=== PATIENT | female | born 1935 | race Caucasian/White ===

== ENCOUNTER 2017-11-24 19:50 | Inpatient (IN) | payer MEDICARE ==
--- NOTE | 2017-11-24 20:06 | ED ---
General Adult HPI - General Chief complaint: Shortness of Breath Stated complaint: SOB Time Seen by Provider: 11/24/17 20:06 Source: patient, family, RN notes reviewed, old records reviewed Mode of arrival: wheelchair Limitations: no limitations - History of Present Illness Initial comments: This is an 82-year-old female to the ER for evaluation shortness of breath. Patient has significant shortness of breath and mild anxiety regarding shortness of breath. Patient states is very positional she cannot laid out flat. Patient states she does have history of heart failure. Denies recent chest pain. No significant recent weight gain. No recent travel history no significant contacts. Patient states she is currently on antibiotics and steroids is not getting any better. Patient was seen in ER in [place] was given CAT scan chest x-ray labwork, told that she has CHF with bronchitis. Patient denies any change in fever. Patient again cannot lay flat, patient's main shortness of breath comes with exertion - Related Data Home Medications Medication Instructions Recorded Confirmed ALPRAZolam [Xanax] 0.25 mg PO DAILY PRN 11/24/17 11/24/17 Albuterol Sulfate [Proair Hfa] 2 puff INHALATION RT-Q4H PRN 11/24/17 11/24/17 Aspirin 81 mg PO HS 11/24/17 11/24/17 Atorvastatin [Lipitor] 10 mg PO HS 11/24/17 11/24/17 Azithromycin [Zithromax Z-pack] See Taper PO DAILY 11/24/17 11/24/17 Furosemide [Lasix] 10 mg PO DAILY 11/24/17 11/24/17 Lansoprazole [Prevacid] 30 mg PO DAILY PRN 11/24/17 11/24/17 methylPREDNISolone Dose Pack See Taper PO DAILY 11/24/17 11/24/17 [Medrol Dose Pack] Allergies Allergy/AdvReac Type Severity Reaction Status Date / Time No Known Allergies Allergy Verified 11/24/17 20:30 Review of Systems ROS Statement: Those systems with pertinent positive or pertinent negative responses have been documented in the HPI. ROS Other: All systems not noted in ROS Statement are negative. Past Medical History Past Medical History: Heart Failure, Hyperlipidemia History of Any Multi-Drug Resistant Organisms: None Reported Past Surgical History: Tonsillectomy Past Psychological History: Anxiety Smoking Status: Former smoker Past Alcohol Use History: Occasional Past Drug Use History: None Reported General Exam Limitations: no limitations General appearance: alert, in no apparent distress, anxious Head exam: Present: atraumatic, normocephalic, normal inspection Eye exam: Present: normal appearance, PERRL, EOMI. Absent: scleral icterus, conjunctival injection, periorbital swelling ENT exam: Present: normal exam, mucous membranes moist Neck exam: Present: normal inspection. Absent: tenderness, meningismus, lymphadenopathy Respiratory exam: Present: normal lung sounds bilaterally. Absent: respiratory distress, wheezes, rales, rhonchi, stridor Cardiovascular Exam: Present: regular rate, normal rhythm, normal heart sounds. Absent: systolic murmur, diastolic murmur, rubs, gallop, clicks GI/Abdominal exam: Present: soft, normal bowel sounds. Absent: distended, tenderness, guarding, rebound, rigid Extremities exam: Present: normal inspection, full ROM, normal capillary refill. Absent: tenderness, pedal edema, joint swelling, calf tenderness Back exam: Present: normal inspection Neurological exam: Present: alert, oriented X3, CN II-XII intact Psychiatric exam: Present: normal affect, normal mood Skin exam: Present: warm, dry, intact, normal color. Absent: rash Course Vital Signs 11/24/17 19:53 Temperature 96.9 F L Pulse Rate 107 H Respiratory 18 Rate Blood Pressure 115/62 O2 Sat by Pulse 97 Oximetry - Reevaluation(s) Reevaluation #1: 11/24/17 22:06 Patient has significant exertional shortness of breath. Reevaluation #2: 11/24/17 22:07 Papers reviewed from prior inpatient her ER observation, patient had troponin negative 3, CT chest negative for PE EKG Findings - EKG Comments: EKG Findings:: EKG shows sinus tachycardia rate 102, ID 140, QRS 06, QTc 450 Medical Decision Making - Medical Decision Making 82 female the ER for evaluation of CHF exertional dyspnea and elevated troponin. Patient be admitted for non-STEMI with CHF. Cardiology observation, treatment - Lab Data Result diagrams: 11/24/17 20:23 11/24/17 20:23 Lab Results 11/24/17 11/24/17 11/24/17 Range/Units 20:23 20:23 20:23 WBC 10.9 H (3.8-10.6) k/uL RBC 4.92 (3.80-5.40) m/uL Hgb 13.9 (11.4-16.0) gm/dL Hct 42.7 (34.0-46.0) % MCV 86.8 (80.0-100.0) fL MCH 28.3 (25.0-35.0) pg MCHC 32.6 (31.0-37.0) g/dL RDW 13.8 (11.5-15.5) % Plt Count 314 (150-450) k/uL Neutrophils % 80 % Lymphocytes % 12 % Monocytes % 6 % Eosinophils % 1 % Basophils % 0 % Neutrophils # 8.7 H (1.3-7.7) k/uL Lymphocytes # 1.4 (1.0-4.8) k/uL Monocytes # 0.6 (0-1.0) k/uL Eosinophils # 0.1 (0-0.7) k/uL Basophils # 0.0 (0-0.2) k/uL PT (9.0-12.0) sec INR (<1.2) APTT (22.0-30.0) sec D-Dimer (<0.60) mg/L FEU Sodium 139 (137-145) mmol/L Potassium 4.3 (3.5-5.1) mmol/L Chloride 103 (98-107) mmol/L Carbon Dioxide 25 (22-30) mmol/L Anion Gap 11 mmol/L BUN 29 H (7-17) mg/dL Creatinine 1.12 H (0.52-1.04) mg/dL Est GFR (MDRD) Af Amer 56 (>60 ml/min/1.73 sqM) Est GFR (MDRD) Non-Af 46 (>60 ml/min/1.73 sqM) Glucose 122 H (74-99) mg/dL Calcium 9.4 (8.4-10.2) mg/dL Magnesium 1.9 (1.6-2.3) mg/dL Total Bilirubin 0.7 (0.2-1.3) mg/dL AST 43 H (14-36) U/L ALT 49 (9-52) U/L Alkaline Phosphatase 87 (38-126) U/L Total Creatine Kinase 119 (30-135) U/L CK-MB (CK-2) 2.7 H* (0.0-2.4) ng/mL CK-MB (CK-2) Rel Index 2.3 Troponin I 0.185 H* (0.000-0.034) ng/mL NT-Pro-B Natriuret Pep pg/mL Total Protein 6.4 (6.3-8.2) g/dL Albumin 3.9 (3.5-5.0) g/dL 11/24/17 11/24/17 Range/Units 20:23 20:23 WBC (3.8-10.6) k/uL RBC (3.80-5.40) m/uL Hgb (11.4-16.0) gm/dL Hct (34.0-46.0) % MCV (80.0-100.0) fL MCH (25.0-35.0) pg MCHC (31.0-37.0) g/dL RDW (11.5-15.5) % Plt Count (150-450) k/uL Neutrophils % % Lymphocytes % % Monocytes % % Eosinophils % % Basophils % % Neutrophils # (1.3-7.7) k/uL Lymphocytes # (1.0-4.8) k/uL Monocytes # (0-1.0) k/uL Eosinophils # (0-0.7) k/uL Basophils # (0-0.2) k/uL PT 11.2 (9.0-12.0) sec INR 1.2 H (<1.2) APTT 23.5 (22.0-30.0) sec D-Dimer 0.69 H (<0.60) mg/L FEU Sodium (137-145) mmol/L Potassium (3.5-5.1) mmol/L Chloride (98-107) mmol/L Carbon Dioxide (22-30) mmol/L Anion Gap mmol/L BUN (7-17) mg/dL Creatinine (0.52-1.04) mg/dL Est GFR (MDRD) Af Amer (>60 ml/min/1.73 sqM) Est GFR (MDRD) Non-Af (>60 ml/min/1.73 sqM) Glucose (74-99) mg/dL Calcium (8.4-10.2) mg/dL Magnesium (1.6-2.3) mg/dL Total Bilirubin (0.2-1.3) mg/dL AST (14-36) U/L ALT (9-52) U/L Alkaline Phosphatase (38-126) U/L Total Creatine Kinase (30-135) U/L CK-MB (CK-2) (0.0-2.4) ng/mL CK-MB (CK-2) Rel Index Troponin I (0.000-0.034) ng/mL NT-Pro-B Natriuret Pep 80497 pg/mL Total Protein (6.3-8.2) g/dL Albumin (3.5-5.0) g/dL - Radiology Data Radiology results: report reviewed (Chest x-rays positive for CHF), image reviewed Critical Care Time Critical Care Time: Yes Total Critical Care Time: 31 Disposition Clinical Impression: NSTEMI (non-ST elevated myocardial infarction), Congestive heart failure, Acute pulmonary edema Disposition: ADMITTED IP TO THIS [facility] Condition: Serious Referrals: Lawrence Landeros DO [Primary Care Provider] - 1-2 days
[2017-11-24 20:49] LABS: Albumin 3.9 g/dL (3.5-5.0); Calcium 9.4 mg/dL (8.4-10.2); Magnesium 1.9 mg/dL (1.6-2.3); Potassium 4.3 mmol/L (3.5-5.1); Total Bilirubin 0.7 mg/dL (0.2-1.3); Total Protein 6.4 g/dL (6.3-8.2)
[2017-11-24 20:56] LABS: D-Dimer 0.69 mg/L FEU (<0.60)
[2017-11-24 21:01] LABS: INR 1.2 (<1.2); Partial Thromboplastin Time 23.5 sec (22.0-30.0); Prothrombin Time 11.2 sec (9.0-12.0)
--- NOTE | 2017-11-24 21:09 | XR ---
EXAMINATION TYPE: XR chest 2V DATE OF EXAM: 11/24/2017 COMPARISON: 09/27/2014 HISTORY: Shortness of breath FINDINGS: Noted is pulmonary venous congestion with scattered infiltrates. There is also cardiomegaly and small effusions. IMPRESSION: Findings compatible with congestive failure. Infiltrates of other etiology are not excluded. Clinical correlation and progress studies are recommended.
[2017-11-24 21:21] LABS: Creatine Kinase MB 2.7 ng/mL (0.0-2.4); Troponin I 0.185 ng/mL (0.000-0.034)
[2017-11-24 21:23] LABS: Basophils % (A) 0 %; Eosinophils # (A) 0.1 k/uL (0-0.7); Eosinophils % (A) 1 %; HCT 42.7 % (34.0-46.0); HGB 13.9 gm/dL (11.4-16.0); Lymphocytes # (A) 1.4 k/uL (1.0-4.8); Lymphocytes % (A) 12 %; MCH 28.3 pg (25.0-35.0); MCHC 32.6 g/dL (31.0-37.0); MCV 86.8 fL (80.0-100.0); Mean Platelet Volume 8.1; Monocytes # (A) 0.6 k/uL (0-1.0); Monocytes % (A) 6 %; Neutrophils # (A) 8.7 k/uL (1.3-7.7); Neutrophils % (A) 80 %; Platelet Count 314 k/uL (150-450); RBC 4.92 m/uL (3.80-5.40); RDW 13.8 % (11.5-15.5); WBC 10.9 k/uL (3.8-10.6)
[2017-11-24] MEDS ORDERED: ASPIRIN 81 MG PO STA (22:03)
[2017-11-24] MEDS ORDERED: MORPHINE SULFATE 4 MG/ML SYRINGE IV PRN (22:03)
[2017-11-24] MEDS ORDERED: HEPARIN SODIUM,PORCINE 5,000 UNIT/ML 1 ML VIAL IV PRN (22:03)
[2017-11-24] MEDS ORDERED: NITROGLYCERIN SL TABS 0.4 MG TAB SUBLINGUAL PRN (22:03)
[2017-11-24] MEDS ORDERED: HEPARIN SODIUM,PORCINE 5,000 UNIT/ML 1 ML VIAL IV ONE (22:03)
[2017-11-24] MEDS: HEPARIN SOD,PORK IN 0.45% NACL 25,000 UNIT in 0.45% NACL 1 500ML.BAG IV SCH (22:40)
[2017-11-25] MEDS: FUROSEMIDE 10 MG/ML 4 ML VIAL IV SCH ×3 (00:02→23:20)
[2017-11-25 03:23] LABS: Creatine Kinase MB 2.4 ng/mL (0.0-2.4)
[2017-11-25 03:29] LABS: Troponin I 0.157 ng/mL (0.000-0.034)
[2017-11-25 05:59] LABS: Mean Platelet Volume 7.7; Platelet Count 305 k/uL (150-450)
[2017-11-25 06:14] LABS: Cholesterol 145 mg/dL (<200); HDL Cholesterol 69 mg/dL (40-60); LDL Cholesterol,Calculated 61 mg/dL (0-99); Triglycerides 76 mg/dL (<150)
[2017-11-25 09:08] LABS: Creatine Kinase MB 1.8 ng/mL (0.0-2.4)
[2017-11-25 09:20] LABS: Troponin I 0.152 ng/mL (0.000-0.034)
--- NOTE | 2017-11-25 10:19 | P.CRDCN ---
History of Present Illness Consult date: 11/25/17 Requesting physician: Lawrence Landeros Consult reason: congestive heart failure Chief complaint: Shortness of breath and bilateral leg swelling History of present illness: Is a pleasant 82-year-old female who follows with Dr. VC Jin in the office. She has a known history of hyperlipidemia, patient also used to be a smoker, September 18 she quit smoking. According to the patient, on September 18 she had an episode where she woke up at night very short of breath and unable to breathe, she sat up straight, relax, and in the morning she felt better. Patient then went on a trip to [place], and on 2 separate episodes she became quite short of breath. She did make a visit to the doctor's office there, was treated with steroids and antibiotics. She also noted herself to be exertionally short of breath. She ultimately went to a hospital in [place], CAT scan apparently was performed there, as well as chest x-ray, and patient was told to have mild congestive heart failure. She was discharged from the hospital, flew home to [place] with any overt problems. According to the patient, she normally has no difficulty in breathing prior to these episodes, she denies any prior myocardial infarction, she also states that she has never had swelling in her legs until now. EKG performed on admission here showed a sinus tachycardia with ST-T wave changes noted in the lateral leads. Chest x- ray on admission revealed findings compatible with congestive heart failure. Infiltrates of other etiology not excluded. Blood pressure 106/60, heart rate in the 80s, 97 temperature, 98% on room air. White blood cell count on arrival here 10.9, hemoglobin 13.9, platelet count 314. D-dimer 0.69. Sodium 139, potassium 4.3, BUN 29, creatinine 1.1. Troponins 0.18, 0.15, 0.15. BNP 11, 700. Patient was initiated on 40 mg of Lasix IV twice a day, states that she diuresed well through the night last night. The patient was also started on an aspirin on admission because of the abnormal troponins as well as metoprolol. At the time of my examination this morning, she states that her breathing is significantly improved. Edema is much improved. Past Medical History Past Medical History: Heart Failure, Hyperlipidemia History of Any Multi-Drug Resistant Organisms: None Reported Past Surgical History: Tonsillectomy Past Psychological History: Anxiety Smoking Status: Former smoker Past Alcohol Use History: Occasional Past Drug Use History: None Reported Medications and Allergies Home Medications Medication Instructions Recorded Confirmed Type ALPRAZolam [Xanax] 0.25 mg PO DAILY PRN 11/24/17 11/24/17 History Albuterol Sulfate [Proair Hfa] 2 puff INHALATION RT-Q4H PRN 11/24/17 11/24/17 History Aspirin 81 mg PO HS 11/24/17 11/24/17 History Atorvastatin [Lipitor] 10 mg PO HS 11/24/17 11/24/17 History Azithromycin [Zithromax Z-pack] See Taper PO DAILY 11/24/17 11/24/17 History Furosemide [Lasix] 10 mg PO DAILY 11/24/17 11/24/17 History Lansoprazole [Prevacid] 30 mg PO DAILY PRN 11/24/17 11/24/17 History methylPREDNISolone Dose Pack See Taper PO DAILY 11/24/17 11/24/17 History [Medrol Dose Pack] Allergies Allergy/AdvReac Type Severity Reaction Status Date / Time No Known Allergies Allergy Verified 11/24/17 20:30 Physical Exam Vitals: Vital Signs Temp Pulse Pulse Resp BP BP Pulse Ox 11/25/17 08:42 97.7 F 69 16 92/55 95 11/25/17 04:00 97.0 F L 87 18 106/63 98 11/25/17 00:00 103 H 18 11/24/17 23:05 96.8 F L 103 H 18 131/79 11/24/17 22:15 96.8 F L 90 18 107/65 97 11/24/17 19:53 96.9 F L 107 H 18 115/62 97 Intake and Output 11/24/17 11/25/17 11/25/17 22:59 06:59 14:59 Intake Total 265.172 0 Output Total 1200 Balance -934.828 0 Intake: IV 160 0.9 160 Intake, IV Titration 105.172 Amount Heparin Sod,Pork in 0.45% 105.172 NaCl 25,000 unit In 0.45 % NaCl 1 500ml.bag @ 12 UNITS/KG/HR 13.93 mls/hr IV .Q24H [facility] Rx#: [id number] Oral 0 Output: Urine 1200 Other: Voiding Method Toilet Toilet Weight 58.06 kg 58.6 kg PHYSICAL EXAMINATION: HEENT: Head is atraumatic, normocephalic. Pupils equal, round. Neck is supple. There is no elevated jugular venous pressure. HEART EXAMINATION: Heart S1, S2 normal. No murmur or gallop heard. CHEST EXAMINATION:'s reveal fine rales to bilateral bases ABDOMEN: Soft, nontender. Bowel sounds are heard. No organomegaly noted. EXTREMITIES: 2+ peripheral pulses with trace evidence of peripheral edema and no calf tenderness noted. NEUROLOGIC patient is awake, alert and oriented -3. . Results 11/25/17 05:21 11/24/17 20:23 Cardiac Enzymes 11/24/17 11/24/17 11/25/17 Range/Units 20:23 20:23 02:13 AST 43 H (14-36) U/L CK-MB (CK-2) 2.7 H* 2.4 (0.0-2.4) ng/mL Troponin I 0.185 H* 0.157 H* (0.000-0.034) ng/mL 11/25/17 Range/Units 08:12 AST (14-36) U/L CK-MB (CK-2) 1.8 (0.0-2.4) ng/mL Troponin I 0.152 H* (0.000-0.034) ng/mL Coagulation 11/24/17 11/25/17 Range/Units 20:23 05:21 PT 11.2 (9.0-12.0) sec APTT 23.5 38.2 H (22.0-30.0) sec Lipids 11/25/17 Range/Units 05:21 Triglycerides 76 (<150) mg/dL Cholesterol 145 (<200) mg/dL HDL Cholesterol 69 H (40-60) mg/dL CBC 11/24/17 11/25/17 Range/Units 20:23 05:21 WBC 10.9 H (3.8-10.6) k/uL RBC 4.92 (3.80-5.40) m/uL Hgb 13.9 (11.4-16.0) gm/dL Hct 42.7 (34.0-46.0) % Plt Count 314 305 (150-450) k/uL Comprehensive Metabolic Panel 11/24/17 Range/Units 20:23 Sodium 139 (137-145) mmol/L Potassium 4.3 (3.5-5.1) mmol/L Chloride 103 (98-107) mmol/L Carbon Dioxide 25 (22-30) mmol/L BUN 29 H (7-17) mg/dL Creatinine 1.12 H (0.52-1.04) mg/dL Glucose 122 H (74-99) mg/dL Calcium 9.4 (8.4-10.2) mg/dL AST 43 H (14-36) U/L ALT 49 (9-52) U/L Alkaline Phosphatase 87 (38-126) U/L Total Protein 6.4 (6.3-8.2) g/dL Albumin 3.9 (3.5-5.0) g/dL Current Medications Generic Name Dose Route Start Last Admin Trade Name Freq PRN Reason Stop Dose Admin Aspirin 325 mg 11/25/17 09:00 Aspirin PO DAILY [facility] Atorvastatin Calcium 40 mg 11/25/17 21:00 Lipitor PO HS [facility] Furosemide 40 mg 11/24/17 23:00 11/25/17 00:02 Lasix IV 40 mg Q12H [facility] Administration Heparin Sodium (Porcine) 0 unit 11/24/17 22:03 Heparin IV Q6HR PRN Low PTT Protocol Heparin Sodium/Sodium Chloride 500 mls @ 13.93 mls/hr 11/24/17 22:15 06:13 25,000 unit/ Sodium Chloride IV 15 units/kg/hr .Q24H [facility] 17.41 mls/hr Protocol Titration 12 UNITS/KG/HR Metoprolol Tartrate 25 mg 11/25/17 09:00 Lopressor PO BID [facility] Morphine Sulfate 4 mg 11/24/17 22:03 Morphine Sulfate (Inj) IV Q5M PRN Chest Pain Nitroglycerin 0.4 mg 11/24/17 22:03 Nitrostat SUBLINGUAL Q5M PRN Chest Pain Intake and Output 11/24/17 11/25/17 11/25/17 22:59 06:59 14:59 Intake Total 265.172 0 Output Total 1200 Balance -934.828 0 Intake: IV 160 0.9 160 Intake, IV Titration 105.172 Amount Heparin Sod,Pork in 0.45% 105.172 NaCl 25,000 unit In 0.45 % NaCl 1 500ml.bag @ 12 UNITS/KG/HR 13.93 mls/hr IV .Q24H [facility] Rx#: [id number] Oral 0 Output: Urine 1200 Other: Voiding Method Toilet Toilet Weight 58.06 kg 58.6 kg 11/25/17 05:21 11/24/17 20:23 EKG Interpretations (text) EKG shows a sinus tachycardia with lateral T-wave inversion Assessment and Plan Plan: Assessment and plan #1 congestive heart failure, LV function unknown #2 hyperlipidemia #3 nicotine dependence, patient quit smoking in September 2017 #4 anxiety # 5 abnormal troponins, troponin 0.18, 0.15, 0.15. Troponin abnormality could be secondary to oxygen supply and demand mismatch. Cannot rule out underlying coronary artery disease. EKG shows a sinus tachycardia with lateral T-wave inversion, subsequent EKG performed this morning shows a normal sinus rhythm with ST-T wave changes in lateral leads. Plan We will recommend to continue the patient on IV Lasix. Continue to monitor intake and output along with daily weights. Daily lytes BUN and creatinine. Obtain echocardiogram with Doppler study. Continue aspirin, Lipitor, metoprolol , CAT scan of the chest was performed in [place] on November 22 which revealed no evidence for pulmonary embolism. Small pericardial effusion noted, small to moderate bilateral pleural effusions. Once the patient's heart failure symptoms have resolved, she may need to undergo cardiac catheterization to rule out underlying coronary artery disease. The risks and benefits were explained to the patient and her granddaughter in detail. Her granddaughter is a cardiac nurse at [employer] [facility] [employer]. Further recommendations will be based on these findings and patient's clinical course. DNP note has been reviewed, I agree with a documented findings and plan of care. Patient was seen and examined.
[2017-11-25] MEDS: ASPIRIN 325 MG TAB PO SCH (11:24)
[2017-11-25] MEDS: METOPROLOL TARTRATE 25 MG TAB PO SCH ×2 (11:24→20:19)
[2017-11-25] MEDS ORDERED: ALPRAZolam 0.25 MG TAB PO PRN (14:20)
[2017-11-25] MEDS ORDERED: ALBUTEROL NEBULIZED 2.5 MG/3 ML INHALATION PRN (14:20)
--- NOTE | 2017-11-25 14:24 | P.HPIM ---
History of Present Illness H&P Date: 11/25/17 Chief Complaint: Shortness of breath 82-year-old female who presented to the emergency room with a chief complaint of shortness of breath. Patient states she has no prior respiratory issues or symptoms until September of 2017. Patient states she awoken from a sleep and was very short of breath. She states she was able to relax and slept in an upright position for the rest of the night. She states in the morning her symptoms resolved. She was just recently in [place] for a month at a rental house and had another episode where she was awoken from a sleep with difficulty breathing. The patient states she went to an urgent care in [place] and was given antibiotics, steroids, and an inhaler. She states her symptoms did not improve and noticed she was continually short of breath. She states she was not able to walk through the grocery store without becoming very short of breath and stopping a few times during shopping to catch her breath. She ended up going to a hospital in [place] for evaluation where she had a CT and chest xray done and was told she had congestive heart failure. Patient states she flew home and presented to the emergency room for further evaluation. She denies chest pain or pressure. Denies dizziness or lightheadness. Denies nausea or vomiting. Denies pain or discomfort. The patient has a history of congestive heart failure recently diagnosed in [place], hyperlipidemia, and anxiety. She is a former cigarette smoker and quit in September 2017. Chest x-ray: Findings compatible with congestive heart failure. Infiltrates or other etiologies not excluded EKG: Sinus tachycardia with ST-T wave changes in the lateral leads Laboratory data: WBC 10.9. Hemoglobin 13.9. Platelet count 314. Sodium 139. Potassium 4.3. BUN 29. Creatinine 1.12. GFR 46. Glucose 122. Magnesium 1.9. Troponins: 0.25, 0.157, 0.152 BNP: 11,700 D-Dimer: 0.69 Lipid panel: Triglycerides 76, cholesterol 145, LDL 61, HDL 69 Testing for influenza A and B was negative The patient was admitted to the hospital under the care of Dr. Landeros. Consultations were placed to Cardiology. Review of Systems GENERAL: Patient denies fever. Denies chills. EYES: Denies blurred vision. Denies vision changes. Denies eye pain. EARS, NOSE, MOUTH, & THROAT: Denies headache. Denies sore throat. Denies ear pain. RESPIRATORY: Positive for shortness of breath. Denies cough. Denies sputum production. Denies hemoptysis. CARDIOVASCULAR: Denies chest pain or pressure. Denies palpitations. Denies arrhythmias. GASTROINTESTINAL: Denies abdominal pain. Denies diarrhea. Denies constipation. Denies nausea. Denies vomiting. Denies heartburn. Denies blood in the stool. GENITOURINARY: Denies urinary frequency. Denies burning. Denies dysuria. Denies cloudy urine. Denies blood in the urine. MUSCULOSKELETAL: Denies myalgias. Denies joint swelling. Denies decreased range of motion beyond patients baseline. INTEGUMENTARY: Denies pruitis. Denies rash. PSYCHIATRIC: Denies suicidal or homicial ideations. ENDOCRINE: Denies weight change. Denies polydipsia. Denies polyuria. HEMATOLOGIC: Denies bleeding disorders. Past Medical History Past Medical History: Heart Failure, Hyperlipidemia History of Any Multi-Drug Resistant Organisms: None Reported Past Surgical History: Tonsillectomy Past Psychological History: Anxiety Smoking Status: Former smoker Past Alcohol Use History: Occasional Past Drug Use History: None Reported Medications and Allergies Home Medications Medication Instructions Recorded Confirmed Type ALPRAZolam [Xanax] 0.25 mg PO DAILY PRN 11/24/17 11/24/17 History Albuterol Sulfate [Proair Hfa] 2 puff INHALATION RT-Q4H PRN 11/24/17 11/24/17 History Aspirin 81 mg PO HS 11/24/17 11/24/17 History Atorvastatin [Lipitor] 10 mg PO HS 11/24/17 11/24/17 History Azithromycin [Zithromax Z-pack] See Taper PO DAILY 11/24/17 11/24/17 History Furosemide [Lasix] 10 mg PO DAILY 11/24/17 11/24/17 History Lansoprazole [Prevacid] 30 mg PO DAILY PRN 11/24/17 11/24/17 History methylPREDNISolone Dose Pack See Taper PO DAILY 11/24/17 11/24/17 History [Medrol Dose Pack] Allergies Allergy/AdvReac Type Severity Reaction Status Date / Time No Known Allergies Allergy Verified 11/24/17 20:30 Physical Exam Vitals: Vital Signs Temp Pulse Pulse Resp BP BP Pulse Ox 11/25/17 11:52 97.8 F 90 16 112/57 98 11/25/17 08:42 97.7 F 69 16 92/55 95 11/25/17 04:00 97.0 F L 87 18 106/63 98 11/25/17 00:00 103 H 18 11/24/17 23:05 96.8 F L 103 H 18 131/79 11/24/17 22:15 96.8 F L 90 18 107/65 97 11/24/17 19:53 96.9 F L 107 H 18 115/62 97 Intake and Output 11/24/17 11/25/17 11/25/17 22:59 06:59 14:59 Intake Total 265.172 127.093 Output Total 1200 Balance -934.828 127.093 Intake: IV 160 0.9 160 Intake, IV Titration 105.172 127.093 Amount Heparin Sod,Pork in 0.45% 105.172 127.093 NaCl 25,000 unit In 0.45 % NaCl 1 500ml.bag @ 12 UNITS/KG/HR 13.93 mls/hr IV .Q24H [facility] Rx#: [id number] Oral 0 Output: Urine 1200 Other: Voiding Method Toilet Toilet Weight 58.06 kg 58.6 kg GENERAL: This is a 82-year-old female in no apparent distress at the time of examination. Pleasant and cooperative. HEENT: Head is atraumatic, normocephalic. Pupils are equal, round, and reactive to light. Sclerae anicteric. Conjunctivae are clear. Mucus membranes of the mouth are moist. Neck is supple. RESPIRATORY: Respirations equal bilaterally. Fine rales to bilateral bases. No use of accessory muscles. Patient maintaining oxygen saturation greater than 92% on 2 L nasal cannula. No chest wall tenderness is noted on palpation or with deep breathing. CARDIOVASCULAR: Regular rate and rhythm. S1 and S2 noted. No systolic or diastolic murmur auscultated. No JVD noted. No S3 or S4 noted. GASTROINTESTINAL: No distention noted. Abdomen soft and round. Normal active bowel sounds auscultated x 4 quadrants. No pain or tenderness noted upon palpation. INTEGUMENTARY: No cyanosis. No jaundice. No rashes noted. No cellulitis noted. EXTREMITIES: 2+ peripheral pulses. Trace bilateral lower extremity edema. No calf tenderness noted. NEUROLOGIC: Cranial nerves II-XII intact. PSYCHIATRIC: Awake, alert, and oriented X 3. Appropriate affect. Intact judgement and insight. Results CBC & Chem 7: 11/25/17 05:21 11/24/17 20:23 Labs: Abnormal Lab Results - Last 24 Hours (Table) 11/24/17 11/24/17 11/24/17 Range/Units 20:23 20:23 20:23 WBC 10.9 H (3.8-10.6) k/uL Neutrophils # 8.7 H (1.3-7.7) k/uL INR (<1.2) APTT (22.0-30.0) sec D-Dimer (<0.60) mg/L FEU BUN 29 H (7-17) mg/dL Creatinine 1.12 H (0.52-1.04) mg/dL Glucose 122 H (74-99) mg/dL AST 43 H (14-36) U/L CK-MB (CK-2) 2.7 H* (0.0-2.4) ng/mL Troponin I 0.185 H* (0.000-0.034) ng/mL HDL Cholesterol (40-60) mg/dL 11/24/17 11/25/17 11/25/17 Range/Units 20:23 02:13 05:21 WBC (3.8-10.6) k/uL Neutrophils # (1.3-7.7) k/uL INR 1.2 H (<1.2) APTT (22.0-30.0) sec D-Dimer 0.69 H (<0.60) mg/L FEU BUN (7-17) mg/dL Creatinine (0.52-1.04) mg/dL Glucose (74-99) mg/dL AST (14-36) U/L CK-MB (CK-2) (0.0-2.4) ng/mL Troponin I 0.157 H* (0.000-0.034) ng/mL HDL Cholesterol 69 H (40-60) mg/dL 11/25/17 11/25/17 11/25/17 Range/Units 05:21 08:12 11:42 WBC (3.8-10.6) k/uL Neutrophils # (1.3-7.7) k/uL INR (<1.2) APTT 38.2 H 46.2 H (22.0-30.0) sec D-Dimer (<0.60) mg/L FEU BUN (7-17) mg/dL Creatinine (0.52-1.04) mg/dL Glucose (74-99) mg/dL AST (14-36) U/L CK-MB (CK-2) (0.0-2.4) ng/mL Troponin I 0.152 H* (0.000-0.034) ng/mL HDL Cholesterol (40-60) mg/dL Thrombosis Risk Factor Assmnt - Choose All That Apply Any of the Below Risk Factors Present?: No Other Risk Factors: No Other congenital or acquired thrombophilia - If yes, enter type in comment: No Thrombosis Risk Factor Assessment Level: Very Low Risk Assessment and Plan Plan: ASSESSMENT: Acute exacerbation of congestive heart failure, BNP 11,700, type unknown, echo pending Elevated troponins, 0.25, 0.157, 0.152, rule out coronary artery disease, cardiology following Hyperlipidemia Anxiety, unspecified Nicotine dependence, in remission, patient quit smoking in September 2017 PLAN: Cardiology on consult. Appreciate recommendations and input Continue Lasix 40 mg IV every 12 hours Await results of echocardiogram Accurate I's and O's Daily weights Home meds as appropriate Monitor labs. Recheck in a.m. GI prophylaxis: Protonix 40 mg PO Daily DVT prophylaxis: Patient currently on IV heparin Monitor vital signs and address as appropriate Discharge planning: Patient to return home when stable Further recommendations pending patient's course Nurse practitioner note has been reviewed by physician. Signing provider agrees with the documented findings, assessment, and plan of care.
--- NOTE | 2017-11-25 16:32 | ECHOF ---
Referral Reason:chf MEASUREMENTS -------- HEIGHT: 162.6 cm WEIGHT: 58.1 kg BP: 106/63 RVIDd: 1.7 cm (< 3.3) IVSd: 1.0 cm (0.6 - 1.1) LVIDd: 4.9 cm (3.9 - 5.3) LVPWd: 1.1 cm (0.6 - 1.1) IVSs: 1.2 cm LVIDs: 4.3 cm LVPWs: 1.3 cm LAESV Index (A-L): 34.04 ml/m Ao Diam: 2.7 cm (2.0 - 3.7) AV Cusp: 1.5 cm (1.5 - 2.6) LA Diam: 2.7 cm (2.7 - 3.8) EPSS: 1.6 cm MV E Maximino: 0.91 m/s MV DecT: 250 ms MV A Maximino: 0.56 m/s MV E/A Ratio: 1.62 RAP: 5.00 mmHg RVSP: 54.42 mmHg MV EF SLOPE: 51.37 mm/s (70 - 150) MV EXCURSION: 1.34 cm (> 18.000) FINDINGS -------- Sinus rhythm. This was a technically good study. The left ventricular size is normal. Left ventricular wall thickness is normal. There is severe g lobal hypokinesis of LV . Overall left ventricular systolic function is severely impaired with, an EF between 20 - 25 %. The right ventricle is normal in size and function. LA is moderately dilated 34-39 ml/m2 RA appears enlarged. Aortic valve is trileaflet and is mildly thickened. There is mild aortic regurgitation. There is no evidence of aortic stenosis. The mitral valve leaflets are mildly thickened. Moderate mitral regurgitation is present. Moderate to severe tricuspid regurgitation present. There is moderate pulmonary hypertension. The right ventricular systolic pressure, as measured by Doppler, is 54.42mmHg. Trace/mild (physiologic) pulmonic regurgitation. The aortic root size is normal. Normal inferior vena cava with normal inspiratory collapse consistent with estimated right atrial pre ssure of 5 mmHg. There is a small pericardial effusion is located near the right ventricle. Large Pleural Effusion. CONCLUSIONS -------- 1. Sinus rhythm. 2. This was a technically good study. 3. The left ventricular size is normal. 4. Left ventricular wall thickness is normal. 5. There is severe global hypokinesis of LV . 6. Overall left ventricular systolic function is severely impaired with, an EF between 20 - 25 %. 7. LA is moderately dilated 34-39 ml/m2 8. RA appears enlarged. 9. Aortic valve is trileaflet and is mildly thickened. 10. There is mild aortic regurgitation. 11. The mitral valve leaflets are mildly thickened. 12. Moderate mitral regurgitation is present. 13. Moderate to severe tricuspid regurgitation present. 14. There is moderate pulmonary hypertension. 15. The right ventricular systolic pressure, as measured by Doppler, is 54.42mmHg. 16. Trace/mild (physiologic) pulmonic regurgitation. 17. The aortic root size is normal. 18. There is a small pericardial effusion is located near the right ventricle. 19. Large Pleural Effusion. IRS AGENT: Obey Cam RDCS
[2017-11-25] MEDS: ATORVASTATIN 40 MG TAB PO SCH (20:20)
[2017-11-25] MEDS: HEPARIN SOD,PORK IN 0.45% NACL 25,000 UNIT in 0.45% NACL 1 500ML.BAG IV SCH (21:37)
[2017-11-26 06:37] LABS: Basophils # (A) 0.1 k/uL (0-0.2); Basophils % (A) 1 %; Eosinophils # (A) 0.4 k/uL (0-0.7); Eosinophils % (A) 4 %; HCT 43.6 % (34.0-46.0); HGB 13.4 gm/dL (11.4-16.0); Hypochromasia Slight; Lymphocytes # (A) 3.1 k/uL (1.0-4.8); Lymphocytes % (A) 29 %; MCH 28.1 pg (25.0-35.0); MCHC 30.7 g/dL (31.0-37.0); MCV 91.6 fL (80.0-100.0); Mean Platelet Volume 7.7; Monocytes # (A) 0.6 k/uL (0-1.0); Monocytes % (A) 6 %; Neutrophils # (A) 6.2 k/uL (1.3-7.7); Neutrophils % (A) 59 %; Platelet Count 316 k/uL (150-450); RBC 4.76 m/uL (3.80-5.40); RDW 13.8 % (11.5-15.5); WBC 10.5 k/uL (3.8-10.6)
[2017-11-26] MEDS: PANTOPRAZOLE 40 MG TABLET PO SCH (06:51)
[2017-11-26 07:05] LABS: Calcium 9.3 mg/dL (8.4-10.2); Magnesium 1.8 mg/dL (1.6-2.3); Potassium 3.4 mmol/L (3.5-5.1)
[2017-11-26] MEDS: METOPROLOL TARTRATE 25 MG TAB PO SCH (09:13)
[2017-11-26] MEDS: ASPIRIN 325 MG TAB PO SCH (09:13)
[2017-11-26] MEDS: DIGOXIN 125 MCG TAB PO SCH (09:13)
--- NOTE | 2017-11-26 09:48 | P.PN ---
Subjective Progress Note Date: 11/26/17 82-year-old female who presented to the emergency room with a chief complaint of shortness of breath. Patient states she has no prior respiratory issues or symptoms until September of 2017. Patient states she awoken from a sleep and was very short of breath. She states she was able to relax and slept in an upright position for the rest of the night. She states in the morning her symptoms resolved. She was just recently in [place] for a month at a rental house and had another episode where she was awoken from a sleep with difficulty breathing. The patient states she went to an urgent care in [place] and was given antibiotics, steroids, and an inhaler. She states her symptoms did not improve and noticed she was continually short of breath. She states she was not able to walk through the grocery store without becoming very short of breath and stopping a few times during shopping to catch her breath. She ended up going to a hospital in [place] for evaluation where she had a CT and chest xray done and was told she had congestive heart failure. Patient states she flew home and presented to the emergency room for further evaluation. She denies chest pain or pressure. Denies dizziness or lightheadness. Denies nausea or vomiting. Denies pain or discomfort. The patient has a history of congestive heart failure recently diagnosed in [place], hyperlipidemia, and anxiety. She is a former cigarette smoker and quit in September 2017. Chest x-ray: Findings compatible with congestive heart failure. Infiltrates or other etiologies not excluded EKG: Sinus tachycardia with ST-T wave changes in the lateral leads Laboratory data: WBC 10.9. Hemoglobin 13.9. Platelet count 314. Sodium 139. Potassium 4.3. BUN 29. Creatinine 1.12. GFR 46. Glucose 122. Magnesium 1.9. Troponins: 0.25, 0.157, 0.152 BNP: 11,700 D-Dimer: 0.69 Lipid panel: Triglycerides 76, cholesterol 145, LDL 61, HDL 69 Testing for influenza A and B was negative The patient was admitted to the hospital under the care of Dr. Landeros. Consultations were placed to Cardiology. 11/26/2017 Patient seen and examined at the bedside. Patient is awake and alert. Patient denies chest pain or pressure. Her shortness of breath has improved. She is on room air with oxygen saturations greater than 92%. She is tolerating PO intake without nausea or vomiting. Vital signs have been stable. Denies pain or discomfort. Echocardiogram was completed revealing severe global hypokinesis of LV, ejection fraction of 20-25%, mild aortic regurgitation, moderate mitral regurgitation, severe tricuspid regurgitation, moderate pulmonary hypertension, RVSP 54.42, small pericardial effusion, and large pleural effusion. Objective - Vital Signs Vital signs: Vital Signs Temp 97.6 F 11/26/17 04:00 Pulse 76 11/26/17 04:00 Resp 18 11/26/17 04:00 BP 100/59 11/26/17 04:00 Pulse Ox 92 L 11/26/17 08:27 Intake & Output 11/25/17 11/26/17 11/26/17 18:59 06:59 18:59 Intake Total 723.093 479.894 358 Balance 723.093 479.894 358 Weight 58.6 kg Intake: IV 320 0.9 320 Intake, IV Titration 127.093 159.894 Amount Heparin Sod,Pork in 0.45% 127.093 159.894 NaCl 25,000 unit In 0.45 % NaCl 1 500ml.bag @ 12 UNITS/KG/HR 13.93 mls/hr IV [facility] Rx#: [id number] Oral 596 358 Other: Voiding Method Toilet Toilet # Voids 1 - Exam GENERAL: This is a 82-year-old female in no apparent distress at the time of examination. Pleasant and cooperative. HEENT: Head is atraumatic, normocephalic. Pupils are equal, round, and reactive to light. Sclerae anicteric. Conjunctivae are clear. Mucus membranes of the mouth are moist. Neck is supple. RESPIRATORY: Respirations equal bilaterally. Lungs essentially clear throughout. Rales in bilateral bases have improved. No use of accessory muscles. Patient maintaining oxygen saturation greater than 92%. No chest wall tenderness is noted on palpation or with deep breathing. CARDIOVASCULAR: Regular rate and rhythm. S1 and S2 noted. No systolic or diastolic murmur auscultated. No JVD noted. No S3 or S4 noted. GASTROINTESTINAL: No distention noted. Abdomen soft and round. Normal active bowel sounds auscultated x 4 quadrants. No pain or tenderness noted upon palpation. INTEGUMENTARY: No cyanosis. No jaundice. No rashes noted. No cellulitis noted. EXTREMITIES: 2+ peripheral pulses. No lower extremity edema. No calf tenderness noted. NEUROLOGIC: Cranial nerves II-XII intact. PSYCHIATRIC: Awake, alert, and oriented X 3. Appropriate affect. Intact judgement and insight. - Labs CBC & Chem 7: 11/26/17 06:02 11/26/17 06:02 Labs: Abnormal Lab Results - Last 24 Hours (Table) 11/25/17 11/25/17 11/26/17 Range/Units 11:42 20:43 06:02 MCHC 30.7 L (31.0-37.0) g/dL APTT 46.2 H 63.4 H (22.0-30.0) sec Potassium (3.5-5.1) mmol/L Carbon Dioxide (22-30) mmol/L BUN (7-17) mg/dL Creatinine (0.52-1.04) mg/dL Glucose (74-99) mg/dL 11/26/17 11/26/17 Range/Units 06:02 06:02 MCHC (31.0-37.0) g/dL APTT 70.7 H (22.0-30.0) sec Potassium 3.4 L (3.5-5.1) mmol/L Carbon Dioxide 31 H (22-30) mmol/L BUN 28 H (7-17) mg/dL Creatinine 1.07 H (0.52-1.04) mg/dL Glucose 101 H (74-99) mg/dL Assessment and Plan Plan: ASSESSMENT: Acute exacerbation of systolic congestive heart failure, BNP 11,700, EF 20-25% Elevated troponins, 0.25, 0.157, 0.152, rule out coronary artery disease, cardiology following Moderate pulmonary hypertension Small pericardial effusion Large pleural effusion Hyperlipidemia Anxiety, unspecified Nicotine dependence, in remission, patient quit smoking in September 2017 PLAN: Cardiology on consult. Appreciate recommendations and input Continue Lasix 40 mg IV every 12 hours. Wean per cardiology. Obtain chest xray. If large pleural effusion persists, may consider pulmonary consult. Accurate I's and O's Daily weights Home meds as appropriate Monitor labs. Recheck in a.m. GI prophylaxis: Protonix 40 mg PO Daily DVT prophylaxis: Patient currently on IV heparin Monitor vital signs and address as appropriate Discharge planning: Patient to return home when stable Further recommendations pending patient's course Nurse practitioner note has been reviewed by physician. Signing provider agrees with the documented findings, assessment, and plan of care.
--- NOTE | 2017-11-26 10:06 | XR ---
EXAMINATION TYPE: XR chest 1V DATE OF EXAM: 11/26/2017 COMPARISON: 11/24/2017 INDICATION: Congestive heart failure TECHNIQUE: Single frontal view of the chest is obtained. FINDINGS: The heart size is mildly prominent. The pulmonary vasculature is prominent. Mild bibasilar infiltrates are present. Small bilateral pleural effusions are present. IMPRESSION: 1. Findings compatible congestive heart failure in the proper clinical setting. There may be slight i mprovement from prior study.
[2017-11-26] MEDS: FUROSEMIDE 10 MG/ML 4 ML VIAL IV SCH (14:55)
--- NOTE | 2017-11-26 15:50 | P.PN ---
Subjective Progress Note Date: 11/26/17 This is a pleasant 82-year-old female who follows with Dr. VC Jin in the office. She has a known history of hyperlipidemia, patient also used to be a smoker, September 18 she quit smoking. According to the patient, on September 18 she had an episode where she woke up at night very short of breath and unable to breathe, she sat up straight, relax, and in the morning she felt better. Patient then went on a trip to [place], and on 2 separate episodes she became quite short of breath. She did make a visit to the doctor's office there , was treated with steroids and antibiotics. She also noted herself to be exertionally short of breath. She ultimately went to a hospital in [place], CAT scan apparently was performed there, as well as chest x-ray, and patient was told to have mild congestive heart failure. She was discharged from the hospital, flew home to [place] without any overt problems. According to the patient, she normally has no difficulty in breathing prior to these episodes, she denies any prior myocardial infarction, she also states that she has never had swelling in her legs until now. EKG performed on admission here showed a sinus tachycardia with ST-T wave changes noted in the lateral leads. Chest x- ray on admission revealed findings compatible with congestive heart failure. Infiltrates of other etiology not excluded. Blood pressure 106/60, heart rate in the 80s, 97 temperature, 98% on room air. White blood cell count on arrival here 10.9, hemoglobin 13.9, platelet count 314. D-dimer 0.69. Sodium 139, potassium 4.3, BUN 29, creatinine 1.1. Troponins 0.18, 0.15, 0.15. BNP 11, 700. Patient was initiated on 40 mg of Lasix IV twice a day and has diuresed well. The patient was also started on an aspirin on admission because of the abnormal troponins as well as metoprolol. 2-D echo with Doppler shows severe global hypokinesis with a severely impaired LV systolic function, ejection fraction between 20-25%, moderate MR and moderate to severe TR with moderate pulmonary hypertension. Upon examination today, patient is sitting up in the bed visiting with family. She is feeling quite a bit better. Her edema has improved. She did have an episode of dizziness and her blood pressure has been low. Objective - Vital Signs Vital signs: Vital Signs Temp 96.8 F L 11/26/17 08:00 Pulse 65 11/26/17 12:00 Resp 18 11/26/17 04:00 BP 87/52 11/26/17 12:00 Pulse Ox 94 L 11/26/17 12:00 Intake & Output 11/25/17 11/26/17 11/26/17 18:59 06:59 18:59 Intake Total 723.093 479.894 598 Balance 723.093 479.894 598 Weight 58.6 kg Intake: IV 320 0.9 320 Intake, IV Titration 127.093 159.894 Amount Heparin Sod,Pork in 0.45% 127.093 159.894 NaCl 25,000 unit In 0.45 % NaCl 1 500ml.bag @ 12 UNITS/KG/HR 13.93 mls/hr IV .Q24H [facility] Rx#: [id number] Oral [id number] Other: Voiding Method Toilet Toilet # Voids 1 1 - Exam PHYSICAL EXAMINATION: HEENT: Head is atraumatic, normocephalic. Pupils equal, round. Neck is supple. There is no elevated jugular venous pressure. HEART EXAMINATION: Heart sounds regular, S1 and S2 normal. No murmur or gallop heard. CHEST EXAMINATION: Lungs reveal improved air entry. No chest wall tenderness is noted on palpation or with deep breathing. ABDOMEN: Soft, nontender. Bowel sounds are heard. No organomegaly noted. EXTREMITIES: 2+ peripheral pulses with no evidence of peripheral edema and no calf tenderness noted. NEUROLOGIC patient is awake, alert and oriented x3. . - Labs CBC & Chem 7: 11/26/17 06:02 11/26/17 06:02 Labs: Abnormal Lab Results - Last 24 Hours (Table) 11/25/17 11/26/17 11/26/17 Range/Units 20:43 06:02 06:02 MCHC 30.7 L (31.0-37.0) g/dL APTT 63.4 H (22.0-30.0) sec Potassium 3.4 L (3.5-5.1) mmol/L Carbon Dioxide 31 H (22-30) mmol/L BUN 28 H (7-17) mg/dL Creatinine 1.07 H (0.52-1.04) mg/dL Glucose 101 H (74-99) mg/dL 11/26/17 Range/Units 06:02 MCHC (31.0-37.0) g/dL APTT 70.7 H (22.0-30.0) sec Potassium (3.5-5.1) mmol/L Carbon Dioxide (22-30) mmol/L BUN (7-17) mg/dL Creatinine (0.52-1.04) mg/dL Glucose (74-99) mg/dL Assessment and Plan Assessment: #1 systolic congestive heart failure, acute on chronic #2 hyperlipidemia #3 nicotine dependence, patient quit smoking in September 2017 #4 anxiety #5 abnormal troponins, could be secondary to oxygen supply and demand mismatch however we cannot rule out underlying coronary artery disease Plan: From cardiology perspective, we will switch the patient to by mouth Lasix and decrease the metoprolol. Based on elevated troponins and echocardiogram findings patient will require further evaluation for CAD. Patient will possibly be scheduled to undergo cardiac catheterization on Wednesday. We will continue to follow the patient and provide further recommendations accordingly. DIRECTOR OF RETAIL OPERATIONS note has been reviewed, I agree with a documented findings and plan of care. Patient was seen and examined.
[2017-11-26] MEDS: FUROSEMIDE 40 MG TAB PO SCH (16:14)
[2017-11-26] MEDS: METOPROLOL TARTRATE 12.5 MG TAB PO SCH (20:07)
[2017-11-26] MEDS: ATORVASTATIN 40 MG TAB PO SCH (20:08)
[2017-11-26] MEDS ORDERED: MORPHINE ORAL SOLN 10 MG/5 ML CUP PO PRN (20:23)
[2017-11-26] MEDS: HEPARIN SOD,PORK IN 0.45% NACL 25,000 UNIT in 0.45% NACL 1 500ML.BAG IV SCH (22:47)
[2017-11-27] MEDS: PANTOPRAZOLE 40 MG TABLET PO SCH (06:35)
[2017-11-27 06:55] LABS: Mean Platelet Volume 8.7; Platelet Count 262 k/uL (150-450)
[2017-11-27 07:32] LABS: Anion Gap 8 mmol/L; Blood Urea Nitrogen 25 mg/dL (7-17); Calcium 8.9 mg/dL (8.4-10.2); Carbon Dioxide 30 mmol/L (22-30); Chloride 102 mmol/L (98-107); Glucose 91 mg/dL (74-99); Potassium 3.2 mmol/L (3.5-5.1); Sodium 140 mmol/L (137-145)
[2017-11-27] MEDS: ASPIRIN 325 MG TAB PO SCH (07:55)
[2017-11-27] MEDS: DIGOXIN 125 MCG TAB PO SCH (07:55)
[2017-11-27] MEDS ORDERED: Potassium Replacement Protocol 1 EACH MISC MISCELLANE PRN (12:21)
[2017-11-27] MEDS: FUROSEMIDE 40 MG TAB PO SCH (12:22)
[2017-11-27] MEDS: METOPROLOL TARTRATE 12.5 MG TAB PO SCH ×2 (12:23→19:57)
[2017-11-27] MEDS: POTASSIUM CHLORIDE ER 20 MEQ TAB.ER PO SCH ×2 (12:51→12:52)
--- NOTE | 2017-11-27 14:29 | P.PN ---
Subjective Progress Note Date: 11/27/17 This is a pleasant 82-year-old female who follows with Dr. VC Jin in the office. She has a known history of hyperlipidemia, patient also used to be a smoker, September 18 she quit smoking. According to the patient, on September 18 she had an episode where she woke up at night very short of breath and unable to breathe, she sat up straight, relax, and in the morning she felt better. Patient then went on a trip to [place], and on 2 separate episodes she became quite short of breath. She did make a visit to the doctor's office there , was treated with steroids and antibiotics. She also noted herself to be exertionally short of breath. She ultimately went to a hospital in [place], CAT scan apparently was performed there, as well as chest x-ray, and patient was told to have mild congestive heart failure. She was discharged from the hospital, flew home to [place] without any overt problems. According to the patient, she normally has no difficulty in breathing prior to these episodes, she denies any prior myocardial infarction, she also states that she has never had swelling in her legs until now. EKG performed on admission here showed a sinus tachycardia with ST-T wave changes noted in the lateral leads. Chest x- ray on admission revealed findings compatible with congestive heart failure. Infiltrates of other etiology not excluded. Blood pressure 106/60, heart rate in the 80s, 97 temperature, 98% on room air. White blood cell count on arrival here 10.9, hemoglobin 13.9, platelet count 314. D-dimer 0.69. Sodium 139, potassium 4.3, BUN 29, creatinine 1.1. Troponins 0.18, 0.15, 0.15. BNP 11, 700. Patient was initiated on 40 mg of Lasix IV twice a day and has diuresed well. The patient was also started on an aspirin on admission because of the abnormal troponins as well as metoprolol. 2-D echo with Doppler shows severe global hypokinesis with a severely impaired LV systolic function, ejection fraction between 20-25%, moderate MR and moderate to severe TR with moderate pulmonary hypertension. Upon examination today, patient is sitting up in the bed visiting with family. She is feeling quite a bit better. Her edema has resolved. Her blood pressure has been low and her potassium is 3.4 today. Objective - Vital Signs Vital signs: Vital Signs Temp 96.5 F L 11/27/17 07:55 Pulse 68 11/27/17 07:55 Resp 16 11/27/17 11:22 BP 86/49 11/27/17 07:55 Pulse Ox 93 L 11/27/17 07:55 Intake & Output 11/26/17 11/27/17 11/27/17 18:59 06:59 18:59 Intake Total 838 496.79 Balance 838 496.79 Weight 55.2 kg Intake: Intake, IV Titration 496.79 Amount Heparin Sod,Pork in 0.45% 496.79 NaCl 25,000 unit In 0.45 % NaCl 1 500ml.bag @ 12 UNITS/KG/HR 13.93 mls/hr IV .Q24H [facility] Rx#: [id number] Oral 838 Other: Voiding Method Toilet Toilet # Voids 1 2 - Exam PHYSICAL EXAMINATION: HEENT: Head is atraumatic, normocephalic. Pupils equal, round. Neck is supple. There is no elevated jugular venous pressure. HEART EXAMINATION: Heart sounds regular, S1 and S2 normal. No murmur or gallop heard. CHEST EXAMINATION: Lungs reveal improved air entry. No chest wall tenderness is noted on palpation or with deep breathing. ABDOMEN: Soft, nontender. Bowel sounds are heard. No organomegaly noted. EXTREMITIES: 2+ peripheral pulses with no evidence of peripheral edema and no calf tenderness noted. NEUROLOGIC patient is awake, alert and oriented x3. . - Labs CBC & Chem 7: 11/27/17 05:32 11/27/17 05:32 Labs: Abnormal Lab Results - Last 24 Hours (Table) 11/27/17 11/27/17 Range/Units 05:32 05:32 APTT 84.7 H (22.0-30.0) sec Potassium 3.2 L (3.5-5.1) mmol/L BUN 25 H (7-17) mg/dL Assessment and Plan Assessment: #1 systolic congestive heart failure, acute on chronic #2 hyperlipidemia #3 nicotine dependence, patient quit smoking in September 2017 #4 anxiety #5 abnormal troponins, could be secondary to oxygen supply and demand mismatch however we cannot rule out underlying coronary artery disease Plan: From cardiology perspective, we will decrease Lasix dose. We'll replace potassium. We will add Aldactone 12.5 mg daily. Based on elevated troponins and echocardiogram findings patient will require further evaluation for CAD. Patient will be scheduled to undergo cardiac catheterization on Wednesday. We will continue to follow the patient and provide further recommendations accordingly. WHEEL PRESSER note has been reviewed, I agree with a documented findings and plan of care. Patient was seen and examined.
[2017-11-27] MEDS ORDERED: ALPRAZolam 0.25 MG TAB PO PRN (14:30)
[2017-11-27] MEDS: FUROSEMIDE 20 MG TAB PO SCH (16:13)
[2017-11-27] MEDS: ATORVASTATIN 40 MG TAB PO SCH (19:57)
[2017-11-27] MEDS: HEPARIN SOD,PORK IN 0.45% NACL 25,000 UNIT in 0.45% NACL 1 500ML.BAG IV SCH (23:23)
[2017-11-28] MEDS: PANTOPRAZOLE 40 MG TABLET PO SCH (06:17)
[2017-11-28] MEDS: ASPIRIN 325 MG TAB PO SCH (07:59)
[2017-11-28] MEDS: SPIRONOLACTONE 25 MG TAB PO SCH (08:00)
[2017-11-28] MEDS: DIGOXIN 125 MCG TAB PO SCH (08:00)
[2017-11-28] MEDS: FUROSEMIDE 20 MG TAB PO SCH ×2 (08:00→16:56)
[2017-11-28] MEDS: METOPROLOL TARTRATE 12.5 MG TAB PO SCH ×2 (08:00→19:46)
[2017-11-28 09:02] LABS: Anion Gap 11 mmol/L; Blood Urea Nitrogen 18 mg/dL (7-17); Calcium 9.2 mg/dL (8.4-10.2); Carbon Dioxide 26 mmol/L (22-30); Chloride 105 mmol/L (98-107); Glucose 126 mg/dL (74-99); Potassium 3.7 mmol/L (3.5-5.1); Sodium 142 mmol/L (137-145)
--- NOTE | 2017-11-28 13:48 | P.PN ---
Subjective Progress Note Date: 11/28/17 Mrs. Sifuentes is seen sitting up in bed in no acute distress. She denies any chest pain, dizziness, palpitations, syncope, nausea or vomiting. She has had 2-3 episodes of diarrhea after eating. When she gets up to the bathroom she feels she is rushing to make it in there and has shortness of breath associated with it. Telemetry tracings have been unremarkable. Plan is for her to undergo cardiac catherization tomorrow. Cr. 1.01, potassium 3.7. Aldactone was added yesterday and she is maintained on oral lasix currently. Swelling in legs is completely resolved. Objective - Vital Signs Vital signs: Vital Signs Temp 96.7 F L 11/28/17 08:00 Pulse 59 L 11/28/17 12:00 Resp 16 11/28/17 12:00 BP 110/58 11/28/17 12:00 Pulse Ox 98 11/28/17 12:00 Intake & Output 11/27/17 11/28/17 11/28/17 18:59 06:59 18:59 Intake Total 540 517.517 235.104 Output Total 800 Balance -260 517.517 235.104 Weight 56.1 kg Intake: Intake, IV Titration 517.517 115.104 Amount Heparin Sod,Pork in 0.45% 517.517 115.104 NaCl 25,000 unit In 0.45 % NaCl 1 500ml.bag @ 12 UNITS/KG/HR 13.93 mls/hr IV .Q24H [facility] Rx#: [id number] Oral 540 120 Output: Urine 800 Other: Voiding Method Toilet Toilet Toilet # Voids 4 - Exam Blood pressure 110/58 heart rate 59 afebrile. GENERAL: Well-appearing, well-nourished and in no acute distress. NECK: Supple without JVD or thyromegaly. LUNGS: Breath sounds clear to auscultation bilaterally. Respiration equal and unlabored. No wheezes, rales or rhonchi.diminished. HEART: Regular rate and rhythm without murmurs, rubs or gallops. S1 and S2 heard. EXTREMITIES: Normal range of motion, no edema. No clubbing or cyanosis. Peripheral pulses intact and strong. - Labs CBC & Chem 7: 11/27/17 05:32 02/11/18 07:45 Labs: Abnormal Lab Results - Last 24 Hours (Table) 11/27/17 11/28/17 11/28/17 Range/Units 23:42 07:45 07:45 APTT 171.4 H* 99.1 H* (22.0-30.0) sec BUN 18 H (7-17) mg/dL Glucose 126 H (74-99) mg/dL Assessment and Plan Assessment: ASSESSMENT 1. Systolic heart failure, acute on chronic 2. Dyslipidemia 3. Chronic tobacco abuse 4. Abnormal troponins, could be secondary to oxygen supply and demand mismatch however cannot rule out underlying CAD 5. Hypokalemia, resolved. PLAN Continue with current medical treatment. Plan for catheterization tomorrow. Further recommendations to follow. Nurse Practitioner note has been reviewed, I agree with a documented findings and plan of care. Patient was seen and examined.
--- NOTE | 2017-11-28 17:15 | P.PN ---
Subjective Progress Note Date: 11/27/17 Principal diagnosis: Acute on chronic CHF exacerbation 82-year-old female who presented to the emergency room with a chief complaint of shortness of breath. Patient states she has no prior respiratory issues or symptoms until September of 2017. Patient states she awoken from a sleep and was very short of breath. She states she was able to relax and slept in an upright position for the rest of the night. She states in the morning her symptoms resolved. She was just recently in [place] for a month at a rental house and had another episode where she was awoken from a sleep with difficulty breathing. The patient states she went to an urgent care in [place] and was given antibiotics, steroids, and an inhaler. She states her symptoms did not improve and noticed she was continually short of breath. She states she was not able to walk through the grocery store without becoming very short of breath and stopping a few times during shopping to catch her breath. She ended up going to a hospital in [place] for evaluation where she had a CT and chest xray done and was told she had congestive heart failure. Patient states she flew home and presented to the emergency room for further evaluation. She denies chest pain or pressure. Denies dizziness or lightheadness. Denies nausea or vomiting. Denies pain or discomfort. The patient has a history of congestive heart failure recently diagnosed in [place], hyperlipidemia, and anxiety. She is a former cigarette smoker and quit in September 2017. Chest x-ray: Findings compatible with congestive heart failure. Infiltrates or other etiologies not excluded EKG: Sinus tachycardia with ST-T wave changes in the lateral leads. 11/27/2017 Patient denied any shortness of breath today. Lasix has been changed to by mouth. No complaints of chest pain. No nausea vomiting or abdominal pain. Patient is scheduled for cardiac consultation due to elevated troponin and echo findings. Possible cath in Wednesday. Otherwise no acute overnight issues. All other review of systems negative except the above Current medications reviewed. Objective - Vital Signs Vital signs: Vital Signs Temp 96.5 F L 11/27/17 07:55 Pulse 68 11/27/17 07:55 Resp 16 11/27/17 11:22 BP 86/49 11/27/17 07:55 Pulse Ox 93 L 11/27/17 07:55 Intake & Output 11/26/17 11/27/17 11/27/17 18:59 06:59 18:59 Intake Total 838 496.79 Balance 838 496.79 Weight 55.2 kg Intake: Intake, IV Titration 496.79 Amount Heparin Sod,Pork in 0.45% 496.79 NaCl 25,000 unit In 0.45 % NaCl 1 500ml.bag @ 12 UNITS/KG/HR 13.93 mls/hr IV .Q24H [facility] Rx#: [id number] Oral 838 Other: Voiding Method Toilet Toilet # Voids 1 2 - Exam PHYSICAL EXAMINATION: Patient is lying in the bed comfortably, no acute distress, awake alert and oriented.. HEENT: Normocephalic. Neck is supple. Pupils reactive. Nostrils clear. Oral cavity is moist. Ears reveal no drainage. Neck reveals no JVD, carotid bruits, or thyromegaly. CHEST EXAMINATION: Trachea is central. Symmetrical expansion. Lung pierre clear to auscultation and percussion. CARDIAC: Normal S1, S2 with no gallops. No murmurs ABDOMEN: Soft. Bowel sounds normal. No organomegaly. No abdominal bruits. Extremities: reveal no edema. No clubbing or cyanosis Neurologically awake, alert, oriented x3 with well-coordinated movements. No focal deficits noted Skin: No rash or skin lesions. Psychiatric: Cooperative. Nonsuicidal Musculoskeletal: No joint swelling or deformity. Normal range of motion. - Labs CBC & Chem 7: 11/27/17 05:32 11/28/17 07:45 Labs: Abnormal Lab Results - Last 24 Hours (Table) 11/27/17 11/27/17 Range/Units 05:32 05:32 APTT 84.7 H (22.0-30.0) sec Potassium 3.2 L (3.5-5.1) mmol/L BUN 25 H (7-17) mg/dL Assessment and Plan Assessment: Acute exacerbation of systolic congestive heart failure, BNP 11,700, EF 20-25% Elevated troponins, 0.25, 0.157, 0.152, cannot rule out non-ST elevated [place] Moderate pulmonary hypertension Small pericardial effusion Large pleural effusion. Improving. Hyperlipidemia Hypokalemia Anxiety, unspecified Nicotine dependence, in remission, patient quit smoking in September 2017 PLAN: Patient will be continued on heparin drip. Patient was on Lasix 40 mg every 12. Changed to oral. Repeat chest x-ray showed small bilateral pleural effusions. Improved from previous study. Accurate I's and O's Daily weights Cardiology is planning for cardiac catheterization on Wednesday. GI prophylaxis: Protonix 40 mg PO Daily DVT prophylaxis: Patient currently on IV heparin Monitor vital signs and address as appropriate Discharge planning: Patient to return home when stable Further recommendations pending patient's course Time with Patient: Greater than 30
--- NOTE | 2017-11-28 17:16 | P.PN ---
Subjective Progress Note Date: 11/28/17 Principal diagnosis: Acute on chronic CHF exacerbation 82-year-old female who presented to the emergency room with a chief complaint of shortness of breath. Patient states she has no prior respiratory issues or symptoms until September of 2017. Patient states she awoken from a sleep and was very short of breath. She states she was able to relax and slept in an upright position for the rest of the night. She states in the morning her symptoms resolved. She was just recently in [place] for a month at a rental house and had another episode where she was awoken from a sleep with difficulty breathing. The patient states she went to an urgent care in [place] and was given antibiotics, steroids, and an inhaler. She states her symptoms did not improve and noticed she was continually short of breath. She states she was not able to walk through the grocery store without becoming very short of breath and stopping a few times during shopping to catch her breath. She ended up going to a hospital in [place] for evaluation where she had a CT and chest xray done and was told she had congestive heart failure. Patient states she flew home and presented to the emergency room for further evaluation. She denies chest pain or pressure. Denies dizziness or lightheadness. Denies nausea or vomiting. Denies pain or discomfort. The patient has a history of congestive heart failure recently diagnosed in [place], hyperlipidemia, and anxiety. She is a former cigarette smoker and quit in September 2017. Chest x-ray: Findings compatible with congestive heart failure. Infiltrates or other etiologies not excluded EKG: Sinus tachycardia with ST-T wave changes in the lateral leads. 11/27/2017 Patient denied any shortness of breath today. Lasix has been changed to by mouth. No complaints of chest pain. No nausea vomiting or abdominal pain. Patient is scheduled for cardiac consultation due to elevated troponin and echo findings. Possible cath in Wednesday. Otherwise no acute overnight issues. 11/28/2017 Patient denied any complaints of chest pain or shortness of breath today. Hypokalemia improved. Continued on heparin drip. Possible cath tomorrow. All other review of systems negative except the above Current medications reviewed. Objective - Vital Signs Vital signs: Vital Signs Temp 96.7 F L 11/28/17 08:00 Pulse 70 11/28/17 16:00 Resp 16 11/28/17 16:00 BP 106/57 11/28/17 16:00 Pulse Ox 96 11/28/17 16:00 Intake & Output 11/27/17 11/28/17 11/28/17 18:59 06:59 18:59 Intake Total 540 517.517 355.104 Output Total 800 Balance -260 517.517 355.104 Weight 56.1 kg Intake: Intake, IV Titration 517.517 115.104 Amount Heparin Sod,Pork in 0.45% 517.517 115.104 NaCl 25,000 unit In 0.45 % NaCl 1 500ml.bag @ 12 UNITS/KG/HR 13.93 mls/hr IV .Q24H [facility] Rx#: [id number] Oral 540 240 Output: Urine 800 Other: Voiding Method Toilet Toilet Toilet # Voids 4 1 - Exam PHYSICAL EXAMINATION: Patient is lying in the bed comfortably, no acute distress, awake alert and oriented.. HEENT: Normocephalic. Neck is supple. Pupils reactive. Nostrils clear. Oral cavity is moist. Ears reveal no drainage. Neck reveals no JVD, carotid bruits, or thyromegaly. CHEST EXAMINATION: Trachea is central. Symmetrical expansion. Lung pierre clear to auscultation and percussion. CARDIAC: Normal S1, S2 with no gallops. No murmurs ABDOMEN: Soft. Bowel sounds normal. No organomegaly. No abdominal bruits. Extremities: reveal no edema. No clubbing or cyanosis Neurologically awake, alert, oriented x3 with well-coordinated movements. No focal deficits noted Skin: No rash or skin lesions. Psychiatric: Cooperative. Nonsuicidal Musculoskeletal: No joint swelling or deformity. Normal range of motion. - Labs CBC & Chem 7: 11/27/17 05:32 11/28/17 07:45 Labs: Abnormal Lab Results - Last 24 Hours (Table) 11/27/17 11/28/17 11/28/17 Range/Units 23:42 07:45 07:45 APTT 171.4 H* 99.1 H* (22.0-30.0) sec BUN 18 H (7-17) mg/dL Glucose 126 H (74-99) mg/dL 11/28/17 Range/Units 16:45 APTT 60.5 H (22.0-30.0) sec BUN (7-17) mg/dL Glucose (74-99) mg/dL Assessment and Plan Assessment: Acute exacerbation of systolic congestive heart failure, BNP 11,700, EF 20-25% Elevated troponins, 0.25, 0.157, 0.152, cannot rule out non-ST elevated [place] Moderate pulmonary hypertension Small pericardial effusion Large pleural effusion. Improving. Hyperlipidemia Hypokalemia Anxiety, unspecified Nicotine dependence, in remission, patient quit smoking in September 2017 PLAN: Patient will be continued on heparin drip. Patient was on Lasix 40 mg every 12. Changed to oral. Repeat chest x-ray showed small bilateral pleural effusions. Improved from previous study. Accurate I's and O's Daily weights Cardiology is planning for cardiac catheterization on Wednesday. GI prophylaxis: Protonix 40 mg PO Daily DVT prophylaxis: Patient currently on IV heparin Monitor vital signs and address as appropriate Discharge planning: Patient to return home when stable Further recommendations pending patient's course Time with Patient: Greater than 30
[2017-11-28] MEDS: ATORVASTATIN 40 MG TAB PO SCH (19:47)
[2017-11-28] MEDS: HEPARIN SOD,PORK IN 0.45% NACL 25,000 UNIT in 0.45% NACL 1 500ML.BAG IV SCH (22:15)
[2017-11-29] MEDS ORDERED: ATORVASTATIN 80 MG TAB PO ONE (06:00)
[2017-11-29] MEDS: ASPIRIN 325 MG TAB PO SCH (06:23)
[2017-11-29] MEDS: ALPRAZolam 0.5 MG TAB PO PRN (06:23)
[2017-11-29] MEDS: DIGOXIN 125 MCG TAB PO SCH (06:24)
[2017-11-29] MEDS: PANTOPRAZOLE 40 MG TABLET PO SCH (06:24)
[2017-11-29] MEDS: METOPROLOL TARTRATE 12.5 MG TAB PO SCH (06:24)
[2017-11-29 06:36] LABS: Basophils # (A) 0.1 k/uL (0-0.2); Basophils % (A) 1 %; Eosinophils # (A) 0.6 k/uL (0-0.7); Eosinophils % (A) 7 %; HCT 46.7 % (34.0-46.0); Hypochromasia Slight; Lymphocytes # (A) 2.7 k/uL (1.0-4.8); Lymphocytes % (A) 27 %; MCH 27.4 pg (25.0-35.0); MCHC 29.9 g/dL (31.0-37.0); MCV 91.7 fL (80.0-100.0); Mean Platelet Volume 8.5; Monocytes # (A) 0.6 k/uL (0-1.0); Monocytes % (A) 6 %; Neutrophils # (A) 5.7 k/uL (1.3-7.7); Neutrophils % (A) 58 %; Platelet Count 326 k/uL (150-450); RBC 5.09 m/uL (3.80-5.40); RDW 13.8 % (11.5-15.5); WBC 9.8 k/uL (3.8-10.6)
[2017-11-29 08:02] LABS: Calcium 9.8 mg/dL (8.4-10.2); Potassium 3.9 mmol/L (3.5-5.1)
[2017-11-29] MEDS: SPIRONOLACTONE 25 MG TAB PO SCH (08:29)
[2017-11-29] MEDS: FUROSEMIDE 20 MG TAB PO SCH (08:29)
--- NOTE | 2017-11-29 11:14 | P.PN ---
Subjective Progress Note Date: 11/29/17 82-year-old female who presented to the emergency room with a chief complaint of shortness of breath. Patient states she has no prior respiratory issues or symptoms until September of 2017. Patient states she awoken from a sleep and was very short of breath. She states she was able to relax and slept in an upright position for the rest of the night. She states in the morning her symptoms resolved. She was just recently in [place] for a month at a rental house and had another episode where she was awoken from a sleep with difficulty breathing. The patient states she went to an urgent care in [place] and was given antibiotics, steroids, and an inhaler. She states her symptoms did not improve and noticed she was continually short of breath. She states she was not able to walk through the grocery store without becoming very short of breath and stopping a few times during shopping to catch her breath. She ended up going to a hospital in [place] for evaluation where she had a CT and chest xray done and was told she had congestive heart failure. Patient states she flew home and presented to the emergency room for further evaluation. She denies chest pain or pressure. Denies dizziness or lightheadness. Denies nausea or vomiting. Denies pain or discomfort. The patient has a history of congestive heart failure recently diagnosed in [place], hyperlipidemia, and anxiety. She is a former cigarette smoker and quit in September 2017. Chest x-ray: Findings compatible with congestive heart failure. Infiltrates or other etiologies not excluded EKG: Sinus tachycardia with ST-T wave changes in the lateral leads Laboratory data: WBC 10.9. Hemoglobin 13.9. Platelet count 314. Sodium 139. Potassium 4.3. BUN 29. Creatinine 1.12. GFR 46. Glucose 122. Magnesium 1.9. Troponins: 0.25, 0.157, 0.152 BNP: 11,700 D-Dimer: 0.69 Lipid panel: Triglycerides 76, cholesterol 145, LDL 61, HDL 69 Testing for influenza A and B was negative The patient was admitted to the hospital under the care of Dr. Landeros. Consultations were placed to Cardiology. 11/26/2017 Patient seen and examined at the bedside. Patient is awake and alert. Patient denies chest pain or pressure. Her shortness of breath has improved. She is on room air with oxygen saturations greater than 92%. She is tolerating PO intake without nausea or vomiting. Vital signs have been stable. Denies pain or discomfort. Echocardiogram was completed revealing severe global hypokinesis of LV, ejection fraction of 20-25%, mild aortic regurgitation, moderate mitral regurgitation, severe tricuspid regurgitation, moderate pulmonary hypertension, RVSP 54.42, small pericardial effusion, and large pleural effusion. 11/27/2017-Note per covering provider 11/28/2017-Note per covering provider 11/29/2017 Patient seen and examined at the bedside. Patient awake and alert. Patient states she is very tired and did not sleep much last night because of her roommate being very loud. Denies chest pain or pressure. Denies shortness of breath. Remains on 20mg lasix PO BID. She was also started on Aldactone 12.5mg PO daily per cardiology. Patient is scheduled for cardiac cath today. Objective - Vital Signs Vital signs: Vital Signs Temp 97.1 F L 11/29/17 08:00 Pulse 63 11/29/17 08:00 Resp 18 11/29/17 08:00 BP 100/55 11/29/17 08:00 Pulse Ox 98 11/29/17 08:00 Intake & Output 11/28/17 11/29/17 11/29/17 18:59 06:59 18:59 Intake Total 595.104 140 Balance 595.104 140 Weight 56.3 kg Intake: Intake, IV Titration 115.104 Amount Heparin Sod,Pork in 0.45% 115.104 NaCl 25,000 unit In 0.45 % NaCl 1 500ml.bag @ 12 UNITS/KG/HR 13.93 mls/hr IV .Q24H [facility] Rx#: [id number] Oral 480 140 Other: Voiding Method Toilet Toilet # Voids 1 2 - Exam GENERAL: This is a 82-year-old female in no apparent distress at the time of examination. Pleasant and cooperative. HEENT: Head is atraumatic, normocephalic. Pupils are equal, round, and reactive to light. Sclerae anicteric. Conjunctivae are clear. Mucus membranes of the mouth are moist. Neck is supple. RESPIRATORY: Respirations equal bilaterally. Lungs clear throughout. No use of accessory muscles. Patient maintaining oxygen saturation greater than 92%. No chest wall tenderness is noted on palpation or with deep breathing. CARDIOVASCULAR: Regular rate and rhythm. S1 and S2 noted. No systolic or diastolic murmur auscultated. No JVD noted. No S3 or S4 noted. GASTROINTESTINAL: No distention noted. Abdomen soft and round. Normal active bowel sounds auscultated x 4 quadrants. No pain or tenderness noted upon palpation. INTEGUMENTARY: No cyanosis. No jaundice. No rashes noted. No cellulitis noted. EXTREMITIES: 2+ peripheral pulses. No lower extremity edema. No calf tenderness noted. NEUROLOGIC: Cranial nerves II-XII intact. PSYCHIATRIC: Awake, alert, and oriented X 3. Appropriate affect. Intact judgement and insight. - Labs CBC & Chem 7: 12/01/17 04:08 12/01/17 04:08 Labs: Abnormal Lab Results - Last 24 Hours (Table) 11/28/17 11/29/17 11/29/17 Range/Units 16:45 06:08 06:08 Hct 46.7 H (34.0-46.0) % MCHC 29.9 L (31.0-37.0) g/dL APTT 60.5 H (22.0-30.0) sec Creatinine 1.12 H (0.52-1.04) mg/dL Glucose 114 H (74-99) mg/dL Assessment and Plan Plan: ASSESSMENT: Acute exacerbation of systolic congestive heart failure, BNP 11,700, EF 20-25% Elevated troponins, 0.25, 0.157, 0.152, may be secondary to oxygen supply and demand mismatch however cannot rule out underlying coronary artery disease Moderate pulmonary hypertension Small pericardial effusion visualized on echocardiogram Small bilateral pleural effusions visualized on CXR 11/26/2017 Hyperlipidemia Anxiety, unspecified Nicotine dependence, in remission, patient quit smoking in September 2017 PLAN: Cardiology on consult. Appreciate recommendations and input Continue lasix 20mg BID PO and aldactone 12.5mg PO daily per cardiology Patient scheduled for cardiac cath today Daily weights Home meds as appropriate Monitor labs. Recheck in a.m. GI prophylaxis: Protonix 40 mg PO Daily DVT prophylaxis: Patient currently on IV heparin Monitor vital signs and address as appropriate Discharge planning: Patient to return home when stable Further recommendations pending patient's course Nurse practitioner note has been reviewed by physician. Signing provider agrees with the documented findings, assessment, and plan of care.
[2017-11-29] MEDS ORDERED: IV FLUID CONTINUATION 600 ML IV ONE (12:21)
[2017-11-29] MEDS ORDERED: fentaNYL (PF) 50 MCG/ML 2 ML AMP IV ONE ×2 (12:21→19:12)
[2017-11-29] MEDS ORDERED: MIDAZOLAM 2 MG/2 ML VIAL IV ONE ×2 (12:21→19:14)
[2017-11-29] MEDS ORDERED: LIDOCAINE 2% INJ 20 MG/ML SQ ONE ×2 (12:23→19:14)
[2017-11-29] MEDS ORDERED: IODIXANOL 320 MG/ML 100 ML INTRAARTER ONE ×3 (12:48→19:35)
[2017-11-29] MEDS ORDERED: RX INFO: IV CONTRAST WAS GIVEN 1 EACH MISC MISCELLANE PRN (12:53)
--- NOTE | 2017-11-29 13:22 | CC ---
CARDIAC CATHETERIZATION REPORT Mrs. Sifuentes is an 82-year-old female who was admitted to the hospital with congestive cardiac failure. Patient has severe global hypokinesia with ejection fraction of 20% to 25%. Mildly elevated troponin was noted. In view of that, the patient was recommended to have a cardiac catheterization for definitive diagnosis. PROCEDURE: The right groin was prepped and draped in the usual manner and the skin was infiltrated with 2% Xylocaine. The right femoral artery was entered using Seldinger technique and a #6 Indonesian sheath was placed in. Selective coronary angiography was then performed in multiple projections. The left ventricular pressures were obtained. Total sedation time was 21 minutes. HEMODYNAMICS: Left ventricular end-diastolic pressure is 20-24 mmHg prior to angiography. No gradient is noted across the aortic valve. SELECTIVE CORONARY ANGIOGRAPHY: Left main distal left main or proximal circumflex coronary artery has about 80% to 85% stenosis. LAD: There is 100% occlusion of the ostial LAD. The proximal circumflex coronary artery has approximately 90% stenosis and after the origin of the obtuse marginal branch, the distal circumflex has another area of 80% stenosis. Right coronary artery has mild irregularity and fills the LAD by collaterals. FINAL IMPRESSION: There is a 80% stenosis of the distal left main or proximal circumflex coronary artery. LAD is 100% occluded at its ostial portion. The LAD fills via collaterals from the right coronary artery. The circumflex coronary artery has a 90% stenosis and the distal circumflex as another area of 80% stenosis. Right coronary artery has mild irregularity. Left ventricular end-diastolic pressure is elevated. RECOMMENDATIONS: At present, we will obtain surgical consult. Patient is considered for high risk for any kind of intervention. MMODL / IJN: [id number] /
[2017-11-29] MEDS ORDERED: MD COMMUNICATION TO PHARMACY 1 EACH MISC PO ONE ×3 (14:44→15:58)
--- NOTE | 2017-11-29 15:47 | P.GSCN ---
History of Present Illness Consult date: 11/29/17 Reason for Consult: Severe coronary artery disease with left main disease, surgical recommendations. Requesting physician: Jose Jin History of present illness: This 82-year-old lady follows on an outpatient basis with Dr. Lawrence Landeros. She presented to the emergency room on November 24 with complaints of shortness of breath so extensive that she cannot lay flat. Apparently she has had episodes like this a few times over the last couple of months starting in September. She gets anxious at the time but is able to calm herself. She just returned from [place] where she had been to an urgent care and an emergency room with similar complaints. Per the patient the emergency room did a chest x-ray, demonstrating COPD and congestive heart failure. She had a CAT scan which demonstrated no pulmonary embolus some. She was discharged on azithromycin and a Medrol dosepak as well as Lasix and inhaler. She returned to [place], had similar symptoms of severe shortness of breath as well as anxiety and bilateral lower extremity edema. She denied any chest pain, dizziness, sick contacts. She reported to the emergency room here at [facility]. An EKG was performed demonstrating sinus rhythm with lateral T-wave inversion. She also had a slight bump in her troponins and was ruled in for a non-STEMI. On November she had a transthoracic echocardiogram demonstrating severe global hypokinesis of the left ventricle, an ejection fraction of 20-25%, mild AI, moderate MR, moderate to severe TR, moderate pulmonary hypertension, small pericardial effusion, and large pleural effusion. She was recommended to undergo heart catheterization which was completed this morning and demonstrated no gradient across the aortic valve, distal left main/proximal circumflex with 80-85% stenosis, ostial LAD with 100% stenosis, proximal circumflex after the origin of the OM branch with 90% stenosis, distal circumflex with 80% stenosis, and the LAD filling via collaterals from the RCA. Dr. Kovacs from cardiothoracic surgery was consulted regarding surgical revascularization recommendations. Review of Systems 14 point review systems was completed and was negative except as noted. - Cardiovascular Reports as per HPI, Reports dyspnea on exertion, Reports leg edema, Reports shortness of breath - Respiratory Reports as per HPI, Reports dyspnea Past Medical History Past Medical History: Coronary Artery Disease (CAD), Heart Failure, Hyperlipidemia, Myocardial Infarction (DC), Pneumonia History of Any Multi-Drug Resistant Organisms: None Reported Past Surgical History: Tonsillectomy Past Anesthesia/Blood Transfusion Reactions: No Reported Reaction Past Psychological History: Anxiety Smoking Status: Former smoker Past Alcohol Use History: Occasional Past Drug Use History: None Reported Additional Drug Use History / Comment(s): quit smoking 09/2017, prior to that smoked since she was 16 Additional History: significant family history in multiple members of her family with heart disease Medications and Allergies Home Medications Medication Instructions Recorded Confirmed Type ALPRAZolam [Xanax] 0.25 mg PO DAILY PRN 11/24/17 11/24/17 History Albuterol Sulfate [Proair Hfa] 2 puff INHALATION RT-Q4H PRN 11/24/17 11/24/17 History Aspirin 81 mg PO HS 11/24/17 11/24/17 History Atorvastatin [Lipitor] 10 mg PO HS 11/24/17 11/24/17 History Azithromycin [Zithromax Z-pack] See Taper PO DAILY 11/24/17 11/24/17 History Furosemide [Lasix] 10 mg PO DAILY 11/24/17 11/24/17 History Lansoprazole [Prevacid] 30 mg PO DAILY PRN 11/24/17 11/24/17 History methylPREDNISolone Dose Pack See Taper PO DAILY 11/24/17 11/24/17 History [Medrol Dose Pack] Allergies Allergy/AdvReac Type Severity Reaction Status Date / Time No Known Allergies Allergy Verified 11/24/17 20:30 Surgical - Exam Vital Signs Temp Pulse Resp BP Pulse Ox 96.9 F L 107 H 18 115/62 97 11/24/17 19:53 11/24/17 19:53 11/24/17 19:53 11/24/17 19:53 11/24/17 19:53 - General well developed, well nourished, no distress, no pain - Eyes PERRL, normal ocular movement - ENT no hearing loss - Neck no masses, no bruits, trachea midline - Respiratory Lungs sounds clear to auscultation. Respirations even, nonlabored. Currently on room air oxygen saturation 97%. - Cardiovascular S1, S2 present. Regular rate and rhythm, sinus rhythm on telemetry. Palpable peripheral pulses bilaterally. No edema present. No calf pain or tenderness noted. Patient does have varicosities noted to both lower extremities. - Abdomen Abdomen: soft, non tender, bowel sounds - Genitourinary Deferred - Rectum Deferred - Integumentary no rash, no growths - Neurologic normal coordination, normal sensation - Psychiatric oriented to time, oriented to person, oriented to place, speech is normal, memory intact Results - Labs 11/29/17 06:08 11/29/17 06:08 Abnormal Lab Results - Last 24 Hours (Table) 11/28/17 11/29/17 11/29/17 Range/Units 16:45 06:08 06:08 Hct 46.7 H (34.0-46.0) % MCHC 29.9 L (31.0-37.0) g/dL APTT 60.5 H (22.0-30.0) sec Creatinine 1.12 H (0.52-1.04) mg/dL Glucose 114 H (74-99) mg/dL Diabetes panel 11/29/17 Range/Units 06:08 Sodium 141 (137-145) mmol/L Potassium 3.9 (3.5-5.1) mmol/L Chloride 100 (98-107) mmol/L Carbon Dioxide 29 (22-30) mmol/L BUN 16 (7-17) mg/dL Creatinine 1.12 H (0.52-1.04) mg/dL Glucose 114 H (74-99) mg/dL Calcium 9.8 (8.4-10.2) mg/dL Calcium panel 11/29/17 Range/Units 06:08 Calcium 9.8 (8.4-10.2) mg/dL Pituitary panel 11/29/17 Range/Units 06:08 Sodium 141 (137-145) mmol/L Potassium 3.9 (3.5-5.1) mmol/L Chloride 100 (98-107) mmol/L Carbon Dioxide 29 (22-30) mmol/L BUN 16 (7-17) mg/dL Creatinine 1.12 H (0.52-1.04) mg/dL Glucose 114 H (74-99) mg/dL Calcium 9.8 (8.4-10.2) mg/dL Adrenal panel 11/29/17 Range/Units 06:08 Sodium 141 (137-145) mmol/L Potassium 3.9 (3.5-5.1) mmol/L Chloride 100 (98-107) mmol/L Carbon Dioxide 29 (22-30) mmol/L BUN 16 (7-17) mg/dL Creatinine 1.12 H (0.52-1.04) mg/dL Glucose 114 H (74-99) mg/dL Calcium 9.8 (8.4-10.2) mg/dL - Imaging Chest x-ray: report reviewed, image reviewed EKG: image reviewed Additional studies: Cardiac catheterization films reviewed. Assessment and Plan (1) Systolic heart failure Current Visit: Yes Status: Acute Code(s): I50.20 - UNSPECIFIED SYSTOLIC ( CONGESTIVE) HEART FAILURE SNOMED Code(s): 134572417 (2) 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 Current Visit: Yes Status: Chronic Code(s): I25.10 - ATHSCL HEART DISEASE OF [place] CORONARY ARTERY W/O ANG PCTRS SNOMED Code(s): 220303983 (3) History of hyperlipidemia Current Visit: Yes Status: Chronic Code(s): Z86.39 - PERSONAL HISTORY OF ENDO, NUTRITIONAL AND METABOLIC DISEASE SNOMED Code(s): 082803680 (4) History of anxiety Current Visit: Yes Status: Chronic Code(s): Z86.59 - PERSONAL HISTORY OF OTHER MENTAL AND BEHAVIORAL DISORDERS SNOMED Code(s): 204372199 (5) Tobacco dependence in remission Current Visit: No Status: Resolved Code(s): F17.201 - NICOTINE DEPENDENCE, UNSPECIFIED, IN REMISSION SNOMED Code(s): 179290066 (6) History of pneumonia Current Visit: No Status: Resolved Code(s): Z87.01 - PERSONAL HISTORY OF PNEUMONIA (RECURRENT) SNOMED Code(s): 837056694 (7) History of skin cancer Current Visit: No Status: Resolved Code(s): Z85.828 - PERSONAL HISTORY OF OTHER MALIGNANT NEOPLASM OF SKIN SNOMED Code(s): 419217853 (8) Family history of heart disease Current Visit: Yes Status: Chronic Code(s): Z82.49 - FAMILY HX OF ISCHEM HEART DIS AND OTH DIS OF THE CIRC SYS SNOMED Code(s): 654978074 (9) NSTEMI (non-ST elevated myocardial infarction) Current Visit: Yes Status: Acute Code(s): I21.4 - NON-ST ELEVATION (NSTEMI) MYOCARDIAL INFARCTION SNOMED Code(s): 966974338 Plan: The patient was seen and examined at the bedside with Dr. Kovacs. Cardiac catheterization films were reviewed with the patient. We recommend urgent coronary artery bypass surgery. Continue aspirin, beta omayra, statin, heparin drip. Will obtain preoperative testing urgently. This was discussed in detail with the patient and her family. Initially her granddaughter wanted to have the patient transferred to [facility] for a second opinion as she works there, however after discussion with Dr. Kovacs the patient is deemed too critical for transportation and she is agreeable to have her surgery here. Dr. Kovacs will discuss the case with Dr. Monsalve and Dr. Jin. Preoperative teaching initiated. More recommendations to follow. Thank you Dr. Jin for this consult. We look for to working with you in the care of your patient. Time with Patient: Greater than 30
[2017-11-29] MEDS ORDERED: ACETAMINOPHEN TAB 500 MG TAB PO PRN (17:04)
--- NOTE | 2017-11-29 17:12 | US ---
EXAMINATION TYPE: US carotid duplex BILAT DATE OF EXAM: 11/29/2017 COMPARISON: NONE CLINICAL HISTORY: Ankle Brachial Index (BRUCE) . EXAM MEASUREMENTS: RIGHT: Peak Systolic Velocity (PSV) cm/sec ----- Right CCA: 71.2 ----- Right ICA: 182.0 ----- Right ECA: 152.0 ICA/CCA ratio: 2.6 RIGHT: End Diastole cm/sec ----- Right CCA: 23.2 ----- Right ICA: 31.6 ----- Right ECA: 13.7 LEFT: Peak Systolic Velocity (PSV) cm/sec ----- Left CCA: 75.0 ----- Left ICA: 109. ----- Left ECA: 41.5 ICA/CCA ratio: 1.5 LEFT: End Diastole cm/sec ----- Left CCA: 20.1 ----- Left ICA: 19.6 ----- Left ECA: 6.6 VERTEBRALS (direction of flow): Right Vertebral: Antegrade Left Vertebral: Antegrade Severe atherosclerotic changes with moderate velocity increase in right ICA, no significant velocity elevations seen on left. IMPRESSION: There is elevated velocity in the right internal carotid artery that is suggestive of mo re than 70% stenosis. This is probably closer to 90%. There is antegrade flow in the vertebral arteri es. The images and measurements suggest close to 50% stenosis in the left common carotid artery and p roximal left internal carotid artery. Criteria for Assigning % of Stenosis / Diameter reduction (Estimation based on the indirect measurements of the internal carotid artery velocities (ICA PSV). 1. Normal (no stenosis)=ICA PSV < 125 cm/s: ratio < 2.0: ICA EDV<40 cm/s. 2. Less than 50% stenosis=ICA PSV < 125 cm/s: ratio < 2.0: ICA EDV<40 cm/s. 3. 50 to 69% stenosis=ICA PSV of 125 to 230 cm/s: ration 2.0 ? 4.0: ICA EDV 40-100 cm/s. 4. Greater than 70% stenosis to near occlusion= ICA PSV > 230 cm/s: ratio > 4.0: ICA EDV > 100 cm/s. 5. Near occlusion= ICA PSV velocities may be low or undetectable: variable ratio and ICA EDV. 6. Total occlusion=unable to detect flow.
[2017-11-29 17:58] LABS: INR 1.2 (<1.2); Partial Thromboplastin Time 41.5 sec (22.0-30.0); Prothrombin Time 11.2 sec (9.0-12.0)
[2017-11-29 18:05] LABS: Total Protein 6.5 g/dL (6.3-8.2)
[2017-11-29 18:06] LABS: Albumin 4.1 g/dL (3.5-5.0); Magnesium 1.8 mg/dL (1.6-2.3); Potassium 3.8 mmol/L (3.5-5.1); Total Bilirubin 1.4 mg/dL (0.2-1.3)
[2017-11-29] MEDS ORDERED: HEPARIN SODIUM 1,000 UN/ML (10ML VL) ONE (18:45)
[2017-11-29] MEDS ORDERED: IV FLUID CONTINUATION 1,000 ML IV ONE (19:00)
[2017-11-29] MEDS ORDERED: MIDAZOLAM 2 MG/2 ML VIAL ONE (19:06)
[2017-11-29] MEDS ORDERED: LIDOCAINE 2% INJ 20 MG/ML (20 ML MDV) ONE (19:06)
[2017-11-29] MEDS ORDERED: fentaNYL (PF) 50 MCG/ML 2 ML AMP ONE (19:08)
[2017-11-29] MEDS ORDERED: LACTATED RINGERS 1,000 ML IV SCH (20:00)
[2017-11-29] MEDS ORDERED: MIDAZOLAM 2 MG/2 ML VIAL IV PRN (20:00)
[2017-11-29] MEDS ORDERED: HEPARIN SODIUM,PORCINE 5,000 UNIT/ML 1 ML VIAL IV ONE (20:03)
[2017-11-29] MEDS ORDERED: HEPARIN SODIUM,PORCINE 5,000 UNIT/ML 1 ML VIAL IV PRN (20:03)
[2017-11-29] MEDS ORDERED: HYDROmorphone 2 MG/ML 1 ML SYRINGE IV ONE (20:10)
[2017-11-29] MEDS ORDERED: SODIUM CHLORIDE 0.9% 1,000 ML IV SCH (20:15)
[2017-11-29] MEDS ORDERED: ASPIRIN 81 MG PO SCH (21:00)
[2017-11-29] MEDS ORDERED: ATORVASTATIN 10 MG TAB PO SCH (21:00)
[2017-11-29] MEDS ORDERED: HEPARIN SOD,PORK IN 0.45% NACL 25,000 UNIT in 0.45% NACL 1 500ML.BAG IV SCH (21:00)
[2017-11-30] MEDS: MUPIROCIN 2% OINT 22 GM TUBE NASAL SCH ×2 (00:08→08:47)
[2017-11-30] MEDS: METOPROLOL TARTRATE 25 MG TAB PO SCH ×2 (00:08→08:47)
[2017-11-30 00:35] LABS: HCT 42.1 % (34.0-46.0); MCH 27.9 pg (25.0-35.0); MCV 90.2 fL (80.0-100.0); Mean Platelet Volume 8.2; Platelet Count 244 k/uL (150-450); RBC 4.67 m/uL (3.80-5.40); RDW 13.7 % (11.5-15.5); WBC 12.6 k/uL (3.8-10.6)
[2017-11-30 02:03] LABS: Hepatitis A Antibody IgM Non-Reactive (Non-Reactive); Hepatitis B Core IgM Non-Reactive (Non-Reactive)
[2017-11-30] MEDS: SODIUM CHLORIDE 0.9% 1,000 ML IV SCH ×2 (02:04→08:11)
[2017-11-30] MEDS: ALPRAZolam 0.5 MG TAB PO PRN (02:22)
[2017-11-30 02:37] LABS: Hemoglobin A1C 5.8 % (4.0-6.0)
[2017-11-30] MEDS ORDERED: HYDROmorphone 0.5 MG/0.5 ML SYRINGE IVP STA (03:38)
[2017-11-30] MEDS ORDERED: ASPIRIN 325 MG TAB PO ONE (05:00)
[2017-11-30] MEDS ORDERED: SODIUM BICARB 8.4% 50 ML SYR (1 MEQ/ML) IV ONE (05:00)
[2017-11-30] MEDS ORDERED: DEXTROSE 5% IN WATER 1,000 ML with POTASSIUM CHLORIDE 25 MEQ, SODIUM CHLORIDE 4MEQ/ML V... IV SCH ×6 (05:00)
[2017-11-30] MEDS ORDERED: CHLORHEXIDINE GLUCONATE 15 ML CUP MUCOUS MEM ONE (05:00)
[2017-11-30] MEDS ORDERED: ceFAZolin 2,000 MG in SODIUM CHLORIDE 0.9% 30 ML IVPB ONE (05:00)
[2017-11-30] MEDS ORDERED: NITROGLYCERIN-D5W PMX 25 MG/250 ML BTL IV ONE (05:00)
[2017-11-30] MEDS ORDERED: LACTATED RINGERS 1,000 ML IV SCH (05:00)
[2017-11-30] MEDS ORDERED: HEPARIN SODIUM,PORCINE 5,000 UNIT in SODIUM CHLORIDE 0.9% 500 ML IV ONE (05:00)
[2017-11-30] MEDS ORDERED: CLEVIDIPINE BUTYRATE 25 MG in EMPTY BAG 1 BAG IV ONE (05:00)
[2017-11-30] MEDS ORDERED: AMINOCAPROIC ACID 5,000 MG in DEXTROSE 5% IN WATER 50 ML IV ONE ×4 (05:00)
[2017-11-30] MEDS ORDERED: INSULIN REGULAR 100 UNIT in SODIUM CHLORIDE 0.9% 100 ML IV ONE (05:00)
[2017-11-30] MEDS ORDERED: PHENYLEPHRINE-0.9% NACL SYG 1 MG/10 ML SYRINGE IV ONE ×4 (05:00)
[2017-11-30] MEDS ORDERED: ALBUMIN HUMAN 25% 50 ML in EMPTY BAG 1 BAG IVPB ONE (05:00)
[2017-11-30] MEDS ORDERED: ALBUMIN HUMAN 5% 500 ML in EMPTY BAG 1 BAG IVPB ONE ×6 (05:00)
[2017-11-30] MEDS ORDERED: PROTAMINE SULFATE 10 MG/ML 25 ML VIAL IV ONE (05:00)
[2017-11-30] MEDS ORDERED: PAPAVERINE 360 MG in SODIUM CHLORIDE 0.9% 90 ML IV ONE (05:00)
[2017-11-30] MEDS ORDERED: ceFAZolin 2 GM in SODIUM CHLORIDE 0.9% 30 ML IVPB ONE (05:00)
[2017-11-30] MEDS ORDERED: DEXTROSE 5% IN WATER 1,000 ML with POTASSIUM CHLORIDE 110 MEQ, MAGNESIUM SULFATE 16 MEQ... IV SCH ×5 (05:00)
[2017-11-30] MEDS ORDERED: AMINOCAPROIC ACID 250 MG/ML 20 ML VIAL IV ONE (05:00)
[2017-11-30] MEDS ORDERED: HEPARIN SODIUM 1,000 UN/ML (10ML VL) IV ONE (05:00)
[2017-11-30] MEDS ORDERED: ceFAZolin 1,000 MG in SODIUM CHLORIDE 0.9% IRRIGATIO 1,000 ML IRRIGATION ONE (05:00)
[2017-11-30] MEDS ORDERED: MANNITOL 25% 12.5 GM/50 ML VIAL IV ONE ×2 (05:00)
[2017-11-30] MEDS ORDERED: CALCIUM CHLORIDE 100 MG/ML 10 ML SYRINGE IVP ONE (05:00)
[2017-11-30] MEDS ORDERED: TRANEXAMIC ACID 2,000 MG in SODIUM CHLORIDE 0.9% 180 ML IV ONE (05:00)
[2017-11-30] MEDS ORDERED: METOPROLOL TARTRATE 12.5 MG TAB PO ONE (05:00)
[2017-11-30] MEDS ORDERED: PHENYLEPHRINE 40 MG in SODIUM CHLORIDE 0.9% 250 ML IV ONE (05:00)
[2017-11-30] MEDS ORDERED: PROTAMINE SULFATE 250 MG in EMPTY BAG 1 BAG IV ONE (05:00)
[2017-11-30] MEDS ORDERED: NOREPINEPHRIN 4 MG-0.9% NS PMX 4 MG/250 ML ML IV SCH (05:00)
[2017-11-30] MEDS ORDERED: MAGNESIUM SULFATE SYG 4.06 MEQ/ML SYRINGE IV ONE (05:00)
[2017-11-30] MEDS ORDERED: ATORVASTATIN 10 MG TAB PO ONE (05:00)
[2017-11-30] MEDS ORDERED: PROPOFOL 1,000 MG in EMPTY BAG 1 BAG IV ONE (05:00)
[2017-11-30 06:28] LABS: INR 1.3 (<1.2)
[2017-11-30 06:29] LABS: ALT 40 U/L (9-52); AST 30 U/L (14-36); Albumin 3.9 g/dL (3.5-5.0); Alkaline Phosphatase 85 U/L (38-126); Anion Gap 12 mmol/L; Blood Urea Nitrogen 19 mg/dL (7-17); Calcium 9.4 mg/dL (8.4-10.2); Carbon Dioxide 27 mmol/L (22-30); Chloride 101 mmol/L (98-107); Glucose 124 mg/dL (74-99); Potassium 3.6 mmol/L (3.5-5.1); Sodium 140 mmol/L (137-145); Total Bilirubin 1.3 mg/dL (0.2-1.3); Total Protein 6.4 g/dL (6.3-8.2)
--- NOTE | 2017-11-30 07:22 | PCN ---
PROCEDURE NOTE DATE OF SERVICE: 11/29/17. PROCEDURE: Intra-aortic balloon pump placement under fluoroscopy. PERFORMED BY: Dr. Marielle Fragoso. SEDATION: Moderate conscious sedation time 39 minutes. CLINICAL INFORMATION: Mrs. Melina Sifuentes is a 82-year-old lady with a non-ST elevation AR, significant LV dysfunction and severe triple-vessel disease. She also has a left main stenosis, known LAD occlusion and significant circumflex lesion as well. She was advised intra-aortic balloon pump after due discussion between Dr. Jordana Jin and Dr. Monsalve. Dr. Jordana Jin requested me to place the intra-aortic balloon pump. I saw the patient, evaluated her angiograms, and also talked to the family. I explained the rationale, risks, benefits, options and then proceeded to perform the procedure. PROCEDURE NOTE: Under local anesthesia and strict aseptic precautions, a 6-Guatemalan introducer was placed in the right femoral artery using a micropuncture technique. Under fluoroscopic guidance, a 7-1/2-Guatemalan sheath was placed. Intra-aortic balloon pump was then advanced over the wire and positioned at the proximal portion of the descending aorta at the aortic knuckle. Good waveforms were obtained. The augmented pressure was about 128 and and systolic pressure was 110. Prior to the procedure, I checked the pulse, which was a 1+ to palpable as well as audible in the right lower extremity. The patient had a cardiac cath performed from this site earlier today. After the procedure, the right lower extremity distal dorsalis pedis pulse was palpable and easily audible. The patient tolerated the procedure well without complications. The intra-aortic balloon pump was sutured and good position was secured. Good augmentation was noted. I discussed with the family and I will also speak to Dr. Monsalve. Patient is going for aortocoronary bypass surgery tomorrow. She tolerated procedure well without complication. She was sedated using a combination of fentanyl and Versed. MMODL / IJN: [id number] /
[2017-11-30 07:30] LABS: Basophils % (A) 0 %; Eosinophils # (A) 0.1 k/uL (0-0.7); Eosinophils % (A) 1 %; HCT 42.4 % (34.0-46.0); HGB 13.3 gm/dL (11.4-16.0); Lymphocytes # (A) 1.2 k/uL (1.0-4.8); Lymphocytes % (A) 10 %; MCHC 31.4 g/dL (31.0-37.0); MCV 89.1 fL (80.0-100.0); Mean Platelet Volume 9.1; Monocytes # (A) 0.7 k/uL (0-1.0); Monocytes % (A) 6 %; Neutrophils # (A) 9.8 k/uL (1.3-7.7); Neutrophils % (A) 82 %; Platelet Count 260 k/uL (150-450); RBC 4.76 m/uL (3.80-5.40); RDW 13.6 % (11.5-15.5); WBC 11.9 k/uL (3.8-10.6)
[2017-11-30 07:31] LABS: Partial Thromboplastin Time 142.5 sec (22.0-30.0)
--- NOTE | 2017-11-30 07:47 | P.CNPUL ---
History of Present Illness Consult date: 11/30/17 Reason for consult: dyspnea Chief complaint: Shortness of breath History of present illness: Consult dated 11/30/2017 This is an 82-year-old female who was admitted to the hospital back on September 23. She presented to the emergency department for complaints of shortness of breath. She also had significant anxiety. She could not lay flat and chest x- ray revealed evidence of congestive heart failure. She apparently denied any chest pain no cervical weight gain. Patient was seen in the emergency room down in [place] had CAT scans x-rays and lab work. She was told that she had heart failure with bronchitis. For the bronchitis she was given antibiotics and steroids. Subsequent to all of this, she was evaluated by cardiology. She had a catheterization yesterday on November 29. She was found have significant coronary artery disease. She was also found to have significant mitral valve and tricuspid valve disease and a balloon pump was placed. The patient went to the OR this morning for bypass grafting and possible valve repair. The patient was on room air. She was also receiving a saline IV at 50 mL an hour heparin via weightbase protocol. The heparin was turned off at 06 100 in anticipation of the operating room. The surgery is being done by Dr. Monsalve. She apparently has a history of congestive heart failure and hyperlipidemia. She is a former smoker but pulmonary function test/spirometry were not done. She has no ALLERGIES. Admission home medications including Xanax Pro Air HFA aspirin and Lipitor Z-Alberto Lasix Prevacid and a Medrol Dosepak. Review of Systems Review of systems constitutional negative neurologic negative HEENT negative cardiovascular negative pulmonary shortness of breath GI/ negative rheumatologic immunologic negative endocrinologic dermatologic all negative Past Medical History Past Medical History: Coronary Artery Disease (CAD), Heart Failure, Hyperlipidemia, Myocardial Infarction (MA), Pneumonia History of Any Multi-Drug Resistant Organisms: None Reported Past Surgical History: Tonsillectomy Past Anesthesia/Blood Transfusion Reactions: No Reported Reaction Past Psychological History: Anxiety Smoking Status: Former smoker Past Alcohol Use History: Occasional Past Drug Use History: None Reported Additional Drug Use History / Comment(s): quit smoking 09/2017, prior to that smoked since she was 16 Medications and Allergies Home Medications Medication Instructions Recorded Confirmed Type ALPRAZolam [Xanax] 0.25 mg PO DAILY PRN 11/24/17 11/24/17 History Albuterol Sulfate [Proair Hfa] 2 puff INHALATION RT-Q4H PRN 11/24/17 11/24/17 History Aspirin 81 mg PO HS 11/24/17 11/24/17 History Atorvastatin [Lipitor] 10 mg PO HS 11/24/17 11/24/17 History Azithromycin [Zithromax Z-pack] See Taper PO DAILY 11/24/17 11/24/17 History Furosemide [Lasix] 10 mg PO DAILY 11/24/17 11/24/17 History Lansoprazole [Prevacid] 30 mg PO DAILY PRN 11/24/17 11/24/17 History methylPREDNISolone Dose Pack See Taper PO DAILY 11/24/17 11/24/17 History [Medrol Dose Pack] Allergies Allergy/AdvReac Type Severity Reaction Status Date / Time No Known Allergies Allergy Verified 11/24/17 20:30 Physical Exam Osteopathic Statement: *. No significant issues noted on an osteopathic structural exam other than those noted in the History and Physical/Consult. Vitals: Vital Signs Temp Pulse Resp BP Pulse Ox 11/30/17 00:00 18 11/29/17 21:00 18 11/29/17 16:38 18 120/58 96 11/29/17 16:00 97.3 F L 18 119/59 96 11/29/17 15:38 18 119/57 97 11/29/17 14:38 18 117/55 97 11/29/17 14:08 18 114/59 97 11/29/17 13:38 18 115/56 96 11/29/17 11:18 18 11/29/17 11:17 97.2 F L 61 18 100/50 97 11/29/17 08:00 97.1 F L 63 18 100/55 98 Intake and Output 11/29/17 11/30/17 11/30/17 22:59 06:59 14:59 Intake Total 760 408.318 Balance 760 408.318 Intake: IV 400 350 Sodium Chloride 0.9% 1, 150 350 000 ml @ 50 mls/hr IV . Q20H [facility] Rx#:[id number] Intake, IV Titration 58.318 Amount Heparin Sod,Pork in 0.45% 58.318 NaCl 25,000 unit In 0.45 % NaCl 1 500ml.bag @ 12 UNITS/KG/HR 13.51 mls/hr IV .Q24H [facility] Rx#: [id number] Oral 360 Other: Voiding Method Bedpan Bedpan # Voids 1 No acute distress, oriented 3. Not on any supplemental oxygen. HEENT examination is grossly unremarkable. Mucous membranes are moist. No oral lesions. Neck supple. Full range of motion. No adenopathy thyromegaly or neck vein distention. Cardiovascular examination reveals regular rhythm rate. S1-S2 normal. No S3 or S4. No clearcut murmur heard. Lungs reveal bibasilar crackles. No wheezes or rhonchi. Her sounds are equal.. Abdomen soft bowel sounds are heard. No masses or tenderness. Extremities are intact. No cyanosis clubbing or edema. Skin is without rash or lesion. Neurologic examination is brief but nonfocal. Results - Laboratory Findings CBC and BMP: 11/30/17 00:04 11/30/17 05:28 PT/INR, D-dimer PT 12.0 sec (9.0-12.0) 11/30/17 05:28 INR 1.3 (<1.2) H 11/30/17 05:28 D-Dimer 0.69 mg/L FEU (<0.60) H 11/24/17 20:23 Abnormal lab findings: Abnormal Labs 11/24/17 11/24/17 11/24/17 20:23 20:23 20:23 WBC 10.9 H Hct MCHC Neutrophils # 8.7 H INR APTT D-Dimer Potassium Carbon Dioxide BUN 29 H Creatinine 1.12 H Glucose 122 H Total Bilirubin AST 43 H CK-MB (CK-2) 2.7 H* Troponin I 0.185 H* HDL Cholesterol Crossmatch 11/24/17 11/25/17 11/25/17 20:23 02:13 05:21 WBC Hct MCHC Neutrophils # INR 1.2 H APTT D-Dimer 0.69 H Potassium Carbon Dioxide BUN Creatinine Glucose Total Bilirubin AST CK-MB (CK-2) Troponin I 0.157 H* HDL Cholesterol 69 H Crossmatch 11/25/17 11/25/17 11/25/17 05:21 08:12 11:42 WBC Hct MCHC Neutrophils # INR APTT 38.2 H 46.2 H D-Dimer Potassium Carbon Dioxide BUN Creatinine Glucose Total Bilirubin AST CK-MB (CK-2) Troponin I 0.152 H* HDL Cholesterol Crossmatch 11/25/17 11/26/17 11/26/17 20:43 06:02 06:02 WBC Hct MCHC 30.7 L Neutrophils # INR APTT 63.4 H D-Dimer Potassium 3.4 L Carbon Dioxide 31 H BUN 28 H Creatinine 1.07 H Glucose 101 H Total Bilirubin AST CK-MB (CK-2) Troponin I HDL Cholesterol Crossmatch 11/26/17 11/27/17 11/27/17 06:02 05:32 05:32 WBC Hct MCHC Neutrophils # INR APTT 70.7 H 84.7 H D-Dimer Potassium 3.2 L Carbon Dioxide BUN 25 H Creatinine Glucose Total Bilirubin AST CK-MB (CK-2) Troponin I HDL Cholesterol Crossmatch 11/27/17 11/28/17 11/28/17 23:42 07:45 07:45 WBC Hct MCHC Neutrophils # INR APTT 171.4 H* 99.1 H* D-Dimer Potassium Carbon Dioxide BUN 18 H Creatinine Glucose 126 H Total Bilirubin AST CK-MB (CK-2) Troponin I HDL Cholesterol Crossmatch 11/28/17 11/29/17 11/29/17 16:45 06:08 06:08 WBC Hct 46.7 H MCHC 29.9 L Neutrophils # INR APTT 60.5 H D-Dimer Potassium Carbon Dioxide BUN Creatinine 1.12 H Glucose 114 H Total Bilirubin AST CK-MB (CK-2) Troponin I HDL Cholesterol Crossmatch 11/29/17 11/29/17 11/29/17 17:20 17:20 17:20 WBC Hct MCHC Neutrophils # INR 1.2 H APTT 41.5 H D-Dimer Potassium Carbon Dioxide 31 H BUN Creatinine 1.07 H Glucose Total Bilirubin 1.4 H AST CK-MB (CK-2) Troponin I HDL Cholesterol Crossmatch See Detail 11/30/17 11/30/17 11/30/17 00:04 00:08 05:28 WBC 12.6 H Hct MCHC Neutrophils # INR 1.3 H APTT 38.2 H 142.5 H* D-Dimer Potassium Carbon Dioxide BUN Creatinine Glucose Total Bilirubin AST CK-MB (CK-2) Troponin I HDL Cholesterol Crossmatch 11/30/17 05:28 WBC Hct MCHC Neutrophils # INR APTT D-Dimer Potassium Carbon Dioxide BUN 19 H Creatinine Glucose 124 H Total Bilirubin AST CK-MB (CK-2) Troponin I HDL Cholesterol Crossmatch - Diagnostic Findings Chest x-ray: image reviewed (Chest x-ray labs and medications are all reviewed.) Assessment and Plan Assessment: Assessment Non-ST segment elevation myocardial infarction Congestive heart failure Valvular heart disease Status post catheterization and intra-aortic balloon pump on November 29 Hyperlipidemia Acute bronchitis Suspected COPD History of anxiety Gastroesophageal reflux disease Plan: Plan dated 11/30/2017 The plan for this patient at that she is going for surgery today. She needs at least a 2 vessel bypass grafting and possible valve replacement/repair. The patient said doing well otherwise. Not receiving any supplemental oxygen. Heparin was turned off at 06 100 this morning. The patient's IV was saline at 50 mL an hour. The balloon pump and catheterization were done on November 29, yesterday. Otherwise, everything else seems reasonable. Labs x-rays a medications are all reviewed. Time with Patient: Greater than 30
[2017-11-30 08:01] LABS: Appearance,Urine Clear (Clear); Bilirubin,Urine Negative (Negative); Blood,Urine Negative (Negative); Color,Urine Yellow; Glucose,Urine (UA) Negative (Negative); Ketones,Urine 1+ (Negative); Leukocyte Esterase,Urine Negative (Negative); Nitrite,Urine Negative (Negative); PH, Urine 6.5 (5.0-8.0); Protein,Urine Trace (Negative); Specific Gravity,Urine 1.028 (1.001-1.035); Urobilinogen,Urine <2.0 mg/dL (<2.0)
[2017-11-30] MEDS ORDERED: ELECTROLYTE-R (PH 7.4) 1,000 ML IV.SOLN IV ONE (08:21)
[2017-11-30] MEDS ORDERED: VECURONIUM 10 MG VIAL IV ONE ×2 (08:21)
[2017-11-30] MEDS ORDERED: fentaNYL (PF) 50 MCG/ML 50 ML VIAL ONE (08:21)
[2017-11-30] MEDS ORDERED: SUCCINYLCHOLINE CHLORIDE 100 MG/5 ML SYR IV ONE (08:21)
[2017-11-30] MEDS ORDERED: SODIUM CHLORIDE 0.9% IRRIG 1,000 ML BTL IRRIGATION ONE (08:21)
[2017-11-30] MEDS ORDERED: fentaNYL (PF) 50 MCG/ML 2 ML AMP ONE (08:21)
[2017-11-30] MEDS ORDERED: MIDAZOLAM 2 MG/2 ML VIAL ONE ×2 (08:21)
[2017-11-30] MEDS ORDERED: PROPOFOL 10 MG/ML 20 ML VIAL IV ONE (08:21)
[2017-11-30] MEDS ORDERED: TRANEXAMIC ACID 1,000 MG/10 ML VIAL ONE (08:21)
[2017-11-30] MEDS ORDERED: SODIUM CHLORIDE 0.9% 250 ML BAG ONE (08:21)
[2017-11-30] MEDS ORDERED: ALBUMIN HUMAN 5% 250 ML BOTTLE IVPB ONE (08:21)
[2017-11-30] MEDS: NITROGLYCERIN-D5W PMX 50 MG in DEXTROSE/WATER 1 250ML.BAG IV ONE ×2 (08:44→14:31)
[2017-11-30] MEDS: SPIRONOLACTONE 25 MG TAB PO SCH (08:47)
[2017-11-30] MEDS: DIGOXIN 125 MCG TAB PO SCH (08:47)
[2017-11-30] MEDS: PANTOPRAZOLE 40 MG TABLET PO SCH (08:47)
[2017-11-30] MEDS ORDERED: FUROSEMIDE 20 MG TAB PO SCH (09:00)
[2017-11-30] MEDS ORDERED: SODIUM CHLORIDE 0.9% 50 ML with ceFAZolin 2,000 MG IV ONE ×2 (10:04)
[2017-11-30] MEDS ORDERED: ceFAZolin 1,000 MG in SODIUM CHLORIDE 0.9% 1,000 ML IRRIGATION ONE (10:04)
[2017-11-30] MEDS ORDERED: PROPOFOL 1,000 MG in EMPTY BAG 1 BAG IV SCH (13:18)
[2017-11-30] MEDS ORDERED: CALCIUM GLUCONATE 2,000 MG in SODIUM CHLORIDE 0.9% 100 ML IVPB PRN (13:18)
[2017-11-30] MEDS ORDERED: METOCLOPRAMIDE 5 MG/ML 2 ML VIAL IVP PRN (13:18)
[2017-11-30] MEDS ORDERED: ONDANSETRON 4 MG/2 ML VIAL IVP PRN (13:18)
[2017-11-30] MEDS ORDERED: Phosphorus Replacement Protoco 1 EACH MISC MISCELLANE PRN (13:18)
[2017-11-30] MEDS ORDERED: BENZOCAINE/MENTHOL LOZENG 1 EACH LOZENGE MUCOUS MEM PRN (13:18)
[2017-11-30] MEDS ORDERED: NITROGLYCERIN-D5W PMX 50 MG in DEXTROSE/WATER 1 250ML.BAG IV SCH (13:18)
[2017-11-30] MEDS ORDERED: Magnesium Replacement Protocol 1 EACH MISC MISCELLANE PRN (13:18)
[2017-11-30] MEDS ORDERED: Potassium Replacement Protocol 1 EACH MISC MISCELLANE PRN (13:18)
[2017-11-30] MEDS ORDERED: INSULIN REGULAR 100 UNIT in SODIUM CHLORIDE 0.9% 100 ML IV SCH (13:18)
[2017-11-30 14:03] LABS: ABG Base Excess -2.8 mmol/L; ABG HCO3 23 mmol/L (21-25); ABG PCO2 46 mmHg (35-45); ABG PH 7.32 (7.35-7.45); ABG PO2 320 mmHg (83-108); ABG TCO2 25 mmol/L (19-24)
[2017-11-30 14:05] LABS: INR 1.6 (<1.2); Prothrombin Time 14.4 sec (9.0-12.0)
[2017-11-30 14:07] LABS: Glucose,Whole Blood 115 mg/dL (75-99)
[2017-11-30 14:07] LABS: Basophils % (A) 0 %; Eosinophils # (A) 0.1 k/uL (0-0.7); Eosinophils % (A) 1 %; HCT 26.3 % (34.0-46.0); Ionized Calcium 4.7 mg/dL (4.5-5.3); Lymphocytes % (A) 10 %; MCH 28.1 pg (25.0-35.0); MCHC 31.6 g/dL (31.0-37.0); MCV 88.8 fL (80.0-100.0); Mean Platelet Volume 7.6; Monocytes # (A) 0.5 k/uL (0-1.0); Monocytes % (A) 5 %; Neutrophils # (A) 7.7 k/uL (1.3-7.7); Neutrophils % (A) 82 %; Platelet Count 141 k/uL (150-450); RBC 2.95 m/uL (3.80-5.40); RDW 13.6 % (11.5-15.5); WBC 9.4 k/uL (3.8-10.6)
[2017-11-30 14:16] LABS: HGB 8.3 gm/dL (11.4-16.0)
[2017-11-30 14:20] LABS: Partial Thromboplastin Time 124.8 sec (22.0-30.0)
--- NOTE | 2017-11-30 14:27 | XR ---
EXAMINATION TYPE: XR chest 1V portable DATE OF EXAM: 11/30/2017 COMPARISON: Prior chest x-ray 11/26/2017 HISTORY: Postoperative cardiac surgery TECHNIQUE: Single frontal view of the chest is obtained. FINDINGS: Patient is post median sternotomy. Endotracheal tube is overlying the tracheal air column. It lies in appropriate position. NG tube is in place. Left and right chest tube, median sternal drai n are in place. Right jugular central venous sheath with coaxial Ponce-Diann catheter is present with t he distal tip in the pulmonary artery. Aortic balloon pump marker is at the level of the T5 vertebral body. There is no sizable pneumothorax or pleural effusion. The heart remains enlarged. Pleural effu sions have improved. There are overlying cardiac leads. Atrial appendage clipping is present on the l eft. IMPRESSION: Satisfactory postoperative chest x-ray.
[2017-11-30] MEDS: ALBUMIN HUMAN 5% 250 ML in EMPTY BAG 1 BAG IVPB PRN ×4 (14:28→22:25)
[2017-11-30 14:30] LABS: ALT 30 U/L (9-52); AST 18 U/L (14-36); Albumin 2.8 g/dL (3.5-5.0); Alkaline Phosphatase 31 U/L (38-126); Anion Gap 10 mmol/L; Blood Urea Nitrogen 14 mg/dL (7-17); Calcium 7.7 mg/dL (8.4-10.2); Carbon Dioxide 23 mmol/L (22-30); Chloride 108 mmol/L (98-107); Glucose 109 mg/dL (74-99); Magnesium 1.3 mg/dL (1.6-2.3); Potassium 3.5 mmol/L (3.5-5.1); Sodium 141 mmol/L (137-145); Total Bilirubin 0.5 mg/dL (0.2-1.3); Total Protein 4.3 g/dL (6.3-8.2)
[2017-11-30] MEDS: LACTATED RINGERS 1,000 ML IV SCH (14:32)
--- NOTE | 2017-11-30 14:37 | OP ---
OPERATIVE REPORT DATE OF THE SURGERY: 11/30/2017 SURGEON: Dr. Aleshia Monsalve. PUBLIC SAFETY OFFICER: Steven Barry and Sarai Hodgson. PREOPERATIVE DIAGNOSES: 1. Non ST elevation myocardial infarction. 2. Congestive heart failure. 3. 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 4. Severe left ventricular dysfunction. Pre-op IABP 5. Mild to moderate mitral valve regurgitation. 6. Hyperlipidemia. 7. Smoking. POSTOPERATIVE DIAGNOSIS: 1. Non ST elevation myocardial infarction. Evidence of an nevaeh-apical myocardial infarction. 2. Congestive heart failure. 3. 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 4. Severe left ventricular dysfunction.Pre-op IABP 5. Mild to moderate mitral valve regurgitation. 6. Hyperlipidemia. 7. Smoking. PROCEDURE: 1. Nonaortic clamp double off pump coronary artery bypass grafting using the left internal mammary artery to the left anterior descending artery, reverse saphenous vein graft connected to the aorta using the Passport device connected distally to the long obtuse marginal artery. 2. Exclusion Left Atrial Appendage 45mm ATRICLIP 3. Harvesting of the right greater saphenous vein. 4. Intraoperative transesophageal echocardiogram and epiaortic scanning. 5. Intraoperative graft flow measurements using the Medi-Stim system. INDICATION FOR SURGERY: Patient is an 82-year-old lady who was admitted with episode of worsening dyspnea and found to have signs and symptoms of congestive heart failure with some troponin elevation. Cardiac catheterization showed totally occluded collateralized left anterior descending artery as well as severe focal stenosis of the large obtuse marginal artery and a non flow-limiting lesion in the right coronary artery system. Her ejection fraction was estimated at 20%. On 2D echo she had mild-to- moderate mitral valve regurgitation and moderate to severe tricuspid valve regurgitation. Patient is known to have some carotid disease and carotid duplex has what seems to be severe stenosis of the right internal carotid artery. Patient had an IABP inserted the night before surgery. Plan today is to check the mitral with RAVI and if no need for valve surgery, we will be proceeding with a beating heart strategy in view of her comorbidities. Increased risks calculated by STS were discussed with her and her family. They understood them and agreed to proceed. DESCRIPTION OF THE PROCEDURE: Patient had an intra-aortic balloon pump placed the night before by Cardiology. She was brought to the preoperative holding area where a right internal jugular Cleveland -Diann catheter and a right brachial arterial line were placed. The pressure was 44/ 12 and CI 4.1 Subsequently, she was brought to the operating room where general endotracheal anesthesia was induced uneventfully. Patient received 1 g of cefazolin intravenously preoperatively. A Portillo catheter was inserted. The chest, abdomen and both lower extremities were prepped and draped using ChloraPrep. Ioban was used to cover the skin. RAVI showed mild to moderate central mitral valve regurgitation with mild TR. EF estimated at 25%. RV function preserved. Left atrium not dilated. Decision was made to proceed with coronary revascularization only. Midline sternotomy was performed and the bone was osteopenic and no bone wax was used. The left yvan-sternum was elevated and the left internal mammary artery was harvested in a semi-skeletonized fashion. The left pleura was intentionally opened in this process and was drained with a 28-Serbian chest tube. There was a large breach in the right pleura, which was also drained with another 28-Serbian chest tube. In the same setting, the right greater saphenous vein was harvested endoscopically after administration of 1000 units of heparin at the patient's baseline ACT was 161. The branches were tied. The leg incisions were closed over a drain. The vein was prepared and we identified a usable segment that was around 4 mm in diameter in its mid section, which was of good quality. Patient had evidence of varicose veins in her left lower extremity clinically and by ultrasound. After administration of heparin to achieve an ACT above 250 seconds, the mammary artery was double clipped distally and transected, had an excellent pulsatile flow in it. It was around 1.5 mm in diameter. Mediastinal fat was transected with the Bovie and the veins clipped. Epiaortic scanning revealed no protruding atheroma in the ascending aorta, but evidence of wall disease. The pericardium was opened in an inverted T-fashion and a pericardial cradle was created. Findings included an elongated soft aorta, a leftward rotated heart with evidence of an old anteroapical myocardial infarction. The Acrobat system along with the exposed device and the mistewr-blower were used to perform the surgery on a beating heart. The distance between the obtuse marginal artery and the aorta was measured and the vein was cut to length, loaded on the Passport device and deployed on the left lateral aspect of the distal ascending aorta after pausing the balloon pump during deployment. The proximal anastomosis was hemostatic. There was excellent flow into the other end of the vein. Subsequently, we proceeded at performing the first distal anastomosis between the left internal mammary artery and the mid to distal aspect of the left anterior descending artery as it emerged from an intramyocardial course. There was evidence of diffuse disease of the left anterior descending artery. It was opened, had reasonable flow in it, which was a collateral flow and accepted a 1.25 mm shunt. The anastomosis was completed using Prolene 7.0 in continuous fashion. The clamp was released and the flow measurements of the mammary artery revealed excellent flow with a flow of 24 mL/minute and a pulsatility index of 4. The mammary pedicle was affixed to the epicardium with x3 Prolene 6.0 sutures. The exposed device was used to expose the lateral wall. The second distal anastomosis was between the vein graft that was already connected to the aorta and the long obtuse marginal artery that had evidence of diffuse disease in it. It was opened, had profuse flow in it, accepted 1.5 mm shunt and the anastomosis was completed using Prolene 7.0 in continuous fashion. The vein was de-aired and the shunt was removed before completing the anastomosis, which was well tolerated. Graft flow measurements revealed a flow of 60 mL/ minute and pulsatility index of 3.8, showing an excellent functioning graft. Subsequently, I proceeded at this point, at excluding the left atrial appendage using a 45 mm AtriClip. Half reversal with protamine was performed. A 32 Serbian substernal chest tube was placed. Pericardial fat was approximated over the heart and grafts. No pacing wires were placed. After ensuring adequate hemostasis and hemodynamic and after correct sponge, instrument, and needle count, the sternum was approximated using 5 figure-of- eight stainless steel wires after interposing fibrillar between the sternal edges. Thorough irrigation of cefazolin followed. The rest of the closure proceeded in layers.Skin glue was applied. Patient did not receive any blood bank product but received 150 mL of Cell Saver blood. RAVI at the end of the procedure showed evidence of mild mitral valve regurgitation and mild tricuspid valve regurgitation and slightly improved lateral function of the heart. MMODL / IJN: [id number] / [facility]
[2017-11-30 14:56] LABS: Glucose,Whole Blood 113 mg/dL (75-99)
[2017-11-30] MEDS: MAGNESIUM SULFATE-D5W PMX 1 GM in DEXTROSE/WATER 1 100ML.BAG IVPB SCH ×3 (15:15→17:30)
[2017-11-30] MEDS ORDERED: POTASSIUM CHLORIDE 20 MEQ in WATER FOR INJECTION 1 100ML.BAG IVPB ONE (16:00)
[2017-11-30 16:12] LABS: Glucose,Whole Blood 136 mg/dL (75-99)
[2017-11-30] MEDS: IPRATROPIUM-ALBUTEROL 3 ML NEB INHALATION SCH ×2 (16:30→19:31)
[2017-11-30 16:33] LABS: Basophils % (A) 0 %; Eosinophils # (A) 0.1 k/uL (0-0.7); Eosinophils % (A) 1 %; HGB 7.9 gm/dL (11.4-16.0); Hypochromasia Slight; Lymphocytes # (A) 1.4 k/uL (1.0-4.8); Lymphocytes % (A) 15 %; MCH 27.5 pg (25.0-35.0); MCHC 30.4 g/dL (31.0-37.0); MCV 90.6 fL (80.0-100.0); Mean Platelet Volume 8.2; Monocytes # (A) 0.4 k/uL (0-1.0); Monocytes % (A) 4 %; Neutrophils # (A) 7.1 k/uL (1.3-7.7); Neutrophils % (A) 79 %; Platelet Count 133 k/uL (150-450); RBC 2.87 m/uL (3.80-5.40); RDW 13.7 % (11.5-15.5)
[2017-11-30 17:11] LABS: Glucose,Whole Blood 128 mg/dL (75-99)
[2017-11-30] MEDS: CLEVIDIPINE BUTYRATE 25 MG in EMPTY BAG 1 BAG IV SCH ×2 (17:32→18:00)
[2017-11-30] MEDS: ceFAZolin IN SWFI 2 GM/20 ML SYRINGE IVP SCH (17:46)
[2017-11-30] MEDS: ACETAMINOPHEN IV (For NPO) 1,000 MG in EMPTY BAG 1 BAG IVPB SCH (17:49)
[2017-11-30 18:22] LABS: Glucose,Whole Blood 133 mg/dL (75-99)
[2017-11-30 19:05] LABS: Glucose,Whole Blood 153 mg/dL (75-99)
[2017-11-30 19:15] LABS: Basophils % (A) 0 %; Eosinophils # (A) 0.2 k/uL (0-0.7); Eosinophils % (A) 2 %; HCT 30.8 % (34.0-46.0); Hypochromasia Slight; Lymphocytes # (A) 1.6 k/uL (1.0-4.8); Lymphocytes % (A) 15 %; MCH 27.9 pg (25.0-35.0); MCHC 30.5 g/dL (31.0-37.0); MCV 91.5 fL (80.0-100.0); Mean Platelet Volume 7.5; Monocytes # (A) 0.5 k/uL (0-1.0); Monocytes % (A) 5 %; Neutrophils # (A) 7.8 k/uL (1.3-7.7); Neutrophils % (A) 77 %; Platelet Count 152 k/uL (150-450); RBC 3.37 m/uL (3.80-5.40); RDW 13.7 % (11.5-15.5); WBC 10.2 k/uL (3.8-10.6)
[2017-11-30 19:22] LABS: HGB 9.4 gm/dL (11.4-16.0)
[2017-11-30 20:01] LABS: Glucose,Whole Blood 148 mg/dL (75-99)
[2017-11-30 20:59] LABS: ABG Base Excess -6.4 mmol/L; ABG HCO3 21 mmol/L (21-25); ABG Oxygen Saturation 97.6 % (94-97); ABG PCO2 49 mmHg (35-45); ABG PH 7.24 (7.35-7.45); ABG PO2 95 mmHg (83-108); ABG TCO2 23 mmol/L (19-24)
[2017-11-30 21:11] LABS: Glucose,Whole Blood 152 mg/dL (75-99)
[2017-11-30] MEDS ORDERED: HEPARIN SODIUM,PORCINE 5,000 UNIT/ML 1 ML VIAL SQ SCH (21:12)
[2017-11-30 22:02] LABS: Glucose,Whole Blood 119 mg/dL (75-99)
[2017-11-30 22:57] LABS: Glucose,Whole Blood 94 mg/dL (75-99)
[2017-11-30] MEDS: MORPHINE SULFATE 4 MG/ML SYRINGE IVP PRN (23:44)
[2017-12-01 00:27] LABS: Glucose,Whole Blood 106 mg/dL (75-99)
[2017-12-01 01:16] LABS: Glucose,Whole Blood 116 mg/dL (75-99)
[2017-12-01] MEDS: ACETAMINOPHEN IV (For NPO) 1,000 MG in EMPTY BAG 1 BAG IVPB SCH ×4 (01:27→17:20)
[2017-12-01] MEDS: IPRATROPIUM-ALBUTEROL 3 ML NEB INHALATION SCH ×4 (01:59→20:57)
[2017-12-01 02:09] LABS: Glucose,Whole Blood 125 mg/dL (75-99)
[2017-12-01] MEDS: ALBUMIN HUMAN 5% 250 ML in EMPTY BAG 1 BAG IVPB PRN ×2 (02:09→06:19)
[2017-12-01] MEDS: ceFAZolin IN SWFI 2 GM/20 ML SYRINGE IVP SCH ×2 (03:07→12:01)
[2017-12-01 03:17] LABS: Glucose,Whole Blood 114 mg/dL (75-99)
[2017-12-01 04:18] LABS: Glucose,Whole Blood 114 mg/dL (75-99)
[2017-12-01 04:33] LABS: INR 1.3 (<1.2); Partial Thromboplastin Time 36.5 sec (22.0-30.0); Prothrombin Time 12.7 sec (9.0-12.0)
[2017-12-01 04:39] LABS: Ionized Calcium 4.9 mg/dL (4.5-5.3)
[2017-12-01 04:47] LABS: ALT 24 U/L (9-52); AST 36 U/L (14-36); Albumin 4.1 g/dL (3.5-5.0); Alkaline Phosphatase 38 U/L (38-126); Anion Gap 14 mmol/L; Blood Urea Nitrogen 14 mg/dL (7-17); Calcium 8.7 mg/dL (8.4-10.2); Carbon Dioxide 19 mmol/L (22-30); Chloride 108 mmol/L (98-107); Glucose 115 mg/dL (74-99); Magnesium 2.3 mg/dL (1.6-2.3); Potassium 4.3 mmol/L (3.5-5.1); Sodium 141 mmol/L (137-145); Total Bilirubin 1.1 mg/dL (0.2-1.3); Total Protein 5.7 g/dL (6.3-8.2)
[2017-12-01 04:57] LABS: Basophils % (A) 0 %; Eosinophils % (A) 0 %; HCT 30.9 % (34.0-46.0); HGB 9.4 gm/dL (11.4-16.0); Hypochromasia Slight; Lymphocytes # (A) 0.5 k/uL (1.0-4.8); Lymphocytes % (A) 3 %; MCH 27.5 pg (25.0-35.0); MCHC 30.6 g/dL (31.0-37.0); MCV 89.9 fL (80.0-100.0); Mean Platelet Volume 7.9; Monocytes # (A) 0.8 k/uL (0-1.0); Monocytes % (A) 5 %; Neutrophils # (A) 13.8 k/uL (1.3-7.7); Neutrophils % (A) 91 %; Platelet Count 145 k/uL (150-450); RBC 3.44 m/uL (3.80-5.40); RDW 13.8 % (11.5-15.5); WBC 15.2 k/uL (3.8-10.6)
[2017-12-01 05:02] LABS: Glucose,Whole Blood 119 mg/dL (75-99)
[2017-12-01 06:33] LABS: Glucose,Whole Blood 123 mg/dL (75-99)
[2017-12-01] MEDS: CLOPIDOGREL 75 MG TAB PO SCH ×2 (06:57→20:13)
[2017-12-01] MEDS: MUPIROCIN 2% OINT 22 GM TUBE NASAL SCH ×3 (06:57→20:14)
[2017-12-01] MEDS ORDERED: ALPRAZolam 0.25 MG TAB PO PRN (07:06)
[2017-12-01 07:13] LABS: Glucose,Whole Blood 126 mg/dL (75-99)
--- NOTE | 2017-12-01 07:17 | XR ---
EXAMINATION TYPE: XR chest 1V portable DATE OF EXAM: 12/01/2017 COMPARISON: 11/30/2017 HISTORY: Postop cardiac surgery TECHNIQUE: Single frontal view of the chest is obtained. FINDINGS: Bilateral chest tubes are noted. Mediastinal drain seen and Remington-Diann catheter and balloon pump marker noted. Bilateral areas of consolidation and small effusion. No sizable pneumothorax. IMPRESSION: 1. Postoperative change with bilateral infiltrate and small effusion
[2017-12-01 08:11] LABS: Glucose,Whole Blood 112 mg/dL (75-99)
[2017-12-01] MEDS: ASPIRIN 325 MG TAB PO SCH (08:11)
[2017-12-01] MEDS: PANTOPRAZOLE 40 MG/10 ML VIAL IVP SCH (08:12)
[2017-12-01] MEDS: LACTATED RINGERS 1,000 ML IV SCH (08:12)
[2017-12-01] MEDS: METOPROLOL TARTRATE 12.5 MG TAB PO SCH ×4 (08:12→23:01)
[2017-12-01] MEDS: ATORVASTATIN 40 MG TAB PO SCH (08:12)
[2017-12-01] MEDS ORDERED: FUROSEMIDE 10 MG/ML 2 ML VIAL IV ONE ×2 (08:32→18:22)
[2017-12-01 08:42] LABS: ABG Base Excess -5.6 mmol/L; ABG HCO3 21 mmol/L (21-25); ABG Oxygen Saturation 53.1 % (94-97); ABG PCO2 45 mmHg (35-45); ABG PH 7.28 (7.35-7.45); ABG TCO2 23 mmol/L (19-24)
[2017-12-01 08:44] LABS: ABG PO2 30 mmHg (83-108)
[2017-12-01] MEDS ORDERED: CLOPIDOGREL 75 MG TAB PO SCH (09:00)
[2017-12-01 09:22] LABS: Glucose,Whole Blood 110 mg/dL (75-99)
--- NOTE | 2017-12-01 09:33 | P.PN ---
Subjective Progress Note Date: 12/01/17 This is a 82-year-old female who was admitted to the hospital with congestive heart failure and evidence of ischemic cardiomyopathy. Patient had a cardiac catheterization yesterday by Dr. VC Jin. Patient was found to have severe triple-vessel disease including total occlusion of the LAD and left main. Patient had intractable balloon pump. She underwent aortic coronary bypass surgery. She seemed to be hemodynamically stable. She is extubated. Complaints of back pain. Maintaining sinus rhythm. Cardiac index is fluctuating. Chest x-ray doesn't show any significant CHF. The possibility that the entirety balloon pump may be taken out today. He urine output is fair. Objective - Vital Signs Vital signs: Vital Signs Temp 97.3 F L 11/30/17 23:00 Pulse 78 12/01/17 09:00 Resp 14 12/01/17 09:00 BP 105/61 11/30/17 18:00 Pulse Ox 93 L 12/01/17 05:00 Intake & Output 11/30/17 12/01/17 12/01/17 18:59 06:59 18:59 Intake Total 2738.447 1760.309 242.014 Output Total 1508 1254 230 Balance 1230.447 506.309 12.014 Intake: IV 1250 1685.5 238.5 Albumin Human 5% 250 ml 750 In Empty Bag 1 bag @ 250 mls/hr IVPB Q1HR PRN Rx#: [id number] CO/CI 270 60 Lactated Ringers 1,000 ml 550 150 @ 50 mls/hr IV .Q20H [facility] Rx#:[id number] Nitroglycerin-D5w Pmx 50 16.5 1.5 mg In Dextrose/Water 1 250ml.bag @ 5 MCG/MIN 1.5 mls/hr IV .Q24H [facility] Rx#: [id number] Presure Lines 99 27 Sodium Chloride 0.9% 1, 100 000 ml @ 50 mls/hr IV . Q20H [facility] Rx#:[id number] Intake, IV Titration 1488.447 74.809 3.514 Amount ACETAMINOPHEN IV (For NPO 100 ) 1,000 mg In Empty Bag 1 bag @ 400 mls/hr IVPB Q6HR [facility] Rx#:[id number] Albumin Human 5% 250 ml 750 In Empty Bag 1 bag @ 250 mls/hr IVPB Q1HR PRN Rx#: [id number] Clevidipine Butyrate 25 3.7 mg In Empty Bag 1 bag @ 1 MG/HR 2 mls/hr IV .Q24H [facility] Rx#:[id number] Insulin Regular 100 unit 2 23.309 3.514 In Sodium Chloride 0.9% 100 ml @ Per Protocol IV .Q0M [facility] Rx#:[id number] Lactated Ringers 1,000 ml 250 50 @ 50 mls/hr IV .Q20H [facility] Rx#:[id number] Magnesium Sulfate-D5w Pmx 200 1 gm In Dextrose/Water 1 100ml.bag @ 100 mls/hr IVPB Q1H [facility] Rx#: [id number] Nitroglycerin-D5w Pmx 50 3.325 mg In Dextrose/Water 1 250ml.bag @ 5 MCG/MIN 1.5 mls/hr IV .Q24H [facility] Rx#: [id number] Nitroglycerin-D5w Pmx 50 6.0 1.5 mg In Dextrose/Water 1 250ml.bag @ 5 MCG/MIN 1.5 mls/hr IV .Q24H [facility] Rx#: [id number] Potassium Chloride 20 meq 100 In Water For Injection 1 100ml.bag @ 50 mls/hr IVPB ONCE [facility] Rx#: [id number] Propofol 1,000 mg In 73.422 Empty Bag 1 bag @ Titrate IV .Q0M [facility] Rx#: [id number] Output: Chest Tube Drainage 645 840 130 Left Pleural 170 330 70 Mediastinal 205 140 10 Right Pleural 270 370 50 Drainage 25 25 Right Calf 25 25 Urine 538 389 100 Estimated Blood Loss 300 Other: Voiding Method Indwelling Catheter Indwelling Catheter Indwelling Catheter # Voids 1 # Bowel Movements 0 ABP, PAP, CO, CI - Last Documented Arterial Blood Pressure 127/40 Pulmonary Artery Pressure 81/37 Cardiac Output 3.2 Cardiac Index 2 - Exam GENERAL EXAM: Patient is alert and oriented HEENT: Normocephalic. Normal reaction of pupils, equal size, normal range of extraocular motion. No erythema or exudates in the throat. NECK: No masses, no nuchal rigidity. CHEST: No chest wall deformity. LUNGS: Diminished breath sounds HEART: S1 and S2 normal with no audible mumurs or gallops. Regular rhythm, ABDOMEN: No hepatosplenomegaly, normal bowel sounds, no guarding or rigidity. SKIN: No rashes CENTRAL NERVOUS SYSTEM: No focal deficits. EXTREMITIES: No cyanosis, clubbing or edema. - Labs CBC & Chem 7: 12/01/17 04:08 12/01/17 04:08 Labs: Abnormal Lab Results - Last 24 Hours (Table) 11/29/17 11/30/17 11/30/17 Range/Units 17:20 13:47 13:50 WBC (3.8-10.6) k/uL RBC 2.95 L (3.80-5.40) m/uL Hgb 8.3 L D (11.4-16.0) gm/dL Hct 26.3 L (34.0-46.0) % MCHC (31.0-37.0) g/dL Plt Count 141 L (150-450) k/uL Neutrophils # (1.3-7.7) k/uL Lymphocytes # (1.0-4.8) k/uL PT (9.0-12.0) sec INR (<1.2) APTT (22.0-30.0) sec ABG pH (7.35-7.45) ABG pCO2 (35-45) mmHg ABG pO2 (83-108) mmHg ABG Total CO2 (19-24) mmol/L ABG O2 Saturation (94-97) % Chloride (98-107) mmol/L Carbon Dioxide (22-30) mmol/L Glucose (74-99) mg/dL POC Glucose (mg/dL) 115 H (75-99) mg/dL Calcium (8.4-10.2) mg/dL Magnesium (1.6-2.3) mg/dL Alkaline Phosphatase (38-126) U/L Total Protein (6.3-8.2) g/dL Albumin (3.5-5.0) g/dL Crossmatch See Detail 11/30/17 11/30/17 11/30/17 Range/Units 13:50 13:50 13:59 WBC (3.8-10.6) k/uL RBC (3.80-5.40) m/uL Hgb (11.4-16.0) gm/dL Hct (34.0-46.0) % MCHC (31.0-37.0) g/dL Plt Count (150-450) k/uL Neutrophils # (1.3-7.7) k/uL Lymphocytes # (1.0-4.8) k/uL PT 14.4 H (9.0-12.0) sec INR 1.6 H (<1.2) APTT 124.8 H* (22.0-30.0) sec ABG pH 7.32 L (7.35-7.45) ABG pCO2 46 H (35-45) mmHg ABG pO2 320 H (83-108) mmHg ABG Total CO2 25 H (19-24) mmol/L ABG O2 Saturation 100.0 H (94-97) % Chloride 108 H (98-107) mmol/L Carbon Dioxide (22-30) mmol/L Glucose 109 H (74-99) mg/dL POC Glucose (mg/dL) (75-99) mg/dL Calcium 7.7 L (8.4-10.2) mg/dL Magnesium 1.3 L (1.6-2.3) mg/dL Alkaline Phosphatase 31 L (38-126) U/L Total Protein 4.3 L (6.3-8.2) g/dL Albumin 2.8 L (3.5-5.0) g/dL Crossmatch 11/30/17 11/30/17 11/30/17 Range/Units 14:44 16:09 16:10 WBC (3.8-10.6) k/uL RBC 2.87 L (3.80-5.40) m/uL Hgb 7.9 L (11.4-16.0) gm/dL Hct 26.0 L (34.0-46.0) % MCHC 30.4 L (31.0-37.0) g/dL Plt Count 133 L (150-450) k/uL Neutrophils # (1.3-7.7) k/uL Lymphocytes # (1.0-4.8) k/uL PT (9.0-12.0) sec INR (<1.2) APTT (22.0-30.0) sec ABG pH (7.35-7.45) ABG pCO2 (35-45) mmHg ABG pO2 (83-108) mmHg ABG Total CO2 (19-24) mmol/L ABG O2 Saturation (94-97) % Chloride (98-107) mmol/L Carbon Dioxide (22-30) mmol/L Glucose (74-99) mg/dL POC Glucose (mg/dL) 113 H 136 H (75-99) mg/dL Calcium (8.4-10.2) mg/dL Magnesium (1.6-2.3) mg/dL Alkaline Phosphatase (38-126) U/L Total Protein (6.3-8.2) g/dL Albumin (3.5-5.0) g/dL Crossmatch 11/30/17 11/30/17 11/30/17 Range/Units 17:08 18:07 19:00 WBC (3.8-10.6) k/uL RBC 3.37 L (3.80-5.40) m/uL Hgb 9.4 L D (11.4-16.0) gm/dL Hct 30.8 L (34.0-46.0) % MCHC 30.5 L (31.0-37.0) g/dL Plt Count (150-450) k/uL Neutrophils # 7.8 H (1.3-7.7) k/uL Lymphocytes # (1.0-4.8) k/uL PT (9.0-12.0) sec INR (<1.2) APTT (22.0-30.0) sec ABG pH (7.35-7.45) ABG pCO2 (35-45) mmHg ABG pO2 (83-108) mmHg ABG Total CO2 (19-24) mmol/L ABG O2 Saturation (94-97) % Chloride (98-107) mmol/L Carbon Dioxide (22-30) mmol/L Glucose (74-99) mg/dL POC Glucose (mg/dL) 128 H 133 H (75-99) mg/dL Calcium (8.4-10.2) mg/dL Magnesium (1.6-2.3) mg/dL Alkaline Phosphatase (38-126) U/L Total Protein (6.3-8.2) g/dL Albumin (3.5-5.0) g/dL Crossmatch 11/30/17 11/30/17 11/30/17 Range/Units 19:00 19:02 19:46 WBC (3.8-10.6) k/uL RBC (3.80-5.40) m/uL Hgb (11.4-16.0) gm/dL Hct (34.0-46.0) % MCHC (31.0-37.0) g/dL Plt Count (150-450) k/uL Neutrophils # (1.3-7.7) k/uL Lymphocytes # (1.0-4.8) k/uL PT (9.0-12.0) sec INR (<1.2) APTT (22.0-30.0) sec ABG pH (7.35-7.45) ABG pCO2 (35-45) mmHg ABG pO2 (83-108) mmHg ABG Total CO2 (19-24) mmol/L ABG O2 Saturation (94-97) % Chloride (98-107) mmol/L Carbon Dioxide (22-30) mmol/L Glucose (74-99) mg/dL POC Glucose (mg/dL) 153 H 148 H (75-99) mg/dL Calcium (8.4-10.2) mg/dL Magnesium 2.7 H (1.6-2.3) mg/dL Alkaline Phosphatase (38-126) U/L Total Protein (6.3-8.2) g/dL Albumin (3.5-5.0) g/dL Crossmatch 11/30/17 11/30/17 11/30/17 Range/Units 20:56 20:56 22:00 WBC (3.8-10.6) k/uL RBC (3.80-5.40) m/uL Hgb (11.4-16.0) gm/dL Hct (34.0-46.0) % MCHC (31.0-37.0) g/dL Plt Count (150-450) k/uL Neutrophils # (1.3-7.7) k/uL Lymphocytes # (1.0-4.8) k/uL PT (9.0-12.0) sec INR (<1.2) APTT (22.0-30.0) sec ABG pH 7.24 L (7.35-7.45) ABG pCO2 49 H (35-45) mmHg ABG pO2 (83-108) mmHg ABG Total CO2 (19-24) mmol/L ABG O2 Saturation 97.6 H (94-97) % Chloride (98-107) mmol/L Carbon Dioxide (22-30) mmol/L Glucose (74-99) mg/dL POC Glucose (mg/dL) 152 H 119 H (75-99) mg/dL Calcium (8.4-10.2) mg/dL Magnesium (1.6-2.3) mg/dL Alkaline Phosphatase (38-126) U/L Total Protein (6.3-8.2) g/dL Albumin (3.5-5.0) g/dL Crossmatch 12/01/17 12/01/17 12/01/17 Range/Units 00:24 01:14 02:02 WBC (3.8-10.6) k/uL RBC (3.80-5.40) m/uL Hgb (11.4-16.0) gm/dL Hct (34.0-46.0) % MCHC (31.0-37.0) g/dL Plt Count (150-450) k/uL Neutrophils # (1.3-7.7) k/uL Lymphocytes # (1.0-4.8) k/uL PT (9.0-12.0) sec INR (<1.2) APTT (22.0-30.0) sec ABG pH (7.35-7.45) ABG pCO2 (35-45) mmHg ABG pO2 (83-108) mmHg ABG Total CO2 (19-24) mmol/L ABG O2 Saturation (94-97) % Chloride (98-107) mmol/L Carbon Dioxide (22-30) mmol/L Glucose (74-99) mg/dL POC Glucose (mg/dL) 106 H 116 H 125 H (75-99) mg/dL Calcium (8.4-10.2) mg/dL Magnesium (1.6-2.3) mg/dL Alkaline Phosphatase (38-126) U/L Total Protein (6.3-8.2) g/dL Albumin (3.5-5.0) g/dL Crossmatch 12/01/17 12/01/17 12/01/17 Range/Units 03:15 04:08 04:08 WBC 15.2 H (3.8-10.6) k/uL RBC 3.44 L (3.80-5.40) m/uL Hgb 9.4 L (11.4-16.0) gm/dL Hct 30.9 L (34.0-46.0) % MCHC 30.6 L (31.0-37.0) g/dL Plt Count 145 L (150-450) k/uL Neutrophils # 13.8 H (1.3-7.7) k/uL Lymphocytes # 0.5 L (1.0-4.8) k/uL PT (9.0-12.0) sec INR (<1.2) APTT (22.0-30.0) sec ABG pH (7.35-7.45) ABG pCO2 (35-45) mmHg ABG pO2 (83-108) mmHg ABG Total CO2 (19-24) mmol/L ABG O2 Saturation (94-97) % Chloride 108 H (98-107) mmol/L Carbon Dioxide 19 L (22-30) mmol/L Glucose 115 H (74-99) mg/dL POC Glucose (mg/dL) 114 H (75-99) mg/dL Calcium (8.4-10.2) mg/dL Magnesium (1.6-2.3) mg/dL Alkaline Phosphatase (38-126) U/L Total Protein 5.7 L (6.3-8.2) g/dL Albumin (3.5-5.0) g/dL Crossmatch 12/01/17 12/01/17 12/01/17 Range/Units 04:08 04:13 05:00 WBC (3.8-10.6) k/uL RBC (3.80-5.40) m/uL Hgb (11.4-16.0) gm/dL Hct (34.0-46.0) % MCHC (31.0-37.0) g/dL Plt Count (150-450) k/uL Neutrophils # (1.3-7.7) k/uL Lymphocytes # (1.0-4.8) k/uL PT 12.7 H (9.0-12.0) sec INR 1.3 H (<1.2) APTT 36.5 H (22.0-30.0) sec ABG pH (7.35-7.45) ABG pCO2 (35-45) mmHg ABG pO2 (83-108) mmHg ABG Total CO2 (19-24) mmol/L ABG O2 Saturation (94-97) % Chloride (98-107) mmol/L Carbon Dioxide (22-30) mmol/L Glucose (74-99) mg/dL POC Glucose (mg/dL) 114 H 119 H (75-99) mg/dL Calcium (8.4-10.2) mg/dL Magnesium (1.6-2.3) mg/dL Alkaline Phosphatase (38-126) U/L Total Protein (6.3-8.2) g/dL Albumin (3.5-5.0) g/dL Crossmatch 12/01/17 12/01/17 12/01/17 Range/Units 06:27 07:11 08:10 WBC (3.8-10.6) k/uL RBC (3.80-5.40) m/uL Hgb (11.4-16.0) gm/dL Hct (34.0-46.0) % MCHC (31.0-37.0) g/dL Plt Count (150-450) k/uL Neutrophils # (1.3-7.7) k/uL Lymphocytes # (1.0-4.8) k/uL PT (9.0-12.0) sec INR (<1.2) APTT (22.0-30.0) sec ABG pH (7.35-7.45) ABG pCO2 (35-45) mmHg ABG pO2 (83-108) mmHg ABG Total CO2 (19-24) mmol/L ABG O2 Saturation (94-97) % Chloride (98-107) mmol/L Carbon Dioxide (22-30) mmol/L Glucose (74-99) mg/dL POC Glucose (mg/dL) 123 H 126 H 112 H (75-99) mg/dL Calcium (8.4-10.2) mg/dL Magnesium (1.6-2.3) mg/dL Alkaline Phosphatase (38-126) U/L Total Protein (6.3-8.2) g/dL Albumin (3.5-5.0) g/dL Crossmatch 12/01/17 12/01/17 Range/Units 08:40 09:09 WBC (3.8-10.6) k/uL RBC (3.80-5.40) m/uL Hgb (11.4-16.0) gm/dL Hct (34.0-46.0) % MCHC (31.0-37.0) g/dL Plt Count (150-450) k/uL Neutrophils # (1.3-7.7) k/uL Lymphocytes # (1.0-4.8) k/uL PT (9.0-12.0) sec INR (<1.2) APTT (22.0-30.0) sec ABG pH 7.28 L (7.35-7.45) ABG pCO2 (35-45) mmHg ABG pO2 30 L* (83-108) mmHg ABG Total CO2 (19-24) mmol/L ABG O2 Saturation 53.1 L (94-97) % Chloride (98-107) mmol/L Carbon Dioxide (22-30) mmol/L Glucose (74-99) mg/dL POC Glucose (mg/dL) 110 H (75-99) mg/dL Calcium (8.4-10.2) mg/dL Magnesium (1.6-2.3) mg/dL Alkaline Phosphatase (38-126) U/L Total Protein (6.3-8.2) g/dL Albumin (3.5-5.0) g/dL Crossmatch Microbiology - Last 24 Hours (Table) 11/30/17 01:00 Nasal Screen MRSA/MSSA ([facility]) - Preliminary Nasal Swab 11/30/17 07:00 Urine Culture - Preliminary Urine,Voided Assessment and Plan (1) Status post aorto-coronary artery bypass graft Current Visit: Yes Status: Acute Code(s): Z95.1 - PRESENCE OF AORTOCORONARY BYPASS GRAFT SNOMED Code(s): 946116083 (2) Congestive heart failure Current Visit: Yes Status: Acute Code(s): I50.9 - HEART FAILURE, UNSPECIFIED SNOMED Code(s): 05297214 (3) History of hyperlipidemia Current Visit: Yes Status: Chronic Code(s): Z86.39 - PERSONAL HISTORY OF ENDO, NUTRITIONAL AND METABOLIC DISEASE SNOMED Code(s): 535708500 Plan: Continue current medical therapy. Possible removal of a tight balloon pump. May initiate beta blockers and NOMAN inhibitor as tolerated. May use Lanoxin if necessary. Prognosis still guarded
--- NOTE | 2017-12-01 09:39 | P.PN ---
Subjective Progress Note Date: 12/01/17 Principal diagnosis: Status post three-vessel bypass grafting, postoperative day #1 Progress note dated 12/01/2017. 82-year-old female postop day #1 status post three-vessel bypass grafting. She was extubated last night. Weaning parameters were excellent. She passed her cuff leak. Blood gases were good. She was awake and alert. She's currently been extubated today liters high flow by nasal cannula. The patient is in no distress at the current time. Still little sleepy. She did get some Xanax this morning. I think as a bad idea. We'll stop for the time being. We may resume in the future pending her mental status. She is on lactated Ringer's IV at 50 mL an hour. She was on an insulin drip at that's been turned off. Chest x-ray looks stable. Postsurgical changes. Nothing acute. She has a history of non-ST segment elevation myocardial infarction, congestive heart failure, valvular heart disease, status post catheterization with a intra-aortic balloon pump hyperlipidemia acute bronchitis suspected COPD anxiety and gastroesophageal reflux disease. The balloon pump still in place. He likely be removed today. Other than that everything is very stable. Objective - Vital Signs Vital signs: Vital Signs Temp 97.3 F L 11/30/17 23:00 Pulse 78 12/01/17 09:00 Resp 14 12/01/17 09:00 BP 105/61 11/30/17 18:00 Pulse Ox 93 L 12/01/17 05:00 Intake & Output 11/30/17 12/01/17 12/01/17 18:59 06:59 18:59 Intake Total 2738.447 1760.309 242.014 Output Total 1508 1254 230 Balance 1230.447 506.309 12.014 Intake: IV 1250 1685.5 238.5 Albumin Human 5% 250 ml 750 In Empty Bag 1 bag @ 250 mls/hr IVPB Q1HR PRN Rx#: [id number] CO/CI 270 60 Lactated Ringers 1,000 ml 550 150 @ 50 mls/hr IV .Q20H [facility] Rx#:[id number] Nitroglycerin-D5w Pmx 50 16.5 1.5 mg In Dextrose/Water 1 250ml.bag @ 5 MCG/MIN 1.5 mls/hr IV .Q24H [facility] Rx#: [id number] Presure Lines 99 27 Sodium Chloride 0.9% 1, 100 000 ml @ 50 mls/hr IV . Q20H [facility] Rx#:[id number] Intake, IV Titration 1488.447 74.809 3.514 Amount ACETAMINOPHEN IV (For NPO 100 ) 1,000 mg In Empty Bag 1 bag @ 400 mls/hr IVPB Q6HR [facility] Rx#:[id number] Albumin Human 5% 250 ml 750 In Empty Bag 1 bag @ 250 mls/hr IVPB Q1HR PRN Rx#: [id number] Clevidipine Butyrate 25 3.7 mg In Empty Bag 1 bag @ 1 MG/HR 2 mls/hr IV .Q24H [facility] Rx#:[id number] Insulin Regular 100 unit 2 23.309 3.514 In Sodium Chloride 0.9% 100 ml @ Per Protocol IV .Q0M [facility] Rx#:[id number] Lactated Ringers 1,000 ml 250 50 @ 50 mls/hr IV .Q20H [facility] Rx#:[id number] Magnesium Sulfate-D5w Pmx 200 1 gm In Dextrose/Water 1 100ml.bag @ 100 mls/hr IVPB Q1H [facility] Rx#: [id number] Nitroglycerin-D5w Pmx 50 3.325 mg In Dextrose/Water 1 250ml.bag @ 5 MCG/MIN 1.5 mls/hr IV .Q24H [facility] Rx#: [id number] Nitroglycerin-D5w Pmx 50 6.0 1.5 mg In Dextrose/Water 1 250ml.bag @ 5 MCG/MIN 1.5 mls/hr IV .Q24H [facility] Rx#: [id number] Potassium Chloride 20 meq 100 In Water For Injection 1 100ml.bag @ 50 mls/hr IVPB ONCE [facility] Rx#: [id number] Propofol 1,000 mg In 73.422 Empty Bag 1 bag @ Titrate IV .Q0M [facility] Rx#: [id number] Output: Chest Tube Drainage 645 840 130 Left Pleural 170 330 70 Mediastinal 205 140 10 Right Pleural 270 370 50 Drainage 25 25 Right Calf 25 25 Urine 538 389 100 Estimated Blood Loss 300 Other: Voiding Method Indwelling Catheter Indwelling Catheter Indwelling Catheter # Voids 1 # Bowel Movements 0 ABP, PAP, CO, CI - Last Documented Arterial Blood Pressure 127/40 Pulmonary Artery Pressure 81/37 Cardiac Output 3.2 Cardiac Index 2 - Exam No acute distress, oriented 3. The patient's very sleepy this morning. HEENT examination is grossly unremarkable. Mucous membranes are moist. No oral lesions. Neck supple. Full range of motion. No adenopathy thyromegaly or neck vein distention. Cardiovascular examination reveals regular rhythm rate. S1-S2 normal. No S3 or S4. No discernible murmur noted. Lungs reveal a few scattered rhonchi. No wheezes or crackles. Breath sounds are equal. Abdomen soft bowel sounds are heard. No masses or tenderness. Extremities are intact. No cyanosis clubbing or edema. Skin is without rash or lesion. Neurologic examination is brief but nonfocal. - Labs CBC & Chem 7: 12/01/17 04:08 12/01/17 04:08 Labs: Abnormal Lab Results - Last 24 Hours (Table) 11/29/17 11/30/17 11/30/17 Range/Units 17:20 13:47 13:50 WBC (3.8-10.6) k/uL RBC 2.95 L (3.80-5.40) m/uL Hgb 8.3 L D (11.4-16.0) gm/dL Hct 26.3 L (34.0-46.0) % MCHC (31.0-37.0) g/dL Plt Count 141 L (150-450) k/uL Neutrophils # (1.3-7.7) k/uL Lymphocytes # (1.0-4.8) k/uL PT (9.0-12.0) sec INR (<1.2) APTT (22.0-30.0) sec ABG pH (7.35-7.45) ABG pCO2 (35-45) mmHg ABG pO2 (83-108) mmHg ABG Total CO2 (19-24) mmol/L ABG O2 Saturation (94-97) % Chloride (98-107) mmol/L Carbon Dioxide (22-30) mmol/L Glucose (74-99) mg/dL POC Glucose (mg/dL) 115 H (75-99) mg/dL Calcium (8.4-10.2) mg/dL Magnesium (1.6-2.3) mg/dL Alkaline Phosphatase (38-126) U/L Total Protein (6.3-8.2) g/dL Albumin (3.5-5.0) g/dL Crossmatch See Detail 11/30/17 11/30/17 11/30/17 Range/Units 13:50 13:50 13:59 WBC (3.8-10.6) k/uL RBC (3.80-5.40) m/uL Hgb (11.4-16.0) gm/dL Hct (34.0-46.0) % MCHC (31.0-37.0) g/dL Plt Count (150-450) k/uL Neutrophils # (1.3-7.7) k/uL Lymphocytes # (1.0-4.8) k/uL PT 14.4 H (9.0-12.0) sec INR 1.6 H (<1.2) APTT 124.8 H* (22.0-30.0) sec ABG pH 7.32 L (7.35-7.45) ABG pCO2 46 H (35-45) mmHg ABG pO2 320 H (83-108) mmHg ABG Total CO2 25 H (19-24) mmol/L ABG O2 Saturation 100.0 H (94-97) % Chloride 108 H (98-107) mmol/L Carbon Dioxide (22-30) mmol/L Glucose 109 H (74-99) mg/dL POC Glucose (mg/dL) (75-99) mg/dL Calcium 7.7 L (8.4-10.2) mg/dL Magnesium 1.3 L (1.6-2.3) mg/dL Alkaline Phosphatase 31 L (38-126) U/L Total Protein 4.3 L (6.3-8.2) g/dL Albumin 2.8 L (3.5-5.0) g/dL Crossmatch 11/30/17 11/30/17 11/30/17 Range/Units 14:44 16:09 16:10 WBC (3.8-10.6) k/uL RBC 2.87 L (3.80-5.40) m/uL Hgb 7.9 L (11.4-16.0) gm/dL Hct 26.0 L (34.0-46.0) % MCHC 30.4 L (31.0-37.0) g/dL Plt Count 133 L (150-450) k/uL Neutrophils # (1.3-7.7) k/uL Lymphocytes # (1.0-4.8) k/uL PT (9.0-12.0) sec INR (<1.2) APTT (22.0-30.0) sec ABG pH (7.35-7.45) ABG pCO2 (35-45) mmHg ABG pO2 (83-108) mmHg ABG Total CO2 (19-24) mmol/L ABG O2 Saturation (94-97) % Chloride (98-107) mmol/L Carbon Dioxide (22-30) mmol/L Glucose (74-99) mg/dL POC Glucose (mg/dL) 113 H 136 H (75-99) mg/dL Calcium (8.4-10.2) mg/dL Magnesium (1.6-2.3) mg/dL Alkaline Phosphatase (38-126) U/L Total Protein (6.3-8.2) g/dL Albumin (3.5-5.0) g/dL Crossmatch 11/30/17 11/30/17 11/30/17 Range/Units 17:08 18:07 19:00 WBC (3.8-10.6) k/uL RBC 3.37 L (3.80-5.40) m/uL Hgb 9.4 L D (11.4-16.0) gm/dL Hct 30.8 L (34.0-46.0) % MCHC 30.5 L (31.0-37.0) g/dL Plt Count (150-450) k/uL Neutrophils # 7.8 H (1.3-7.7) k/uL Lymphocytes # (1.0-4.8) k/uL PT (9.0-12.0) sec INR (<1.2) APTT (22.0-30.0) sec ABG pH (7.35-7.45) ABG pCO2 (35-45) mmHg ABG pO2 (83-108) mmHg ABG Total CO2 (19-24) mmol/L ABG O2 Saturation (94-97) % Chloride (98-107) mmol/L Carbon Dioxide (22-30) mmol/L Glucose (74-99) mg/dL POC Glucose (mg/dL) 128 H 133 H (75-99) mg/dL Calcium (8.4-10.2) mg/dL Magnesium (1.6-2.3) mg/dL Alkaline Phosphatase (38-126) U/L Total Protein (6.3-8.2) g/dL Albumin (3.5-5.0) g/dL Crossmatch 11/30/17 11/30/17 11/30/17 Range/Units 19:00 19:02 19:46 WBC (3.8-10.6) k/uL RBC (3.80-5.40) m/uL Hgb (11.4-16.0) gm/dL Hct (34.0-46.0) % MCHC (31.0-37.0) g/dL Plt Count (150-450) k/uL Neutrophils # (1.3-7.7) k/uL Lymphocytes # (1.0-4.8) k/uL PT (9.0-12.0) sec INR (<1.2) APTT (22.0-30.0) sec ABG pH (7.35-7.45) ABG pCO2 (35-45) mmHg ABG pO2 (83-108) mmHg ABG Total CO2 (19-24) mmol/L ABG O2 Saturation (94-97) % Chloride (98-107) mmol/L Carbon Dioxide (22-30) mmol/L Glucose (74-99) mg/dL POC Glucose (mg/dL) 153 H 148 H (75-99) mg/dL Calcium (8.4-10.2) mg/dL Magnesium 2.7 H (1.6-2.3) mg/dL Alkaline Phosphatase (38-126) U/L Total Protein (6.3-8.2) g/dL Albumin (3.5-5.0) g/dL Crossmatch 11/30/17 11/30/17 11/30/17 Range/Units 20:56 20:56 22:00 WBC (3.8-10.6) k/uL RBC (3.80-5.40) m/uL Hgb (11.4-16.0) gm/dL Hct (34.0-46.0) % MCHC (31.0-37.0) g/dL Plt Count (150-450) k/uL Neutrophils # (1.3-7.7) k/uL Lymphocytes # (1.0-4.8) k/uL PT (9.0-12.0) sec INR (<1.2) APTT (22.0-30.0) sec ABG pH 7.24 L (7.35-7.45) ABG pCO2 49 H (35-45) mmHg ABG pO2 (83-108) mmHg ABG Total CO2 (19-24) mmol/L ABG O2 Saturation 97.6 H (94-97) % Chloride (98-107) mmol/L Carbon Dioxide (22-30) mmol/L Glucose (74-99) mg/dL POC Glucose (mg/dL) 152 H 119 H (75-99) mg/dL Calcium (8.4-10.2) mg/dL Magnesium (1.6-2.3) mg/dL Alkaline Phosphatase (38-126) U/L Total Protein (6.3-8.2) g/dL Albumin (3.5-5.0) g/dL Crossmatch 12/01/17 12/01/17 12/01/17 Range/Units 00:24 01:14 02:02 WBC (3.8-10.6) k/uL RBC (3.80-5.40) m/uL Hgb (11.4-16.0) gm/dL Hct (34.0-46.0) % MCHC (31.0-37.0) g/dL Plt Count (150-450) k/uL Neutrophils # (1.3-7.7) k/uL Lymphocytes # (1.0-4.8) k/uL PT (9.0-12.0) sec INR (<1.2) APTT (22.0-30.0) sec ABG pH (7.35-7.45) ABG pCO2 (35-45) mmHg ABG pO2 (83-108) mmHg ABG Total CO2 (19-24) mmol/L ABG O2 Saturation (94-97) % Chloride (98-107) mmol/L Carbon Dioxide (22-30) mmol/L Glucose (74-99) mg/dL POC Glucose (mg/dL) 106 H 116 H 125 H (75-99) mg/dL Calcium (8.4-10.2) mg/dL Magnesium (1.6-2.3) mg/dL Alkaline Phosphatase (38-126) U/L Total Protein (6.3-8.2) g/dL Albumin (3.5-5.0) g/dL Crossmatch 12/01/17 12/01/17 12/01/17 Range/Units 03:15 04:08 04:08 WBC 15.2 H (3.8-10.6) k/uL RBC 3.44 L (3.80-5.40) m/uL Hgb 9.4 L (11.4-16.0) gm/dL Hct 30.9 L (34.0-46.0) % MCHC 30.6 L (31.0-37.0) g/dL Plt Count 145 L (150-450) k/uL Neutrophils # 13.8 H (1.3-7.7) k/uL Lymphocytes # 0.5 L (1.0-4.8) k/uL PT (9.0-12.0) sec INR (<1.2) APTT (22.0-30.0) sec ABG pH (7.35-7.45) ABG pCO2 (35-45) mmHg ABG pO2 (83-108) mmHg ABG Total CO2 (19-24) mmol/L ABG O2 Saturation (94-97) % Chloride 108 H (98-107) mmol/L Carbon Dioxide 19 L (22-30) mmol/L Glucose 115 H (74-99) mg/dL POC Glucose (mg/dL) 114 H (75-99) mg/dL Calcium (8.4-10.2) mg/dL Magnesium (1.6-2.3) mg/dL Alkaline Phosphatase (38-126) U/L Total Protein 5.7 L (6.3-8.2) g/dL Albumin (3.5-5.0) g/dL Crossmatch 12/01/17 12/01/17 12/01/17 Range/Units 04:08 04:13 05:00 WBC (3.8-10.6) k/uL RBC (3.80-5.40) m/uL Hgb (11.4-16.0) gm/dL Hct (34.0-46.0) % MCHC (31.0-37.0) g/dL Plt Count (150-450) k/uL Neutrophils # (1.3-7.7) k/uL Lymphocytes # (1.0-4.8) k/uL PT 12.7 H (9.0-12.0) sec INR 1.3 H (<1.2) APTT 36.5 H (22.0-30.0) sec ABG pH (7.35-7.45) ABG pCO2 (35-45) mmHg ABG pO2 (83-108) mmHg ABG Total CO2 (19-24) mmol/L ABG O2 Saturation (94-97) % Chloride (98-107) mmol/L Carbon Dioxide (22-30) mmol/L Glucose (74-99) mg/dL POC Glucose (mg/dL) 114 H 119 H (75-99) mg/dL Calcium (8.4-10.2) mg/dL Magnesium (1.6-2.3) mg/dL Alkaline Phosphatase (38-126) U/L Total Protein (6.3-8.2) g/dL Albumin (3.5-5.0) g/dL Crossmatch 12/01/17 12/01/17 12/01/17 Range/Units 06:27 07:11 08:10 WBC (3.8-10.6) k/uL RBC (3.80-5.40) m/uL Hgb (11.4-16.0) gm/dL Hct (34.0-46.0) % MCHC (31.0-37.0) g/dL Plt Count (150-450) k/uL Neutrophils # (1.3-7.7) k/uL Lymphocytes # (1.0-4.8) k/uL PT (9.0-12.0) sec INR (<1.2) APTT (22.0-30.0) sec ABG pH (7.35-7.45) ABG pCO2 (35-45) mmHg ABG pO2 (83-108) mmHg ABG Total CO2 (19-24) mmol/L ABG O2 Saturation (94-97) % Chloride (98-107) mmol/L Carbon Dioxide (22-30) mmol/L Glucose (74-99) mg/dL POC Glucose (mg/dL) 123 H 126 H 112 H (75-99) mg/dL Calcium (8.4-10.2) mg/dL Magnesium (1.6-2.3) mg/dL Alkaline Phosphatase (38-126) U/L Total Protein (6.3-8.2) g/dL Albumin (3.5-5.0) g/dL Crossmatch 12/01/17 12/01/17 Range/Units 08:40 09:09 WBC (3.8-10.6) k/uL RBC (3.80-5.40) m/uL Hgb (11.4-16.0) gm/dL Hct (34.0-46.0) % MCHC (31.0-37.0) g/dL Plt Count (150-450) k/uL Neutrophils # (1.3-7.7) k/uL Lymphocytes # (1.0-4.8) k/uL PT (9.0-12.0) sec INR (<1.2) APTT (22.0-30.0) sec ABG pH 7.28 L (7.35-7.45) ABG pCO2 (35-45) mmHg ABG pO2 30 L* (83-108) mmHg ABG Total CO2 (19-24) mmol/L ABG O2 Saturation 53.1 L (94-97) % Chloride (98-107) mmol/L Carbon Dioxide (22-30) mmol/L Glucose (74-99) mg/dL POC Glucose (mg/dL) 110 H (75-99) mg/dL Calcium (8.4-10.2) mg/dL Magnesium (1.6-2.3) mg/dL Alkaline Phosphatase (38-126) U/L Total Protein (6.3-8.2) g/dL Albumin (3.5-5.0) g/dL Crossmatch Microbiology - Last 24 Hours (Table) 11/30/17 01:00 Nasal Screen MRSA/MSSA ([facility]) - Preliminary Nasal Swab 11/30/17 07:00 Urine Culture - Preliminary Urine,Voided Assessment and Plan Assessment: Assessment Postop day #1, status post 2 vessel bypass grafting Non-ST segment elevation myocardial infarction Congestive heart failure Valvular heart disease Status post catheterization and intra-aortic balloon pump on November 29 Hyperlipidemia Acute bronchitis Suspected COPD History of anxiety Gastroesophageal reflux disease Plan: Plan dated 11/30/2017 The plan for this patient at that she is going for surgery today. She needs at least a 2 vessel bypass grafting and possible valve replacement/repair. The patient said doing well otherwise. Not receiving any supplemental oxygen. Heparin was turned off at 06 100 this morning. The patient's IV was saline at 50 mL an hour. The balloon pump and catheterization were done on November 29, yesterday. Otherwise, everything else seems reasonable. Labs x-rays a medications are all reviewed. Plan dated 09/30/2018. The patient still has a balloon pump in place. Hopefully can be moved later today. She is receiving 8 L high flow. We'll have to work on her oxygenation. Part of the problem she's very sleepy from the Xanax and the sedative effects of the medication she was given she's really not taken deep breaths. We will encourage deep breathing coughing and clearing of secretions. We'll also encourage use of the incentive spirometer insulin drip is off. She is on a drip of lactated Ringer's at 50 mL an hour. Labs x-rays a medications are all reviewed. Time spent with this patient is 34 minutes Time with Patient: Greater than 30
--- NOTE | 2017-12-01 09:42 | P.PN ---
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 Preoperative intra-aortic balloon pump. Mild to moderate mitral valve regurgitation. Hyperlipidemia. Smoking history, preop FEV1 of 45% of predicted although the patient was lying flat at the time. Anxiety. Family history of heart disease. POD #1 urgent non-aortic clamp double off-pump coronary artery bypass grafting using the left internal mammary artery to the left anterior descending artery, reverse saphenous vein graft connected to the aorta using the passport device connected distally to the long obtuse marginal artery. Exclusion of the left atrial appendage with a 45 mm Atriclip. Harvesting of the right greater saphenous vein. Intraoperative transesophageal echocardiogram and epi-aortic scanning. Intraoperative graft flow measurement using the Sientrastim system. Patient's currently laying flat in bed as she still has intra-aortic aortic balloon pump in place. Was successfully extubated last night at 2150. Very teary-eyed this morning, states she is very uncomfortable laying flat on her back, is very anxious to have the balloon pump removed so she can sit up. Objective - Vital Signs Vital signs: Vital Signs Temp 97.3 F L 11/30/17 23:00 Pulse 80 12/01/17 08:30 Resp 25 H 12/01/17 08:30 BP 105/61 11/30/17 18:00 Pulse Ox 93 L 12/01/17 05:00 Intake & Output 11/30/17 12/01/17 12/01/17 18:59 06:59 18:59 Intake Total 2738.447 1760.309 183.014 Output Total 1508 1254 160 Balance 1230.447 506.309 23.014 Intake: IV 1250 1685.5 179.5 Albumin Human 5% 250 ml 750 In Empty Bag 1 bag @ 250 mls/hr IVPB Q1HR PRN Rx#: [id number] CO/CI 270 60 Lactated Ringers 1,000 ml 550 100 @ 50 mls/hr IV .Q20H [facility] Rx#:[id number] Nitroglycerin-D5w Pmx 50 16.5 1.5 mg In Dextrose/Water 1 250ml.bag @ 5 MCG/MIN 1.5 mls/hr IV .Q24H [facility] Rx#: [id number] Presure Lines 99 18 Sodium Chloride 0.9% 1, 100 000 ml @ 50 mls/hr IV . Q20H [facility] Rx#:[id number] Intake, IV Titration 1488.447 74.809 3.514 Amount ACETAMINOPHEN IV (For NPO 100 ) 1,000 mg In Empty Bag 1 bag @ 400 mls/hr IVPB Q6HR [facility] Rx#:[id number] Albumin Human 5% 250 ml 750 In Empty Bag 1 bag @ 250 mls/hr IVPB Q1HR PRN Rx#: [id number] Clevidipine Butyrate 25 3.7 mg In Empty Bag 1 bag @ 1 MG/HR 2 mls/hr IV .Q24H [facility] Rx#:[id number] Insulin Regular 100 unit 2 23.309 3.514 In Sodium Chloride 0.9% 100 ml @ Per Protocol IV .Q0M [facility] Rx#:[id number] Lactated Ringers 1,000 ml 250 50 @ 50 mls/hr IV .Q20H [facility] Rx#:[id number] Magnesium Sulfate-D5w Pmx 200 1 gm In Dextrose/Water 1 100ml.bag @ 100 mls/hr IVPB Q1H [facility] Rx#: [id number] Nitroglycerin-D5w Pmx 50 3.325 mg In Dextrose/Water 1 250ml.bag @ 5 MCG/MIN 1.5 mls/hr IV .Q24H [facility] Rx#: [id number] Nitroglycerin-D5w Pmx 50 6.0 1.5 mg In Dextrose/Water 1 250ml.bag @ 5 MCG/MIN 1.5 mls/hr IV .Q24H [facility] Rx#: [id number] Potassium Chloride 20 meq 100 In Water For Injection 1 100ml.bag @ 50 mls/hr IVPB [facility]CE [facility] Rx#: [id number] Propofol 1,000 mg In 73.422 Empty Bag 1 bag @ Titrate IV .Q0M [facility] Rx#: [id number] Output: Chest Tube Drainage 645 840 90 Left Pleural 170 330 50 Mediastinal 205 140 10 Right Pleural 270 370 30 Drainage 25 25 Right Calf 25 25 Urine 538 389 70 Estimated Blood Loss 300 Other: Voiding Method Indwelling Catheter Indwelling Catheter Indwelling Catheter # Voids 1 # Bowel Movements 0 ABP, PAP, CO, CI - Last Documented Arterial Blood Pressure 114/46 Pulmonary Artery Pressure 48/25 Cardiac Output 3.2 Cardiac Index 2 - Constitutional General appearance: Present: cooperative, no acute distress - Respiratory Details: Lungs sounds diminished bilaterally. Respirations even, nonlabored. Currently on 8 L high flow nasal cannula with oxygen saturation 93%. Weak cough. Unable to use incentive spirometry appropriately as she is laying flat. Mediastinal chest tube to -20 cm wall suction, 80 mL serosanguineous drainage overnight, 380 mL since surgery. Left pleural chest tube to -20 cm wall suction, 160 mL serosanguineous drainage overnight, 550 mL since surgery. Right pleural chest tube to -20 cm wall suction, 180 mL serosanguineous drainage overnight, 580 mL since surgery. No air leaks present. - Cardiovascular Details: S1, S2 present. Regular rate and rhythm, sinus rhythm on telemetry. Sternum stable. Palpable peripheral pulses bilaterally. No edema present. No calf pain or tenderness noted. Intra-aortic balloon pump present, right groin, currently augmenting @ 1:1 ratio. Was placed at 1:2 ratio for a couple of hours but cardiac index remained 1.9, mixed venous oxygen saturation was 53%, augmentation placed back to 1:1 ratio. Right internal jugular Cordis/[place], right brachial arterial line present. Heart hugger in place with patient unable to use appropriately at this time. SCDs present. - Gastrointestinal Gastrointestinal Comment(s): Abdomen soft, nontender, nondistended. Hypoactive bowel sounds present 4 quadrants. Tolerating clear liquids. - Genitourinary Genitourinary Comment(s): Portillo present draining clear, yellow urine. Output overnight 12-42 mL/h. IV Lasix given, urine output the last hour 30 mL. - Integumentary Integumentary Comment(s): Anterior chest incision well approximated and covered with dry intact dressing. Right lower extremity EVH site well approximated, DANY drain in place with minimal serosanguineous drainage. Skin is warm and dry with evidence of good perfusion. - Neurologic Neurologic: Present: CNII-XII intact - Musculoskeletal Musculoskeletal: Present: strength equal bilaterally - Psychiatric Psychiatric Comment(s): Patient very teary-eyed this morning, highly anxious, wants very badly to sit up. - Allied health notes Allied health notes reviewed: nursing - Labs CBC & Chem 7: 12/01/17 04:08 12/01/17 04:08 Labs: Abnormal Lab Results - Last 24 Hours (Table) 11/29/17 11/30/17 11/30/17 Range/Units 17:20 13:47 13:50 WBC (3.8-10.6) k/uL RBC 2.95 L (3.80-5.40) m/uL Hgb 8.3 L D (11.4-16.0) gm/dL Hct 26.3 L (34.0-46.0) % MCHC (31.0-37.0) g/dL Plt Count 141 L (150-450) k/uL Neutrophils # (1.3-7.7) k/uL Lymphocytes # (1.0-4.8) k/uL PT (9.0-12.0) sec INR (<1.2) APTT (22.0-30.0) sec ABG pH (7.35-7.45) ABG pCO2 (35-45) mmHg ABG pO2 (83-108) mmHg ABG Total CO2 (19-24) mmol/L ABG O2 Saturation (94-97) % Chloride (98-107) mmol/L Carbon Dioxide (22-30) mmol/L Glucose (74-99) mg/dL POC Glucose (mg/dL) 115 H (75-99) mg/dL Calcium (8.4-10.2) mg/dL Magnesium (1.6-2.3) mg/dL Alkaline Phosphatase (38-126) U/L Total Protein (6.3-8.2) g/dL Albumin (3.5-5.0) g/dL Crossmatch See Detail 11/30/17 11/30/17 11/30/17 Range/Units 13:50 13:50 13:59 WBC (3.8-10.6) k/uL RBC (3.80-5.40) m/uL Hgb (11.4-16.0) gm/dL Hct (34.0-46.0) % MCHC (31.0-37.0) g/dL Plt Count (150-450) k/uL Neutrophils # (1.3-7.7) k/uL Lymphocytes # (1.0-4.8) k/uL PT 14.4 H (9.0-12.0) sec INR 1.6 H (<1.2) APTT 124.8 H* (22.0-30.0) sec ABG pH 7.32 L (7.35-7.45) ABG pCO2 46 H (35-45) mmHg ABG pO2 320 H (83-108) mmHg ABG Total CO2 25 H (19-24) mmol/L ABG O2 Saturation 100.0 H (94-97) % Chloride 108 H (98-107) mmol/L Carbon Dioxide (22-30) mmol/L Glucose 109 H (74-99) mg/dL POC Glucose (mg/dL) (75-99) mg/dL Calcium 7.7 L (8.4-10.2) mg/dL Magnesium 1.3 L (1.6-2.3) mg/dL Alkaline Phosphatase 31 L (38-126) U/L Total Protein 4.3 L (6.3-8.2) g/dL Albumin 2.8 L (3.5-5.0) g/dL Crossmatch 11/30/17 11/30/17 11/30/17 Range/Units 14:44 16:09 16:10 WBC (3.8-10.6) k/uL RBC 2.87 L (3.80-5.40) m/uL Hgb 7.9 L (11.4-16.0) gm/dL Hct 26.0 L (34.0-46.0) % MCHC 30.4 L (31.0-37.0) g/dL Plt Count 133 L (150-450) k/uL Neutrophils # (1.3-7.7) k/uL Lymphocytes # (1.0-4.8) k/uL PT (9.0-12.0) sec INR (<1.2) APTT (22.0-30.0) sec ABG pH (7.35-7.45) ABG pCO2 (35-45) mmHg ABG pO2 (83-108) mmHg ABG Total CO2 (19-24) mmol/L ABG O2 Saturation (94-97) % Chloride (98-107) mmol/L Carbon Dioxide (22-30) mmol/L Glucose (74-99) mg/dL POC Glucose (mg/dL) 113 H 136 H (75-99) mg/dL Calcium (8.4-10.2) mg/dL Magnesium (1.6-2.3) mg/dL Alkaline Phosphatase (38-126) U/L Total Protein (6.3-8.2) g/dL Albumin (3.5-5.0) g/dL Crossmatch 11/30/17 11/30/17 11/30/17 Range/Units 17:08 18:07 19:00 WBC (3.8-10.6) k/uL RBC 3.37 L (3.80-5.40) m/uL Hgb 9.4 L D (11.4-16.0) gm/dL Hct 30.8 L (34.0-46.0) % MCHC 30.5 L (31.0-37.0) g/dL Plt Count (150-450) k/uL Neutrophils # 7.8 H (1.3-7.7) k/uL Lymphocytes # (1.0-4.8) k/uL PT (9.0-12.0) sec INR (<1.2) APTT (22.0-30.0) sec ABG pH (7.35-7.45) ABG pCO2 (35-45) mmHg ABG pO2 (83-108) mmHg ABG Total CO2 (19-24) mmol/L ABG O2 Saturation (94-97) % Chloride (98-107) mmol/L Carbon Dioxide (22-30) mmol/L Glucose (74-99) mg/dL POC Glucose (mg/dL) 128 H 133 H (75-99) mg/dL Calcium (8.4-10.2) mg/dL Magnesium (1.6-2.3) mg/dL Alkaline Phosphatase (38-126) U/L Total Protein (6.3-8.2) g/dL Albumin (3.5-5.0) g/dL Crossmatch 11/30/17 11/30/17 11/30/17 Range/Units 19:00 19:02 19:46 WBC (3.8-10.6) k/uL RBC (3.80-5.40) m/uL Hgb (11.4-16.0) gm/dL Hct (34.0-46.0) % MCHC (31.0-37.0) g/dL Plt Count (150-450) k/uL Neutrophils # (1.3-7.7) k/uL Lymphocytes # (1.0-4.8) k/uL PT (9.0-12.0) sec INR (<1.2) APTT (22.0-30.0) sec ABG pH (7.35-7.45) ABG pCO2 (35-45) mmHg ABG pO2 (83-108) mmHg ABG Total CO2 (19-24) mmol/L ABG O2 Saturation (94-97) % Chloride (98-107) mmol/L Carbon Dioxide (22-30) mmol/L Glucose (74-99) mg/dL POC Glucose (mg/dL) 153 H 148 H (75-99) mg/dL Calcium (8.4-10.2) mg/dL Magnesium 2.7 H (1.6-2.3) mg/dL Alkaline Phosphatase (38-126) U/L Total Protein (6.3-8.2) g/dL Albumin (3.5-5.0) g/dL Crossmatch 11/30/17 11/30/17 11/30/17 Range/Units 20:56 20:56 22:00 WBC (3.8-10.6) k/uL RBC (3.80-5.40) m/uL Hgb (11.4-16.0) gm/dL Hct (34.0-46.0) % MCHC (31.0-37.0) g/dL Plt Count (150-450) k/uL Neutrophils # (1.3-7.7) k/uL Lymphocytes # (1.0-4.8) k/uL PT (9.0-12.0) sec INR (<1.2) APTT (22.0-30.0) sec ABG pH 7.24 L (7.35-7.45) ABG pCO2 49 H (35-45) mmHg ABG pO2 (83-108) mmHg ABG Total CO2 (19-24) mmol/L ABG O2 Saturation 97.6 H (94-97) % Chloride (98-107) mmol/L Carbon Dioxide (22-30) mmol/L Glucose (74-99) mg/dL POC Glucose (mg/dL) 152 H 119 H (75-99) mg/dL Calcium (8.4-10.2) mg/dL Magnesium (1.6-2.3) mg/dL Alkaline Phosphatase (38-126) U/L Total Protein (6.3-8.2) g/dL Albumin (3.5-5.0) g/dL Crossmatch 12/01/17 12/01/17 12/01/17 Range/Units 00:24 01:14 02:02 WBC (3.8-10.6) k/uL RBC (3.80-5.40) m/uL Hgb (11.4-16.0) gm/dL Hct (34.0-46.0) % MCHC (31.0-37.0) g/dL Plt Count (150-450) k/uL Neutrophils # (1.3-7.7) k/uL Lymphocytes # (1.0-4.8) k/uL PT (9.0-12.0) sec INR (<1.2) APTT (22.0-30.0) sec ABG pH (7.35-7.45) ABG pCO2 (35-45) mmHg ABG pO2 (83-108) mmHg ABG Total CO2 (19-24) mmol/L ABG O2 Saturation (94-97) % Chloride (98-107) mmol/L Carbon Dioxide (22-30) mmol/L Glucose (74-99) mg/dL POC Glucose (mg/dL) 106 H 116 H 125 H (75-99) mg/dL Calcium (8.4-10.2) mg/dL Magnesium (1.6-2.3) mg/dL Alkaline Phosphatase (38-126) U/L Total Protein (6.3-8.2) g/dL Albumin (3.5-5.0) g/dL Crossmatch 12/01/17 12/01/17 12/01/17 Range/Units 03:15 04:08 04:08 WBC 15.2 H (3.8-10.6) k/uL RBC 3.44 L (3.80-5.40) m/uL Hgb 9.4 L (11.4-16.0) gm/dL Hct 30.9 L (34.0-46.0) % MCHC 30.6 L (31.0-37.0) g/dL Plt Count 145 L (150-450) k/uL Neutrophils # 13.8 H (1.3-7.7) k/uL Lymphocytes # 0.5 L (1.0-4.8) k/uL PT (9.0-12.0) sec INR (<1.2) APTT (22.0-30.0) sec ABG pH (7.35-7.45) ABG pCO2 (35-45) mmHg ABG pO2 (83-108) mmHg ABG Total CO2 (19-24) mmol/L ABG O2 Saturation (94-97) % Chloride 108 H (98-107) mmol/L Carbon Dioxide 19 L (22-30) mmol/L Glucose 115 H (74-99) mg/dL POC Glucose (mg/dL) 114 H (75-99) mg/dL Calcium (8.4-10.2) mg/dL Magnesium (1.6-2.3) mg/dL Alkaline Phosphatase (38-126) U/L Total Protein 5.7 L (6.3-8.2) g/dL Albumin (3.5-5.0) g/dL Crossmatch 12/01/17 12/01/17 12/01/17 Range/Units 04:08 04:13 05:00 WBC (3.8-10.6) k/uL RBC (3.80-5.40) m/uL Hgb (11.4-16.0) gm/dL Hct (34.0-46.0) % MCHC (31.0-37.0) g/dL Plt Count (150-450) k/uL Neutrophils # (1.3-7.7) k/uL Lymphocytes # (1.0-4.8) k/uL PT 12.7 H (9.0-12.0) sec INR 1.3 H (<1.2) APTT 36.5 H (22.0-30.0) sec ABG pH (7.35-7.45) ABG pCO2 (35-45) mmHg ABG pO2 (83-108) mmHg ABG Total CO2 (19-24) mmol/L ABG O2 Saturation (94-97) % Chloride (98-107) mmol/L Carbon Dioxide (22-30) mmol/L Glucose (74-99) mg/dL POC Glucose (mg/dL) 114 H 119 H (75-99) mg/dL Calcium (8.4-10.2) mg/dL Magnesium (1.6-2.3) mg/dL Alkaline Phosphatase (38-126) U/L Total Protein (6.3-8.2) g/dL Albumin (3.5-5.0) g/dL Crossmatch 12/01/17 12/01/17 12/01/17 Range/Units 06:27 07:11 08:10 WBC (3.8-10.6) k/uL RBC (3.80-5.40) m/uL Hgb (11.4-16.0) gm/dL Hct (34.0-46.0) % MCHC (31.0-37.0) g/dL Plt Count (150-450) k/uL Neutrophils # (1.3-7.7) k/uL Lymphocytes # (1.0-4.8) k/uL PT (9.0-12.0) sec INR (<1.2) APTT (22.0-30.0) sec ABG pH (7.35-7.45) ABG pCO2 (35-45) mmHg ABG pO2 (83-108) mmHg ABG Total CO2 (19-24) mmol/L ABG O2 Saturation (94-97) % Chloride (98-107) mmol/L Carbon Dioxide (22-30) mmol/L Glucose (74-99) mg/dL POC Glucose (mg/dL) 123 H 126 H 112 H (75-99) mg/dL Calcium (8.4-10.2) mg/dL Magnesium (1.6-2.3) mg/dL Alkaline Phosphatase (38-126) U/L Total Protein (6.3-8.2) g/dL Albumin (3.5-5.0) g/dL Crossmatch 12/01/17 Range/Units 08:40 WBC (3.8-10.6) k/uL RBC (3.80-5.40) m/uL Hgb (11.4-16.0) gm/dL Hct (34.0-46.0) % MCHC (31.0-37.0) g/dL Plt Count (150-450) k/uL Neutrophils # (1.3-7.7) k/uL Lymphocytes # (1.0-4.8) k/uL PT (9.0-12.0) sec INR (<1.2) APTT (22.0-30.0) sec ABG pH 7.28 L (7.35-7.45) ABG pCO2 (35-45) mmHg ABG pO2 30 L* (83-108) mmHg ABG Total CO2 (19-24) mmol/L ABG O2 Saturation 53.1 L (94-97) % Chloride (98-107) mmol/L Carbon Dioxide (22-30) mmol/L Glucose (74-99) mg/dL POC Glucose (mg/dL) (75-99) mg/dL Calcium (8.4-10.2) mg/dL Magnesium (1.6-2.3) mg/dL Alkaline Phosphatase (38-126) U/L Total Protein (6.3-8.2) g/dL Albumin (3.5-5.0) g/dL Crossmatch Microbiology - Last 24 Hours (Table) 11/30/17 01:00 Nasal Screen MRSA/MSSA ([facility]) - Preliminary Nasal Swab 11/30/17 07:00 Urine Culture - Preliminary Urine,Voided - Imaging and Cardiology Chest x-ray: report reviewed, image reviewed Assessment and Plan (1) Systolic heart failure Current Visit: Yes Status: Acute Code(s): I50.20 - UNSPECIFIED SYSTOLIC ( CONGESTIVE) HEART FAILURE SNOMED Code(s): 626539089 (2) 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 Current Visit: Yes Status: Chronic Code(s): I25.10 - ATHSCL HEART DISEASE OF [place] CORONARY ARTERY W/O ANG PCTRS SNOMED Code(s): 238426089 (3) History of hyperlipidemia Current Visit: Yes Status: Chronic Code(s): Z86.39 - PERSONAL HISTORY OF ENDO, NUTRITIONAL AND METABOLIC DISEASE SNOMED Code(s): 677160823 (4) History of anxiety Current Visit: Yes Status: Chronic Code(s): Z86.59 - PERSONAL HISTORY OF OTHER MENTAL AND BEHAVIORAL DISORDERS SNOMED Code(s): 697500440 (5) Tobacco dependence in remission Current Visit: No Status: Resolved Code(s): F17.201 - NICOTINE DEPENDENCE, UNSPECIFIED, IN REMISSION SNOMED Code(s): 433440587 (6) History of pneumonia Current Visit: No Status: Resolved Code(s): Z87.01 - PERSONAL HISTORY OF PNEUMONIA (RECURRENT) SNOMED Code(s): 338229389 (7) History of skin cancer Current Visit: No Status: Resolved Code(s): Z85.828 - PERSONAL HISTORY OF OTHER MALIGNANT NEOPLASM OF SKIN SNOMED Code(s): 113022116 (8) Family history of heart disease Current Visit: Yes Status: Chronic Code(s): Z82.49 - FAMILY HX OF ISCHEM HEART DIS AND OTH DIS OF THE CIRC SYS SNOMED Code(s): 524485108 (9) NSTEMI (non-ST elevated myocardial infarction) Current Visit: Yes Status: Acute Code(s): I21.4 - NON-ST ELEVATION (NSTEMI) MYOCARDIAL INFARCTION SNOMED Code(s): 079724105 Plan: 1. Continue aspirin, statin, Plavix, beta omayra. Will increase beta omayra as tolerated. 2. Wean O2 as able. Encourage incentive spirometry use 10 times every hour. Encourage continued smoking cessation. 3. Will continue intra-aortic balloon pump at 1:1 augmentation. Will recheck numbers in a few hours. Hopefully will discontinue balloon pump later today. 4. GI/DVT prophylaxis. 5. Insulin drip/diabetic management per primary care service. 6. Will increase activity, consults PT/OT once balloon pump was discontinued. 7. Will monitor daily labs and chest x-rays. Monitor I/O. 8. Patient may need LifeVest at discharge. Will discuss with cardiology. 9. More recommendations to follow. Time with Patient: Greater than 30
[2017-12-01 10:11] LABS: Glucose,Whole Blood 115 mg/dL (75-99)
--- NOTE | 2017-12-01 11:02 | P.PN ---
Subjective Progress Note Date: 12/01/17 82-year-old female who presented to the emergency room with a chief complaint of shortness of breath. Patient states she has no prior respiratory issues or symptoms until September of 2017. Patient states she awoken from a sleep and was very short of breath. She states she was able to relax and slept in an upright position for the rest of the night. She states in the morning her symptoms resolved. She was just recently in [place] for a month at a rental house and had another episode where she was awoken from a sleep with difficulty breathing. The patient states she went to an urgent care in [place] and was given antibiotics, steroids, and an inhaler. She states her symptoms did not improve and noticed she was continually short of breath. She states she was not able to walk through the grocery store without becoming very short of breath and stopping a few times during shopping to catch her breath. She ended up going to a hospital in [place] for evaluation where she had a CT and chest xray done and was told she had congestive heart failure. Patient states she flew home and presented to the emergency room for further evaluation. She denies chest pain or pressure. Denies dizziness or lightheadness. Denies nausea or vomiting. Denies pain or discomfort. The patient has a history of congestive heart failure recently diagnosed in [place], hyperlipidemia, and anxiety. She is a former cigarette smoker and quit in September 2017. Chest x-ray: Findings compatible with congestive heart failure. Infiltrates or other etiologies not excluded EKG: Sinus tachycardia with ST-T wave changes in the lateral leads Laboratory data: WBC 10.9. Hemoglobin 13.9. Platelet count 314. Sodium 139. Potassium 4.3. BUN 29. Creatinine 1.12. GFR 46. Glucose 122. Magnesium 1.9. Troponins: 0.25, 0.157, 0.152 BNP: 11,700 D-Dimer: 0.69 Lipid panel: Triglycerides 76, cholesterol 145, LDL 61, HDL 69 Testing for influenza A and B was negative The patient was admitted to the hospital under the care of Dr. Landeros. Consultations were placed to Cardiology. 11/26/2017 Patient seen and examined at the bedside. Patient is awake and alert. Patient denies chest pain or pressure. Her shortness of breath has improved. She is on room air with oxygen saturations greater than 92%. She is tolerating PO intake without nausea or vomiting. Vital signs have been stable. Denies pain or discomfort. Echocardiogram was completed revealing severe global hypokinesis of LV, ejection fraction of 20-25%, mild aortic regurgitation, moderate mitral regurgitation, severe tricuspid regurgitation, moderate pulmonary hypertension, RVSP 54.42, small pericardial effusion, and large pleural effusion. 11/27/2017-Note per covering provider 11/28/2017-Note per covering provider 11/29/2017 Patient seen and examined at the bedside. Patient awake and alert. Patient states she is very tired and did not sleep much last night because of her roommate being very loud. Denies chest pain or pressure. Denies shortness of breath. Remains on 20mg lasix PO BID. She was also started on Aldactone 12.5mg PO daily per cardiology. Patient is scheduled for cardiac cath today. 11/30/2017-Patient in OR during physician rounds 12/01/2017 Patient seen and examined at the bedside. She remains in the intensive care unit. Patient underwent cardiac cath on 11/29/2017. A balloon pump was inserted and myocardial revascularization was recommended. She is post op day # 1, CABG x 2 with left internal mammary artery to the left anterior descending artery and reverse saphenous vein graft connected to the aorta using the passport device connected distally to the long obtuse marginal artery. She was extubated last night. She remains on high flow nasal cannula at 8L. Oxygen saturations greater than 92%. Patient remains on insulin drip per protocol which is currently paused due to blood glucose less than 115. Blood sugars are running 110-126. Patient is very tearful this morning. She is very uncomfortable and is anxious to have the IABP removed. Patient states she is not "one to sit around" and can not lay flat in the bed much longer. Objective - Vital Signs Vital signs: Vital Signs Temp 97.3 F L 11/30/17 23:00 Pulse 80 12/01/17 10:00 Resp 18 12/01/17 10:00 BP 105/61 11/30/17 18:00 Pulse Ox 93 L 12/01/17 05:00 Intake & Output 11/30/17 12/01/17 12/01/17 18:59 06:59 18:59 Intake Total 2738.447 1760.309 291.014 Output Total 1508 1254 295 Balance 1230.447 506.309 -3.986 Intake: IV 1250 1685.5 287.5 Albumin Human 5% 250 ml 750 In Empty Bag 1 bag @ 250 mls/hr IVPB Q1HR PRN Rx#: [id number] CO/CI 270 50 Lactated Ringers 1,000 ml 550 200 @ 50 mls/hr IV .Q20H [facility] Rx#:[id number] Nitroglycerin-D5w Pmx 50 16.5 1.5 mg In Dextrose/Water 1 250ml.bag @ 5 MCG/MIN 1.5 mls/hr IV .Q24H [facility] Rx#: [id number] Presure Lines 99 36 Sodium Chloride 0.9% 1, 100 000 ml @ 50 mls/hr IV . Q20H [facility] Rx#:[id number] Intake, IV Titration 1488.447 74.809 3.514 Amount ACETAMINOPHEN IV (For NPO 100 ) 1,000 mg In Empty Bag 1 bag @ 400 mls/hr IVPB Q6HR [facility] Rx#:[id number] Albumin Human 5% 250 ml 750 In Empty Bag 1 bag @ 250 mls/hr IVPB Q1HR PRN Rx#: [id number] Clevidipine Butyrate 25 3.7 mg In Empty Bag 1 bag @ 1 MG/HR 2 mls/hr IV .Q24H [facility] Rx#:[id number] Insulin Regular 100 unit 2 23.309 3.514 In Sodium Chloride 0.9% 100 ml @ Per Protocol IV .Q0M [facility] Rx#:[id number] Lactated Ringers 1,000 ml 250 50 @ 50 mls/hr IV .Q20H [facility] Rx#:[id number] Magnesium Sulfate-D5w Pmx 200 1 gm In Dextrose/Water 1 100ml.bag @ 100 mls/hr IVPB Q1H [facility] Rx#: [id number] Nitroglycerin-D5w Pmx 50 3.325 mg In Dextrose/Water 1 250ml.bag @ 5 MCG/MIN 1.5 mls/hr IV .Q24H ONE Rx#: [id number] Nitroglycerin-D5w Pmx 50 6.0 1.5 mg In Dextrose/Water 1 250ml.bag @ 5 MCG/MIN 1.5 mls/hr IV .Q24H [facility] Rx#: [id number] Potassium Chloride 20 meq 100 In Water For Injection 1 100ml.bag @ 50 mls/hr IVPB ONCE ONE Rx#: [id number] Propofol 1,000 mg In 73.422 Empty Bag 1 bag @ Titrate IV .Q0M [facility] Rx#: [id number] Output: Chest Tube Drainage 645 840 160 Left Pleural 170 330 80 Mediastinal 205 140 10 Right Pleural 270 370 70 Drainage 25 25 Right Calf 25 25 Urine 538 389 135 Estimated Blood Loss 300 Other: Voiding Method Indwelling Catheter Indwelling Catheter Indwelling Catheter # Voids 1 # Bowel Movements 0 ABP, PAP, CO, CI - Last Documented Arterial Blood Pressure 126/40 Pulmonary Artery Pressure 45/24 Cardiac Output 3.1 Cardiac Index 2 - Exam GENERAL: This is a 82-year-old female who is very tearful and anxious secondary to laying flat due to IABP. HEENT: Head is atraumatic, normocephalic. Pupils are equal, round, and reactive to light. Sclerae anicteric. Conjunctivae are clear. Mucus membranes of the mouth are moist. Neck is supple. RESPIRATORY: Respirations equal bilaterally, diminished in the bases. No use of accessory muscles. Patient maintaining oxygen saturation greater than 92% on 8L NC. Patient with mediastinal chest tube to wall suction and right and left pleural chest tubes to wall suction. Serosanguineous drainage noted in the atrium. CARDIOVASCULAR: Telemetry reveals sinus mechanism. Regular rate and rhythm. S1 and S2 noted. No systolic or diastolic murmur auscultated. No JVD noted. No S3 or S4 noted. IABP remains intact. Heart heart in place. GASTROINTESTINAL: No distention noted. Abdomen soft and round. Hypoactive bowel sounds auscultated x 4 quadrants. No pain or tenderness noted upon palpation. INTEGUMENTARY: Sternal chest incision clean dry and intact. No cyanosis. No jaundice. No rashes noted. No cellulitis noted. EXTREMITIES: 2+ peripheral pulses. No lower extremity edema. No calf tenderness noted. NEUROLOGIC: Cranial nerves II-XII intact. PSYCHIATRIC: Awake, alert, and oriented X 3. Tearful and anxious secondary to laying flat due to IABP. - Labs CBC & Chem 7: 12/01/17 04:08 12/01/17 04:08 Labs: Abnormal Lab Results - Last 24 Hours (Table) 11/29/17 11/30/17 11/30/17 Range/Units 17:20 13:47 13:50 WBC (3.8-10.6) k/uL RBC 2.95 L (3.80-5.40) m/uL Hgb 8.3 L D (11.4-16.0) gm/dL Hct 26.3 L (34.0-46.0) % MCHC (31.0-37.0) g/dL Plt Count 141 L (150-450) k/uL Neutrophils # (1.3-7.7) k/uL Lymphocytes # (1.0-4.8) k/uL PT (9.0-12.0) sec INR (<1.2) APTT (22.0-30.0) sec ABG pH (7.35-7.45) ABG pCO2 (35-45) mmHg ABG pO2 (83-108) mmHg ABG Total CO2 (19-24) mmol/L ABG O2 Saturation (94-97) % Chloride (98-107) mmol/L Carbon Dioxide (22-30) mmol/L Glucose (74-99) mg/dL POC Glucose (mg/dL) 115 H (75-99) mg/dL Calcium (8.4-10.2) mg/dL Magnesium (1.6-2.3) mg/dL Alkaline Phosphatase (38-126) U/L Total Protein (6.3-8.2) g/dL Albumin (3.5-5.0) g/dL Crossmatch See Detail 11/30/17 11/30/17 11/30/17 Range/Units 13:50 13:50 13:59 WBC (3.8-10.6) k/uL RBC (3.80-5.40) m/uL Hgb (11.4-16.0) gm/dL Hct (34.0-46.0) % MCHC (31.0-37.0) g/dL Plt Count (150-450) k/uL Neutrophils # (1.3-7.7) k/uL Lymphocytes # (1.0-4.8) k/uL PT 14.4 H (9.0-12.0) sec INR 1.6 H (<1.2) APTT 124.8 H* (22.0-30.0) sec ABG pH 7.32 L (7.35-7.45) ABG pCO2 46 H (35-45) mmHg ABG pO2 320 H (83-108) mmHg ABG Total CO2 25 H (19-24) mmol/L ABG O2 Saturation 100.0 H (94-97) % Chloride 108 H (98-107) mmol/L Carbon Dioxide (22-30) mmol/L Glucose 109 H (74-99) mg/dL POC Glucose (mg/dL) (75-99) mg/dL Calcium 7.7 L (8.4-10.2) mg/dL Magnesium 1.3 L (1.6-2.3) mg/dL Alkaline Phosphatase 31 L (38-126) U/L Total Protein 4.3 L (6.3-8.2) g/dL Albumin 2.8 L (3.5-5.0) g/dL Crossmatch 11/30/17 11/30/17 11/30/17 Range/Units 14:44 16:09 16:10 WBC (3.8-10.6) k/uL RBC 2.87 L (3.80-5.40) m/uL Hgb 7.9 L (11.4-16.0) gm/dL Hct 26.0 L (34.0-46.0) % MCHC 30.4 L (31.0-37.0) g/dL Plt Count 133 L (150-450) k/uL Neutrophils # (1.3-7.7) k/uL Lymphocytes # (1.0-4.8) k/uL PT (9.0-12.0) sec INR (<1.2) APTT (22.0-30.0) sec ABG pH (7.35-7.45) ABG pCO2 (35-45) mmHg ABG pO2 (83-108) mmHg ABG Total CO2 (19-24) mmol/L ABG O2 Saturation (94-97) % Chloride (98-107) mmol/L Carbon Dioxide (22-30) mmol/L Glucose (74-99) mg/dL POC Glucose (mg/dL) 113 H 136 H (75-99) mg/dL Calcium (8.4-10.2) mg/dL Magnesium (1.6-2.3) mg/dL Alkaline Phosphatase (38-126) U/L Total Protein (6.3-8.2) g/dL Albumin (3.5-5.0) g/dL Crossmatch 11/30/17 11/30/17 11/30/17 Range/Units 17:08 18:07 19:00 WBC (3.8-10.6) k/uL RBC 3.37 L (3.80-5.40) m/uL Hgb 9.4 L D (11.4-16.0) gm/dL Hct 30.8 L (34.0-46.0) % MCHC 30.5 L (31.0-37.0) g/dL Plt Count (150-450) k/uL Neutrophils # 7.8 H (1.3-7.7) k/uL Lymphocytes # (1.0-4.8) k/uL PT (9.0-12.0) sec INR (<1.2) APTT (22.0-30.0) sec ABG pH (7.35-7.45) ABG pCO2 (35-45) mmHg ABG pO2 (83-108) mmHg ABG Total CO2 (19-24) mmol/L ABG O2 Saturation (94-97) % Chloride (98-107) mmol/L Carbon Dioxide (22-30) mmol/L Glucose (74-99) mg/dL POC Glucose (mg/dL) 128 H 133 H (75-99) mg/dL Calcium (8.4-10.2) mg/dL Magnesium (1.6-2.3) mg/dL Alkaline Phosphatase (38-126) U/L Total Protein (6.3-8.2) g/dL Albumin (3.5-5.0) g/dL Crossmatch 11/30/17 11/30/17 11/30/17 Range/Units 19:00 19:02 19:46 WBC (3.8-10.6) k/uL RBC (3.80-5.40) m/uL Hgb (11.4-16.0) gm/dL Hct (34.0-46.0) % MCHC (31.0-37.0) g/dL Plt Count (150-450) k/uL Neutrophils # (1.3-7.7) k/uL Lymphocytes # (1.0-4.8) k/uL PT (9.0-12.0) sec INR (<1.2) APTT (22.0-30.0) sec ABG pH (7.35-7.45) ABG pCO2 (35-45) mmHg ABG pO2 (83-108) mmHg ABG Total CO2 (19-24) mmol/L ABG O2 Saturation (94-97) % Chloride (98-107) mmol/L Carbon Dioxide (22-30) mmol/L Glucose (74-99) mg/dL POC Glucose (mg/dL) 153 H 148 H (75-99) mg/dL Calcium (8.4-10.2) mg/dL Magnesium 2.7 H (1.6-2.3) mg/dL Alkaline Phosphatase (38-126) U/L Total Protein (6.3-8.2) g/dL Albumin (3.5-5.0) g/dL Crossmatch 11/30/17 11/30/17 11/30/17 Range/Units 20:56 20:56 22:00 WBC (3.8-10.6) k/uL RBC (3.80-5.40) m/uL Hgb (11.4-16.0) gm/dL Hct (34.0-46.0) % MCHC (31.0-37.0) g/dL Plt Count (150-450) k/uL Neutrophils # (1.3-7.7) k/uL Lymphocytes # (1.0-4.8) k/uL PT (9.0-12.0) sec INR (<1.2) APTT (22.0-30.0) sec ABG pH 7.24 L (7.35-7.45) ABG pCO2 49 H (35-45) mmHg ABG pO2 (83-108) mmHg ABG Total CO2 (19-24) mmol/L ABG O2 Saturation 97.6 H (94-97) % Chloride (98-107) mmol/L Carbon Dioxide (22-30) mmol/L Glucose (74-99) mg/dL POC Glucose (mg/dL) 152 H 119 H (75-99) mg/dL Calcium (8.4-10.2) mg/dL Magnesium (1.6-2.3) mg/dL Alkaline Phosphatase (38-126) U/L Total Protein (6.3-8.2) g/dL Albumin (3.5-5.0) g/dL Crossmatch 12/01/17 12/01/17 12/01/17 Range/Units 00:24 01:14 02:02 WBC (3.8-10.6) k/uL RBC (3.80-5.40) m/uL Hgb (11.4-16.0) gm/dL Hct (34.0-46.0) % MCHC (31.0-37.0) g/dL Plt Count (150-450) k/uL Neutrophils # (1.3-7.7) k/uL Lymphocytes # (1.0-4.8) k/uL PT (9.0-12.0) sec INR (<1.2) APTT (22.0-30.0) sec ABG pH (7.35-7.45) ABG pCO2 (35-45) mmHg ABG pO2 (83-108) mmHg ABG Total CO2 (19-24) mmol/L ABG O2 Saturation (94-97) % Chloride (98-107) mmol/L Carbon Dioxide (22-30) mmol/L Glucose (74-99) mg/dL POC Glucose (mg/dL) 106 H 116 H 125 H (75-99) mg/dL Calcium (8.4-10.2) mg/dL Magnesium (1.6-2.3) mg/dL Alkaline Phosphatase (38-126) U/L Total Protein (6.3-8.2) g/dL Albumin (3.5-5.0) g/dL Crossmatch 12/01/17 12/01/17 12/01/17 Range/Units 03:15 04:08 04:08 WBC 15.2 H (3.8-10.6) k/uL RBC 3.44 L (3.80-5.40) m/uL Hgb 9.4 L (11.4-16.0) gm/dL Hct 30.9 L (34.0-46.0) % MCHC 30.6 L (31.0-37.0) g/dL Plt Count 145 L (150-450) k/uL Neutrophils # 13.8 H (1.3-7.7) k/uL Lymphocytes # 0.5 L (1.0-4.8) k/uL PT (9.0-12.0) sec INR (<1.2) APTT (22.0-30.0) sec ABG pH (7.35-7.45) ABG pCO2 (35-45) mmHg ABG pO2 (83-108) mmHg ABG Total CO2 (19-24) mmol/L ABG O2 Saturation (94-97) % Chloride 108 H (98-107) mmol/L Carbon Dioxide 19 L (22-30) mmol/L Glucose 115 H (74-99) mg/dL POC Glucose (mg/dL) 114 H (75-99) mg/dL Calcium (8.4-10.2) mg/dL Magnesium (1.6-2.3) mg/dL Alkaline Phosphatase (38-126) U/L Total Protein 5.7 L (6.3-8.2) g/dL Albumin (3.5-5.0) g/dL Crossmatch 12/01/17 12/01/17 12/01/17 Range/Units 04:08 04:13 05:00 WBC (3.8-10.6) k/uL RBC (3.80-5.40) m/uL Hgb (11.4-16.0) gm/dL Hct (34.0-46.0) % MCHC (31.0-37.0) g/dL Plt Count (150-450) k/uL Neutrophils # (1.3-7.7) k/uL Lymphocytes # (1.0-4.8) k/uL PT 12.7 H (9.0-12.0) sec INR 1.3 H (<1.2) APTT 36.5 H (22.0-30.0) sec ABG pH (7.35-7.45) ABG pCO2 (35-45) mmHg ABG pO2 (83-108) mmHg ABG Total CO2 (19-24) mmol/L ABG O2 Saturation (94-97) % Chloride (98-107) mmol/L Carbon Dioxide (22-30) mmol/L Glucose (74-99) mg/dL POC Glucose (mg/dL) 114 H 119 H (75-99) mg/dL Calcium (8.4-10.2) mg/dL Magnesium (1.6-2.3) mg/dL Alkaline Phosphatase (38-126) U/L Total Protein (6.3-8.2) g/dL Albumin (3.5-5.0) g/dL Crossmatch 12/01/17 12/01/17 12/01/17 Range/Units 06:27 07:11 08:10 WBC (3.8-10.6) k/uL RBC (3.80-5.40) m/uL Hgb (11.4-16.0) gm/dL Hct (34.0-46.0) % MCHC (31.0-37.0) g/dL Plt Count (150-450) k/uL Neutrophils # (1.3-7.7) k/uL Lymphocytes # (1.0-4.8) k/uL PT (9.0-12.0) sec INR (<1.2) APTT (22.0-30.0) sec ABG pH (7.35-7.45) ABG pCO2 (35-45) mmHg ABG pO2 (83-108) mmHg ABG Total CO2 (19-24) mmol/L ABG O2 Saturation (94-97) % Chloride (98-107) mmol/L Carbon Dioxide (22-30) mmol/L Glucose (74-99) mg/dL POC Glucose (mg/dL) 123 H 126 H 112 H (75-99) mg/dL Calcium (8.4-10.2) mg/dL Magnesium (1.6-2.3) mg/dL Alkaline Phosphatase (38-126) U/L Total Protein (6.3-8.2) g/dL Albumin (3.5-5.0) g/dL Crossmatch 12/01/17 12/01/17 12/01/17 Range/Units 08:40 09:09 09:59 WBC (3.8-10.6) k/uL RBC (3.80-5.40) m/uL Hgb (11.4-16.0) gm/dL Hct (34.0-46.0) % MCHC (31.0-37.0) g/dL Plt Count (150-450) k/uL Neutrophils # (1.3-7.7) k/uL Lymphocytes # (1.0-4.8) k/uL PT (9.0-12.0) sec INR (<1.2) APTT (22.0-30.0) sec ABG pH 7.28 L (7.35-7.45) ABG pCO2 (35-45) mmHg ABG pO2 30 L* (83-108) mmHg ABG Total CO2 (19-24) mmol/L ABG O2 Saturation 53.1 L (94-97) % Chloride (98-107) mmol/L Carbon Dioxide (22-30) mmol/L Glucose (74-99) mg/dL POC Glucose (mg/dL) 110 H 115 H (75-99) mg/dL Calcium (8.4-10.2) mg/dL Magnesium (1.6-2.3) mg/dL Alkaline Phosphatase (38-126) U/L Total Protein (6.3-8.2) g/dL Albumin (3.5-5.0) g/dL Crossmatch Microbiology - Last 24 Hours (Table) 11/30/17 01:00 Nasal Screen MRSA/MSSA ([facility]) - Preliminary Nasal Swab 11/30/17 07:00 Urine Culture - Preliminary Urine,Voided Assessment and Plan Plan: ASSESSMENT: Acute exacerbation of systolic congestive heart failure, BNP 11,700, EF 20-25% Non-ST elevated myocardial infarction, s/p cardiac cath with IABP insertion 11/29 CABG x 2 with left internal mammary artery to the left anterior descending artery and reverse saphenous vein graft connected to the aorta using the passport device connected distally to the long obtuse marginal artery, 11/30/2017 , POD # 1 Moderate pulmonary hypertension Small pericardial effusion visualized on echocardiogram Small bilateral pleural effusions visualized on CXR 11/26/2017 Hyperlipidemia Anxiety, unspecified Nicotine dependence, in remission, patient quit smoking in September 2017 PLAN: Continue postoperative surgical care per cardiothoracic team Discontinue insulin drip Begin novolog sliding scale AC/HS Capillary blood glucose accu-checks AC/HS Monitor labs. Recheck in a.m. GI/DVT prophylaxis Monitor vital signs and address as appropriate Further recommendations pending patient's course Nurse practitioner note has been reviewed by physician. Signing provider agrees with the documented findings, assessment, and plan of care.
[2017-12-01 11:13] LABS: Glucose,Whole Blood 116 mg/dL (75-99)
[2017-12-01 12:17] LABS: Glucose,Whole Blood 111 mg/dL (75-99)
[2017-12-01] MEDS: KETOROLAC 30 MG/ML 1 ML VIAL IVP SCH ×4 (12:21→23:47)
[2017-12-01] MEDS: INSULIN ASPART 100 UNIT/ML 1 ML 10 ML VIAL SQ SCH ×3 (12:22→21:08)
[2017-12-01] MEDS ORDERED: BISACODYL 10 MG SUPP RECTAL PRN (13:11)
[2017-12-01] MEDS ORDERED: IPRATROPIUM-ALBUTEROL 3 ML NEB INHALATION PRN (13:12)
[2017-12-01] MEDS: MILRINONE-D5W PMX 20 MG in DEXTROSE/WATER 1 100ML.BAG IV SCH (16:01)
[2017-12-01 17:21] LABS: Glucose,Whole Blood 116 mg/dL (75-99)
[2017-12-01] MEDS: DEXTROSE/WATER 1 500ML.BAG with DOPamine DRIP 800 MG IV SCH (19:39)
[2017-12-01 21:09] LABS: Glucose,Whole Blood 121 mg/dL (75-99)
[2017-12-01] MEDS: SENNOSIDES-DOCUSATE SODIUM 1 EACH TAB PO SCH (21:10)
[2017-12-02 05:21] LABS: Basophils # (A) 0.1 k/uL (0-0.2); Basophils % (A) 0 %; Eosinophils # (A) 0.3 k/uL (0-0.7); Eosinophils % (A) 2 %; HCT 29.1 % (34.0-46.0); HGB 9.1 gm/dL (11.4-16.0); Lymphocytes # (A) 1.2 k/uL (1.0-4.8); Lymphocytes % (A) 7 %; MCH 27.7 pg (25.0-35.0); MCHC 31.4 g/dL (31.0-37.0); MCV 88.1 fL (80.0-100.0); Mean Platelet Volume 8.4; Monocytes # (A) 0.8 k/uL (0-1.0); Monocytes % (A) 5 %; Neutrophils # (A) 14.5 k/uL (1.3-7.7); Neutrophils % (A) 85 %; Platelet Count 137 k/uL (150-450); RDW 14.2 % (11.5-15.5); WBC 17.1 k/uL (3.8-10.6)
[2017-12-02] MEDS: KETOROLAC 30 MG/ML 1 ML VIAL IVP SCH ×2 (05:22→12:45)
[2017-12-02 05:23] LABS: Ionized Calcium 5.1 mg/dL (4.5-5.3)
[2017-12-02] MEDS: LACTATED RINGERS 1,000 ML IV SCH (05:23)
[2017-12-02 05:37] LABS: Albumin 3.4 g/dL (3.5-5.0); Magnesium 2.3 mg/dL (1.6-2.3); Potassium 3.8 mmol/L (3.5-5.1); Total Bilirubin 0.8 mg/dL (0.2-1.3)
[2017-12-02] MEDS ORDERED: POTASSIUM CHLORIDE 10 MEQ in WATER FOR INJECTION 1 100ML.BAG IVPB SCH (06:45)
[2017-12-02] MEDS ORDERED: POTASSIUM CHLORIDE 10 MEQ in SODIUM CHLORIDE 0.9% 100 ML IVPB SCH (06:55)
[2017-12-02] MEDS ORDERED: ALBUMIN HUMAN 25% 50 ML in EMPTY BAG 1 BAG IVPB ONE (07:00)
[2017-12-02 07:12] LABS: Glucose,Whole Blood 126 mg/dL (75-99)
[2017-12-02] MEDS: INSULIN ASPART 100 UNIT/ML 1 ML 10 ML VIAL SQ SCH ×4 (07:25→21:48)
[2017-12-02] MEDS: POTASSIUM CHLORIDE 10 MEQ in SODIUM CHLORIDE 0.9% 100 ML IVPB SCH ×2 (07:27→08:37)
--- NOTE | 2017-12-02 07:27 | XR ---
EXAMINATION TYPE: XR chest 1V portable DATE OF EXAM: 12/02/2017 HISTORY: Post Op CABG COMPARISON: December 01, 2017 TECHNIQUE: Single view of the chest is submitted. FINDINGS: Endotracheal tube, NG tube, SG catheter, mediastinal drains and chest tubes are appropriately placed. IABP marker unchanged in position. Post operative changes of CABG. No sizeable pneumothorax. Scattered Pleural-parencymal opacities may reflect atelectasis. The heart is not enlarged. IMPRESSION: 1. Post operative changes of CABG.
[2017-12-02] MEDS: IPRATROPIUM-ALBUTEROL 3 ML NEB INHALATION SCH ×4 (07:32→21:23)
[2017-12-02] MEDS: MUPIROCIN 2% OINT 22 GM TUBE NASAL SCH ×2 (07:39→20:01)
[2017-12-02] MEDS: ASPIRIN 325 MG TAB PO SCH (07:39)
[2017-12-02] MEDS: PANTOPRAZOLE 40 MG/10 ML VIAL IVP SCH (07:39)
[2017-12-02] MEDS: METOPROLOL TARTRATE 12.5 MG TAB PO SCH ×2 (07:39→20:01)
[2017-12-02] MEDS: ATORVASTATIN 40 MG TAB PO SCH (07:39)
[2017-12-02] MEDS: HEPARIN SODIUM,PORCINE 5,000 UNIT/ML 1 ML VIAL SQ SCH ×2 (08:37→16:26)
--- NOTE | 2017-12-02 08:50 | P.PN ---
Subjective Progress Note Date: 12/02/17 Principal diagnosis: Non-ST elevation myocardial infarction, evidence of previous anterio-apical myocardial infarction, systolic congestive heart failure with EF 20-25%, severe left main disease equivalent with a totally occluded collateralized left anterior descending artery, severe left ventricular dysfunction. Preoperative intra-aortic balloon pump. Mild to moderate mitral valve regurgitation. Hyperlipidemia. Smoking history, preop FEV1 of 45% of predicted although the patient was lying flat at the time. Anxiety. Family history of heart disease. POD #3 placement of intra-aortic balloon pump POD #2 urgent non-aortic clamp double off-pump coronary artery bypass grafting using the left internal mammary artery to the left anterior descending artery, reverse saphenous vein graft connected to the aorta using the passport device connected distally to the long obtuse marginal artery. Exclusion of the left atrial appendage with a 45 mm Atriclip. Harvesting of the right greater saphenous vein. Intraoperative transesophageal echocardiogram and epi-aortic scanning. Intraoperative graft flow measurement using the Liquid Statestim system. Patient's currently laying flat in bed as she still has intra-aortic aortic balloon pump in place. CO/CI low yesterday, balloon pump left in place, IV Primacor and IV dopamine initiated. Patient placed to 1:2 augmentation this morning, current CO/CI 3.4/2.1. Patient does state she is much more comfortable as she has had family at the bedside to keep her relaxed. Objective - Vital Signs Vital signs: Vital Signs Temp 97.3 F L 11/30/17 23:00 Pulse 89 12/02/17 07:42 Resp 18 12/02/17 07:00 BP 105/61 11/30/17 18:00 Pulse Ox 93 L 12/02/17 07:00 Intake & Output 12/01/17 12/02/17 12/02/17 18:59 06:59 18:59 Intake Total 1213.014 914.0 86.6 Output Total 770 1060 145 Balance 443.014 -146.0 -58.4 Weight 66 kg Intake: IV 1209.5 910.6 86.6 ACETAMINOPHEN IV (For NPO 400 ) 1,000 mg In Empty Bag 1 bag @ 400 mls/hr IVPB Q6HR [facility] Rx#:[id number] CO/CI 130 60 20 Dextrose/Water 1 500ml. 46.2 4.2 bag @ 2 MCG/KG/MIN 4.58 mls/hr IV .Q24H [facility] with DOPamine DRIP 800 mg Rx#: [id number] Lactated Ringers 1,000 ml 570 650 50 @ 50 mls/hr IV .Q20H [facility] Rx#:[id number] Milrinone-D5w Pmx 20 mg 37.4 3.4 In Dextrose/Water 1 100ml .bag @ 0.2 MCG/KG/MIN 3. 66 mls/hr IV .Q24H [facility] Rx #:[id number] Nitroglycerin-D5w Pmx 50 1.5 mg In Dextrose/Water 1 250ml.bag @ 5 MCG/MIN 1.5 mls/hr IV .Q24H [facility] Rx#: [id number] Presure Lines 108 117 9 Intake, IV Titration 3.514 3.4 Amount Insulin Regular 100 unit 3.514 In Sodium Chloride 0.9% 100 ml @ Per Protocol IV .Q0M [facility] Rx#:[id number] Milrinone-D5w Pmx 20 mg 3.4 In Dextrose/Water 1 100ml .bag @ 0.2 MCG/KG/MIN 3. 66 mls/hr IV .Q24H [facility] Rx #:[id number] Output: Chest Tube Drainage 420 350 90 Left Pleural 180 200 50 Mediastinal 30 50 0 Right Pleural 210 100 40 Drainage 20 Right Calf 20 Urine 350 710 35 Other: Voiding Method Indwelling Catheter Indwelling Catheter # Bowel Movements 0 ABP, PAP, CO, CI - Last Documented Arterial Blood Pressure 126/36 Pulmonary Artery Pressure 38/14 Cardiac Output 4 Cardiac Index 2.5 - Constitutional General appearance: Present: cooperative, no acute distress - Respiratory Details: Lungs sounds diminished bilaterally. Respirations even, nonlabored. Currently on 5 L nasal cannula oxygen saturation 97%. Only able to achieve 250 mL on her incentive spirometry. Weak cough. Mediastinal chest tube to -20 cm wall suction, 30 mL thin serosanguineous drainage overnight, 100 mL last 24 hours. Left pleural chest tube to -20 cm wall suction, 140 mL of thin serosanguineous drainage overnight, 400 mL last 24 hours. Right pleural chest tube to -20 cm wall suction, 60 mL of thin serosanguineous drainage overnight, 250 mL last 24 hours. No air leaks present. - Cardiovascular Details: S1, S2 present. Regular rate and rhythm, sinus rhythm on telemetry. Sternum stable. Palpable peripheral pulses bilaterally. No edema present. No calf pain or tenderness noted. Intra-aortic balloon pump present, right groin, 1:2 augmentation currently. Right internal jugular [place]ordis, right brachial arterial line present. Currently on 0.2 mics of Primacor and 2 mics of dopamine. CO/CI this morning on 1:1 augmentation was 4.3/2.7, currently on 1:2 augmentation with CO/Cl CI 3.4:2.1. Heart hugger, SCDs present. - Gastrointestinal Gastrointestinal Comment(s): Abdomen soft, nontender, nondistended. Active bowel sounds 4 quadrants. Tolerating clear liquids. - Genitourinary Genitourinary Comment(s): Portillo present draining clear, yellow urine. Output overnight 65-75 mL per hour , down to 30 L/h this morning. - Integumentary Integumentary Comment(s): Skin is warm and dry with evidence of good perfusion. Anterior chest incision well approximated and covered with dry intact dressing. Right lower extremity EVH site well approximated, DANY drain present with minimal thin serosanguineous drainage. - Neurologic Neurologic: Present: CNII-XII intact - Musculoskeletal Musculoskeletal: Present: strength equal bilaterally - Psychiatric Psychiatric: Present: A&O x's 3, appropriate affect, intact judgment & insight - Allied health notes Allied health notes reviewed: nursing - Labs CBC & Chem 7: 12/02/17 05:00 12/02/17 05:00 Labs: Abnormal Lab Results - Last 24 Hours (Table) 12/01/17 12/01/17 12/01/17 Range/Units 08:40 09:09 09:59 WBC (3.8-10.6) k/uL RBC (3.80-5.40) m/uL Hgb (11.4-16.0) gm/dL Hct (34.0-46.0) % Plt Count (150-450) k/uL Neutrophils # (1.3-7.7) k/uL ABG pH 7.28 L (7.35-7.45) ABG pO2 30 L* (83-108) mmHg ABG O2 Saturation 53.1 L (94-97) % BUN (7-17) mg/dL Creatinine (0.52-1.04) mg/dL Glucose (74-99) mg/dL POC Glucose (mg/dL) 110 H 115 H (75-99) mg/dL AST (14-36) U/L Total Protein (6.3-8.2) g/dL Albumin (3.5-5.0) g/dL 12/01/17 12/01/17 12/01/17 Range/Units 11:00 12:05 17:18 WBC (3.8-10.6) k/uL RBC (3.80-5.40) m/uL Hgb (11.4-16.0) gm/dL Hct (34.0-46.0) % Plt Count (150-450) k/uL Neutrophils # (1.3-7.7) k/uL ABG pH (7.35-7.45) ABG pO2 (83-108) mmHg ABG O2 Saturation (94-97) % BUN (7-17) mg/dL Creatinine (0.52-1.04) mg/dL Glucose (74-99) mg/dL POC Glucose (mg/dL) 116 H 111 H 116 H (75-99) mg/dL AST (14-36) U/L Total Protein (6.3-8.2) g/dL Albumin (3.5-5.0) g/dL 12/01/17 12/02/17 12/02/17 Range/Units 21:05 05:00 05:00 WBC 17.1 H (3.8-10.6) k/uL RBC 3.30 L (3.80-5.40) m/uL Hgb 9.1 L (11.4-16.0) gm/dL Hct 29.1 L (34.0-46.0) % Plt Count 137 L (150-450) k/uL Neutrophils # 14.5 H (1.3-7.7) k/uL ABG pH (7.35-7.45) ABG pO2 (83-108) mmHg ABG O2 Saturation (94-97) % BUN 21 H (7-17) mg/dL Creatinine 1.20 H (0.52-1.04) mg/dL Glucose 120 H (74-99) mg/dL POC Glucose (mg/dL) 121 H (75-99) mg/dL AST 59 H (14-36) U/L Total Protein 5.0 L (6.3-8.2) g/dL Albumin 3.4 L (3.5-5.0) g/dL 12/02/17 Range/Units 07:10 WBC (3.8-10.6) k/uL RBC (3.80-5.40) m/uL Hgb (11.4-16.0) gm/dL Hct (34.0-46.0) % Plt Count (150-450) k/uL Neutrophils # (1.3-7.7) k/uL ABG pH (7.35-7.45) ABG pO2 (83-108) mmHg ABG O2 Saturation (94-97) % BUN (7-17) mg/dL Creatinine (0.52-1.04) mg/dL Glucose (74-99) mg/dL POC Glucose (mg/dL) 126 H (75-99) mg/dL AST (14-36) U/L Total Protein (6.3-8.2) g/dL Albumin (3.5-5.0) g/dL Microbiology - Last 24 Hours (Table) 11/30/17 07:00 Urine Culture - Final Urine,Voided 11/30/17 01:00 Nasal Screen MRSA/MSSA ([facility]) - Final Nasal Swab - Imaging and Cardiology Chest x-ray: report reviewed, image reviewed Assessment and Plan (1) Systolic heart failure Current Visit: Yes Status: Acute Code(s): I50.20 - UNSPECIFIED SYSTOLIC ( CONGESTIVE) HEART FAILURE SNOMED Code(s): 098761258 (2) 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 Current Visit: Yes Status: Chronic Code(s): I25.10 - ATHSCL HEART DISEASE OF [place] CORONARY ARTERY W/O ANG PCTRS SNOMED Code(s): 323779384 (3) History of hyperlipidemia Current Visit: Yes Status: Chronic Code(s): Z86.39 - PERSONAL HISTORY OF ENDO, NUTRITIONAL AND METABOLIC DISEASE SNOMED Code(s): 642509183 (4) History of anxiety Current Visit: Yes Status: Chronic Code(s): Z86.59 - PERSONAL HISTORY OF OTHER MENTAL AND BEHAVIORAL DISORDERS SNOMED Code(s): 057718424 (5) Tobacco dependence in remission Current Visit: No Status: Resolved Code(s): F17.201 - NICOTINE DEPENDENCE, UNSPECIFIED, IN REMISSION SNOMED Code(s): 493543301 (6) History of pneumonia Current Visit: No Status: Resolved Code(s): Z87.01 - PERSONAL HISTORY OF PNEUMONIA (RECURRENT) SNOMED Code(s): 103001612 (7) History of skin cancer Current Visit: No Status: Resolved Code(s): Z85.828 - PERSONAL HISTORY OF OTHER MALIGNANT NEOPLASM OF SKIN SNOMED Code(s): 422030237 (8) Family history of heart disease Current Visit: Yes Status: Chronic Code(s): Z82.49 - FAMILY HX OF ISCHEM HEART DIS AND OTH DIS OF THE CIRC SYS SNOMED Code(s): 922912591 (9) NSTEMI (non-ST elevated myocardial infarction) Current Visit: Yes Status: Acute Code(s): I21.4 - NON-ST ELEVATION (NSTEMI) MYOCARDIAL INFARCTION SNOMED Code(s): 919065341 Plan: 1. Continue aspirin, statin, Plavix, beta omayra. Will increase beta omayra as tolerated. 2. Wean O2 as able. Encourage incentive spirometry use 10 times every hour. Encourage continued smoking cessation. 3. Will continue intra-aortic balloon pump at 1:2 augmentation at this time. Will continue Primacor and dopamine. Hopefully will discontinue balloon pump later today. 4. 25% albumin given this morning per Dr. Monsalve. Will monitor urine output. 5. Keep Portillo catheter for 1 more day for strict accurate I and O. 6. GI/DVT prophylaxis. 7. Insulin drip/diabetic management per primary care service. 8. Will increase activity, consults PT/OT once balloon pump was discontinued. 9. Will monitor daily labs and chest x-rays. 10. Will discontinue mediastinal chest tubes. 11. Patient may need LifeVest at discharge. Will discuss with cardiology. 12. More recommendations to follow. Time with Patient: Greater than 30
[2017-12-02 09:42] LABS: ABG HCO3 21 mmol/L (21-25); ABG Oxygen Saturation 56.2 % (94-97); ABG PCO2 37 mmHg (35-45); ABG PH 7.37 (7.35-7.45); ABG TCO2 22 mmol/L (19-24)
[2017-12-02 09:44] LABS: ABG PO2 31 mmHg (83-108)
--- NOTE | 2017-12-02 10:05 | P.PN ---
Subjective Progress Note Date: 12/02/17 This is a 82-year-old female who was admitted to the hospital with congestive heart failure and evidence of ischemic cardiomyopathy. Patient had a cardiac catheterization yesterday by Dr. VC Jin. Patient was found to have severe triple-vessel disease including total occlusion of the LAD and left main. Patient had intractable balloon pump. She underwent aortic coronary bypass surgery. She seemed to be hemodynamically stable. She is extubated. Complaints of back pain. Maintaining sinus rhythm. Cardiac index is fluctuating. Chest x-ray doesn't show any significant CHF. The possibility that the entirety balloon pump may be taken out today. He urine output is fair. 12/02/2017: This 82-year-old female is status post bypass surgery. The patient is alert, complaints of mild difficulty in breathing. Patient is still on entirety balloon pump. She is on 2-1. Her cardiac index is about 2.1. Chest x-ray doesn't significant CHF. Her renal function is stable. Patient is maintaining sinus rhythm. There is possibility quirino the intra-aortic balloon pump may be taken out yesterday. No arrhythmias are noted. She still on Primacor and dopaminet Objective - Vital Signs Vital signs: Vital Signs Temp 97.3 F L 11/30/17 23:00 Pulse 90 12/02/17 09:00 Resp 17 12/02/17 09:00 BP 105/61 11/30/17 18:00 Pulse Ox 96 12/02/17 09:00 Intake & Output 12/01/17 12/02/17 12/02/17 18:59 06:59 18:59 Intake Total 1213.014 914.0 153.2 Output Total 770 1060 215 Balance 443.014 -146.0 -61.8 Weight 66 kg Intake: IV 1209.5 910.6 153.2 ACETAMINOPHEN IV (For NPO 400 ) 1,000 mg In Empty Bag 1 bag @ 400 mls/hr IVPB Q6HR [facility] Rx#:[id number] CO/CI 130 60 20 Dextrose/Water 1 500ml. 46.2 8.4 bag @ 2 MCG/KG/MIN 4.58 mls/hr IV .Q24H [facility] with DOPamine DRIP 800 mg Rx#: [id number] Lactated Ringers 1,000 ml 570 650 100 @ 50 mls/hr IV .Q20H [facility] Rx#:[id number] Milrinone-D5w Pmx 20 mg 37.4 6.8 In Dextrose/Water 1 100ml .bag @ 0.2 MCG/KG/MIN 3. 66 mls/hr IV .Q24H [facility] Rx #:[id number] Nitroglycerin-D5w Pmx 50 1.5 mg In Dextrose/Water 1 250ml.bag @ 5 MCG/MIN 1.5 mls/hr IV .Q24H [facility] Rx#: [id number] Presure Lines 108 117 18 Intake, IV Titration 3.514 3.4 Amount Insulin Regular 100 unit 3.514 In Sodium Chloride 0.9% 100 ml @ Per Protocol IV .Q0M [facility] Rx#:[id number] Milrinone-D5w Pmx 20 mg 3.4 In Dextrose/Water 1 100ml .bag @ 0.2 MCG/KG/MIN 3. 66 mls/hr IV .Q24H [facility] Rx #:[id number] Output: Chest Tube Drainage 420 350 130 Left Pleural 180 200 70 Mediastinal 30 50 10 Right Pleural 210 100 50 Drainage 20 Right Calf 20 Urine 350 710 65 Other: Voiding Method Indwelling Catheter Indwelling Catheter # Bowel Movements 0 0 ABP, PAP, CO, CI - Last Documented Arterial Blood Pressure 114/33 Pulmonary Artery Pressure 34/16 Cardiac Output 3.4 Cardiac Index 2.1 - Exam GENERAL EXAM: Patient is alert and oriented, complaints of mild shortness of breath HEENT: Normocephalic. Normal reaction of pupils, equal size, normal range of extraocular motion. No erythema or exudates in the throat. NECK: No masses, no nuchal rigidity. CHEST: Postsurgical LUNGS: Diminished breath sounds HEART: S1 and S2 normal with no audible mumurs or gallops. Regular rhythm, ABDOMEN: No hepatosplenomegaly, normal bowel sounds, no guarding or rigidity. SKIN: No rashes CENTRAL NERVOUS SYSTEM: No focal deficits. EXTREMITIES: No cyanosis, clubbing or edema. - Labs CBC & Chem 7: 12/02/17 05:00 12/02/17 05:00 Labs: Abnormal Lab Results - Last 24 Hours (Table) 12/01/17 12/01/17 12/01/17 Range/Units 09:59 11:00 12:05 WBC (3.8-10.6) k/uL RBC (3.80-5.40) m/uL Hgb (11.4-16.0) gm/dL Hct (34.0-46.0) % Plt Count (150-450) k/uL Neutrophils # (1.3-7.7) k/uL ABG pO2 (83-108) mmHg ABG O2 Saturation (94-97) % BUN (7-17) mg/dL Creatinine (0.52-1.04) mg/dL Glucose (74-99) mg/dL POC Glucose (mg/dL) 115 H 116 H 111 H (75-99) mg/dL AST (14-36) U/L Total Protein (6.3-8.2) g/dL Albumin (3.5-5.0) g/dL 12/01/17 12/01/17 12/02/17 Range/Units :18 21:05 05:00 WBC (3.8-10.6) k/uL RBC (3.80-5.40) m/uL Hgb (11.4-16.0) gm/dL Hct (34.0-46.0) % Plt Count (150-450) k/uL Neutrophils # (1.3-7.7) k/uL ABG pO2 (83-108) mmHg ABG O2 Saturation (94-97) % BUN 21 H (7-17) mg/dL Creatinine 1.20 H (0.52-1.04) mg/dL Glucose 120 H (74-99) mg/dL POC Glucose (mg/dL) 116 H 121 H (75-99) mg/dL AST 59 H (14-36) U/L Total Protein 5.0 L (6.3-8.2) g/dL Albumin 3.4 L (3.5-5.0) g/dL 12/02/17 12/02/17 12/02/17 Range/Units 05:00 07:10 09:39 WBC 17.1 H (3.8-10.6) k/uL RBC 3.30 L (3.80-5.40) m/uL Hgb 9.1 L (11.4-16.0) gm/dL Hct 29.1 L (34.0-46.0) % Plt Count 137 L (150-450) k/uL Neutrophils # 14.5 H (1.3-7.7) k/uL ABG pO2 31 L* (83-108) mmHg ABG O2 Saturation 56.2 L (94-97) % BUN (7-17) mg/dL Creatinine (0.52-1.04) mg/dL Glucose (74-99) mg/dL POC Glucose (mg/dL) 126 H (75-99) mg/dL AST (14-36) U/L Total Protein (6.3-8.2) g/dL Albumin (3.5-5.0) g/dL Microbiology - Last 24 Hours (Table) 11/30/17 07:00 Urine Culture - Final Urine,Voided 11/30/17 01:00 Nasal Screen MRSA/MSSA ([facility]) - Final Nasal Swab Assessment and Plan (1) Status post aorto-coronary artery bypass graft Current Visit: Yes Status: Acute Code(s): Z95.1 - PRESENCE OF AORTOCORONARY BYPASS GRAFT SNOMED Code(s): 091308649 (2) Congestive heart failure Current Visit: Yes Status: Acute Code(s): I50.9 - HEART FAILURE, UNSPECIFIED SNOMED Code(s): 30503632 (3) History of hyperlipidemia Current Visit: Yes Status: Chronic Code(s): Z86.39 - PERSONAL HISTORY OF ENDO, NUTRITIONAL AND METABOLIC DISEASE SNOMED Code(s): 584044541 Plan: Patient is hemodynamically to telemetry stable. Axillary and try to balloon pump. Cardiac index is about 2.1 on pump. Hopefully, the balloon pump can be taken out today. No arrhythmias. On dopamine and Primacor. If necessary we' ll make start her on IV digoxin. We'll follow
[2017-12-02] MEDS: MORPHINE SULFATE 4 MG/ML SYRINGE IVP PRN (10:06)
--- NOTE | 2017-12-02 10:57 | P.PCN ---
Date of Procedure: 12/02/17 Procedure(s) Performed: Removal of intra-aortic balloon pump Indications for Procedure: The patient is an 82-year-old female who was found to have multivessel coronary artery disease with left main disease. An intra-aortic balloon pump was placed in the [facility] [employer] by Dr. Fragoso. She went for coronary artery bypass graft surgery 2 days ago and is doing well. This morning she is hemodynamically stable and is no longer need of intra-aortic balloon pump assistance. Removal of the device was recommended. The risks, benefits, alternatives to this procedure were discussed with the patient. All questions were answered. Consent was obtained. Description of Procedure: The right groin was examined. There was no evidence of hematoma. The balloon pump was turned off. The pre-existing sheath and balloon were removed en jacy and artery was allowed to bleed both antegrade and retrograde for several beats. Direct pressure was held over the site for 45 minutes. There was no residual bleeding or hematoma noted. The groin itself was soft. The right lower extremity appeared warm and well-perfused. There were no immediate complications. She remained hemodynamically stable with a good follow-up cardiac index.
--- NOTE | 2017-12-02 11:27 | P.PN ---
Subjective Progress Note Date: 12/02/17 82-year-old female who presented to the emergency room with a chief complaint of shortness of breath. Patient states she has no prior respiratory issues or symptoms until September of 2017. Patient states she awoken from a sleep and was very short of breath. She states she was able to relax and slept in an upright position for the rest of the night. She states in the morning her symptoms resolved. She was just recently in [place] for a month at a rental house and had another episode where she was awoken from a sleep with difficulty breathing. The patient states she went to an urgent care in [place] and was given antibiotics, steroids, and an inhaler. She states her symptoms did not improve and noticed she was continually short of breath. She states she was not able to walk through the grocery store without becoming very short of breath and stopping a few times during shopping to catch her breath. She ended up going to a hospital in [place] for evaluation where she had a CT and chest xray done and was told she had congestive heart failure. Patient states she flew home and presented to the emergency room for further evaluation. She denies chest pain or pressure. Denies dizziness or lightheadness. Denies nausea or vomiting. Denies pain or discomfort. The patient has a history of congestive heart failure recently diagnosed in [place], hyperlipidemia, and anxiety. She is a former cigarette smoker and quit in September 2017. Chest x-ray: Findings compatible with congestive heart failure. Infiltrates or other etiologies not excluded EKG: Sinus tachycardia with ST-T wave changes in the lateral leads Laboratory data: WBC 10.9. Hemoglobin 13.9. Platelet count 314. Sodium 139. Potassium 4.3. BUN 29. Creatinine 1.12. GFR 46. Glucose 122. Magnesium 1.9. Troponins: 0.25, 0.157, 0.152 BNP: 11,700 D-Dimer: 0.69 Lipid panel: Triglycerides 76, cholesterol 145, LDL 61, HDL 69 Testing for influenza A and B was negative The patient was admitted to the hospital under the care of Dr. Landeros. Consultations were placed to Cardiology. 11/26/2017 Patient seen and examined at the bedside. Patient is awake and alert. Patient denies chest pain or pressure. Her shortness of breath has improved. She is on room air with oxygen saturations greater than 92%. She is tolerating PO intake without nausea or vomiting. Vital signs have been stable. Denies pain or discomfort. Echocardiogram was completed revealing severe global hypokinesis of LV, ejection fraction of 20-25%, mild aortic regurgitation, moderate mitral regurgitation, severe tricuspid regurgitation, moderate pulmonary hypertension, RVSP 54.42, small pericardial effusion, and large pleural effusion. 11/27/2017-Note per covering provider 11/28/2017-Note per covering provider 11/29/2017 Patient seen and examined at the bedside. Patient awake and alert. Patient states she is very tired and did not sleep much last night because of her roommate being very loud. Denies chest pain or pressure. Denies shortness of breath. Remains on 20mg lasix PO BID. She was also started on Aldactone 12.5mg PO daily per cardiology. Patient is scheduled for cardiac cath today. 11/30/2017-Patient in OR during physician rounds 12/01/2017 Patient seen and examined at the bedside. She remains in the intensive care unit. Patient underwent cardiac cath on 11/29/2017. A balloon pump was inserted and myocardial revascularization was recommended. She is post op day # 1, CABG x 2 with left internal mammary artery to the left anterior descending artery and reverse saphenous vein graft connected to the aorta using the passport device connected distally to the long obtuse marginal artery. She was extubated last night. She remains on high flow nasal cannula at 8L. Oxygen saturations greater than 92%. Patient remains on insulin drip per protocol which is currently paused due to blood glucose less than 115. Blood sugars are running 110-126. Patient is very tearful this morning. She is very uncomfortable and is anxious to have the IABP removed. Patient states she is not "one to sit around" and can not lay flat in the bed much longer. 12/02/2017 Patient seen and examined on rounds with Dr. Landeros. Patient remains in the intensive care unit. Patients daughter is at the bedside. She is tolerating clear liquids. Denies nausea or vomiting. Denies chest pain or pressure. Denies shortness of breath. IABP remains intact on 2:1. Patient is anxious for IABP to be removed. She was started on dopamine and Primacor. She remains on Novolog sliding scale AC/HS. Recent blood sugars are 126, 120, 121, and 116. Objective - Vital Signs Vital signs: Vital Signs Temp 97.3 F L 11/30/17 23:00 Pulse 97 12/02/17 11:00 Resp 19 12/02/17 11:00 BP 105/61 11/30/17 18:00 Pulse Ox 95 12/02/17 11:00 Intake & Output 12/01/17 12/02/17 12/02/17 18:59 06:59 18:59 Intake Total 1213.014 914.0 219.8 Output Total 770 1060 305 Balance 443.014 -146.0 -85.2 Weight 66 kg Intake: IV 1209.5 910.6 219.8 ACETAMINOPHEN IV (For NPO 400 ) 1,000 mg In Empty Bag 1 bag @ 400 mls/hr IVPB Q6HR [facility] Rx#:[id number] CO/CI 130 60 20 Dextrose/Water 1 500ml. 46.2 12.6 bag @ 2 MCG/KG/MIN 4.58 mls/hr IV .Q24H [facility] with DOPamine DRIP 800 mg Rx#: [id number] Lactated Ringers 1,000 ml 570 650 150 @ 50 mls/hr IV .Q20H [facility] Rx#:[id number] Milrinone-D5w Pmx 20 mg 37.4 10.2 In Dextrose/Water 1 100ml .bag @ 0.2 MCG/KG/MIN 3. 66 mls/hr IV .Q24H [facility] Rx #:[id number] Nitroglycerin-D5w Pmx 50 1.5 mg In Dextrose/Water 1 250ml.bag @ 5 MCG/MIN 1.5 mls/hr IV .Q24H [facility] Rx#: [id number] Presure Lines 108 117 27 Intake, IV Titration 3.514 3.4 Amount Insulin Regular 100 unit 3.514 In Sodium Chloride 0.9% 100 ml @ Per Protocol IV .Q0M [facility] Rx#:[id number] Milrinone-D5w Pmx 20 mg 3.4 In Dextrose/Water 1 100ml .bag @ 0.2 MCG/KG/MIN 3. 66 mls/hr IV .Q24H [facility] Rx #:[id number] Output: Chest Tube Drainage 420 350 200 Left Pleural 180 200 100 Mediastinal 30 50 20 Right Pleural 210 100 80 Drainage 20 Right Calf 20 Urine 350 710 85 Other: Voiding Method Indwelling Catheter Indwelling Catheter Indwelling Catheter # Bowel Movements 0 0 ABP, PAP, CO, CI - Last Documented Arterial Blood Pressure 123/49 Pulmonary Artery Pressure 41/22 Cardiac Output 4.1 Cardiac Index 2.6 - Exam GENERAL: This is a 82-year-old female who appears in no acute distress at the time of examination. Anxious to have balloon pump removed. HEENT: Head is atraumatic, normocephalic. Pupils are equal, round, and reactive to light. Sclerae anicteric. Conjunctivae are clear. Mucus membranes of the mouth are moist. Neck is supple. RESPIRATORY: Respirations equal bilaterally, diminished in the bases. No use of accessory muscles. Patient maintaining oxygen saturation greater than 92% on 2L NC. Patient with mediastinal chest tube to wall suction and right and left pleural chest tubes to wall suction. Serosanguineous drainage noted in the atrium. CARDIOVASCULAR: Telemetry reveals sinus mechanism. Regular rate and rhythm. S1 and S2 noted. No systolic or diastolic murmur auscultated. No JVD noted. No S3 or S4 noted. IABP remains intact. Heart hugger in place. GASTROINTESTINAL: No distention noted. Abdomen soft and round. Bowel sounds auscultated x 4 quadrants. No pain or tenderness noted upon palpation. INTEGUMENTARY: Sternal chest incision clean dry and intact. No cyanosis. No jaundice. No rashes noted. No cellulitis noted. EXTREMITIES: +1 pulses in the lower extremities. No lower extremity edema. No calf tenderness noted. NEUROLOGIC: Cranial nerves II-XII intact. PSYCHIATRIC: Awake, alert, and oriented X 3. Appropriate affect. Anxious to have balloon pump removed. - Labs CBC & Chem 7: 12/02/17 05:00 12/02/17 05:00 Labs: Abnormal Lab Results - Last 24 Hours (Table) 12/01/17 12/01/17 12/01/17 Range/Units 12:05 17:18 21:05 WBC (3.8-10.6) k/uL RBC (3.80-5.40) m/uL Hgb (11.4-16.0) gm/dL Hct (34.0-46.0) % Plt Count (150-450) k/uL Neutrophils # (1.3-7.7) k/uL ABG pO2 (83-108) mmHg ABG O2 Saturation (94-97) % BUN (7-17) mg/dL Creatinine (0.52-1.04) mg/dL Glucose (74-99) mg/dL POC Glucose (mg/dL) 111 H 116 H 121 H (75-99) mg/dL AST (14-36) U/L Total Protein (6.3-8.2) g/dL Albumin (3.5-5.0) g/dL 12/02/17 12/02/17 12/02/17 Range/Units 05:00 05:00 07:10 WBC 17.1 H (3.8-10.6) k/uL RBC 3.30 L (3.80-5.40) m/uL Hgb 9.1 L (11.4-16.0) gm/dL Hct 29.1 L (34.0-46.0) % Plt Count 137 L (150-450) k/uL Neutrophils # 14.5 H (1.3-7.7) k/uL ABG pO2 (83-108) mmHg ABG O2 Saturation (94-97) % BUN 21 H (7-17) mg/dL Creatinine 1.20 H (0.52-1.04) mg/dL Glucose 120 H (74-99) mg/dL POC Glucose (mg/dL) 126 H (75-99) mg/dL AST 59 H (14-36) U/L Total Protein 5.0 L (6.3-8.2) g/dL Albumin 3.4 L (3.5-5.0) g/dL 12/02/17 Range/Units 09:39 WBC (3.8-10.6) k/uL RBC (3.80-5.40) m/uL Hgb (11.4-16.0) gm/dL Hct (34.0-46.0) % Plt Count (150-450) k/uL Neutrophils # (1.3-7.7) k/uL ABG pO2 31 L* (83-108) mmHg ABG O2 Saturation 56.2 L (94-97) % BUN (7-17) mg/dL Creatinine (0.52-1.04) mg/dL Glucose (74-99) mg/dL POC Glucose (mg/dL) (75-99) mg/dL AST (14-36) U/L Total Protein (6.3-8.2) g/dL Albumin (3.5-5.0) g/dL Microbiology - Last 24 Hours (Table) 11/30/17 07:00 Urine Culture - Final Urine,Voided 11/30/17 01:00 Nasal Screen MRSA/MSSA ([facility]) - Final Nasal Swab Assessment and Plan Plan: ASSESSMENT: Acute exacerbation of systolic congestive heart failure, BNP 11,700, EF 20-25% Non-ST elevated myocardial infarction, s/p cardiac cath with IABP insertion 11/29 CABG x 2 with left internal mammary artery to the left anterior descending artery and reverse saphenous vein graft connected to the aorta using the passport device connected distally to the long obtuse marginal artery, 11/30/2017 , POD # 2 Moderate pulmonary hypertension Small pericardial effusion visualized on echocardiogram Small bilateral pleural effusions visualized on CXR 11/26/2017 Hyperlipidemia Anxiety, unspecified Nicotine dependence, in remission, patient quit smoking in September 2017 PLAN: Continue postoperative surgical care per cardiothoracic team Continue novolog sliding scale AC/HS Capillary blood glucose accu-checks AC/HS Advance diet as tolerated Monitor labs. Recheck in a.m. GI/DVT prophylaxis Monitor vital signs and address as appropriate Further recommendations pending patient's course Nurse practitioner note has been reviewed by physician. Signing provider agrees with the documented findings, assessment, and plan of care.
--- NOTE | 2017-12-02 11:28 | P.PN ---
Subjective Progress Note Date: 12/02/17 Principal diagnosis: Status post three-vessel bypass grafting, postoperative day #2. Progress note dated 12/01/2017. 82-year-old female postop day #1 status post three-vessel bypass grafting. She was extubated last night. Weaning parameters were excellent. She passed her cuff leak. Blood gases were good. She was awake and alert. She's currently been extubated today liters high flow by nasal cannula. The patient is in no distress at the current time. Still little sleepy. She did get some Xanax this morning. I think as a bad idea. We'll stop for the time being. We may resume in the future pending her mental status. She is on lactated Ringer's IV at 50 mL an hour. She was on an insulin drip at that's been turned off. Chest x-ray looks stable. Postsurgical changes. Nothing acute. She has a history of non-ST segment elevation myocardial infarction, congestive heart failure, valvular heart disease, status post catheterization with a intra-aortic balloon pump hyperlipidemia acute bronchitis suspected COPD anxiety and gastroesophageal reflux disease. The balloon pump still in place. He likely be removed today. Other than that everything is very stable. Reevaluated today on 12/02/2017, patient is doing well, no cough no wheezing, she has chronic shortness of breath related to underlying cardiomyopathy and LV dysfunction. Continues to have intra-aortic balloon pump in place, and that would likely be removed today. WBC count is 17.1 hemoglobin is 9.1 electrolytes were normal BUN is 21 creatinine is 1.20. Objective - Vital Signs Vital signs: Vital Signs Temp 97.3 F L 11/30/17 23:00 Pulse 97 12/02/17 11:00 Resp 19 12/02/17 11:18 BP 105/61 11/30/17 18:00 Pulse Ox 95 12/02/17 11:00 Intake & Output 12/01/17 12/02/17 12/02/17 18:59 06:59 18:59 Intake Total 1213.014 914.0 219.8 Output Total 770 1060 305 Balance 443.014 -146.0 -85.2 Weight 66 kg Intake: IV 1209.5 910.6 219.8 ACETAMINOPHEN IV (For NPO 400 ) 1,000 mg In Empty Bag 1 bag @ 400 mls/hr IVPB Q6HR [facility] Rx#:[id number] CO/CI 130 60 20 Dextrose/Water 1 500ml. 46.2 12.6 bag @ 2 MCG/KG/MIN 4.58 mls/hr IV .Q24H [facility] with DOPamine DRIP 800 mg Rx#: [id number] Lactated Ringers 1,000 ml 570 650 150 @ 50 mls/hr IV .Q20H [facility] Rx#:[id number] Milrinone-D5w Pmx 20 mg 37.4 10.2 In Dextrose/Water 1 100ml .bag @ 0.2 MCG/KG/MIN 3. 66 mls/hr IV .Q24H [facility] Rx #:[id number] Nitroglycerin-D5w Pmx 50 1.5 mg In Dextrose/Water 1 250ml.bag @ 5 MCG/MIN 1.5 mls/hr IV .Q24H [facility] Rx#: [id number] Presure Lines 108 117 27 Intake, IV Titration 3.514 3.4 Amount Insulin Regular 100 unit 3.514 In Sodium Chloride 0.9% 100 ml @ Per Protocol IV .Q0M [facility] Rx#:[id number] Milrinone-D5w Pmx 20 mg 3.4 In Dextrose/Water 1 100ml .bag @ 0.2 MCG/KG/MIN 3. 66 mls/hr IV .Q24H [facility] Rx #:[id number] Output: Chest Tube Drainage 420 350 200 Left Pleural 180 200 100 Mediastinal 30 50 20 Right Pleural 210 100 80 Drainage 20 Right Calf 20 Urine 350 710 85 Other: Voiding Method Indwelling Catheter Indwelling Catheter Indwelling Catheter # Bowel Movements 0 0 ABP, PAP, CO, CI - Last Documented Arterial Blood Pressure 123/49 Pulmonary Artery Pressure 41/22 Cardiac Output 4.1 Cardiac Index 2.6 - Exam No acute distress, oriented 3. Patient is very awake, and in no distress. HEENT examination is grossly unremarkable. Mucous membranes are moist. No oral lesions. Neck supple. Full range of motion. No adenopathy thyromegaly or neck vein distention. Cardiovascular examination reveals regular rhythm rate. S1-S2 normal. No S3 or S4. No discernible murmur noted. Lungs reveal a few scattered rhonchi. No wheezes or crackles. Breath sounds are equal. Abdomen soft bowel sounds are heard. No masses or tenderness. Extremities are intact. No cyanosis clubbing or edema. Skin is without rash or lesion. Neurologic examination revealed no evidence of any neurological deficits. - Labs CBC & Chem 7: 12/02/17 05:00 12/02/17 05:00 Labs: Abnormal Lab Results - Last 24 Hours (Table) 12/01/17 12/01/17 12/01/17 Range/Units 12:05 17:18 21:05 WBC (3.8-10.6) k/uL RBC (3.80-5.40) m/uL Hgb (11.4-16.0) gm/dL Hct (34.0-46.0) % Plt Count (150-450) k/uL Neutrophils # (1.3-7.7) k/uL ABG pO2 (83-108) mmHg ABG O2 Saturation (94-97) % BUN (7-17) mg/dL Creatinine (0.52-1.04) mg/dL Glucose (74-99) mg/dL POC Glucose (mg/dL) 111 H 116 H 121 H (75-99) mg/dL AST (14-36) U/L Total Protein (6.3-8.2) g/dL Albumin (3.5-5.0) g/dL 12/02/17 12/02/17 12/02/17 Range/Units 05:00 05:00 07:10 WBC 17.1 H (3.8-10.6) k/uL RBC 3.30 L (3.80-5.40) m/uL Hgb 9.1 L (11.4-16.0) gm/dL Hct 29.1 L (34.0-46.0) % Plt Count 137 L (150-450) k/uL Neutrophils # 14.5 H (1.3-7.7) k/uL ABG pO2 (83-108) mmHg ABG O2 Saturation (94-97) % BUN 21 H (7-17) mg/dL Creatinine 1.20 H (0.52-1.04) mg/dL Glucose 120 H (74-99) mg/dL POC Glucose (mg/dL) 126 H (75-99) mg/dL AST 59 H (14-36) U/L Total Protein 5.0 L (6.3-8.2) g/dL Albumin 3.4 L (3.5-5.0) g/dL 12/02/17 Range/Units 09:39 WBC (3.8-10.6) k/uL RBC (3.80-5.40) m/uL Hgb (11.4-16.0) gm/dL Hct (34.0-46.0) % Plt Count (150-450) k/uL Neutrophils # (1.3-7.7) k/uL ABG pO2 31 L* (83-108) mmHg ABG O2 Saturation 56.2 L (94-97) % BUN (7-17) mg/dL Creatinine (0.52-1.04) mg/dL Glucose (74-99) mg/dL POC Glucose (mg/dL) (75-99) mg/dL AST (14-36) U/L Total Protein (6.3-8.2) g/dL Albumin (3.5-5.0) g/dL Microbiology - Last 24 Hours (Table) 11/30/17 07:00 Urine Culture - Final Urine,Voided 11/30/17 01:00 Nasal Screen MRSA/MSSA ([facility]) - Final Nasal Swab Assessment and Plan Assessment: Postop day #2, status post 2 vessel bypass grafting Non-ST segment elevation myocardial infarction Congestive heart failure Valvular heart disease Status post catheterization and intra-aortic balloon pump on November 29 Hyperlipidemia Acute bronchitis Suspected COPD History of anxiety Gastroesophageal reflux disease Recommendation: The intra-aortic balloon pump will be removed today, continue incentive spirometry, continue bronchodilators, early ambulation, we will continue to follow. Time with Patient: Less than 30
[2017-12-02 11:32] LABS: Glucose,Whole Blood 123 mg/dL (75-99)
[2017-12-02] MEDS: CLEVIDIPINE BUTYRATE 25 MG in EMPTY BAG 1 BAG IV SCH (14:07)
[2017-12-02] MEDS: MILRINONE-D5W PMX 20 MG in DEXTROSE/WATER 1 100ML.BAG IV SCH (16:26)
[2017-12-02] MEDS ORDERED: ALBUMIN HUMAN 5% 250 ML in EMPTY BAG 1 BAG IVPB STA (16:32)
[2017-12-02 17:12] LABS: Glucose,Whole Blood 127 mg/dL (75-99)
[2017-12-02] MEDS: HYDROcodone/APAP 5-325MG 1 EACH TAB PO PRN (20:01)
[2017-12-02] MEDS: CLOPIDOGREL 75 MG TAB PO SCH (20:01)
[2017-12-02] MEDS: SENNOSIDES-DOCUSATE SODIUM 1 EACH TAB PO SCH (20:03)
[2017-12-02] MEDS: DEXTROSE/WATER 1 500ML.BAG with DOPamine DRIP 800 MG IV SCH (20:04)
[2017-12-02 20:24] LABS: Glucose,Whole Blood 165 mg/dL (75-99)
[2017-12-02] MEDS: ALPRAZolam 0.25 MG TAB PO PRN (21:49)
[2017-12-03] MEDS: HEPARIN SODIUM,PORCINE 5,000 UNIT/ML 1 ML VIAL SQ SCH ×4 (01:00→23:30)
[2017-12-03] MEDS: LACTATED RINGERS 1,000 ML IV SCH ×2 (03:15→22:44)
[2017-12-03 05:26] LABS: Basophils % (A) 0 %; Eosinophils # (A) 0.3 k/uL (0-0.7); Eosinophils % (A) 2 %; HGB 8.3 gm/dL (11.4-16.0); Lymphocytes # (A) 0.9 k/uL (1.0-4.8); Lymphocytes % (A) 7 %; MCH 27.6 pg (25.0-35.0); MCHC 30.9 g/dL (31.0-37.0); MCV 89.5 fL (80.0-100.0); Monocytes # (A) 0.6 k/uL (0-1.0); Monocytes % (A) 4 %; Neutrophils # (A) 12.2 k/uL (1.3-7.7); Neutrophils % (A) 86 %; Platelet Count 109 k/uL (150-450); RBC 3.02 m/uL (3.80-5.40); RDW 14.1 % (11.5-15.5); WBC 14.3 k/uL (3.8-10.6)
[2017-12-03 05:31] LABS: Ionized Calcium 5.2 mg/dL (4.5-5.3)
[2017-12-03 05:45] LABS: ALT 31 U/L (9-52); AST 45 U/L (14-36); Alkaline Phosphatase 56 U/L (38-126); Anion Gap 8 mmol/L; Blood Urea Nitrogen 21 mg/dL (7-17); Calcium 8.6 mg/dL (8.4-10.2); Carbon Dioxide 23 mmol/L (22-30); Chloride 106 mmol/L (98-107); Glucose 123 mg/dL (74-99); Magnesium 2.2 mg/dL (1.6-2.3); Potassium 4.4 mmol/L (3.5-5.1); Sodium 137 mmol/L (137-145); Total Bilirubin 1.2 mg/dL (0.2-1.3); Total Protein 4.7 g/dL (6.3-8.2)
--- NOTE | 2017-12-03 07:28 | XR ---
EXAMINATION TYPE: XR chest 1V portable DATE OF EXAM: 12/03/2017 Comparison: 12/02/2017 Clinical History: 82-year-old female post cardiac surgery Findings: Heart is mildly enlarged, stable. Mild diffuse interstitial prominence, stable. Remaining trace left effusion. Bilateral chest tubes are present. Median sternotomy wires and post-CABG clips. Right IJ Sw an-Diann catheter is present with tip in the proximal right main pulmonary artery. There is a small ri ght apical pneumothorax and a trace left apical pneumothorax not clearly seen previously. Impression: 1. Postoperative changes with bilateral chest tubes in place. There is a small right apical pneumotho rax and a trace left apical pneumothorax. Not clearly seen previously. 2. Stable mild pulmonary vascular congestion.
[2017-12-03 07:29] LABS: Glucose,Whole Blood 106 mg/dL (75-99)
[2017-12-03] MEDS: HYDROcodone/APAP 5-325MG 1 EACH TAB PO PRN ×2 (07:57→08:53)
[2017-12-03] MEDS: IPRATROPIUM-ALBUTEROL 3 ML NEB INHALATION SCH ×4 (08:14→20:45)
[2017-12-03] MEDS: MUPIROCIN 2% OINT 22 GM TUBE NASAL SCH ×2 (08:53→22:51)
[2017-12-03] MEDS: ATORVASTATIN 40 MG TAB PO SCH (08:54)
[2017-12-03] MEDS: INSULIN ASPART 100 UNIT/ML 1 ML 10 ML VIAL SQ SCH ×4 (08:54→22:43)
[2017-12-03] MEDS: ASPIRIN 325 MG TAB PO SCH (08:54)
[2017-12-03] MEDS: PANTOPRAZOLE 40 MG TABLET PO SCH (08:54)
[2017-12-03] MEDS: METOPROLOL TARTRATE 12.5 MG TAB PO SCH ×2 (08:54→22:51)
--- NOTE | 2017-12-03 09:18 | P.PN ---
Subjective Progress Note Date: 12/03/17 Principal diagnosis: Non-ST elevation myocardial infarction, evidence of previous anterio-apical myocardial infarction, systolic congestive heart failure with EF 20-25%, severe left main disease equivalent with a totally occluded collateralized left anterior descending artery, severe left ventricular dysfunction. Preoperative intra-aortic balloon pump. Mild to moderate mitral valve regurgitation. Hyperlipidemia. Smoking history, preop FEV1 of 45% of predicted although the patient was lying flat at the time. Anxiety. Family history of heart disease. POD #4 placement of intra-aortic balloon pump POD #3 urgent non-aortic clamp double off-pump coronary artery bypass grafting using the left internal mammary artery to the left anterior descending artery, reverse saphenous vein graft connected to the aorta using the passport device connected distally to the long obtuse marginal artery. Exclusion of the left atrial appendage with a 45 mm Atriclip. Harvesting of the right greater saphenous vein. Intraoperative transesophageal echocardiogram and epi-aortic scanning. Intraoperative graft flow measurement using the [employer] system. Patient's currently sitting up in the chair in no acute distress. States pain is controlled. Intra-aortic balloon pump removed yesterday, mediastinal chest tube discontinued yesterday. Objective - Vital Signs Vital signs: Vital Signs Temp 97.3 F L 11/30/17 23:00 Pulse 95 12/03/17 07:00 Resp 19 12/03/17 07:00 BP 105/61 11/30/17 18:00 Pulse Ox 98 12/03/17 08:13 Intake & Output 12/02/17 12/03/17 12/03/17 18:59 06:59 18:59 Intake Total 1151.965 859.2 66.6 Output Total 596 775 20 Balance 555.965 84.2 46.6 Weight 66 kg 67.3 kg Intake: IV 1062.6 859.2 66.6 Albumin Human 5% 250 ml 250 In Empty Bag 1 bag @ 250 mls/hr IVPB Q1HR PRN Rx#: [id number] CO/CI 80 60 Dextrose/Water 1 500ml. 46.2 50.4 4.2 bag @ 2 MCG/KG/MIN 4.58 mls/hr IV .Q24H TODD with DOPamine DRIP 800 mg Rx#: [id number] Lactated Ringers 1,000 ml 550 600 50 @ 50 mls/hr IV .Q20H TODD Rx#:[id number] Milrinone-D5w Pmx 20 mg 37.4 40.8 3.4 In Dextrose/Water 1 100ml .bag @ 0.1 MCG/KG/MIN 1. 83 mls/hr IV .Q24H TODD Rx #:[id number] Presure Lines 99 108 9 Intake, IV Titration 89.365 Amount Milrinone-D5w Pmx 20 mg 89.365 In Dextrose/Water 1 100ml .bag @ 0.1 MCG/KG/MIN 1. 83 mls/hr IV .Q24H TODD Rx #:[id number] Output: Chest Tube Drainage 280 410 Left Pleural 140 240 Mediastinal 20 Right Pleural 120 170 Drainage 20 40 Right Calf 20 40 Urine 296 325 20 Other: Voiding Method Indwelling Catheter Indwelling Catheter # Bowel Movements 0 ABP, PAP, CO, CI - Last Documented Arterial Blood Pressure 120/51 Pulmonary Artery Pressure 31/16 Cardiac Output 3.7 Cardiac Index 2.8 - Constitutional General appearance: Present: cooperative, no acute distress - Respiratory Details: Lungs sounds diminished bilaterally. Respirations even, nonlabored. Currently on 2 L nasal cannula oxygen saturation 97%. Able to achieve 500 mL on her incentive spirometry. Weak cough. Left pleural chest tube to -20 cm wall suction, 220 mL thin serosanguineous drainage overnight, 450 mL in the last 24 hours. Right pleural chest tube to -20 cm wall suction, 160 mL thin serosanguineous drainage overnight, 350 mL in the last 24 hours. No air leaks present. - Cardiovascular Details: S1, S2 present. Regular rate and rhythm, sinus rhythm to sinus tach on telemetry. Sternum stable. Palpable peripheral pulses bilaterally. No edema present. No calf pain or tenderness noted. Right internal jugular [place] , right brachial arterial line present. Most recent CO/CI 3.7/2.3 on 2 mics of dopamine and 0.2 mics of Primacor. Heart hugger in place with patient demonstrating appropriate use. Antiembolism stockings, SCDs present. - Gastrointestinal Gastrointestinal Comment(s): Abdomen soft, nontender, nondistended. Active bowel sounds 4 quadrants. Tolerating liquids. Positive flatus, negative bowel movement since surgery. - Genitourinary Genitourinary Comment(s): Portillo present draining clear, yellow urine. Output 25-30 mL/h overnight. - Neurologic Neurologic: Present: CNII-XII intact - Musculoskeletal Musculoskeletal: Present: strength equal bilaterally - Psychiatric Psychiatric: Present: A&O x's 3, appropriate affect, intact judgment & insight - Allied health notes Allied health notes reviewed: nursing - Labs CBC & Chem 7: 12/03/17 05:00 12/03/17 05:00 Labs: Abnormal Lab Results - Last 24 Hours (Table) 12/02/17 12/02/17 12/02/17 Range/Units 09:39 11:29 17:11 WBC (3.8-10.6) k/uL RBC (3.80-5.40) m/uL Hgb (11.4-16.0) gm/dL Hct (34.0-46.0) % MCHC (31.0-37.0) g/dL Plt Count (150-450) k/uL Neutrophils # (1.3-7.7) k/uL Lymphocytes # (1.0-4.8) k/uL ABG pO2 31 L* (83-108) mmHg ABG O2 Saturation 56.2 L (94-97) % BUN (7-17) mg/dL Glucose (74-99) mg/dL POC Glucose (mg/dL) 123 H 127 H (75-99) mg/dL AST (14-36) U/L Total Protein (6.3-8.2) g/dL Albumin (3.5-5.0) g/dL 12/02/17 12/03/17 12/03/17 Range/Units 20:22 05:00 05:00 WBC 14.3 H (3.8-10.6) k/uL RBC 3.02 L (3.80-5.40) m/uL Hgb 8.3 L (11.4-16.0) gm/dL Hct 27.0 L (34.0-46.0) % MCHC 30.9 L (31.0-37.0) g/dL Plt Count 109 L (150-450) k/uL Neutrophils # 12.2 H (1.3-7.7) k/uL Lymphocytes # 0.9 L (1.0-4.8) k/uL ABG pO2 (83-108) mmHg ABG O2 Saturation (94-97) % BUN 21 H (7-17) mg/dL Glucose 123 H (74-99) mg/dL POC Glucose (mg/dL) 165 H (75-99) mg/dL AST 45 H (14-36) U/L Total Protein 4.7 L (6.3-8.2) g/dL Albumin 3.0 L (3.5-5.0) g/dL 12/03/17 Range/Units 07:28 WBC (3.8-10.6) k/uL RBC (3.80-5.40) m/uL Hgb (11.4-16.0) gm/dL Hct (34.0-46.0) % MCHC (31.0-37.0) g/dL Plt Count (150-450) k/uL Neutrophils # (1.3-7.7) k/uL Lymphocytes # (1.0-4.8) k/uL ABG pO2 (83-108) mmHg ABG O2 Saturation (94-97) % BUN (7-17) mg/dL Glucose (74-99) mg/dL POC Glucose (mg/dL) 106 H (75-99) mg/dL AST (14-36) U/L Total Protein (6.3-8.2) g/dL Albumin (3.5-5.0) g/dL - Imaging and Cardiology Chest x-ray: report reviewed, image reviewed Assessment and Plan (1) Systolic heart failure Current Visit: Yes Status: Acute Code(s): I50.20 - UNSPECIFIED SYSTOLIC ( CONGESTIVE) HEART FAILURE SNOMED Code(s): 254412840 (2) 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 Current Visit: Yes Status: Chronic Code(s): I25.10 - ATHSCL HEART DISEASE OF [place] CORONARY ARTERY W/O ANG PCTRS SNOMED Code(s): 978478375 (3) History of hyperlipidemia Current Visit: Yes Status: Chronic Code(s): Z86.39 - PERSONAL HISTORY OF ENDO, NUTRITIONAL AND METABOLIC DISEASE SNOMED Code(s): 163291809 (4) History of anxiety Current Visit: Yes Status: Chronic Code(s): Z86.59 - PERSONAL HISTORY OF OTHER MENTAL AND BEHAVIORAL DISORDERS SNOMED Code(s): 669241985 (5) Tobacco dependence in remission Current Visit: No Status: Resolved Code(s): F17.201 - NICOTINE DEPENDENCE, UNSPECIFIED, IN REMISSION SNOMED Code(s): 840883892 (6) History of pneumonia Current Visit: No Status: Resolved Code(s): Z87.01 - PERSONAL HISTORY OF PNEUMONIA (RECURRENT) SNOMED Code(s): 962041695 (7) History of skin cancer Current Visit: No Status: Resolved Code(s): Z85.828 - PERSONAL HISTORY OF OTHER MALIGNANT NEOPLASM OF SKIN SNOMED Code(s): 025876114 (8) Family history of heart disease Current Visit: Yes Status: Chronic Code(s): Z82.49 - FAMILY HX OF ISCHEM HEART DIS AND OTH DIS OF THE CIRC SYS SNOMED Code(s): 138344933 (9) NSTEMI (non-ST elevated myocardial infarction) Current Visit: Yes Status: Acute Code(s): I21.4 - NON-ST ELEVATION (NSTEMI) MYOCARDIAL INFARCTION SNOMED Code(s): 228929814 Plan: 1. Continue aspirin, statin, Plavix, beta omayra. Will increase beta omayra as tolerated. 2. Wean O2 as able. Encourage incentive spirometry use 10 times every hour. Encourage continued smoking cessation. 3. Will continue Primacor and dopamine. 4. Keep Portillo catheter for 1 more day for strict accurate I and O. 5. GI/DVT prophylaxis. 6. Insulin drip/diabetic management per primary care service. 7. Increase activity, ambulate as tolerated, PT/OT/cardiac rehab following. 8. Will monitor daily labs and chest x-rays. 9. Patient may need LifeVest at discharge. Will discuss with cardiology. 10. More recommendations to follow. Time with Patient: Greater than 30
--- NOTE | 2017-12-03 10:47 | P.PN ---
Subjective Progress Note Date: 12/03/17 This is a 82-year-old female who was admitted to the hospital with congestive heart failure and evidence of ischemic cardiomyopathy. Patient had a cardiac catheterization yesterday by Dr. VC Jin. Patient was found to have severe triple-vessel disease including total occlusion of the LAD and left main. Patient had intractable balloon pump. She underwent aortic coronary bypass surgery. She seemed to be hemodynamically stable. She is extubated. Complaints of back pain. Maintaining sinus rhythm. Cardiac index is fluctuating. Chest x-ray doesn't show any significant CHF. The possibility that the entirety balloon pump may be taken out today. He urine output is fair. 12/02/2017: This 82-year-old female is status post bypass surgery. The patient is alert, complaints of mild difficulty in breathing. Patient is still on entirety balloon pump. She is on 2-1. Her cardiac index is about 2.1. Chest x-ray doesn't significant CHF. Her renal function is stable. Patient is maintaining sinus rhythm. There is possibility quirino the intra-aortic balloon pump may be taken out yesterday. No arrhythmias are noted. She still on Primacor and dopamine. Progress note on 12/03/2017. Patient is clinically stable. Sitting up in the chair and feeling better. Maintaining sinus rhythm. Small dose of dopamine for renal perfusion. Lungs show good air change. Heart is regular. Continue current management. Increase activity. Pulmonary toilet Objective - Vital Signs Vital signs: Vital Signs Temp 99.7 F H 12/03/17 08:00 Pulse 105 H 12/03/17 10:00 Resp 24 12/03/17 10:00 BP 105/61 11/30/17 18:00 Pulse Ox 98 12/03/17 08:13 Intake & Output 12/02/17 12/03/17 12/03/17 18:59 06:59 18:59 Intake Total 1151.965 859.2 1060.4 Output Total 596 775 290 Balance 555.965 84.2 770.4 Weight 66 kg 67.3 kg Intake: IV 1062.6 859.2 286.4 Albumin Human 5% 250 ml 250 In Empty Bag 1 bag @ 250 mls/hr IVPB Q1HR PRN Rx#: [id number] CO/CI 80 60 20 Dextrose/Water 1 500ml. 46.2 50.4 16.8 bag @ 2 MCG/KG/MIN 4.58 mls/hr IV .Q24H TODD with DOPamine DRIP 800 mg Rx#: [id number] Lactated Ringers 1,000 ml 550 600 200 @ 50 mls/hr IV .Q20H TODD Rx#:[id number] Milrinone-D5w Pmx 20 mg 37.4 40.8 13.6 In Dextrose/Water 1 100ml .bag @ 0.1 MCG/KG/MIN 1. 83 mls/hr IV .Q24H TODD Rx #:[id number] Presure Lines 99 108 36 Intake, IV Titration 89.365 Amount Milrinone-D5w Pmx 20 mg 89.365 In Dextrose/Water 1 100ml .bag @ 0.1 MCG/KG/MIN 1. 83 mls/hr IV .Q24H TODD Rx #:[id number] Oral 774 Output: Chest Tube Drainage 280 410 160 Left Pleural 140 240 40 Mediastinal 20 Right Pleural 120 170 120 Drainage 20 40 50 Right Calf 20 40 50 Urine 296 325 80 Other: Voiding Method Indwelling Catheter Indwelling Catheter Indwelling Catheter # Bowel Movements 0 ABP, PAP, CO, CI - Last Documented Arterial Blood Pressure 116/55 Pulmonary Artery Pressure 34/18 Cardiac Output 4.1 Cardiac Index 2.6 - Exam GENERAL EXAM: Patient is alert and oriented, complaints of mild shortness of breath HEENT: Normocephalic. Normal reaction of pupils, equal size, normal range of extraocular motion. No erythema or exudates in the throat. NECK: No masses, no nuchal rigidity. CHEST: Postsurgical LUNGS: Diminished breath sounds HEART: S1 and S2 normal with no audible mumurs or gallops. Regular rhythm, ABDOMEN: No hepatosplenomegaly, normal bowel sounds, no guarding or rigidity. SKIN: No rashes CENTRAL NERVOUS SYSTEM: No focal deficits. EXTREMITIES: No cyanosis, clubbing or edema. - Labs CBC & Chem 7: 12/03/17 05:00 12/03/17 05:00 Labs: Abnormal Lab Results - Last 24 Hours (Table) 12/02/17 12/02/17 12/02/17 Range/Units 11:29 17:11 20:22 WBC (3.8-10.6) k/uL RBC (3.80-5.40) m/uL Hgb (11.4-16.0) gm/dL Hct (34.0-46.0) % MCHC (31.0-37.0) g/dL Plt Count (150-450) k/uL Neutrophils # (1.3-7.7) k/uL Lymphocytes # (1.0-4.8) k/uL BUN (7-17) mg/dL Glucose (74-99) mg/dL POC Glucose (mg/dL) 123 H 127 H 165 H (75-99) mg/dL AST (14-36) U/L Total Protein (6.3-8.2) g/dL Albumin (3.5-5.0) g/dL 12/03/17 12/03/17 12/03/17 Range/Units 05:00 05:00 07:28 WBC 14.3 H (3.8-10.6) k/uL RBC 3.02 L (3.80-5.40) m/uL Hgb 8.3 L (11.4-16.0) gm/dL Hct 27.0 L (34.0-46.0) % MCHC 30.9 L (31.0-37.0) g/dL Plt Count 109 L (150-450) k/uL Neutrophils # 12.2 H (1.3-7.7) k/uL Lymphocytes # 0.9 L (1.0-4.8) k/uL BUN 21 H (7-17) mg/dL Glucose 123 H (74-99) mg/dL POC Glucose (mg/dL) 106 H (75-99) mg/dL AST 45 H (14-36) U/L Total Protein 4.7 L (6.3-8.2) g/dL Albumin 3.0 L (3.5-5.0) g/dL Assessment and Plan (1) Status post aorto-coronary artery bypass graft Current Visit: Yes Status: Acute Code(s): Z95.1 - PRESENCE OF AORTOCORONARY BYPASS GRAFT SNOMED Code(s): 375865463 (2) Congestive heart failure Current Visit: Yes Status: Acute Code(s): I50.9 - HEART FAILURE, UNSPECIFIED SNOMED Code(s): 37370307 (3) History of hyperlipidemia Current Visit: Yes Status: Chronic Code(s): Z86.39 - PERSONAL HISTORY OF ENDO, NUTRITIONAL AND METABOLIC DISEASE SNOMED Code(s): 708424793 Plan: Patient is clinically stable. Maintaining sinus rhythm. We'll increase activity as tolerated. Advance diet. Pulmonary toilet. We'll follow
[2017-12-03] MEDS ORDERED: FUROSEMIDE 10 MG/ML 2 ML VIAL IV ONE (11:00)
--- NOTE | 2017-12-03 11:33 | P.PN ---
Subjective Progress Note Date: 12/03/17 Principal diagnosis: Status post three-vessel bypass grafting, postoperative day #3 Progress note dated 12/01/2017. 82-year-old female postop day #1 status post three-vessel bypass grafting. She was extubated last night. Weaning parameters were excellent. She passed her cuff leak. Blood gases were good. She was awake and alert. She's currently been extubated today liters high flow by nasal cannula. The patient is in no distress at the current time. Still little sleepy. She did get some Xanax this morning. I think as a bad idea. We'll stop for the time being. We may resume in the future pending her mental status. She is on lactated Ringer's IV at 50 mL an hour. She was on an insulin drip at that's been turned off. Chest x-ray looks stable. Postsurgical changes. Nothing acute. She has a history of non-ST segment elevation myocardial infarction, congestive heart failure, valvular heart disease, status post catheterization with a intra-aortic balloon pump hyperlipidemia acute bronchitis suspected COPD anxiety and gastroesophageal reflux disease. The balloon pump still in place. He likely be removed today. Other than that everything is very stable. Reevaluated today on 12/02/2017, patient is doing well, no cough no wheezing, she has chronic shortness of breath related to underlying cardiomyopathy and LV dysfunction. Continues to have intra-aortic balloon pump in place, and that would likely be removed today. WBC count is 17.1 hemoglobin is 9.1 electrolytes were normal BUN is 21 creatinine is 1.20. Reevaluated today on 12/03/2017, patient is basically about the same, remains very marginal and her overall clinical status, patient is doing poorly with incentive spirometry. Intra-aortic balloon pump was discontinued yesterday. Chest x-ray this morning showed evidence of small tiny apical pneumothoraces, however chest tubes remains in place. WBC count is 14.3 hemoglobin is 8.3 basic metabolic profile is normal renal profile is normal. Objective - Vital Signs Vital signs: Vital Signs Temp 99.7 F H 12/03/17 08:00 Pulse 105 H 12/03/17 10:00 Resp 24 12/03/17 10:00 BP 105/61 11/30/17 18:00 Pulse Ox 98 12/03/17 08:13 Intake & Output 12/02/17 12/03/17 12/03/17 18:59 06:59 18:59 Intake Total 1151.965 859.2 1060.4 Output Total 596 775 290 Balance 555.965 84.2 770.4 Weight 66 kg 67.3 kg Intake: IV 1062.6 859.2 286.4 Albumin Human 5% 250 ml 250 In Empty Bag 1 bag @ 250 mls/hr IVPB Q1HR PRN Rx#: [id number] CO/CI 80 60 20 Dextrose/Water 1 500ml. 46.2 50.4 16.8 bag @ 2 MCG/KG/MIN 4.58 mls/hr IV .Q24H TODD with DOPamine DRIP 800 mg Rx#: [id number] Lactated Ringers 1,000 ml 550 600 200 @ 50 mls/hr IV .Q20H TODD Rx#:[id number] Milrinone-D5w Pmx 20 mg 37.4 40.8 13.6 In Dextrose/Water 1 100ml .bag @ 0.1 MCG/KG/MIN 1. 83 mls/hr IV .Q24H TODD Rx #:[id number] Presure Lines 99 108 36 Intake, IV Titration 89.365 Amount Milrinone-D5w Pmx 20 mg 89.365 In Dextrose/Water 1 100ml .bag @ 0.1 MCG/KG/MIN 1. 83 mls/hr IV .Q24H TODD Rx #:[id number] Oral 774 Output: Chest Tube Drainage 280 410 160 Left Pleural 140 240 40 Mediastinal 20 Right Pleural 120 170 120 Drainage 20 40 50 Right Calf 20 40 50 Urine 296 325 80 Other: Voiding Method Indwelling Catheter Indwelling Catheter Indwelling Catheter # Bowel Movements 0 ABP, PAP, CO, CI - Last Documented Arterial Blood Pressure 116/55 Pulmonary Artery Pressure 34/18 Cardiac Output 4.1 Cardiac Index 2.6 - Exam No acute distress, oriented 3. Patient is very awake, and in no distress. HEENT examination is grossly unremarkable. Mucous membranes are moist. No oral lesions. Neck supple. Full range of motion. No adenopathy thyromegaly or neck vein distention. Cardiovascular examination reveals regular rhythm rate. S1-S2 normal. No S3 or S4. No discernible murmur noted. Lungs reveal a few scattered rhonchi. No wheezes or crackles. Breath sounds are equal. Abdomen soft bowel sounds are heard. No masses or tenderness. Extremities are intact. No cyanosis clubbing or edema. Skin is without rash or lesion. Neurologic examination revealed no evidence of any neurological deficits. - Labs CBC & Chem 7: 12/03/17 05:00 12/03/17 05:00 Labs: Abnormal Lab Results - Last 24 Hours (Table) 12/02/17 12/02/17 12/02/17 Range/Units 11:29 17:11 20:22 WBC (3.8-10.6) k/uL RBC (3.80-5.40) m/uL Hgb (11.4-16.0) gm/dL Hct (34.0-46.0) % MCHC (31.0-37.0) g/dL Plt Count (150-450) k/uL Neutrophils # (1.3-7.7) k/uL Lymphocytes # (1.0-4.8) k/uL BUN (7-17) mg/dL Glucose (74-99) mg/dL POC Glucose (mg/dL) 123 H 127 H 165 H (75-99) mg/dL AST (14-36) U/L Total Protein (6.3-8.2) g/dL Albumin (3.5-5.0) g/dL 12/03/17 12/03/17 12/03/17 Range/Units 05:00 05:00 07:28 WBC 14.3 H (3.8-10.6) k/uL RBC 3.02 L (3.80-5.40) m/uL Hgb 8.3 L (11.4-16.0) gm/dL Hct 27.0 L (34.0-46.0) % MCHC 30.9 L (31.0-37.0) g/dL Plt Count 109 L (150-450) k/uL Neutrophils # 12.2 H (1.3-7.7) k/uL Lymphocytes # 0.9 L (1.0-4.8) k/uL BUN 21 H (7-17) mg/dL Glucose 123 H (74-99) mg/dL POC Glucose (mg/dL) 106 H (75-99) mg/dL AST 45 H (14-36) U/L Total Protein 4.7 L (6.3-8.2) g/dL Albumin 3.0 L (3.5-5.0) g/dL Assessment and Plan Assessment: Postop day #3 status post 2 vessel bypass grafting Non-ST segment elevation myocardial infarction Congestive heart failure Valvular heart disease Status post catheterization and intra-aortic balloon pump on November 29 Hyperlipidemia Acute bronchitis Suspected COPD History of anxiety Gastroesophageal reflux disease Small apical pneumothoraces noted on the chest x-ray today, however chest tubes remain in place. Recommendation: Continue incentive spirometry, continue bronchodilators, early ambulation, we will continue to follow. Time with Patient: Less than 30
[2017-12-03 12:03] LABS: Glucose,Whole Blood 120 mg/dL (75-99)
[2017-12-03 13:05] LABS: ABG Base Excess 0.8 mmol/L; ABG HCO3 26 mmol/L (21-25); ABG PCO2 41 mmHg (35-45); ABG PH 7.41 (7.35-7.45); ABG PO2 403 mmHg (83-108); ABG Potassium Whole Blood 3.6 mmol/L (3.4-4.5); ABG Sodium Whole Blood 139 mmol/L (135-146); ABG TCO2 60 mmol/L (19-24)
[2017-12-03 13:09] LABS: ABG Base Excess -2.9 mmol/L; ABG HCO3 23 mmol/L (21-25); ABG PCO2 44 mmHg (35-45); ABG PH 7.33 (7.35-7.45); ABG PO2 331 mmHg (83-108); ABG Potassium Whole Blood 3.5 mmol/L (3.4-4.5); ABG Sodium Whole Blood 139 mmol/L (135-146)
[2017-12-03 13:11] LABS: ABG Base Excess -2.7 mmol/L; ABG HCO3 24 mmol/L (21-25); ABG Oxygen Saturation 98.8 % (94-97); ABG PCO2 47 mmHg (35-45); ABG PH 7.31 (7.35-7.45); ABG PO2 109 mmHg (83-108); ABG Potassium Whole Blood 3.5 mmol/L (3.4-4.5); ABG Sodium Whole Blood 139 mmol/L (135-146)
[2017-12-03 13:41] LABS: ABG TCO2 24 mmol/L (19-24)
[2017-12-03 13:42] LABS: ABG TCO2 25 mmol/L (19-24)
[2017-12-03 13:45] LABS: ABG Base Excess -2.6 mmol/L; ABG HCO3 24 mmol/L (21-25); ABG PCO2 51 mmHg (35-45); ABG PH 7.29 (7.35-7.45); ABG PO2 >420 mmHg (83-108); ABG Potassium Whole Blood 3.5 mmol/L (3.4-4.5); ABG Sodium Whole Blood 139 mmol/L (135-146)
[2017-12-03 13:46] LABS: ABG TCO2 26 mmol/L (19-24)
[2017-12-03] MEDS: CLEVIDIPINE BUTYRATE 25 MG in EMPTY BAG 1 BAG IV SCH (14:21)
[2017-12-03 17:02] LABS: Glucose,Whole Blood 104 mg/dL (75-99)
[2017-12-03] MEDS: MAGNESIUM HYDROXIDE 2,400 MG/10 ML CUP PO PRN (17:13)
--- NOTE | 2017-12-03 17:31 | PN ---
PROGRESS NOTE DATE OF SERVICE: 12/03/2017 Patient remains in ICU. She is status post 3-vessel bypass grafting. Patient did require mechanical ventilation postoperatively. Patient is status post extubation on 12/01/2017. Patient is seen in ICU today. Patient's daughter is at bedside. She is up in a chair, complains of her bottom being sore. PHYSICAL EXAMINATION: VITAL SIGNS: Temperature 99.7, pulse 105, respiration 24, blood pressure 105/61 , oxygen saturation 98%. CONSTITUTIONAL: Patient is awake, alert, oriented x3. She is in no acute distress. HEENT: Atraumatic, normocephalic. Pupils equal and reactive to light. Extraocular movements intact. Buccal mucosa is moist. NECK: Supple. No goiter or lymphadenopathy. JVD is negative. No carotid bruit heard. RESPIRATORY: Lungs have scattered diffuse rhonchi, occasional wheezing, decreased breath sounds. CARDIOVASCULAR EXAMINATION: Heart is regular rate and rhythm without any murmurs or gallop rhythm. ABDOMEN: Soft, nontender, nondistended. Bowel sounds positive. No guarding or rigidity. EXTREMITIES: No edema, clubbing or cyanosis. SKIN: Without any rashes or pigmentation. NEUROLOGICAL EXAMINATION: Cranial nerves 2-12 grossly intact. No gross motor or sensory deficit. LABS: CBC shows white blood count of 14.3, hemoglobin 8.3, hematocrit 27. Chemical profile shows sodium 137, potassium 4.4, chloride 106, bicarb 23, BUN 21, creatinine 0.8, glucose 123. ASSESSMENT: 1. [id number] myocardial infarction, status post coronary artery bypass graft, and postoperative day number 3. The patient had 2-vessel bypass grafting. 2. Congestive heart failure. 3. Valvular heart disease. 4. Status post catheterization with intra-aortic balloon pump on November 29. 5. Hyperlipidemia. 6. Acute bronchitis. 7. Chronic obstructive pulmonary disease. 8. History of anxiety. 9. Gastroesophageal reflux disease. The patient did have removal of balloon pump today. Continues with incentive spirometry and bronchodilators. Patient is up in a chair. PLAN: Increase activity and transfer out of ICU if she remains stable. MMODL / IJN: [id number] / MTDD
[2017-12-03 19:08] LABS: Ionized Calcium 5.2 mg/dL (4.5-5.3)
[2017-12-03 19:18] LABS: Magnesium 2.1 mg/dL (1.6-2.3); Phosphorus 3.4 mg/dL (2.5-4.5); Potassium 4.3 mmol/L (3.5-5.1)
[2017-12-03] MEDS: MILRINONE-D5W PMX 20 MG in DEXTROSE/WATER 1 100ML.BAG IV SCH (22:37)
[2017-12-03] MEDS: DEXTROSE/WATER 1 500ML.BAG with DOPamine DRIP 800 MG IV SCH (22:38)
[2017-12-03 22:42] LABS: Glucose,Whole Blood 117 mg/dL (75-99)
[2017-12-03] MEDS: SENNOSIDES-DOCUSATE SODIUM 1 EACH TAB PO SCH (22:51)
[2017-12-03] MEDS: CLOPIDOGREL 75 MG TAB PO SCH (22:51)
[2017-12-04 05:25] LABS: Basophils % (A) 0 %; Eosinophils # (A) 0.5 k/uL (0-0.7); Eosinophils % (A) 4 %; HCT 27.8 % (34.0-46.0); HGB 8.9 gm/dL (11.4-16.0); Lymphocytes # (A) 1.2 k/uL (1.0-4.8); Lymphocytes % (A) 9 %; MCH 28.6 pg (25.0-35.0); MCHC 32.1 g/dL (31.0-37.0); MCV 89.1 fL (80.0-100.0); Monocytes # (A) 0.7 k/uL (0-1.0); Monocytes % (A) 5 %; Neutrophils # (A) 10.7 k/uL (1.3-7.7); Neutrophils % (A) 81 %; Platelet Count 141 k/uL (150-450); RBC 3.12 m/uL (3.80-5.40); RDW 14.2 % (11.5-15.5); WBC 13.3 k/uL (3.8-10.6)
[2017-12-04 05:26] LABS: Ionized Calcium 5.2 mg/dL (4.5-5.3)
[2017-12-04 05:31] LABS: ALT 31 U/L (9-52); AST 38 U/L (14-36); Albumin 2.8 g/dL (3.5-5.0); Alkaline Phosphatase 82 U/L (38-126); Anion Gap 8 mmol/L; Blood Urea Nitrogen 26 mg/dL (7-17); Calcium 8.8 mg/dL (8.4-10.2); Carbon Dioxide 25 mmol/L (22-30); Chloride 105 mmol/L (98-107); Glucose 107 mg/dL (74-99); Magnesium 2.3 mg/dL (1.6-2.3); Phosphorus 3.8 mg/dL (2.5-4.5); Potassium 4.5 mmol/L (3.5-5.1); Sodium 138 mmol/L (137-145); Total Bilirubin 0.9 mg/dL (0.2-1.3); Total Protein 4.7 g/dL (6.3-8.2)
[2017-12-04] MEDS: MILRINONE-D5W PMX 20 MG in DEXTROSE/WATER 1 100ML.BAG IV SCH (06:03)
--- NOTE | 2017-12-04 06:28 | XR ---
EXAMINATION TYPE: XR chest 1V portable DATE OF EXAM: 12/04/2017 HISTORY: post op cardiac surgery. REFERENCE: Previous study dated 12/03/2017. FINDINGS: There has been a midline sternotomy. Bilateral pleural drains remain in place. The heart is enlarged. There is some right basilar atelectasis. There is a small, right effusion. There is a tiny left apical pneumothorax. There is a small right-sided pneumothorax. IMPRESSION: 1. TINY, BIAPICAL PNEUMOTHORACES. 2. POSTSURGICAL CHANGE. 3. RIGHT BASILAR ATELECTASIS. 4. SMALL, RIGHT-SIDED EFFUSION.a
[2017-12-04] MEDS: HYDROcodone/APAP 5-325MG 1 EACH TAB PO PRN ×2 (08:11→17:18)
[2017-12-04] MEDS: MAGNESIUM HYDROXIDE 2,400 MG/10 ML CUP PO PRN (08:11)
[2017-12-04] MEDS: INSULIN ASPART 100 UNIT/ML 1 ML 10 ML VIAL SQ SCH ×4 (08:28→21:59)
[2017-12-04] MEDS: ATORVASTATIN 40 MG TAB PO SCH (08:29)
[2017-12-04] MEDS: PANTOPRAZOLE 40 MG TABLET PO SCH (08:29)
[2017-12-04] MEDS: ASPIRIN 325 MG TAB PO SCH (08:29)
[2017-12-04] MEDS: METOPROLOL TARTRATE 12.5 MG TAB PO SCH ×2 (08:29→22:10)
[2017-12-04] MEDS: HEPARIN SODIUM,PORCINE 5,000 UNIT/ML 1 ML VIAL SQ SCH ×2 (08:30→17:23)
[2017-12-04 08:32] LABS: Glucose,Whole Blood 107 mg/dL (75-99)
[2017-12-04] MEDS: LACTATED RINGERS 1,000 ML IV SCH ×3 (09:24→17:27)
[2017-12-04] MEDS: IPRATROPIUM-ALBUTEROL 3 ML NEB INHALATION SCH ×4 (09:28→19:56)
[2017-12-04] MEDS ORDERED: FUROSEMIDE 10 MG/ML 2 ML VIAL IV ONE (10:30)
--- NOTE | 2017-12-04 10:40 | P.PN ---
Subjective Progress Note Date: 12/04/17 Principal diagnosis: Non-ST elevation myocardial infarction, evidence of previous anterio-apical myocardial infarction, systolic congestive heart failure with EF 20-25%, severe left main disease equivalent with a totally occluded collateralized left anterior descending artery, severe left ventricular dysfunction. Preoperative intra-aortic balloon pump. Mild to moderate mitral valve regurgitation. Hyperlipidemia. Smoking history, preop FEV1 of 45% of predicted although the patient was lying flat at the time. Anxiety. Family history of heart disease. POD #5 placement of intra-aortic balloon pump POD #4 urgent non-aortic clamp double off-pump coronary artery bypass grafting using the left internal mammary artery to the left anterior descending artery, reverse saphenous vein graft connected to the aorta using the passport device connected distally to the long obtuse marginal artery. Exclusion of the left atrial appendage with a 45 mm Atriclip. Harvesting of the right greater saphenous vein. Intraoperative transesophageal echocardiogram and epi-aortic scanning. Intraoperative graft flow measurement using the [employer] system. Patient's currently sitting up in the chair in no acute distress. States pain is controlled. No new complaints. Remains on dopamine and Primacor. Objective - Vital Signs Vital signs: Vital Signs Temp 98.1 F 12/04/17 08:00 Pulse 103 H 12/04/17 08:00 Resp 14 12/04/17 08:00 BP 96/50 12/03/17 14:00 Pulse Ox 96 12/04/17 08:00 Intake & Output 12/03/17 12/04/17 12/04/17 18:59 06:59 18:59 Intake Total 1853.2 1163.2 207.2 Output Total 953 608 190 Balance 900.2 555.2 17.2 Weight 63.4 kg Intake: IV 879.2 793.2 147.2 CO/CI 80 60 20 Dextrose/Water 1 500ml. 50.4 50.4 8.4 bag @ 2 MCG/KG/MIN 4.58 mls/hr IV .Q24H [facility] with DOPamine DRIP 800 mg Rx#: [id number] Lactated Ringers 1,000 ml 600 600 100 @ 50 mls/hr IV .Q20H [facility] Rx#:[id number] Milrinone-D5w Pmx 20 mg 40.8 40.8 6.8 In Dextrose/Water 1 100ml .bag @ 0.1 MCG/KG/MIN 1. 83 mls/hr IV .Q24H [facility] Rx #:[id number] Presure Lines 108 42 12 Intake, IV Titration 100 Amount Milrinone-D5w Pmx 20 mg 100 In Dextrose/Water 1 100ml .bag @ 0.1 MCG/KG/MIN 1. 83 mls/hr IV .Q24H [facility] Rx #:[id number] Oral 974 270 60 Output: Chest Tube Drainage 350 200 100 Left Pleural 130 80 50 Right Pleural 220 120 50 Drainage 125 75 50 Right Calf 125 75 50 Urine 478 333 40 Other: Voiding Method Indwelling Catheter Indwelling Catheter Indwelling Catheter ABP, PAP, CO, CI - Last Documented Arterial Blood Pressure 124/48 Pulmonary Artery Pressure 30/26 Cardiac Output 3.8 Cardiac Index 2.8 - Constitutional General appearance: Present: cooperative, no acute distress - Respiratory Details: Lungs sounds diminished bilaterally. Respirations even, nonlabored. Currently on 2 L nasal cannula with oxygen saturation 96%. Only able to achieve 500 mL on her incentive spirometry. Effective cough. Left pleural chest tube to -20 cm wall suction, 80 mL of thin serous drainage overnight, 300 mL in the last 24 hours. Right pleural chest tube to -20 cm wall suction, 140 mL of thin serous drainage overnight, 300 mL on the last 24 hours. No air leaks present. - Cardiovascular Details: S1, S2 present. Regular rate and rhythm, sinus rhythm to sinus tach on telemetry. Sternum stable. Palpable peripheral pulses bilaterally. No edema present. No calf pain or tenderness noted. Right internal jugular [place] , right brachial arterial line present. Heart hugger in place with patient demonstrating appropriate use. Antiembolism stockings/SCDs present. - Gastrointestinal Gastrointestinal Comment(s): Abdomen soft, nontender, nondistended. Active bowel sounds 4 quadrants. Tolerating diet. - Genitourinary Genitourinary Comment(s): Portillo present draining clear, yellow urine. Output 30-75 mL/h overnight. - Integumentary Integumentary Comment(s): Skin is warm and dry with evidence of good perfusion. Anterior chest incision well approximated and covered with dry intact dressing. Right lower extremity EVH site well approximated, DANY drain present draining minimal thin serous drainage. - Neurologic Neurologic: Present: CNII-XII intact - Musculoskeletal Musculoskeletal: Present: gait normal, strength equal bilaterally - Psychiatric Psychiatric: Present: A&O x's 3, appropriate affect, intact judgment & insight - Allied health notes Allied health notes reviewed: nursing - Labs CBC & Chem 7: 12/04/17 05:00 12/04/17 05:00 Labs: Abnormal Lab Results - Last 24 Hours (Table) 11/30/17 11/30/17 11/30/17 Range/Units 09:17 11:14 11:45 WBC (3.8-10.6) k/uL RBC (3.80-5.40) m/uL Hgb (11.4-16.0) gm/dL Hct (34.0-46.0) % Plt Count (150-450) k/uL Neutrophils # (1.3-7.7) k/uL ABG pH 7.29 L 7.33 L (7.35-7.45) ABG pCO2 51 H (35-45) mmHg ABG pO2 403 H >420 H 331 H (83-108) mmHg ABG HCO3 26 H (21-25) mmol/L ABG Total CO2 60 H 26 H (19-24) mmol/L ABG O2 Saturation 100.0 H 100.0 H 100.0 H (94-97) % ABG Hematocrit 31 L 28 L (34.0-46.0) % ABG Glucose 113 H 126 H 123 H (75-99) mg/dL Hemoglobin 10.0 L 9.3 L D (11.4-16.0) gm/dL BUN (7-17) mg/dL Glucose (74-99) mg/dL POC Glucose (mg/dL) (75-99) mg/dL AST (14-36) U/L Total Protein (6.3-8.2) g/dL Albumin (3.5-5.0) g/dL Arterial Blood Glucose 113 H 126 H 123 H (75-99) mg/dL 11/30/17 12/03/17 12/03/17 Range/Units 12:30 12:02 16:59 WBC (3.8-10.6) k/uL RBC (3.80-5.40) m/uL Hgb (11.4-16.0) gm/dL Hct (34.0-46.0) % Plt Count (150-450) k/uL Neutrophils # (1.3-7.7) k/uL ABG pH 7.31 L (7.35-7.45) ABG pCO2 47 H (35-45) mmHg ABG pO2 109 H (83-108) mmHg ABG HCO3 (21-25) mmol/L ABG Total CO2 25 H (19-24) mmol/L ABG O2 Saturation 98.8 H (94-97) % ABG Hematocrit 27 L (34.0-46.0) % ABG Glucose 122 H (75-99) mg/dL Hemoglobin 8.9 L (11.4-16.0) gm/dL BUN (7-17) mg/dL Glucose (74-99) mg/dL POC Glucose (mg/dL) 120 H 104 H (75-99) mg/dL AST (14-36) U/L Total Protein (6.3-8.2) g/dL Albumin (3.5-5.0) g/dL Arterial Blood Glucose 122 H (75-99) mg/dL 12/03/17 12/04/17 12/04/17 Range/Units 22:41 05:00 05:00 WBC 13.3 H (3.8-10.6) k/uL RBC 3.12 L (3.80-5.40) m/uL Hgb 8.9 L (11.4-16.0) gm/dL Hct 27.8 L (34.0-46.0) % Plt Count 141 L (150-450) k/uL Neutrophils # 10.7 H (1.3-7.7) k/uL ABG pH (7.35-7.45) ABG pCO2 (35-45) mmHg ABG pO2 (83-108) mmHg ABG HCO3 (21-25) mmol/L ABG Total CO2 (19-24) mmol/L ABG O2 Saturation (94-97) % ABG Hematocrit (34.0-46.0) % ABG Glucose (75-99) mg/dL Hemoglobin (11.4-16.0) gm/dL BUN 26 H (7-17) mg/dL Glucose 107 H (74-99) mg/dL POC Glucose (mg/dL) 117 H (75-99) mg/dL AST 38 H (14-36) U/L Total Protein 4.7 L (6.3-8.2) g/dL Albumin 2.8 L (3.5-5.0) g/dL Arterial Blood Glucose (75-99) mg/dL 12/04/17 Range/Units 08:24 WBC (3.8-10.6) k/uL RBC (3.80-5.40) m/uL Hgb (11.4-16.0) gm/dL Hct (34.0-46.0) % Plt Count (150-450) k/uL Neutrophils # (1.3-7.7) k/uL ABG pH (7.35-7.45) ABG pCO2 (35-45) mmHg ABG pO2 (83-108) mmHg ABG HCO3 (21-25) mmol/L ABG Total CO2 (19-24) mmol/L ABG O2 Saturation (94-97) % ABG Hematocrit (34.0-46.0) % ABG Glucose (75-99) mg/dL Hemoglobin (11.4-16.0) gm/dL BUN (7-17) mg/dL Glucose (74-99) mg/dL POC Glucose (mg/dL) 107 H (75-99) mg/dL AST (14-36) U/L Total Protein (6.3-8.2) g/dL Albumin (3.5-5.0) g/dL Arterial Blood Glucose (75-99) mg/dL - Imaging and Cardiology Chest x-ray: report reviewed, image reviewed Assessment and Plan (1) Systolic heart failure Current Visit: Yes Status: Acute Code(s): I50.20 - UNSPECIFIED SYSTOLIC ( CONGESTIVE) HEART FAILURE SNOMED Code(s): 966649205 (2) 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 Current Visit: Yes Status: Chronic Code(s): I25.10 - ATHSCL HEART DISEASE OF [place] CORONARY ARTERY W/O ANG PCTRS SNOMED Code(s): 328176931 (3) History of hyperlipidemia Current Visit: Yes Status: Chronic Code(s): Z86.39 - PERSONAL HISTORY OF ENDO, NUTRITIONAL AND METABOLIC DISEASE SNOMED Code(s): 420259791 (4) History of anxiety Current Visit: Yes Status: Chronic Code(s): Z86.59 - PERSONAL HISTORY OF OTHER MENTAL AND BEHAVIORAL DISORDERS SNOMED Code(s): 786726987 (5) Tobacco dependence in remission Current Visit: No Status: Resolved Code(s): F17.201 - NICOTINE DEPENDENCE, UNSPECIFIED, IN REMISSION SNOMED Code(s): 855582100 (6) History of pneumonia Current Visit: No Status: Resolved Code(s): Z87.01 - PERSONAL HISTORY OF PNEUMONIA (RECURRENT) SNOMED Code(s): 760655383 (7) History of skin cancer Current Visit: No Status: Resolved Code(s): Z85.828 - PERSONAL HISTORY OF OTHER MALIGNANT NEOPLASM OF SKIN SNOMED Code(s): 557850104 (8) Family history of heart disease Current Visit: Yes Status: Chronic Code(s): Z82.49 - FAMILY HX OF ISCHEM HEART DIS AND OTH DIS OF THE CIRC SYS SNOMED Code(s): 727714538 (9) NSTEMI (non-ST elevated myocardial infarction) Current Visit: Yes Status: Acute Code(s): I21.4 - NON-ST ELEVATION (NSTEMI) MYOCARDIAL INFARCTION SNOMED Code(s): 150774043 Plan: 1. Continue aspirin, statin, Plavix, beta omayra. Will increase beta omayra as tolerated. 2. Wean O2 as able. Encourage incentive spirometry use 10 times every hour. Encourage continued smoking cessation. 3. Will discontinue dopamine, wean Primacor as tolerated. 4. Will give Lasix 10 mg IV push times one, will discontinue Portillo catheter. 5. GI/DVT prophylaxis. 6. Blood sugar management per primary care service. 7. Increase activity, ambulate as tolerated, PT/OT/cardiac rehab following. 8. Will monitor daily labs and chest x-rays. 9. Patient may need LifeVest at discharge. 10. More recommendations to follow. Time with Patient: Greater than 30
[2017-12-04 11:42] LABS: Glucose,Whole Blood 137 mg/dL (75-99)
--- NOTE | 2017-12-04 12:33 | P.PN ---
Subjective Progress Note Date: 12/04/17 Principal diagnosis: Status post three-vessel bypass grafting, postoperative day #4 Progress note dated 12/01/2017. 82-year-old female postop day #1 status post three-vessel bypass grafting. She was extubated last night. Weaning parameters were excellent. She passed her cuff leak. Blood gases were good. She was awake and alert. She's currently been extubated today liters high flow by nasal cannula. The patient is in no distress at the current time. Still little sleepy. She did get some Xanax this morning. I think as a bad idea. We'll stop for the time being. We may resume in the future pending her mental status. She is on lactated Ringer's IV at 50 mL an hour. She was on an insulin drip at that's been turned off. Chest x-ray looks stable. Postsurgical changes. Nothing acute. She has a history of non-ST segment elevation myocardial infarction, congestive heart failure, valvular heart disease, status post catheterization with a intra-aortic balloon pump hyperlipidemia acute bronchitis suspected COPD anxiety and gastroesophageal reflux disease. The balloon pump still in place. He likely be removed today. Other than that everything is very stable. Reevaluated today on 12/02/2017, patient is doing well, no cough no wheezing, she has chronic shortness of breath related to underlying cardiomyopathy and LV dysfunction. Continues to have intra-aortic balloon pump in place, and that would likely be removed today. WBC count is 17.1 hemoglobin is 9.1 electrolytes were normal BUN is 21 creatinine is 1.20. Reevaluated today on 12/03/2017, patient is basically about the same, remains very marginal and her overall clinical status, patient is doing poorly with incentive spirometry. Intra-aortic balloon pump was discontinued yesterday. Chest x-ray this morning showed evidence of small tiny apical pneumothoraces, however chest tubes remains in place. WBC count is 14.3 hemoglobin is 8.3 basic metabolic profile is normal renal profile is normal. Reevaluated today on 12/04/2017, patient seems to be doing well, relatively asymptomatic, in no distress, remains on dopamine and Primacor. Chest x-ray and labs were reviewed, continues to have tiny biapical pneumothoraces, and some right basilar atelectasis. Objective - Vital Signs Vital signs: Vital Signs Temp 98.1 F 12/04/17 08:00 Pulse 104 H 12/04/17 12:00 Resp 25 H 12/04/17 12:00 BP 96/50 12/03/17 14:00 Pulse Ox 96 12/04/17 12:00 Intake & Output 12/03/17 12/04/17 12/04/17 18:59 06:59 18:59 Intake Total 1853.2 1163.2 534.1 Output Total 953 608 235 Balance 900.2 555.2 299.1 Weight 63.4 kg Intake: IV 879.2 793.2 274.1 CO/CI 80 60 20 Dextrose/Water 1 500ml. 50.4 50.4 10.5 bag @ 2 MCG/KG/MIN 4.58 mls/hr IV .Q24H TOD[facility] with DOPamine DRIP 800 mg Rx#: [id number] Lactated Ringers 1,000 ml 600 600 200 @ 50 mls/hr IV .Q20H TOD[facility] Rx#:[id number] Milrinone-D5w Pmx 20 mg 40.8 40.8 13.6 In Dextrose/Water 1 100ml .bag @ 0.1 MCG/KG/MIN 1. 83 mls/hr IV .Q24H [facility] Rx #:[id number] Presure Lines 108 42 30 Intake, IV Titration 100 Amount Milrinone-D5w Pmx 20 mg 100 In Dextrose/Water 1 100ml .bag @ 0.1 MCG/KG/MIN 1. 83 mls/hr IV .Q24H [facility] Rx #:[id number] Oral 974 270 260 Output: Chest Tube Drainage 350 200 100 Left Pleural 130 80 50 Right Pleural 220 120 50 Drainage 125 75 50 Right Calf 125 75 50 Urine 478 333 85 Other: Voiding Method Indwelling Catheter Indwelling Catheter Indwelling Catheter ABP, PAP, CO, CI - Last Documented Arterial Blood Pressure 96/47 Pulmonary Artery Pressure 24/19 Cardiac Output 4.5 Cardiac Index 2.8 - Exam No acute distress, oriented 3. Patient is very awake, and in no distress. HEENT examination is grossly unremarkable. Mucous membranes are moist. No oral lesions. Neck supple. Full range of motion. No adenopathy thyromegaly or neck vein distention. Cardiovascular examination reveals regular rhythm rate. S1-S2 normal. No S3 or S4. No discernible murmur noted. Lungs reveal a few scattered rhonchi. No wheezes or crackles. Breath sounds are equal. Abdomen soft bowel sounds are heard. No masses or tenderness. Extremities are intact. No cyanosis clubbing or edema. Skin is without rash or lesion. Neurologic examination revealed no evidence of any neurological deficits. - Labs CBC & Chem 7: 12/04/17 05:00 12/04/17 05:00 Labs: Abnormal Lab Results - Last 24 Hours (Table) 11/30/17 11/30/17 11/30/17 Range/Units 09:17 11:14 11:45 WBC (3.8-10.6) k/uL RBC (3.80-5.40) m/uL Hgb (11.4-16.0) gm/dL Hct (34.0-46.0) % Plt Count (150-450) k/uL Neutrophils # (1.3-7.7) k/uL ABG pH 7.29 L 7.33 L (7.35-7.45) ABG pCO2 51 H (35-45) mmHg ABG pO2 403 H >420 H 331 H (83-108) mmHg ABG HCO3 26 H (21-25) mmol/L ABG Total CO2 60 H 26 H (19-24) mmol/L ABG O2 Saturation 100.0 H 100.0 H 100.0 H (94-97) % ABG Hematocrit 31 L 28 L (34.0-46.0) % ABG Glucose 113 H 126 H 123 H (75-99) mg/dL Hemoglobin 10.0 L 9.3 L D (11.4-16.0) gm/dL BUN (7-17) mg/dL Glucose (74-99) mg/dL POC Glucose (mg/dL) (75-99) mg/dL AST (14-36) U/L Total Protein (6.3-8.2) g/dL Albumin (3.5-5.0) g/dL Arterial Blood Glucose 113 H 126 H 123 H (75-99) mg/dL 11/30/17 12/03/17 12/03/17 Range/Units 12:30 16:59 22:41 WBC (3.8-10.6) k/uL RBC (3.80-5.40) m/uL Hgb (11.4-16.0) gm/dL Hct (34.0-46.0) % Plt Count (150-450) k/uL Neutrophils # (1.3-7.7) k/uL ABG pH 7.31 L (7.35-7.45) ABG pCO2 47 H (35-45) mmHg ABG pO2 109 H (83-108) mmHg ABG HCO3 (21-25) mmol/L ABG Total CO2 25 H (19-24) mmol/L ABG O2 Saturation 98.8 H (94-97) % ABG Hematocrit 27 L (34.0-46.0) % ABG Glucose 122 H (75-99) mg/dL Hemoglobin 8.9 L (11.4-16.0) gm/dL BUN (7-17) mg/dL Glucose (74-99) mg/dL POC Glucose (mg/dL) 104 H 117 H (75-99) mg/dL AST (14-36) U/L Total Protein (6.3-8.2) g/dL Albumin (3.5-5.0) g/dL Arterial Blood Glucose 122 H (75-99) mg/dL 18 18 12/04/17 Range/Units 05:00 05:00 08:24 WBC 13.3 H (3.8-10.6) k/uL RBC 3.12 L (3.80-5.40) m/uL Hgb 8.9 L (11.4-16.0) gm/dL Hct 27.8 L (34.0-46.0) % Plt Count 141 L (150-450) k/uL Neutrophils # 10.7 H (1.3-7.7) k/uL ABG pH (7.35-7.45) ABG pCO2 (35-45) mmHg ABG pO2 (83-108) mmHg ABG HCO3 (21-25) mmol/L ABG Total CO2 (19-24) mmol/L ABG O2 Saturation (94-97) % ABG Hematocrit (34.0-46.0) % ABG Glucose (75-99) mg/dL Hemoglobin (11.4-16.0) gm/dL BUN 26 H (7-17) mg/dL Glucose 107 H (74-99) mg/dL POC Glucose (mg/dL) 107 H (75-99) mg/dL AST 38 H (14-36) U/L Total Protein 4.7 L (6.3-8.2) g/dL Albumin 2.8 L (3.5-5.0) g/dL Arterial Blood Glucose (75-99) mg/dL 12/04/17 Range/Units 11:40 WBC (3.8-10.6) k/uL RBC (3.80-5.40) m/uL Hgb (11.4-16.0) gm/dL Hct (34.0-46.0) % Plt Count (150-450) k/uL Neutrophils # (1.3-7.7) k/uL ABG pH (7.35-7.45) ABG pCO2 (35-45) mmHg ABG pO2 (83-108) mmHg ABG HCO3 (21-25) mmol/L ABG Total CO2 (19-24) mmol/L ABG O2 Saturation (94-97) % ABG Hematocrit (34.0-46.0) % ABG Glucose (75-99) mg/dL Hemoglobin (11.4-16.0) gm/dL BUN (7-17) mg/dL Glucose (74-99) mg/dL POC Glucose (mg/dL) 137 H (75-99) mg/dL AST (14-36) U/L Total Protein (6.3-8.2) g/dL Albumin (3.5-5.0) g/dL Arterial Blood Glucose (75-99) mg/dL Assessment and Plan Assessment: Postop day #4 status post 2 vessel bypass grafting Non-ST segment elevation myocardial infarction Congestive heart failure Valvular heart disease Status post catheterization and intra-aortic balloon pump on November 29 Hyperlipidemia Acute bronchitis Suspected COPD History of anxiety Gastroesophageal reflux disease Small apical pneumothoraces noted on the chest x-ray today, however chest tubes remain in place. Recommendation: Continue incentive spirometry, continue bronchodilators, early ambulation, we will continue to follow. Time with Patient: Less than 30
--- NOTE | 2017-12-04 15:02 | PN ---
PROGRESS NOTE Mrs. Sifuentes underwent aortocoronary bypass surgery. She has significant LV dysfunction and severe triple-vessel disease. She had an intra-aortic balloon pump preoperatively. She is doing well, recovering nicely. She is working her incentive spirometry. Hemodynamically stable. S1 and S2 heard normally. Short systolic murmur is audible. Lungs reveal fair air entry. Abdomen and lower extremity exam is stable. Plan is to continue incentive spirometry, pulmonary toilet, same medications. MMODL / IJN: [id number] /
[2017-12-04 17:25] LABS: Glucose,Whole Blood 118 mg/dL (75-99)
[2017-12-04 22:01] LABS: Glucose,Whole Blood 120 mg/dL (75-99)
[2017-12-04] MEDS: CLOPIDOGREL 75 MG TAB PO SCH (22:10)
[2017-12-04] MEDS: SENNOSIDES-DOCUSATE SODIUM 1 EACH TAB PO SCH (22:10)
--- NOTE | 2017-12-04 23:32 | PN ---
PROGRESS NOTE DATE OF SERVICE: 12/04/2017 Patient is sitting up in the bedside chair, complains of her bottom hurting. Other than that, no complaints. Chest x-ray showing right basilar atelectasis. VITAL SIGNS: Temperature 98.1, pulse 104, respirations 25, blood pressure 96/70 with a saturation of 96%. HEENT: Atraumatic, normocephalic. Pupils equal and react to light. Extraocular movements intact. Buccal mucosa is fair. Neck is supple with no goiter or lymphadenopathy. JVD is negative. No carotid bruit heard. LUNGS: Clear to auscultate. No rales, rhonchi or wheezes. Heart is regular rhythm without murmur or gallop rhythm. Abdomen is soft, nontender, nondistended. Bowel sounds positive. EXTREMITIES: 1+ edema. No clubbing or cyanosis. SKIN: No rashes or pigmentation. NEUROLOGICAL: Cranial nerves 2-12 grossly intact. No gross motor or sensory deficit. LABS: CBC: White blood count 13.3, hemoglobin 8.9, hematocrit 27.8 and platelet count of 141. Chemical profile: Sodium 138, potassium 4.5, chloride 105, bicarb 25, BUN 26, creatinine 0.8, glucose 107. ASSESSMENT: 1. Non ST elevation myocardial infarction. Patient is status post coronary artery bypass grafting x2, postoperative day #4. 2. Congestive heart failure. 3. Valvular heart disease. 4. Status post cardiac catheterization with intra-aortic balloon pump placement on November 29 which was removed. 5. Hyperlipidemia. 6. Acute bronchitis. 7. Chronic obstructive pulmonary disease. The patient remains in ICU. Plan is to continue with incentive spirometry. Continue with bronchodilator therapy. PT/OT for early ambulation is recommended. Continue with current management and plan of care. Further recommendation depending upon the clinical course of the patient. Patient remains in ICU, will be transferred out once cleared by the metrologist. MMODL / IJN: [id number] /
[2017-12-05] MEDS: HEPARIN SODIUM,PORCINE 5,000 UNIT/ML 1 ML VIAL SQ SCH ×4 (00:13→23:47)
[2017-12-05 05:24] LABS: Basophils # (A) 0.1 k/uL (0-0.2); Basophils % (A) 0 %; Eosinophils # (A) 0.5 k/uL (0-0.7); Eosinophils % (A) 4 %; HCT 27.5 % (34.0-46.0); HGB 8.6 gm/dL (11.4-16.0); Lymphocytes # (A) 1.3 k/uL (1.0-4.8); Lymphocytes % (A) 11 %; MCH 28.2 pg (25.0-35.0); MCHC 31.4 g/dL (31.0-37.0); MCV 89.8 fL (80.0-100.0); Mean Platelet Volume 7.8; Monocytes # (A) 0.8 k/uL (0-1.0); Monocytes % (A) 6 %; Neutrophils # (A) 9.1 k/uL (1.3-7.7); Neutrophils % (A) 76 %; Platelet Count 160 k/uL (150-450); RBC 3.06 m/uL (3.80-5.40); RDW 14.3 % (11.5-15.5)
[2017-12-05 05:29] LABS: Ionized Calcium 5.3 mg/dL (4.5-5.3)
[2017-12-05 05:38] LABS: Anion Gap 8 mmol/L; Calcium 9.2 mg/dL (8.4-10.2); Carbon Dioxide 25 mmol/L (22-30); Chloride 106 mmol/L (98-107); Glucose 108 mg/dL (74-99); Sodium 139 mmol/L (137-145)
[2017-12-05 05:40] LABS: Albumin 2.7 g/dL (3.5-5.0); Blood Urea Nitrogen 29 mg/dL (7-17); Magnesium 2.2 mg/dL (1.6-2.3); Phosphorus 4.5 mg/dL (2.5-4.5); Potassium 5.7 mmol/L (3.5-5.1)
[2017-12-05 05:41] LABS: ALT 29 U/L (9-52); AST 53 U/L (14-36); Alkaline Phosphatase 91 U/L (38-126)
[2017-12-05] MEDS: HYDROcodone/APAP 5-325MG 1 EACH TAB PO PRN ×2 (06:32→23:46)
--- NOTE | 2017-12-05 06:47 | XR ---
EXAMINATION TYPE: XR chest 1V portable DATE OF EXAM: 12/05/2017 HISTORY: post cardiac surgery. REFERENCE: Previous study dated 12/04/2017. FINDINGS: There has been a midline sternotomy. There are bilateral pleural drains in place. The heart is enlarged. There continues to be a small right apical pneumothorax. There is a smaller le ft apical pneumothorax. There is improved aeration at the right lung base. There continue to be small , bilateral effusions. IMPRESSION: 1. SMALL, RESIDUAL BIAPICAL PNEUMOTHORACES. 2. IMPROVED AERATION AT THE RIGHT LUNG BASE. 3. SMALL, BILATERAL EFFUSIONS. 4. CARDIOMEGALY.
[2017-12-05 07:32] LABS: Glucose,Whole Blood 114 mg/dL (75-99)
[2017-12-05] MEDS: IPRATROPIUM-ALBUTEROL 3 ML NEB INHALATION SCH ×4 (08:14→19:44)
[2017-12-05 08:55] LABS: ALT 36 U/L (9-52); AST 32 U/L (14-36); Albumin 2.9 g/dL (3.5-5.0); Alkaline Phosphatase 129 U/L (38-126); Anion Gap 11 mmol/L; Blood Urea Nitrogen 28 mg/dL (7-17); Calcium 9.4 mg/dL (8.4-10.2); Carbon Dioxide 24 mmol/L (22-30); Chloride 106 mmol/L (98-107); Glucose 118 mg/dL (74-99); Potassium 5.1 mmol/L (3.5-5.1); Sodium 141 mmol/L (137-145); Total Bilirubin 0.9 mg/dL (0.2-1.3)
[2017-12-05] MEDS: INSULIN ASPART 100 UNIT/ML 1 ML 10 ML VIAL SQ SCH ×4 (09:03→20:48)
[2017-12-05] MEDS: PANTOPRAZOLE 40 MG TABLET PO SCH (09:05)
[2017-12-05] MEDS: METOPROLOL TARTRATE 12.5 MG TAB PO SCH ×2 (09:06→20:32)
[2017-12-05] MEDS: ASPIRIN 325 MG TAB PO SCH (09:06)
[2017-12-05] MEDS: ATORVASTATIN 40 MG TAB PO SCH (09:06)
--- NOTE | 2017-12-05 10:07 | P.PN ---
Subjective Progress Note Date: 12/05/17 Principal diagnosis: Non-ST elevation myocardial infarction, evidence of previous anterio-apical myocardial infarction, systolic congestive heart failure with EF 20-25%, severe left main disease equivalent with a totally occluded collateralized left anterior descending artery, severe left ventricular dysfunction. Preoperative intra-aortic balloon pump. Mild to moderate mitral valve regurgitation. Hyperlipidemia. Smoking history, preop FEV1 of 45% of predicted although the patient was lying flat at the time. Anxiety. Family history of heart disease. POD #6 placement of intra-aortic balloon pump POD #5 urgent non-aortic clamp double off-pump coronary artery bypass grafting using the left internal mammary artery to the left anterior descending artery, reverse saphenous vein graft connected to the aorta using the passport device connected distally to the long obtuse marginal artery. Exclusion of the left atrial appendage with a 45 mm Atriclip. Harvesting of the right greater saphenous vein. Intraoperative transesophageal echocardiogram and epi-aortic scanning. Intraoperative graft flow measurement using the [employer] system. Patient's currently sitting up in the chair in no acute distress. States pain is controlled. No new complaints. Dopamine discontinued yesterday. Remains on Primacor. Objective - Vital Signs Vital signs: Vital Signs Temp 98 F 12/05/17 08:00 Pulse 104 H 12/05/17 09:00 Resp 21 12/05/17 09:00 BP 95/49 12/05/17 05:00 Pulse Ox 98 12/05/17 09:00 Intake & Output 12/04/17 12/05/17 12/05/17 18:59 06:59 18:59 Intake Total 1315.3 796.8 522.2 Output Total 770 636 230 Balance 545.3 160.8 292.2 Weight 63.4 kg Intake: IV 755.3 676.8 222.2 CO/CI 20 Dextrose/Water 1 500ml. 10.5 bag @ 2 MCG/KG/MIN 4.58 mls/hr IV .Q24H TODD with DOPamine DRIP 800 mg Rx#: [id number] Lactated Ringers 1,000 ml 600 600 200 @ 20 mls/hr IV .Q24H TODD Rx#:[id number] Milrinone-D5w Pmx 20 mg 40.8 40.8 10.2 In Dextrose/Water 1 100ml .bag @ 0.1 MCG/KG/MIN 1. 83 mls/hr IV .Q24H REPLACED BY [facility] Rx #:[id number] Presure Lines 84 36 12 Oral 560 120 300 Output: Chest Tube Drainage 210 200 180 Left Pleural 110 60 120 Right Pleural 100 140 60 Drainage 100 120 50 Right Calf 100 120 50 Urine 460 316 Other: Voiding Method Indwelling Catheter Indwelling Catheter Indwelling Catheter ABP, PAP, CO, CI - Last Documented Arterial Blood Pressure 116/48 Pulmonary Artery Pressure 22/16 Cardiac Output 4.5 Cardiac Index 2.8 - Constitutional General appearance: Present: cooperative, no acute distress - Respiratory Details: Lungs sounds diminished bilaterally. Respirations even, nonlabored. Currently on 2 L nasal cannula with oxygen saturation 95%. Only able to achieve 750 mL on her incentive spirometry. Effective cough. Left pleural chest tube to -20 cm wall suction, 60 mL serous drainage overnight, 200 mL last 24 hours. Right pleural chest tube to -20 cm wall suction, 140 mL serous drainage overnight, 220 milliliters last 24 hours. No air leaks present. - Cardiovascular Details: S1, S2 present. Regular rate and rhythm, sinus rhythm on telemetry. Sternum stable. Palpable peripheral pulses bilaterally. Trace bilateral lower extremity edema present. No calf pain or tenderness noted. Heart hugger in place with patient demonstrating appropriate use. Antiembolism stockings, SCDs present. - Gastrointestinal Gastrointestinal Comment(s): Abdomen soft, nontender, nondistended. Active bowel sounds 4 quadrants. Tolerating diet. Positive bowel movement yesterday. - Genitourinary Genitourinary Comment(s): Portillo discontinued this morning. Due to void. - Integumentary Integumentary Comment(s): Skin is warm and dry with evidence of good perfusion. Anterior chest incision well approximated and covered with dry intact dressing. Right lower extremity EVH site well approximated, DANY drain present with minimal drainage. - Neurologic Neurologic: Present: CNII-XII intact - Musculoskeletal Musculoskeletal: Present: gait normal, strength equal bilaterally - Psychiatric Psychiatric: Present: A&O x's 3, appropriate affect, intact judgment & insight - Allied health notes Allied health notes reviewed: nursing - Labs CBC & Chem 7: 12/05/17 05:10 12/05/17 08:15 Labs: Abnormal Lab Results - Last 24 Hours (Table) 12/04/17 12/04/17 12/04/17 Range/Units 11:40 17:22 21:59 WBC (3.8-10.6) k/uL RBC (3.80-5.40) m/uL Hgb (11.4-16.0) gm/dL Hct (34.0-46.0) % Neutrophils # (1.3-7.7) k/uL Potassium (3.5-5.1) mmol/L BUN (7-17) mg/dL Glucose (74-99) mg/dL POC Glucose (mg/dL) 137 H 118 H 120 H (75-99) mg/dL AST (14-36) U/L Alkaline Phosphatase (38-126) U/L Total Protein (6.3-8.2) g/dL Albumin (3.5-5.0) g/dL 12/05/17 12/05/17 12/05/17 Range/Units 05:10 05:10 07:29 WBC 12.0 H (3.8-10.6) k/uL RBC 3.06 L (3.80-5.40) m/uL Hgb 8.6 L (11.4-16.0) gm/dL Hct 27.5 L (34.0-46.0) % Neutrophils # 9.1 H (1.3-7.7) k/uL Potassium 5.7 H (3.5-5.1) mmol/L BUN 29 H (7-17) mg/dL Glucose 108 H (74-99) mg/dL POC Glucose (mg/dL) 114 H (75-99) mg/dL AST 53 H (14-36) U/L Alkaline Phosphatase (38-126) U/L Total Protein 5.0 L (6.3-8.2) g/dL Albumin 2.7 L (3.5-5.0) g/dL 12/05/17 Range/Units 08:15 WBC (3.8-10.6) k/uL RBC (3.80-5.40) m/uL Hgb (11.4-16.0) gm/dL Hct (34.0-46.0) % Neutrophils # (1.3-7.7) k/uL Potassium (3.5-5.1) mmol/L BUN 28 H (7-17) mg/dL Glucose 118 H (74-99) mg/dL POC Glucose (mg/dL) (75-99) mg/dL AST (14-36) U/L Alkaline Phosphatase 129 H (38-126) U/L Total Protein 5.0 L (6.3-8.2) g/dL Albumin 2.9 L (3.5-5.0) g/dL - Imaging and Cardiology Chest x-ray: report reviewed, image reviewed Assessment and Plan (1) Systolic heart failure Current Visit: Yes Status: Acute Code(s): I50.20 - UNSPECIFIED SYSTOLIC ( CONGESTIVE) HEART FAILURE SNOMED Code(s): 244388387 (2) 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 Current Visit: Yes Status: Chronic Code(s): I25.10 - ATHSCL HEART DISEASE OF [place] CORONARY ARTERY W/O ANG PCTRS SNOMED Code(s): 872201487 (3) History of hyperlipidemia Current Visit: Yes Status: Chronic Code(s): Z86.39 - PERSONAL HISTORY OF ENDO, NUTRITIONAL AND METABOLIC DISEASE SNOMED Code(s): 020333271 (4) History of anxiety Current Visit: Yes Status: Chronic Code(s): Z86.59 - PERSONAL HISTORY OF OTHER MENTAL AND BEHAVIORAL DISORDERS SNOMED Code(s): 937124427 (5) Tobacco dependence in remission Current Visit: No Status: Resolved Code(s): F17.201 - NICOTINE DEPENDENCE, UNSPECIFIED, IN REMISSION SNOMED Code(s): 444254414 (6) History of pneumonia Current Visit: No Status: Resolved Code(s): Z87.01 - PERSONAL HISTORY OF PNEUMONIA (RECURRENT) SNOMED Code(s): 533960883 (7) History of skin cancer Current Visit: No Status: Resolved Code(s): Z85.828 - PERSONAL HISTORY OF OTHER MALIGNANT NEOPLASM OF SKIN SNOMED Code(s): 126132308 (8) Family history of heart disease Current Visit: Yes Status: Chronic Code(s): Z82.49 - FAMILY HX OF ISCHEM HEART DIS AND OTH DIS OF THE CIRC SYS SNOMED Code(s): 399326347 (9) NSTEMI (non-ST elevated myocardial infarction) Current Visit: Yes Status: Acute Code(s): I21.4 - NON-ST ELEVATION (NSTEMI) MYOCARDIAL INFARCTION SNOMED Code(s): 871431356 Plan: 1. Continue aspirin, statin, Plavix, beta omayra. Will increase beta omayra as tolerated. 2. Wean O2 as able. Encourage incentive spirometry use 10 times every hour. Encourage continued smoking cessation. 3. Wean Primacor as tolerated. 4. Likely will discontinue pleural chest tubes today. 5. GI/DVT prophylaxis. 6. Blood sugar management per primary care service. 7. Increase activity, ambulate as tolerated, PT/OT/cardiac rehab following. 8. Will monitor daily labs and chest x-rays. 9. Patient may need LifeVest at discharge. 10. More recommendations to follow. Likely will transfer out to [facility] care today. Time with Patient: Greater than 30
[2017-12-05] MEDS: LACTATED RINGERS 1,000 ML IV SCH ×2 (10:29→16:57)
[2017-12-05 11:04] LABS: Glucose,Whole Blood 118 mg/dL (75-99)
--- NOTE | 2017-12-05 15:31 | P.PN ---
Subjective Progress Note Date: 12/05/17 Principal diagnosis: Status post three-vessel bypass grafting, postoperative day #5 Progress note dated 12/01/2017. 82-year-old female postop day #1 status post three-vessel bypass grafting. She was extubated last night. Weaning parameters were excellent. She passed her cuff leak. Blood gases were good. She was awake and alert. She's currently been extubated today liters high flow by nasal cannula. The patient is in no distress at the current time. Still little sleepy. She did get some Xanax this morning. I think as a bad idea. We'll stop for the time being. We may resume in the future pending her mental status. She is on lactated Ringer's IV at 50 mL an hour. She was on an insulin drip at that's been turned off. Chest x-ray looks stable. Postsurgical changes. Nothing acute. She has a history of non-ST segment elevation myocardial infarction, congestive heart failure, valvular heart disease, status post catheterization with a intra-aortic balloon pump hyperlipidemia acute bronchitis suspected COPD anxiety and gastroesophageal reflux disease. The balloon pump still in place. He likely be removed today. Other than that everything is very stable. Reevaluated today on 12/02/2017, patient is doing well, no cough no wheezing, she has chronic shortness of breath related to underlying cardiomyopathy and LV dysfunction. Continues to have intra-aortic balloon pump in place, and that would likely be removed today. WBC count is 17.1 hemoglobin is 9.1 electrolytes were normal BUN is 21 creatinine is 1.20. Reevaluated today on 12/03/2017, patient is basically about the same, remains very marginal and her overall clinical status, patient is doing poorly with incentive spirometry. Intra-aortic balloon pump was discontinued yesterday. Chest x-ray this morning showed evidence of small tiny apical pneumothoraces, however chest tubes remains in place. WBC count is 14.3 hemoglobin is 8.3 basic metabolic profile is normal renal profile is normal. Reevaluated today on 12/04/2017, patient seems to be doing well, relatively asymptomatic, in no distress, remains on dopamine and Primacor. Chest x-ray and labs were reviewed, continues to have tiny biapical pneumothoraces, and some right basilar atelectasis. Patient was reevaluated today on 12/05/2017, doing well, she is basically about the same as she was over the last few days. Continues to remain weak, frail, but in no form of respiratory distress. Labs were reviewed chest x-ray was reviewed, improved aeration noted in the right lung base. Small effusions noted Objective - Vital Signs Vital signs: Vital Signs Temp 98 F 12/05/17 08:00 Pulse 92 12/05/17 13:00 Resp 24 12/05/17 13:00 BP 103/61 12/05/17 13:00 Pulse Ox 92 L 12/05/17 13:00 Intake & Output 12/04/17 12/05/17 12/05/17 18:59 06:59 18:59 Intake Total 1315.3 796.8 686.3 Output Total 770 636 645 Balance 545.3 160.8 41.3 Weight 63.4 kg 57.1 kg Intake: IV 755.3 676.8 386.3 CO/CI 20 Dextrose/Water 1 500ml. 10.5 bag @ 2 MCG/KG/MIN 4.58 mls/hr IV .Q24H TODD with DOPamine DRIP 800 mg Rx#: [id number] Lactated Ringers 1,000 ml 600 600 350 @ 20 mls/hr IV .Q24H TODD Rx#:[id number] Milrinone-D5w Pmx 20 mg 40.8 40.8 15.3 In Dextrose/Water 1 100ml .bag @ 0.1 MCG/KG/MIN 1. 83 mls/hr IV .Q24H TODD Rx #:[id number] Presure Lines 84 36 21 Oral 560 120 300 Output: Chest Tube Drainage 210 200 370 Left Pleural 110 60 240 Right Pleural 100 140 130 Drainage 100 120 75 Right Calf 100 120 75 Urine 460 316 200 Other: Voiding Method Indwelling Catheter Indwelling Catheter Indwelling Catheter # Voids 1 ABP, PAP, CO, CI - Last Documented Arterial Blood Pressure 107/38 Pulmonary Artery Pressure 22/16 Cardiac Output 4.5 Cardiac Index 2.8 - Exam Physical Exam revealed an 82-year-old female in no distress. HEENT:[Neck is supple.] [No neck masses.] [No thyromegaly.] [No JVD.] Chest: [Clear throughout, no crackles, no rhonchi, no wheezes.] Cardiac Exam: [Normal S1 and S2, no S3 gallop, no murmur.] Abdomen: [Soft, nontender, no megaly, no rebound, no guarding, normal bowel sounds.] Extremities: [No clubbing, no edema, no cyanosis.] Neurological Exam: [Generally weak, but no gross focal neurologic deficit Psychiatric: Normal mood affect, normal mental status examination. Lymphatics no lymphadenopathy was appreciated. - Labs CBC & Chem 7: 12/05/17 05:10 12/05/17 08:15 Labs: Abnormal Lab Results - Last 24 Hours (Table) 12/04/17 12/04/17 12/05/17 Range/Units 17:22 21:59 05:10 WBC 12.0 H (3.8-10.6) k/uL RBC 3.06 L (3.80-5.40) m/uL Hgb 8.6 L (11.4-16.0) gm/dL Hct 27.5 L (34.0-46.0) % Neutrophils # 9.1 H (1.3-7.7) k/uL Potassium (3.5-5.1) mmol/L BUN (7-17) mg/dL Glucose (74-99) mg/dL POC Glucose (mg/dL) 118 H 120 H (75-99) mg/dL AST (14-36) U/L Alkaline Phosphatase (38-126) U/L Total Protein (6.3-8.2) g/dL Albumin (3.5-5.0) g/dL 12/05/17 12/05/17 12/05/17 Range/Units 05:10 07:29 08:15 WBC (3.8-10.6) k/uL RBC (3.80-5.40) m/uL Hgb (11.4-16.0) gm/dL Hct (34.0-46.0) % Neutrophils # (1.3-7.7) k/uL Potassium 5.7 H (3.5-5.1) mmol/L BUN 29 H 28 H (7-17) mg/dL Glucose 108 H 118 H (74-99) mg/dL POC Glucose (mg/dL) 114 H (75-99) mg/dL AST 53 H (14-36) U/L Alkaline Phosphatase 129 H (38-126) U/L Total Protein 5.0 L 5.0 L (6.3-8.2) g/dL Albumin 2.7 L 2.9 L (3.5-5.0) g/dL 12/05/17 Range/Units 11:02 WBC (3.8-10.6) k/uL RBC (3.80-5.40) m/uL Hgb (11.4-16.0) gm/dL Hct (34.0-46.0) % Neutrophils # (1.3-7.7) k/uL Potassium (3.5-5.1) mmol/L BUN (7-17) mg/dL Glucose (74-99) mg/dL POC Glucose (mg/dL) 118 H (75-99) mg/dL AST (14-36) U/L Alkaline Phosphatase (38-126) U/L Total Protein (6.3-8.2) g/dL Albumin (3.5-5.0) g/dL Assessment and Plan Assessment: Postop day #5 status post 2 vessel bypass grafting Non-ST segment elevation myocardial infarction Congestive heart failure Valvular heart disease Status post catheterization and intra-aortic balloon pump on November 29 Hyperlipidemia Acute bronchitis Suspected COPD History of anxiety Gastroesophageal reflux disease Small apical pneumothoraces noted on the chest x-ray today, however chest tubes remain in place. Recommendation: Continue incentive spirometry, continue bronchodilators, try to encourage early ambulation. We'll continue to follow patient will eventually need referral to a rehab facility, it will take a long time to recover. Time with Patient: Less than 30
--- NOTE | 2017-12-05 16:37 | PN ---
PROGRESS NOTE This lady is status post bypass surgery with ischemic cardiomyopathy. She is recovering nicely. Vital signs are stable. She is not on any pressors. S1-S2 heard normally. Short systolic murmur noted. Lungs revealed improved air entry. Abdomen and lower exam is unchanged. Plan is to continue incentive spirometry, pulmonary toilet and continue current therapy. MMODL / IJN: [id number] /
[2017-12-05 16:59] LABS: Glucose,Whole Blood 108 mg/dL (75-99)
--- NOTE | 2017-12-05 19:52 | PN ---
PROGRESS NOTE DATE OF SERVICE: 12/05/2017 The patient is seen again in intensive care unit. Has been stable for about 24 hours in which she remains on an dopamine and Primacor drip. In no distress. Vital signs: Temperature 98 pulse 92, respiration 24, blood pressure 103/61, O2 saturation 92%. HEENT atraumatic, normocephalic. Pupils equal and reactive to light. Extraocular movements intact. Buccal mucosa is fair. Neck is supple. No goiter or lymphadenopathy. JVD is negative. No carotid bruit heard. Lungs are clear to auscultate. No rales, rhonchi, or wheezes. Heart is regular rate and rhythm without any murmurs or gallop rhythm. Abdomen is soft, nontender, nondistended. Bowel sounds positive. Extremities, no edema, clubbing or cyanosis. Neurological examination: Patient has no gross motor or sensory deficit. She has generalized weakness. Psychiatric: Patient has normal mood and affect. Skin is warm, dry and intact. Lymphatic system: No lymphadenopathy appreciated. LAB: CBC: White blood count of 22, hemoglobin 8.6, hematocrit 27.5, and platelet count of 160. Chemical profile: Sodium 121, calcium 5.1, chloride 106, bicarb 25, BUN 28, creatinine 0.8, glucose 118. ASSESSMENT: 1. Acute ST-elevation myocardial infarction status post coronary artery bypass grafting. Postoperative day 5. 2. Congestive heart failure. 3. Valvular heart disease. 4. Acute bronchitis. 5. Possible underlying chronic obstructive pulmonary disease. 6. Hyperlipidemia. The patient remains in ICU, being followed by the plastics technician service. Plan is to continue with incentive spirometry, bronchodilators. A PT/OT consult is in place for early ambulation. Plan is to transfer patient to skilled rehab facility after the patient stabilizes. MMODL / IJN: [id number] /
[2017-12-05] MEDS: CLOPIDOGREL 75 MG TAB PO SCH (20:33)
[2017-12-05] MEDS: SENNOSIDES-DOCUSATE SODIUM 1 EACH TAB PO SCH (20:33)
[2017-12-05] MEDS: ALPRAZolam 0.25 MG TAB PO PRN (20:33)
[2017-12-05 20:44] LABS: Glucose,Whole Blood 152 mg/dL (75-99)
[2017-12-06 04:24] LABS: Basophils # (A) 0.1 k/uL (0-0.2); Basophils % (A) 1 %; Eosinophils # (A) 0.5 k/uL (0-0.7); Eosinophils % (A) 5 %; HCT 28.5 % (34.0-46.0); Lymphocytes # (A) 1.7 k/uL (1.0-4.8); Lymphocytes % (A) 15 %; MCH 27.9 pg (25.0-35.0); MCHC 31.6 g/dL (31.0-37.0); MCV 88.2 fL (80.0-100.0); Mean Platelet Volume 7.8; Monocytes # (A) 0.8 k/uL (0-1.0); Monocytes % (A) 7 %; Neutrophils # (A) 7.9 k/uL (1.3-7.7); Neutrophils % (A) 71 %; Platelet Count 204 k/uL (150-450); RBC 3.23 m/uL (3.80-5.40); RDW 14.2 % (11.5-15.5); WBC 11.2 k/uL (3.8-10.6)
[2017-12-06 04:35] LABS: ALT 45 U/L (9-52); AST 51 U/L (14-36); Albumin 2.7 g/dL (3.5-5.0); Alkaline Phosphatase 171 U/L (38-126); Anion Gap 8 mmol/L; Blood Urea Nitrogen 24 mg/dL (7-17); Calcium 9.2 mg/dL (8.4-10.2); Carbon Dioxide 24 mmol/L (22-30); Chloride 103 mmol/L (98-107); Glucose 103 mg/dL (74-99); Magnesium 2.1 mg/dL (1.6-2.3); Sodium 135 mmol/L (137-145); Total Bilirubin 0.9 mg/dL (0.2-1.3); Total Protein 4.9 g/dL (6.3-8.2)
[2017-12-06 07:25] LABS: Glucose,Whole Blood 103 mg/dL (75-99)
[2017-12-06] MEDS ORDERED: ALPRAZolam 0.25 MG TAB PO PRN (07:38)
--- NOTE | 2017-12-06 07:52 | XR ---
EXAMINATION TYPE: XR chest 1V portable DATE OF EXAM: 12/06/2017 Comparison: 12/05/2017 Clinical History: 82-year-old female post cardiac surgery Findings: Median sternotomy wires are present with post-CABG clips. Heart mildly enlarged. Interval removal of bilateral chest tubes. Diffuse interstitial prominence persists along with small pleural effusions. S mall right apical pneumothorax redemonstrated. The previous left apical pneumothorax is not clearly i dentified. Impression: 1. Interval removal of chest tubes. Small right apical pneumothorax persists. Previous left apical pn eumothorax no longer seen. 2. Residual mild pulmonary vascular congestion. 3. Small effusions persist with patchy left basilar atelectasis and/or consolidation.
[2017-12-06] MEDS ORDERED: FUROSEMIDE 10 MG/ML 2 ML VIAL IV ONE (08:38)
--- NOTE | 2017-12-06 08:59 | P.PN ---
Subjective Progress Note Date: 12/06/17 Principal diagnosis: Non-ST elevation myocardial infarction, evidence of previous anterio-apical myocardial infarction, systolic congestive heart failure with EF 20-25%, severe left main disease equivalent with a totally occluded collateralized left anterior descending artery, severe left ventricular dysfunction. Preoperative intra-aortic balloon pump. Mild to moderate mitral valve regurgitation. Hyperlipidemia. Smoking history, preop FEV1 of 45% of predicted although the patient was lying flat at the time. Anxiety. Family history of heart disease. POD #7 placement of intra-aortic balloon pump POD #6 urgent non-aortic clamp double off-pump coronary artery bypass grafting using the left internal mammary artery to the left anterior descending artery, reverse saphenous vein graft connected to the aorta using the passport device connected distally to the long obtuse marginal artery. Exclusion of the left atrial appendage with a 45 mm Atriclip. Harvesting of the right greater saphenous vein. Intraoperative transesophageal echocardiogram and epi-aortic scanning. Intraoperative graft flow measurement using the [employer] system. Patient's currently sitting up in the chair in no acute distress. States pain is controlled. Episode of severe anxiety last night where she was unable to sleep and needed her daughter to come in and sit at the bedside with her. Much more calm now. Primacor discontinued yesterday. Objective - Vital Signs Vital signs: Vital Signs Temp 98 F 12/06/17 04:00 Pulse 92 12/06/17 07:00 Resp 20 12/06/17 07:00 BP 110/56 12/06/17 07:00 Pulse Ox 96 12/06/17 05:00 Intake & Output 12/05/17 12/06/17 12/06/17 18:59 06:59 18:59 Intake Total 901.3 36 3 Output Total 745 650 Balance 156.3 -614 3 Weight 57.1 kg 65.4 kg Intake: IV 401.3 36 3 Lactated Ringers 1,000 ml 350 @ 20 mls/hr IV .Q24H TODD Rx#:[id number] Milrinone-D5w Pmx 20 mg 15.3 In Dextrose/Water 1 100ml .bag @ 0.1 MCG/KG/MIN 1. 83 mls/hr IV .Q24H TODD Rx #:[id number] Presure Lines 36 36 3 Oral 500 Output: Chest Tube Drainage 370 Left Pleural 240 Right Pleural 130 Drainage 75 Right Calf 75 Urine 300 650 Other: Voiding Method Indwelling Catheter Bedside Commode # Voids 1 # Bowel Movements 1 ABP, PAP, CO, CI - Last Documented Arterial Blood Pressure 114/41 Pulmonary Artery Pressure 22/16 Cardiac Output 4.5 Cardiac Index 2.8 - Constitutional General appearance: Present: cooperative, no acute distress - Respiratory Details: Lungs sounds diminished bilaterally. Respirations even, nonlabored. Currently on room air with oxygen saturation 96%. Able to achieve 750 mL on incentive spirometry. Weak cough. - Cardiovascular Details: S1, S2 present. Regular rate and rhythm, sinus rhythm on telemetry. Sternum stable. Palpable peripheral pulses bilaterally. Bilateral lower extremity edema present. No calf pain or tenderness noted. Right brachial arterial line present. Heart hugger in place with patient demonstrate appropriate use. Antiembolism seconds, SCDs present. - Gastrointestinal Gastrointestinal Comment(s): Abdomen soft, nontender, nondistended. Active bowel sounds 4 quadrants. Tolerating diet. Positive bowel movement. - Genitourinary Genitourinary Comment(s): Continues to void clear, yellow urine. - Integumentary Integumentary Comment(s): Skin is warm and dry with evidence of good perfusion. Anterior chest incision well approximated and covered with dry intact dressing. Right lower extremity EVH site well approximated. - Neurologic Neurologic: Present: CNII-XII intact - Musculoskeletal Musculoskeletal: Present: gait normal, strength equal bilaterally - Psychiatric Psychiatric: Present: A&O x's 3, appropriate affect, intact judgment & insight - Allied health notes Allied health notes reviewed: nursing - Labs CBC & Chem 7: 12/06/17 04:10 12/06/17 04:10 Labs: Abnormal Lab Results - Last 24 Hours (Table) 12/05/17 12/05/17 12/05/17 Range/Units 08:15 11:02 16:56 WBC (3.8-10.6) k/uL RBC (3.80-5.40) m/uL Hgb (11.4-16.0) gm/dL Hct (34.0-46.0) % Neutrophils # (1.3-7.7) k/uL Sodium (137-145) mmol/L BUN 28 H (7-17) mg/dL Glucose 118 H (74-99) mg/dL POC Glucose (mg/dL) 118 H 108 H (75-99) mg/dL AST (14-36) U/L Alkaline Phosphatase 129 H (38-126) U/L Total Protein 5.0 L (6.3-8.2) g/dL Albumin 2.9 L (3.5-5.0) g/dL 12/05/17 12/06/17 12/06/17 Range/Units 20:42 04:10 04:10 WBC 11.2 H (3.8-10.6) k/uL RBC 3.23 L (3.80-5.40) m/uL Hgb 9.0 L (11.4-16.0) gm/dL Hct 28.5 L (34.0-46.0) % Neutrophils # 7.9 H (1.3-7.7) k/uL Sodium 135 L (137-145) mmol/L BUN 24 H (7-17) mg/dL Glucose 103 H (74-99) mg/dL POC Glucose (mg/dL) 152 H (75-99) mg/dL AST 51 H (14-36) U/L Alkaline Phosphatase 171 H (38-126) U/L Total Protein 4.9 L (6.3-8.2) g/dL Albumin 2.7 L (3.5-5.0) g/dL 12/06/17 Range/Units 07:23 WBC (3.8-10.6) k/uL RBC (3.80-5.40) m/uL Hgb (11.4-16.0) gm/dL Hct (34.0-46.0) % Neutrophils # (1.3-7.7) k/uL Sodium (137-145) mmol/L BUN (7-17) mg/dL Glucose (74-99) mg/dL POC Glucose (mg/dL) 103 H (75-99) mg/dL AST (14-36) U/L Alkaline Phosphatase (38-126) U/L Total Protein (6.3-8.2) g/dL Albumin (3.5-5.0) g/dL - Imaging and Cardiology Chest x-ray: report reviewed, image reviewed Assessment and Plan (1) Systolic heart failure Current Visit: Yes Status: Acute Code(s): I50.20 - UNSPECIFIED SYSTOLIC ( CONGESTIVE) HEART FAILURE SNOMED Code(s): 806002111 (2) 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 Current Visit: Yes Status: Chronic Code(s): I25.10 - ATHSCL HEART DISEASE OF [place] CORONARY ARTERY W/O ANG PCTRS SNOMED Code(s): 021344764 (3) History of hyperlipidemia Current Visit: Yes Status: Chronic Code(s): Z86.39 - PERSONAL HISTORY OF ENDO, NUTRITIONAL AND METABOLIC DISEASE SNOMED Code(s): 314435632 (4) History of anxiety Current Visit: Yes Status: Chronic Code(s): Z86.59 - PERSONAL HISTORY OF OTHER MENTAL AND BEHAVIORAL DISORDERS SNOMED Code(s): 669633051 (5) Tobacco dependence in remission Current Visit: No Status: Resolved Code(s): F17.201 - NICOTINE DEPENDENCE, UNSPECIFIED, IN REMISSION SNOMED Code(s): 363345847 (6) History of pneumonia Current Visit: No Status: Resolved Code(s): Z87.01 - PERSONAL HISTORY OF PNEUMONIA (RECURRENT) SNOMED Code(s): 629242893 (7) History of skin cancer Current Visit: No Status: Resolved Code(s): Z85.828 - PERSONAL HISTORY OF OTHER MALIGNANT NEOPLASM OF SKIN SNOMED Code(s): 311029392 (8) Family history of heart disease Current Visit: Yes Status: Chronic Code(s): Z82.49 - FAMILY HX OF ISCHEM HEART DIS AND OTH DIS OF THE CIRC SYS SNOMED Code(s): 253596704 (9) NSTEMI (non-ST elevated myocardial infarction) Current Visit: Yes Status: Acute Code(s): I21.4 - NON-ST ELEVATION (NSTEMI) MYOCARDIAL INFARCTION SNOMED Code(s): 278439681 Plan: 1. Continue aspirin, statin, Plavix, beta omayra. Will increase beta omayra as tolerated. 2. Encourage incentive spirometry use 10 times every hour. Encourage continued smoking cessation. 3. Will give 20 mg IV Lasix today. 4. Discontinue arterial line. 5. GI/DVT prophylaxis. 6. Blood sugar management per primary care service. 7. Increase activity, ambulate as tolerated, PT/OT/cardiac rehab following. 8. Will monitor daily labs and chest x-rays. 9. Patient may need LifeVest at discharge. 10. Will transfer to [facility] today. Anticipate discharge in the next 24-[address] Garcia consulted for possible inpatient rehabilitation. 10. More recommendations to follow. Time with Patient: Greater than 30
[2017-12-06] MEDS: IPRATROPIUM-ALBUTEROL 3 ML NEB INHALATION SCH ×4 (09:07→21:20)
[2017-12-06] MEDS: INSULIN ASPART 100 UNIT/ML 1 ML 10 ML VIAL SQ SCH ×4 (09:21→21:48)
[2017-12-06] MEDS: ATORVASTATIN 40 MG TAB PO SCH (09:22)
[2017-12-06] MEDS: HEPARIN SODIUM,PORCINE 5,000 UNIT/ML 1 ML VIAL SQ SCH ×2 (09:22→15:40)
[2017-12-06] MEDS: ASPIRIN 325 MG TAB PO SCH (09:23)
[2017-12-06] MEDS: PANTOPRAZOLE 40 MG TABLET PO SCH (09:23)
[2017-12-06] MEDS: METOPROLOL TARTRATE 12.5 MG TAB PO SCH ×2 (09:23→20:11)
[2017-12-06] MEDS: HYDROcodone/APAP 5-325MG 1 EACH TAB PO PRN ×3 (09:25→20:56)
--- NOTE | 2017-12-06 10:45 | P.CONS ---
History of Present Illness - Chief Complaint Medical debility - History of Present Illness I had the op to see patient for inpatient rehab consultation with regard to medical debility. She was admitted to [facility] November 24 shortness of breath and lower extremity edema. Seen by Dr. Grimaldo for cardiology who notes CHF and presentation. Cardiovascular and valvular disease noted. Did undergo CABG and valve repair. Seen by Dr. Mcfadden who notes non-STEMI, for ICU care. Chest x-rays followed and note apical pneumothorax, mild congestion and small pleural effusions and basilar atelectasis. PT and OT prescribed. Previous functional history as elicited from patient and corroborated by daughter: 82-year-old right-handed white female who is and lives in a trilevel home alone. Retired. Independent with own cooking, laundry, driving, standing shower and gait without device. History smoking remote past doesn't smoke currently. Rare drink. Dr. Landeros is regular doctor. Family history of Alzheimer's in mother and cardiac disease in father who of [place]. Review of Systems Review of systems: ENT: Denies sneezes or discharge. Eyes: Denies discharge or photophobia. Cardiac: Denies chest pain or palpitation. Pulmonary: Moderate shortness of breath. Breast: Denies discharge or lumps. Gastrointestinal: Denies nausea, emesis, constipation, diarrhea. Genitourinary: Denies discharge or frequency. Musculoskeletal: Denies muscle or bone aches. Neurologic: Denies any feelings of weakness though obviously very weak. Endocrine: Denies shakes or sweats. Oncology: Denies cancers. Dermatologic: Denies rash, itching, pruritus. ALLERGY/immunology: Denies sneezes, rashes. Past Medical History Past Medical History: Coronary Artery Disease (CAD), Heart Failure, Hyperlipidemia, Myocardial Infarction (SD), Pneumonia History of Any Multi-Drug Resistant Organisms: None Reported Past Surgical History: Tonsillectomy Past Anesthesia/Blood Transfusion Reactions: No Reported Reaction Past Psychological History: Anxiety Smoking Status: Former smoker Past Alcohol Use History: Occasional Past Drug Use History: None Reported Additional Drug Use History / Comment(s): quit smoking 09/2017, prior to that smoked since she was 16 Medications and Allergies Home Medications Medication Instructions Recorded Confirmed Type ALPRAZolam [Xanax] 0.25 mg PO DAILY PRN 11/24/17 11/24/17 History Albuterol Sulfate [Proair Hfa] 2 puff INHALATION RT-Q4H PRN 11/24/17 11/24/17 History Aspirin 81 mg PO HS 11/24/17 11/24/17 History Atorvastatin [Lipitor] 10 mg PO HS 11/24/17 11/24/17 History Azithromycin [Zithromax Z-pack] See Taper PO DAILY 11/24/17 11/24/17 History Furosemide [Lasix] 10 mg PO DAILY 11/24/17 11/24/17 History Lansoprazole [Prevacid] 30 mg PO DAILY PRN 11/24/17 11/24/17 History methylPREDNISolone Dose Pack See Taper PO DAILY 11/24/17 11/24/17 History [Medrol Dose Pack] Allergies Allergy/AdvReac Type Severity Reaction Status Date / Time No Known Allergies Allergy Verified 11/24/17 20:30 Physical Exam Vitals: Vital Signs Temp Pulse Resp BP Pulse Ox 12/06/17 09:07 96 12/06/17 09:00 96.7 F L 97 24 97/50 12/06/17 08:00 99 24 107/59 12/06/17 07:00 92 20 110/56 12/06/17 06:00 95 20 100/62 12/06/17 05:00 87 13 104/57 96 12/06/17 04:00 98 F 85 11 L 93/55 97 12/06/17 03:00 89 12 108/55 12/06/17 02:00 96 16 108/62 12/06/17 01:00 95 18 110/62 12/06/17 00:00 97.9 F 96 24 101/54 12/05/17 23:00 92 22 105/64 93 L 12/05/17 22:00 96 17 98/57 94 L 12/05/17 21:00 98 20 100/61 94 L 12/05/17 20:00 102 H 24 100/72 96 12/05/17 19:00 95 14 105/66 94 L 12/05/17 18:00 100 23 87/52 94 L 12/05/17 17:00 98 28 H 89/50 100 12/05/17 16:00 97.6 F 97 12 104/55 96 12/05/17 15:00 95 14 97/56 95 02/18/18 14:00 96 15 126/66 95 12/05/17 13:00 92 24 103/61 92 L 12/05/17 12:00 97 11 L 116/62 99 12/05/17 11:00 97 25 H 111/63 98 Intake and Output 12/05/17 12/06/17 12/06/17 22:59 06:59 14:59 Intake Total 124 24 9 Output Total 300 450 300 Balance -176 -426 -291 Intake: IV 24 24 9 Presure Lines 24 24 9 Oral 100 Output: Urine 300 450 300 Other: Voiding Method Bedside Commode Bedside Commode Bedside Commode # Voids 1 # Bowel Movements 1 Weight 65.4 kg ABP, PAP, CO, CI - Last 8 Hours Arterial Blood Pressure 103/42 Arterial Blood Pressure 109/41 Arterial Blood Pressure 114/41 Arterial Blood Pressure 105/55 Arterial Blood Pressure 116/43 Arterial Blood Pressure 120/56 Arterial Blood Pressure 107/50 Skin: Atrophic, intact. General: Medium to overweight build and comfortable appearance. Head: Normocephalic, atraumatic. Eyes: Symmetric. Pupils equal round. Ears: Symmetric. Hearing within normal limits. Mouth: Clear. Neck: Supple. Carotid without bruit. Cardiac: Regular rate and rhythm. Wearing heart hunger. Chest wound clean and dressed. Lungs: Clear anteriorly and posteriorly. Abdomen: Soft active nontender. Extremities: Normal tone. Neurological: Mental status: Alert, cooperative, pleasant. Cranial nerves: Symmetric facial tone and trapezius. Motor: Actively elevate all limbs and movement throughout noted throughout. Sensation: Intact throughout. DTRs: Symmetric and equal throughout. Mobility: Transferred from bed to Jessica chair with nursing assistance. Results CBC & Chem 7: 12/06/17 04:10 12/06/17 04:10 Labs: Abnormal Lab Results - Last 24 Hours (Table) 12/05/17 12/05/17 12/05/17 Range/Units 11:02 16:56 20:42 WBC (3.8-10.6) k/uL RBC (3.80-5.40) m/uL Hgb (11.4-16.0) gm/dL Hct (34.0-46.0) % Neutrophils # (1.3-7.7) k/uL Sodium (137-145) mmol/L BUN (7-17) mg/dL Glucose (74-99) mg/dL POC Glucose (mg/dL) 118 H 108 H 152 H (75-99) mg/dL AST (14-36) U/L Alkaline Phosphatase (38-126) U/L Total Protein (6.3-8.2) g/dL Albumin (3.5-5.0) g/dL 12/06/17 12/06/17 12/06/17 Range/Units 04:10 04:10 07:23 WBC 11.2 H (3.8-10.6) k/uL RBC 3.23 L (3.80-5.40) m/uL Hgb 9.0 L (11.4-16.0) gm/dL Hct 28.5 L (34.0-46.0) % Neutrophils # 7.9 H (1.3-7.7) k/uL Sodium 135 L (137-145) mmol/L BUN 24 H (7-17) mg/dL Glucose 103 H (74-99) mg/dL POC Glucose (mg/dL) 103 H (75-99) mg/dL AST 51 H (14-36) U/L Alkaline Phosphatase 171 H (38-126) U/L Total Protein 4.9 L (6.3-8.2) g/dL Albumin 2.7 L (3.5-5.0) g/dL Chest x-ray: report reviewed (Chest x-rays followed for congestion, effusions, atelectasis and apical pneumothorax.) Assessment and Plan (1) NSTEMI (non-ST elevated myocardial infarction) Current Visit: Yes Status: Acute Code(s): I21.4 - NON-ST ELEVATION (NSTEMI) MYOCARDIAL INFARCTION SNOMED Code(s): 297644886 Plan: Impression: 1. Cardiac debility. 2. Non-STEMI. 3. Status post corneal bypassing valve repair. 4. Dyslipidemia. Comments and plan: PT and OT ordered. Have discussed possible inpatient rehab with patient and daughter however they prefer a slower paced program and are looking forward to [facility]. Have discussed social services manager can assist with either discharge plan.
[2017-12-06 11:53] LABS: Glucose,Whole Blood 105 mg/dL (75-99)
--- NOTE | 2017-12-06 12:33 | P.PN ---
Subjective Progress Note Date: 12/06/17 Principal diagnosis: Status post three-vessel bypass grafting, postoperative day #6 Progress note dated 12/01/2017. 82-year-old female postop day #1 status post three-vessel bypass grafting. She was extubated last night. Weaning parameters were excellent. She passed her cuff leak. Blood gases were good. She was awake and alert. She's currently been extubated today liters high flow by nasal cannula. The patient is in no distress at the current time. Still little sleepy. She did get some Xanax this morning. I think as a bad idea. We'll stop for the time being. We may resume in the future pending her mental status. She is on lactated Ringer's IV at 50 mL an hour. She was on an insulin drip at that's been turned off. Chest x-ray looks stable. Postsurgical changes. Nothing acute. She has a history of non-ST segment elevation myocardial infarction, congestive heart failure, valvular heart disease, status post catheterization with a intra-aortic balloon pump hyperlipidemia acute bronchitis suspected COPD anxiety and gastroesophageal reflux disease. The balloon pump still in place. He likely be removed today. Other than that everything is very stable. Reevaluated today on 12/02/2017, patient is doing well, no cough no wheezing, she has chronic shortness of breath related to underlying cardiomyopathy and LV dysfunction. Continues to have intra-aortic balloon pump in place, and that would likely be removed today. WBC count is 17.1 hemoglobin is 9.1 electrolytes were normal BUN is 21 creatinine is 1.20. Reevaluated today on 12/03/2017, patient is basically about the same, remains very marginal and her overall clinical status, patient is doing poorly with incentive spirometry. Intra-aortic balloon pump was discontinued yesterday. Chest x-ray this morning showed evidence of small tiny apical pneumothoraces, however chest tubes remains in place. WBC count is 14.3 hemoglobin is 8.3 basic metabolic profile is normal renal profile is normal. Reevaluated today on 12/04/2017, patient seems to be doing well, relatively asymptomatic, in no distress, remains on dopamine and Primacor. Chest x-ray and labs were reviewed, continues to have tiny biapical pneumothoraces, and some right basilar atelectasis. Patient was reevaluated today on 12/05/2017, doing well, she is basically about the same as she was over the last few days. Continues to remain weak, frail, but in no form of respiratory distress. Labs were reviewed chest x-ray was reviewed, improved aeration noted in the right lung base. Small effusions noted Reevaluated today on 12/06/2017, patient is doing relatively well, seems to be a bit anxious today, hence the Xanax dose was increased to bit. Evaluated today for possible rehab referral. Denies shortness of breath at present, but she tells me clearly that she was very anxious. CBC is normal hemoglobin is 9 electrolytes and basic metabolic profile are normal. Sex x-ray basically about the same with postoperative changes. Objective - Vital Signs Vital signs: Vital Signs Temp 96.7 F L 12/06/17 09:00 Pulse 97 12/06/17 09:00 Resp 24 12/06/17 09:00 BP 97/50 12/06/17 09:00 Pulse Ox 96 12/06/17 09:07 Intake & Output 12/05/17 12/06/17 12/06/17 18:59 06:59 18:59 Intake Total 901.3 36 9 Output Total 745 650 800 Balance 156.3 -614 -791 Weight 57.1 kg 65.4 kg 65.4 kg Intake: IV 401.3 36 9 Lactated Ringers 1,000 ml 350 @ 20 mls/hr IV .Q24H TODD Rx#:[id number] Milrinone-D5w Pmx 20 mg 15.3 In Dextrose/Water 1 100ml .bag @ 0.1 MCG/KG/MIN 1. 83 mls/hr IV .Q24H TODD Rx #:[id number] Presure Lines 36 36 9 Oral 500 Output: Chest Tube Drainage 370 Left Pleural 240 Right Pleural 130 Drainage 75 Right Calf 75 Urine 300 650 800 Other: Voiding Method Indwelling Catheter Bedside Commode Bedside Commode # Voids 1 # Bowel Movements 1 ABP, PAP, CO, CI - Last Documented Arterial Blood Pressure 103/42 Pulmonary Artery Pressure 22/16 Cardiac Output 4.5 Cardiac Index 2.8 - Exam Physical Exam revealed an 82-year-old female in no distress. Noted to be a bit anxious. HEENT:[Neck is supple.] [No neck masses.] [No thyromegaly.] [No JVD.] Chest: [Clear throughout, no crackles, no rhonchi, no wheezes.] Cardiac Exam: [Normal S1 and S2, no S3 gallop, no murmur.] Abdomen: [Soft, nontender, no megaly, no rebound, no guarding, normal bowel sounds.] Extremities: [No clubbing, no edema, no cyanosis.] Neurological Exam: [Generally weak, but no gross focal neurologic deficit Psychiatric: Normal mood affect, normal mental status examination. Lymphatics no lymphadenopathy was appreciated. - Labs CBC & Chem 7: 12/06/17 04:10 12/06/17 04:10 Labs: Abnormal Lab Results - Last 24 Hours (Table) 12/05/17 12/05/17 12/06/17 Range/Units 16:56 20:42 04:10 WBC 11.2 H (3.8-10.6) k/uL RBC 3.23 L (3.80-5.40) m/uL Hgb 9.0 L (11.4-16.0) gm/dL Hct 28.5 L (34.0-46.0) % Neutrophils # 7.9 H (1.3-7.7) k/uL Sodium (137-145) mmol/L BUN (7-17) mg/dL Glucose (74-99) mg/dL POC Glucose (mg/dL) 108 H 152 H (75-99) mg/dL AST (14-36) U/L Alkaline Phosphatase (38-126) U/L Total Protein (6.3-8.2) g/dL Albumin (3.5-5.0) g/dL 12/06/17 12/06/17 12/06/17 Range/Units 04:10 07:23 11:50 WBC (3.8-10.6) k/uL RBC (3.80-5.40) m/uL Hgb (11.4-16.0) gm/dL Hct (34.0-46.0) % Neutrophils # (1.3-7.7) k/uL Sodium 135 L (137-145) mmol/L BUN 24 H (7-17) mg/dL Glucose 103 H (74-99) mg/dL POC Glucose (mg/dL) 103 H 105 H (75-99) mg/dL AST 51 H (14-36) U/L Alkaline Phosphatase 171 H (38-126) U/L Total Protein 4.9 L (6.3-8.2) g/dL Albumin 2.7 L (3.5-5.0) g/dL Assessment and Plan Assessment: Postop day #6 status post 2 vessel bypass grafting Non-ST segment elevation myocardial infarction Congestive heart failure Valvular heart disease Status post catheterization and intra-aortic balloon pump on November 29 Hyperlipidemia Acute bronchitis Suspected COPD History of anxiety Gastroesophageal reflux disease Small right apical pneumothorax noted on the chest x-ray today, chest tubes have been removed from both lungs. Recommendation: Continue incentive spirometry, continue bronchodilators, try to encourage early ambulation. We'll continue to follow patient will eventually need referral to a rehab facility, it will take a long time to recover. Time with Patient: Less than 30
[2017-12-06] MEDS: ALPRAZolam 0.25 MG TAB PO SCH ×2 (15:39→20:56)
[2017-12-06 16:32] LABS: Glucose,Whole Blood 135 mg/dL (75-99)
--- NOTE | 2017-12-06 18:26 | PN ---
PROGRESS NOTE She is in 617 in ICU. Mrs. Sifuentes is status post aortocoronary bypass surgery. She is doing well. Vital signs stable. She is in a sinus rhythm, S1, S2 heard normally. Lungs reveal improved air entry. Abdomen and lower extremity exam is unchanged. Plan is to continue current medications, incentive spirometry, pulmonary toilet and move her to the telemetry. MMODL / IJN: [id number] /
[2017-12-06] MEDS: SENNOSIDES-DOCUSATE SODIUM 1 EACH TAB PO SCH (20:11)
[2017-12-06] MEDS: CLOPIDOGREL 75 MG TAB PO SCH (20:12)
[2017-12-06 21:47] LABS: Glucose,Whole Blood 124 mg/dL (75-99)
[2017-12-06] MEDS: LACTATED RINGERS 1,000 ML IV SCH (21:48)
--- NOTE | 2017-12-06 21:59 | PN ---
PROGRESS NOTE DATE OF SERVICE: 12/06/2017 Patient is transferred out of ICU and the patient is seen at bedside. The patient's daughter and other family members are at bedside. The patient denies any complaints at that point. She does complain that she feels somewhat anxious. Vital signs temp 96.7, pulse 97, respiration 24, O2 saturation 96%. Blood pressure HEENT atraumatic. Normocephalic. Pupils equal and reactive to light. Extraocular movements intact. NECK: Supple. Buccal mucosa is moist. NECK: Supple without goiter or lymphadenopathy. JVD is negative. No carotid bruit heard. Lungs: " Clear to auscultation. No rales, rhonchi or wheezes. Heart is regular rate and rhythm without gallop rhythm. ABDOMEN: Soft, nontender, nondistended. Bowel sounds positive. EXTREMITIES: No edema, clubbing, cyanosis. Neurologic examination: Cranial nerves 2 thru 12 gross intact. No gross motor or sensory deficits. Skin is warm, dry and intact. LABORATORY STUDIES: White blood count of 11.9, hemoglobin 9, hematocrit 28.5, and platelet count of 204. Sodium 135, potassium 4.5, chloride 102, bicarb 24, BUN 24, creatinine 0.8, glucose 103. ASSESSMENT AND PLAN: 1. Non ST elevation myocardial infarction status post coronary artery bypass grafting x2. Postop day #6. 2. Congestive heart failure. 3. Valvular heart disease. 4. Hyperlipidemia. 5. Acute bronchitis. 6. Chronic obstructive pulmonary disease. 7. Gastroesophageal reflux disease. The patient remains on incentive spirometry, bronchodilators, encouraged ambulation with PT. Patient seems anxious about being discharged early ;counselling done. Daughter at the bedside reenforced need for early ambulation. PLAN: Transfer the patient back to the rehab once arrangements are made. The patient and the family are keen for [facility]. MMODL / IJN: [id number] / [facility]ITALAgnes
[2017-12-07] MEDS: HEPARIN SODIUM,PORCINE 5,000 UNIT/ML 1 ML VIAL SQ SCH ×4 (00:09→23:51)
[2017-12-07 02:31] LABS: Glucose,Whole Blood 98 mg/dL (75-99)
[2017-12-07] MEDS: HYDROcodone/APAP 5-325MG 1 EACH TAB PO PRN ×2 (04:33→09:33)
[2017-12-07 06:09] LABS: Glucose,Whole Blood 104 mg/dL (75-99)
[2017-12-07 06:37] LABS: HCT 29.1 % (34.0-46.0); HGB 9.1 gm/dL (11.4-16.0); MCHC 31.3 g/dL (31.0-37.0); MCV 89.4 fL (80.0-100.0); Mean Platelet Volume 7.5; Platelet Count 275 k/uL (150-450); RBC 3.25 m/uL (3.80-5.40); RDW 14.1 % (11.5-15.5)
[2017-12-07] MEDS: INSULIN ASPART 100 UNIT/ML 1 ML 10 ML VIAL SQ SCH ×4 (06:43→20:56)
[2017-12-07] MEDS: PANTOPRAZOLE 40 MG TABLET PO SCH (06:44)
[2017-12-07 06:49] LABS: ALT 38 U/L (9-52); AST 36 U/L (14-36); Albumin 2.7 g/dL (3.5-5.0); Alkaline Phosphatase 153 U/L (38-126); Anion Gap 11 mmol/L; Blood Urea Nitrogen 20 mg/dL (7-17); Calcium 8.9 mg/dL (8.4-10.2); Carbon Dioxide 23 mmol/L (22-30); Chloride 101 mmol/L (98-107); Glucose 95 mg/dL (74-99); Magnesium 1.8 mg/dL (1.6-2.3); Potassium 4.5 mmol/L (3.5-5.1); Sodium 135 mmol/L (137-145); Total Bilirubin 0.9 mg/dL (0.2-1.3); Total Protein 4.8 g/dL (6.3-8.2)
--- NOTE | 2017-12-07 07:22 | XR ---
EXAMINATION TYPE: XR chest 2V DATE OF EXAM: 12/07/2017 COMPARISON: 12/06/2017 HISTORY: 82 year-old female post open heart surgery TECHNIQUE: AP and lateral views FINDINGS: Median sternotomy wires are present with post-CABG clips. Heart remains mildly enlarged. Fusion is pr ominence relatively similar. Small effusions persist with some patchy bibasilar densities. IMPRESSION: 1. Small right apical pneumothorax remains. 2. Stable residual mild pulmonary vascular congestion. 3. Continued small effusions with adjacent atelectasis and/or consolidation.
[2017-12-07] MEDS: IPRATROPIUM-ALBUTEROL 3 ML NEB INHALATION SCH ×4 (08:52→19:13)
[2017-12-07] MEDS: ALPRAZolam 0.25 MG TAB PO SCH (09:33)
[2017-12-07] MEDS: METOPROLOL TARTRATE 25 MG TAB PO SCH (09:34)
[2017-12-07] MEDS: FUROSEMIDE 10 MG/ML 2 ML VIAL IV SCH ×2 (09:34→20:56)
[2017-12-07] MEDS: ASPIRIN 325 MG TAB PO SCH (09:34)
[2017-12-07] MEDS: ATORVASTATIN 40 MG TAB PO SCH (09:35)
--- NOTE | 2017-12-07 09:42 | P.VSCSTY ---
Greater Saphenous Vein Mapping This is bilateral lower extremity greater saphenous vein mapping. Date of service 11/29/2017 Vein quality and ultrasound appearance no significant wall thickening. Some dilatation above and below the knee on the left.. Vein size groin right 8.3 x 6.2 groin left 6.3 x 6.1 High thigh right 5.8 x 4.7 high thigh left 7.1 x 6.3 Mid thigh right 4.3 x 3.7 mid thigh left 4.7 x 4.1 Above-knee right 3.8 x 3.5 above-knee left 4.9 x 4.1 Below knee right 2.4 x 2.4 below-knee left 5.4 x 5.7 Mid calf right 2.4 x 2.4 mid calf left 3.9 x 2.8 Ankle right 2.2 x 1.8 ankle left [] Impression usable bilateral greater saphenous vein. Right is more consistent in size but is a bit small at the ankle. There are probably usable segments on the left, especially below the knee. Clinical correlation recommended..
--- NOTE | 2017-12-07 09:46 | P.ARTDOP ---
Arterial Doppler Bilateral radial artery testing. Date of study: 11/29/2017 Reason for study: Pre-CABG Utilizing Doppler we find no significant right to left or segmental pressure gradients. Imaging shows proximal diameter on the right 4 x 3.7 mm to distally 2.8 x 2.9 mm. Left measures 3 x 3.5 mm proximally and 2.2 x 3.8 mm distally. With radial artery compression there is a dramatic decrease in the signal making even pressure gradients difficult to obtain. Impression: Drastic decrease in signal suggests radial arteries are not adequately collateralized to use for conduit.
--- NOTE | 2017-12-07 11:42 | PN ---
PROGRESS NOTE This lady is status post aortocoronary bypass surgery. She has a decreased LV function. She is post bypass, recovering nicely. She is in sinus rhythm, hemodynamically stable, slightly tachycardic. There is JVD of 1 cm. No carotid bruit. S1, S2 heard normally. There is evidence of a short systolic murmur. Lungs reveal fine rales over both bases. Lower extremity edema is evident. It is at least mild to moderate bilaterally. I am recommending that we increase the Lopressor to 25 mg in the morning and 12.5 in the evening. Incentive spirometry and also 20 mg q.12 hours of IV push Lasix would be helpful for her, keeping an eye on the potassium. MMODL / IJN: [id number] /
[2017-12-07 12:10] LABS: Glucose,Whole Blood 107 mg/dL (75-99)
--- NOTE | 2017-12-07 12:50 | P.PN ---
<Tr Monge - Last Filed: 12/07/17 12:35> Subjective Progress Note Date: 12/07/17 Principal diagnosis: Non-ST elevation myocardial infarction, evidence of previous anterio-apical myocardial infarction, systolic congestive heart failure with an of EF 20-25%, severe left ventricular dysfunction, severe left main disease equivalent with a totally occluded collateralized left anterior descending artery. Preoperative intra-aortic balloon pump. Mild to moderate mitral valve regurgitation. Hyperlipidemia. Smoking history quit in September 2017, preop FEV1 of 45%, anxiety and a family history of coronary artery disease. POD #8 placement of intra-aortic balloon pump POD #7 urgent non-aortic clamp double off-pump coronary artery bypass grafting using the left internal mammary artery to the left anterior descending artery, reverse saphenous vein graft connected to the aorta using the passport device connected distally to the long obtuse marginal artery. Exclusion of the left atrial appendage with a 45 mm Atriclip. Harvesting of the right greater saphenous vein. Intraoperative transesophageal echocardiogram and epi-aortic scanning. Intraoperative graft flow measurement using the [employer] system. The patient is sitting up to bedside chair. She is in no acute distress. She reports that she had just got out of the shower. She denies any complaints of pain or shortness of breath this time. Her daughter is present, all questions answered to the best of my ability. Her oxygen saturation are 97% on room air. She is achieving 500-750 mL on her incentive spirometry. Objective - Vital Signs Vital signs: Vital Signs Temp 96.7 F L 12/07/17 08:00 Pulse 98 12/07/17 08:00 Resp 18 12/07/17 08:00 BP 97/53 12/07/17 08:00 Pulse Ox 93 L 12/07/17 08:00 Intake & Output 12/06/17 12/07/17 12/07/17 18:59 06:59 18:59 Intake Total 609 Output Total 800 Balance -191 Weight 65.4 kg 65.3 kg Intake: IV 9 Presure Lines 9 Oral 600 Output: Urine 800 Other: Voiding Method Bedside Commode Toilet Toilet # Voids 1 ABP, PAP, CO, CI - Last Documented Arterial Blood Pressure 103/42 Pulmonary Artery Pressure 22/16 Cardiac Output 4.5 Cardiac Index 2.8 - Constitutional General appearance: Present: cooperative, no acute distress, thin - EENT ENT: Present: hearing grossly normal - Neck Details: Neck is supple, no JVD, no lymphadenopathy. - Respiratory Details: Lung sounds are essentially clear throughout, diminished bilateral bases. Respirations are symmetrical and nonlabored. Oxygen saturation are 97% on room air. She is achieving 750 mL on her incentive spirometry. - Cardiovascular Details: Regular rhythm and rate. S1 and S2 present, negative for S3, gallop or murmur. Sternum stable. Remote telemetry showing normal sinus rhythm heart rate 97. Heart hugger is in place and she is demonstrating appropriate use. Knee-high INES hose and sequential compression devices in place to her bilateral lower extremities. +1 edema to her bilateral lower extremities. Peripheral pulses palpable. - Gastrointestinal Gastrointestinal Comment(s): Abdomen soft, nontender and nondistended. Active bowel sounds all 4 abdominal quadrants. Tolerating oral intake. Last bowel movement 12/05/2017. - Genitourinary Genitourinary Comment(s): Adequate urine output. Clear yellow urine. - Integumentary Integumentary Comment(s): Midline sternal incision clean dry and well approximated. No drainage or redness present. Dermabond dressing clean and dry. Right leg EVH site clean dry and well approximated. No redness or drainage present. Skin is warm, dry and pink. - Neurologic Neurologic: Present: CNII-XII intact - Musculoskeletal Musculoskeletal: Present: gait normal, strength equal bilaterally - Psychiatric Psychiatric: Present: A&O x's 3, appropriate affect, intact judgment & insight - Allied health notes Allied health notes reviewed: nursing - Labs CBC & Chem 7: 12/07/17 06:11 12/07/17 06:11 Labs: Abnormal Lab Results - Last 24 Hours (Table) 12/06/17 12/06/17 12/07/17 Range/Units 16:25 21:45 06:07 WBC (3.8-10.6) k/uL RBC (3.80-5.40) m/uL Hgb (11.4-16.0) gm/dL Hct (34.0-46.0) % Sodium (137-145) mmol/L BUN (7-17) mg/dL POC Glucose (mg/dL) 135 H 124 H 104 H (75-99) mg/dL Alkaline Phosphatase (38-126) U/L Total Protein (6.3-8.2) g/dL Albumin (3.5-5.0) g/dL 12/07/17 12/07/17 12/07/17 Range/Units 06:11 06:11 12:00 WBC 12.0 H (3.8-10.6) k/uL RBC 3.25 L (3.80-5.40) m/uL Hgb 9.1 L (11.4-16.0) gm/dL Hct 29.1 L (34.0-46.0) % Sodium 135 L (137-145) mmol/L BUN 20 H (7-17) mg/dL POC Glucose (mg/dL) 107 H (75-99) mg/dL Alkaline Phosphatase 153 H (38-126) U/L Total Protein 4.8 L (6.3-8.2) g/dL Albumin 2.7 L (3.5-5.0) g/dL - Imaging and Cardiology Chest x-ray: report reviewed, image reviewed Assessment and Plan (1) GERD (gastroesophageal reflux disease) Current Visit: Yes Status: Acute Code(s): K21.9 - GASTRO-ESOPHAGEAL REFLUX DISEASE WITHOUT ESOPHAGITIS SNOMED Code(s): 577267998 (2) NSTEMI (non-ST elevated myocardial infarction) Current Visit: Yes Status: Acute Code(s): I21.4 - NON-ST ELEVATION (NSTEMI) MYOCARDIAL INFARCTION SNOMED Code(s): 590927991 (3) Status post aorto-coronary artery bypass graft Current Visit: Yes Status: Acute Code(s): Z95.1 - PRESENCE OF AORTOCORONARY BYPASS GRAFT SNOMED Code(s): 931877263 (4) Systolic heart failure Current Visit: Yes Status: Acute Code(s): I50.20 - UNSPECIFIED SYSTOLIC ( CONGESTIVE) HEART FAILURE SNOMED Code(s): 062814203 (5) 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 Current Visit: Yes Status: Chronic Code(s): I25.10 - ATHSCL HEART DISEASE OF [place] CORONARY ARTERY W/O ANG PCTRS SNOMED Code(s): 140257630 (6) Family history of heart disease Current Visit: Yes Status: Chronic Code(s): Z82.49 - FAMILY HX OF ISCHEM HEART DIS AND OTH DIS OF THE CIRC SYS SNOMED Code(s): 452337183 (7) History of anxiety Current Visit: Yes Status: Chronic Code(s): Z86.59 - PERSONAL HISTORY OF OTHER MENTAL AND BEHAVIORAL DISORDERS SNOMED Code(s): 415765334 (8) History of hyperlipidemia Current Visit: Yes Status: Chronic Code(s): Z86.39 - PERSONAL HISTORY OF ENDO, NUTRITIONAL AND METABOLIC DISEASE SNOMED Code(s): 612371679 Plan: 1. Continue aspirin, statin, Plavix, beta omayra. Metoprolol tartrate was increased by cardiology to 25 mg by mouth daily in a.m. and 12.5 mg by mouth daily at bedtime. 2. Encourage incentive spirometry use 10 times every hour. Encourage continued smoking cessation. 3. Patient was started on Lasix 20 mg IV every 12 hours by cardiology. 4. Blood sugar management per primary care service. 5. GI/DVT prophylaxis. 6. Increase activity, ambulate as tolerated, PT/OT/cardiac rehab following. 7. Will monitor daily labs and chest x-rays. 8. Patient may need LifeVest at discharge. 9. More recommendations to follow as patient progresses in her care. Anticipate discharge in the next 24 hours to inpatient or subacute rehab. Time with Patient: Greater than 30 <Juan C Caldwell - Last Filed: 12/07/17 15:20> Objective - Vital Signs Vital signs: Vital Signs Temp 96.7 F L 12/07/17 12:00 Pulse 93 12/07/17 12:00 Resp 18 12/07/17 12:00 BP 86/42 12/07/17 12:00 Pulse Ox 93 L 12/07/17 12:00 Intake & Output 12/06/17 12/07/17 12/07/17 18:59 06:59 18:59 Intake Total 609 Output Total 800 Balance -191 Weight 65.4 kg 65.3 kg Intake: IV 9 Presure Lines 9 Oral 600 Output: Urine 800 Other: Voiding Method Bedside Commode Toilet Toilet # Voids 1 ABP, PAP, CO, CI - Last Documented Arterial Blood Pressure 103/42 Pulmonary Artery Pressure 22/16 Cardiac Output 4.5 Cardiac Index 2.8 - Labs CBC & Chem 7: 12/07/17 06:11 12/07/17 06:11 Labs: Abnormal Lab Results - Last 24 Hours (Table) 12/06/17 12/06/17 12/07/17 Range/Units 16:25 21:45 06:07 WBC (3.8-10.6) k/uL RBC (3.80-5.40) m/uL Hgb (11.4-16.0) gm/dL Hct (34.0-46.0) % Sodium (137-145) mmol/L BUN (7-17) mg/dL POC Glucose (mg/dL) 135 H 124 H 104 H (75-99) mg/dL Alkaline Phosphatase (38-126) U/L Total Protein (6.3-8.2) g/dL Albumin (3.5-5.0) g/dL 12/07/17 12/07/17 12/07/17 Range/Units 06:11 06:11 12:00 WBC 12.0 H (3.8-10.6) k/uL RBC 3.25 L (3.80-5.40) m/uL Hgb 9.1 L (11.4-16.0) gm/dL Hct 29.1 L (34.0-46.0) % Sodium 135 L (137-145) mmol/L BUN 20 H (7-17) mg/dL POC Glucose (mg/dL) 107 H (75-99) mg/dL Alkaline Phosphatase 153 H (38-126) U/L Total Protein 4.8 L (6.3-8.2) g/dL Albumin 2.7 L (3.5-5.0) g/dL Assessment and Plan Plan: The patient was seen and examined. I agree with the above assessment and plan. She did undergo echocardiogram today which reveals an ejection fraction of around 20-25%. We will arrange for her to receive a LifeVest tomorrow morning. Otherwise she seems somewhat somnolent this afternoon. We will discontinue her narcotics and treat her with extra strength Tylenol. Her beta omayra was increased and she was started on Lasix. She will likely be discharged to subacute rehab within the next 24-48 hours.
--- NOTE | 2017-12-07 13:17 | P.PN ---
Subjective Progress Note Date: 12/07/17 Principal diagnosis: Coronary artery disease status post coronary artery bypass grafting. 82-year-old female postop day #1 status post three-vessel bypass grafting. She was extubated last night. Weaning parameters were excellent. She passed her cuff leak. Blood gases were good. She was awake and alert. She's currently been extubated today liters high flow by nasal cannula. The patient is in no distress at the current time. Still little sleepy. She did get some Xanax this morning. I think as a bad idea. We'll stop for the time being. We may resume in the future pending her mental status. She is on lactated Ringer's IV at 50 mL an hour. She was on an insulin drip at that's been turned off. Chest x-ray looks stable. Postsurgical changes. Nothing acute. She has a history of non-ST segment elevation myocardial infarction, congestive heart failure, valvular heart disease, status post catheterization with a intra-aortic balloon pump hyperlipidemia acute bronchitis suspected COPD anxiety and gastroesophageal reflux disease. The balloon pump still in place. He likely be removed today. Other than that everything is very stable. Reevaluated today on 12/02/2017, patient is doing well, no cough no wheezing, she has chronic shortness of breath related to underlying cardiomyopathy and LV dysfunction. Continues to have intra-aortic balloon pump in place, and that would likely be removed today. WBC count is 17.1 hemoglobin is 9.1 electrolytes were normal BUN is 21 creatinine is 1.20. Reevaluated today on 12/03/2017, patient is basically about the same, remains very marginal and her overall clinical status, patient is doing poorly with incentive spirometry. Intra-aortic balloon pump was discontinued yesterday. Chest x-ray this morning showed evidence of small tiny apical pneumothoraces, however chest tubes remains in place. WBC count is 14.3 hemoglobin is 8.3 basic metabolic profile is normal renal profile is normal. Reevaluated today on 12/04/2017, patient seems to be doing well, relatively asymptomatic, in no distress, remains on dopamine and Primacor. Chest x-ray and labs were reviewed, continues to have tiny biapical pneumothoraces, and some right basilar atelectasis. Patient was reevaluated today on 12/05/2017, doing well, she is basically about the same as she was over the last few days. Continues to remain weak, frail, but in no form of respiratory distress. Labs were reviewed chest x-ray was reviewed, improved aeration noted in the right lung base. Small effusions noted Reevaluated today on 12/06/2017, patient is doing relatively well, seems to be a bit anxious today, hence the Xanax dose was increased to bit. Evaluated today for possible rehab referral. Denies shortness of breath at present, but she tells me clearly that she was very anxious. CBC is normal hemoglobin is 9 electrolytes and basic metabolic profile are normal. Sex x-ray basically about the same with postoperative changes. The patient is seen again today 12/07/2017 in follow-up on the selective care unit. She is currently resting fairly comfortably in bed. She is awake and alert in no acute distress. She is currently maintaining good O2 saturations in the 90s on room air. She is pulling approximately 500 miles on the incentive spirometer. She needs increased encouragement. White count 12.0. Hemoglobin 9.1. Creatinine 0.72. Objective - Vital Signs Vital signs: Vital Signs Temp 96.7 F L 12/07/17 08:00 Pulse 98 12/07/17 08:00 Resp 18 12/07/17 08:00 BP 97/53 12/07/17 08:00 Pulse Ox 93 L 12/07/17 08:00 Intake & Output 12/06/17 12/07/17 12/07/17 18:59 06:59 18:59 Intake Total 609 Output Total 800 Balance -191 Weight 65.4 kg 65.3 kg Intake: IV 9 Presure Lines 9 Oral 600 Output: Urine 800 Other: Voiding Method Bedside Commode Toilet Toilet # Voids 1 ABP, PAP, CO, CI - Last Documented Arterial Blood Pressure 103/42 Pulmonary Artery Pressure 22/16 Cardiac Output 4.5 Cardiac Index 2.8 - Exam Physical Exam revealed an 82-year-old female in no distress. Noted to be a bit anxious. HEENT:[Neck is supple.] [No neck masses.] [No thyromegaly.] [No JVD.] Chest: [Clear throughout, no crackles, no rhonchi, no wheezes.] Cardiac Exam: [Normal S1 and S2, no S3 gallop, no murmur.] Abdomen: [Soft, nontender, no megaly, no rebound, no guarding, normal bowel sounds.] Extremities: [No clubbing, no edema, no cyanosis.] Neurological Exam: [Generally weak, but no gross focal neurologic deficit Psychiatric: Normal mood affect, normal mental status examination. Lymphatics no lymphadenopathy was appreciated. - Labs CBC & Chem 7: 12/07/17 06:11 12/07/17 06:11 Labs: Abnormal Lab Results - Last 24 Hours (Table) 12/06/17 12/06/17 12/07/17 Range/Units 16:25 21:45 06:07 WBC (3.8-10.6) k/uL RBC (3.80-5.40) m/uL Hgb (11.4-16.0) gm/dL Hct (34.0-46.0) % Sodium (137-145) mmol/L BUN (7-17) mg/dL POC Glucose (mg/dL) 135 H 124 H 104 H (75-99) mg/dL Alkaline Phosphatase (38-126) U/L Total Protein (6.3-8.2) g/dL Albumin (3.5-5.0) g/dL 12/07/17 12/07/17 12/07/17 Range/Units 06:11 06:11 12:00 WBC 12.0 H (3.8-10.6) k/uL RBC 3.25 L (3.80-5.40) m/uL Hgb 9.1 L (11.4-16.0) gm/dL Hct 29.1 L (34.0-46.0) % Sodium 135 L (137-145) mmol/L BUN 20 H (7-17) mg/dL POC Glucose (mg/dL) 107 H (75-99) mg/dL Alkaline Phosphatase 153 H (38-126) U/L Total Protein 4.8 L (6.3-8.2) g/dL Albumin 2.7 L (3.5-5.0) g/dL Assessment and Plan Assessment: Impression: Coronary artery disease, status post 2 vessel bypass grafting Non-ST segment elevation myocardial infarction Congestive heart failure Valvular heart disease Status post catheterization and intra-aortic balloon pump on November 29 Hyperlipidemia Acute bronchitis Suspected COPD History of anxiety Gastroesophageal reflux disease Plan: The patient was seen and evaluated by Dr. Rodriguez. She is comfortable on room air. No worsening shortness of breath, cough or congestion. Needs increased encouragement regarding using the incentive spirometer. Increase her activity as tolerated. We'll continue to follow. I, the cosigning physician, performed a history & physical examination of the patient. Lungs sounds have crackles in the bilateral posterior bases. Maintaining good O2 saturations in the 90s on room air. I discussed the assessment and plan of care with my nurse practitioner, Helen Barclay. I attest to the above note as dictated by her.
[2017-12-07] MEDS ORDERED: ACETAMINOPHEN TAB 500 MG TAB PO PRN (15:22)
[2017-12-07] MEDS: MAGNESIUM SULFATE-D5W PMX 1 GM in DEXTROSE/WATER 1 100ML.BAG IVPB SCH ×2 (15:53→17:00)
[2017-12-07] MEDS ORDERED: IBUPROFEN 400 MG TAB PO PRN (16:22)
[2017-12-07 16:41] LABS: Glucose,Whole Blood 118 mg/dL (75-99)
--- NOTE | 2017-12-07 18:26 | PN ---
PROGRESS NOTE DATE OF SERVICE: 12/07/2017 This 82-year-old woman who underwent CAD, CABG is being closely monitored. No chest pain. No palpitations. No fever. EXAM: Alert and oriented x3. Pulse is 88, blood pressure is 86/42, respirations 18, temperature 98.7, pulse ox 93% on room air. HEENT: Conjunctivae normal. NECK: No jugular venous distention. CARDIOVASCULAR: S1, S2 muffled. RESPIRATORY: Breath sounds diminished in the bases. A few scattered rhonchi. ABDOMEN: Soft, nontender. LEGS: No edema. No swelling. NERVOUS SYSTEM: Nonfocal. LAB STUDIES: WBC 12, hemoglobin is 9.1. Sodium 135. Albumin is 2.7. ASSESSMENT: 1. Status post non ST-segment elevation myocardial infarction, status post coronary artery bypass graft x2. 2. Congestive heart failure. 3. Valvular heart disease. 4. Hyperlipidemia. 5. History of chronic bronchitis. 6. History of chronic obstructive pulmonary disease. 7. Gastroesophageal reflux disease. 8. Mild hyponatremia:. RECOMMENDATIONS AND DISCUSSION: Recommend continue current medical management and continue symptomatic treatment. Continue with bronchodilators. Otherwise, closely follow with Cardiovascular Surgery. Monitor blood sugars closely. DVT prophylaxis and spirometry. Further recommendations to follow. MMODL / IJN: [id number] /
[2017-12-07] MEDS: METOPROLOL TARTRATE 12.5 MG TAB PO SCH (20:28)
[2017-12-07 20:31] LABS: Glucose,Whole Blood 138 mg/dL (75-99)
[2017-12-07] MEDS: CLOPIDOGREL 75 MG TAB PO SCH (20:55)
[2017-12-07] MEDS: SENNOSIDES-DOCUSATE SODIUM 1 EACH TAB PO SCH (20:55)
[2017-12-07] MEDS ORDERED: METOPROLOL TARTRATE 12.5 MG TAB PO SCH (21:00)
[2017-12-07] MEDS ORDERED: ALPRAZolam 0.25 MG TAB PO STA (21:53)
[2017-12-08 01:46] LABS: Glucose,Whole Blood 94 mg/dL (75-99)
[2017-12-08] MEDS: PANTOPRAZOLE 40 MG TABLET PO SCH (06:39)
[2017-12-08] MEDS: METOPROLOL TARTRATE 25 MG TAB PO SCH ×3 (06:39→20:08)
[2017-12-08 06:43] LABS: Glucose,Whole Blood 96 mg/dL (75-99)
[2017-12-08] MEDS ORDERED: DEXTROSE 5% IN WATER 100 ML with AMIODARONE 150 MG IV ONE (06:50)
--- NOTE | 2017-12-08 06:51 | XR ---
EXAMINATION TYPE: XR chest 2V DATE OF EXAM: 12/08/2017 COMPARISON: Chest x-ray one day ago and older studies. HISTORY: Post open heart surgery progress study. TECHNIQUE: Frontal and lateral views of the chest are obtained. FINDINGS: Sternal wires and mediastinal clips as well as cardiac valvular device are all redemonstrat ed. There are persistent small bilateral pleural effusions and associated bibasilar atelectasis. Ther e is persistent stable small right apical pneumothorax. There is persistent cardiomegaly. IMPRESSION: Overall stable findings, cardiomegaly with small bilateral pleural effusions and associa ramses bibasilar atelectasis as well as small right apical pneumothorax all redemonstrated.
[2017-12-08 07:04] LABS: HCT 29.6 % (34.0-46.0); HGB 9.5 gm/dL (11.4-16.0); MCV 87.3 fL (80.0-100.0); Mean Platelet Volume 7.4; Platelet Count 323 k/uL (150-450); RBC 3.39 m/uL (3.80-5.40); RDW 14.6 % (11.5-15.5); WBC 14.4 k/uL (3.8-10.6)
[2017-12-08] MEDS: INSULIN ASPART 100 UNIT/ML 1 ML 10 ML VIAL SQ SCH ×4 (07:16→21:48)
[2017-12-08 07:20] LABS: ALT 35 U/L (9-52); AST 30 U/L (14-36); Alkaline Phosphatase 152 U/L (38-126); Anion Gap 13 mmol/L; Blood Urea Nitrogen 19 mg/dL (7-17); Calcium 8.9 mg/dL (8.4-10.2); Carbon Dioxide 27 mmol/L (22-30); Chloride 98 mmol/L (98-107); Glucose 103 mg/dL (74-99); Potassium 4.1 mmol/L (3.5-5.1); Sodium 138 mmol/L (137-145); Total Protein 5.3 g/dL (6.3-8.2)
[2017-12-08] MEDS: AMIODARONE 450 MG in DEXTROSE 5% IN WATER 250 ML IV SCH ×4 (07:20→14:58)
[2017-12-08] MEDS: IPRATROPIUM-ALBUTEROL 3 ML NEB INHALATION SCH ×4 (08:01→19:32)
[2017-12-08] MEDS: HEPARIN SODIUM,PORCINE 5,000 UNIT/ML 1 ML VIAL SQ SCH ×3 (08:21→23:57)
[2017-12-08] MEDS: ASPIRIN 325 MG TAB PO SCH (08:21)
[2017-12-08] MEDS: ATORVASTATIN 40 MG TAB PO SCH (08:21)
--- NOTE | 2017-12-08 09:16 | ECHOF ---
Referral Reason:Assess LV function MEASUREMENTS -------- HEIGHT: 162.6 cm WEIGHT: 63.5 kg BP: 86/42 RVIDd: 2.5 cm (< 3.3) IVSd: 1.0 cm (0.6 - 1.1) LVIDd: 4.6 cm (3.9 - 5.3) LVPWd: 0.9 cm (0.6 - 1.1) IVSs: 1.0 cm LVIDs: 4.2 cm LVPWs: 1.3 cm LA Diam: 3.0 cm (2.7 - 3.8) LAESV Index (A-L): 26.35 ml/m Ao Diam: 3.1 cm (2.0 - 3.7) AV Cusp: 2.0 cm (1.5 - 2.6) MV EXCURSION: 13.602 mm (> 18.000) MV EF SLOPE: 113 mm/s (70 - 150) EPSS: 1.8 cm MV E Maximino: 1.03 m/s MV DecT: 135 ms MV A Maximino: 0.72 m/s MV E/A Ratio: 1.42 AR PHT: 479 ms RAP: 5.00 mmHg RVSP: 28.91 mmHg FINDINGS -------- Sinus rhythm. This was a technically good study. The left ventricular size is normal. Left ventricular wall thickness is normal. Overall left vent ricular systolic function is severely impaired with, an EF between 20 - 25 %. The right ventricle is normal in size. Normal LA size by volume 22+/-6 ml/m2. The right atrium is normal in size. There is mild aortic valve sclerosis. There is mild aortic regurgitation. Mild mitral annular calcification present. [id number] mitral regurgitation is present. Moderate to severe tricuspid regurgitation present. Right ventricular systolic pressure is normal a t < 35 mmHg. Trace/mild (physiologic) pulmonic regurgitation. The aortic root size is normal. IVC Not well visulized. There is no pericardial effusion. CONCLUSIONS -------- 1. Sinus rhythm. 2. This was a technically good study. 3. The left ventricular size is normal. 4. Left ventricular wall thickness is normal. 5. Overall left ventricular systolic function is severely impaired with, an EF between 20 - 25 %. 6. The right ventricle is normal in size. 7. Normal LA size by volume 22+/-6 ml/m2. 8. The right atrium is normal in size. 9. There is mild aortic valve sclerosis. 10. There is mild aortic regurgitation. 11. Mild mitral annular calcification present. 12. [id number] mitral regurgitation is present. 13. Moderate to severe tricuspid regurgitation present. 14. Right ventricular systolic pressure is normal at < 35 mmHg. 15. Trace/mild (physiologic) pulmonic regurgitation. 16. The aortic root size is normal. 17. IVC Not well visulized. 18. There is no pericardial effusion. GRADES 1 THROUGH 6 TEACHER: Emily Parham RDCS
[2017-12-08] MEDS ORDERED: SODIUM CHLORIDE 0.9% 150 ML IV ONE (09:37)
[2017-12-08] MEDS: ALPRAZolam 0.25 MG TAB PO PRN ×2 (10:00→17:46)
[2017-12-08 11:39] LABS: Glucose,Whole Blood 130 mg/dL (75-99)
[2017-12-08] MEDS: FUROSEMIDE 10 MG/ML 2 ML VIAL IV SCH ×2 (12:21→20:08)
--- NOTE | 2017-12-08 12:40 | P.PN ---
Subjective Progress Note Date: 12/08/17 Principal diagnosis: Coronary artery disease status post coronary artery bypass grafting. 82-year-old female postop day #1 status post three-vessel bypass grafting. She was extubated last night. Weaning parameters were excellent. She passed her cuff leak. Blood gases were good. She was awake and alert. She's currently been extubated today liters high flow by nasal cannula. The patient is in no distress at the current time. Still little sleepy. She did get some Xanax this morning. I think as a bad idea. We'll stop for the time being. We may resume in the future pending her mental status. She is on lactated Ringer's IV at 50 mL an hour. She was on an insulin drip at that's been turned off. Chest x-ray looks stable. Postsurgical changes. Nothing acute. She has a history of non-ST segment elevation myocardial infarction, congestive heart failure, valvular heart disease, status post catheterization with a intra-aortic balloon pump hyperlipidemia acute bronchitis suspected COPD anxiety and gastroesophageal reflux disease. The balloon pump still in place. He likely be removed today. Other than that everything is very stable. Reevaluated today on 12/02/2017, patient is doing well, no cough no wheezing, she has chronic shortness of breath related to underlying cardiomyopathy and LV dysfunction. Continues to have intra-aortic balloon pump in place, and that would likely be removed today. WBC count is 17.1 hemoglobin is 9.1 electrolytes were normal BUN is 21 creatinine is 1.20. Reevaluated today on 12/03/2017, patient is basically about the same, remains very marginal and her overall clinical status, patient is doing poorly with incentive spirometry. Intra-aortic balloon pump was discontinued yesterday. Chest x-ray this morning showed evidence of small tiny apical pneumothoraces, however chest tubes remains in place. WBC count is 14.3 hemoglobin is 8.3 basic metabolic profile is normal renal profile is normal. Reevaluated today on 12/04/2017, patient seems to be doing well, relatively asymptomatic, in no distress, remains on dopamine and Primacor. Chest x-ray and labs were reviewed, continues to have tiny biapical pneumothoraces, and some right basilar atelectasis. Patient was reevaluated today on 12/05/2017, doing well, she is basically about the same as she was over the last few days. Continues to remain weak, frail, but in no form of respiratory distress. Labs were reviewed chest x-ray was reviewed, improved aeration noted in the right lung base. Small effusions noted Reevaluated today on 12/06/2017, patient is doing relatively well, seems to be a bit anxious today, hence the Xanax dose was increased to bit. Evaluated today for possible rehab referral. Denies shortness of breath at present, but she tells me clearly that she was very anxious. CBC is normal hemoglobin is 9 electrolytes and basic metabolic profile are normal. Sex x-ray basically about the same with postoperative changes. The patient is seen again today 12/07/2017 in follow-up on the selective care unit. She is currently resting fairly comfortably in bed. She is awake and alert in no acute distress. She is currently maintaining good O2 saturations in the 90s on room air. She is pulling approximately 500 miles on the incentive spirometer. She needs increased encouragement. White count 12.0. Hemoglobin 9.1. Creatinine 0.72. Patient is seen again today 12/08/2017 in follow-up on the selective care unit. She is awake and alert in no acute distress. She was having some issues with low blood pressure earlier this morning and received a fluid bolus per cardiology. Her chest x-ray shows cardiomegaly with small bilateral pleural effusion and bibasilar atelectasis. There is a continued small right apical pneumothorax. Follow-up echocardiogram yesterday revealed severely impaired left ventricular systolic function with estimated ejection fraction 20-25%. The patient may need a LifeVest before discharge. She is currently maintaining O2 saturations in the 90s on 2 L/m per nasal cannula. White count 14.4. Hemoglobin 9.5. Creatinine 0.83. Objective - Vital Signs Vital signs: Vital Signs Temp 97.8 F 12/07/17 20:00 Pulse 73 12/08/17 07:25 Resp 18 12/08/17 06:39 BP 69/41 12/08/17 07:33 Pulse Ox 97 12/08/17 06:39 Intake & Output 12/07/17 12/08/17 12/08/17 18:59 06:59 18:59 Intake Total 480 180 118 Output Total 650 Balance -170 180 118 Weight 65.6 kg Intake: Intake, IV Titration 200 Amount Magnesium Sulfate-D5w Pmx 200 1 gm In Dextrose/Water 1 100ml.bag @ 100 mls/hr IVPB Q1H [facility] Rx#: [id number] Oral 280 180 118 Output: Urine 650 Other: Voiding Method Toilet Toilet # Voids 1 # Bowel Movements 1 ABP, PAP, CO, CI - Last Documented Arterial Blood Pressure 103/42 Pulmonary Artery Pressure 22/16 Cardiac Output 4.5 Cardiac Index 2.8 - Exam GENERAL EXAM: Alert, fairly comfortable in no apparent distress. HEAD: Normocephalic. EYES: Normal reaction of pupils, equal size. NOSE: Clear with pink turbinates. THROAT: No erythema or exudates. NECK: No masses, no JVD. CHEST: No chest wall deformity. LUNGS: Equal air entry with crackles in the bilateral posterior bases. CVS: S1 and S2 normal with an audible murmur, regular rhythm. ABDOMEN: No hepatosplenomegaly, normal bowel sounds, no guarding or rigidity. SPINE: No scoliosis or deformity SKIN: No rashes CENTRAL NERVOUS SYSTEM: No focal deficits, tone is normal in all 4 extremities. EXTREMITIES: There is no peripheral edema. No clubbing, no cyanosis. Peripheral pulses are intact. - Labs CBC & Chem 7: 12/08/17 06:45 12/08/17 06:45 Labs: Abnormal Lab Results - Last 24 Hours (Table) 12/07/17 12/07/17 12/08/17 Range/Units 16:36 20:29 06:45 WBC 14.4 H (3.8-10.6) k/uL RBC 3.39 L (3.80-5.40) m/uL Hgb 9.5 L (11.4-16.0) gm/dL Hct 29.6 L (34.0-46.0) % BUN (7-17) mg/dL Glucose (74-99) mg/dL POC Glucose (mg/dL) 118 H 138 H (75-99) mg/dL Alkaline Phosphatase (38-126) U/L Total Protein (6.3-8.2) g/dL Albumin (3.5-5.0) g/dL 12/08/17 12/08/17 Range/Units 06:45 11:34 WBC (3.8-10.6) k/uL RBC (3.80-5.40) m/uL Hgb (11.4-16.0) gm/dL Hct (34.0-46.0) % BUN 19 H (7-17) mg/dL Glucose 103 H (74-99) mg/dL POC Glucose (mg/dL) 130 H (75-99) mg/dL Alkaline Phosphatase 152 H (38-126) U/L Total Protein 5.3 L (6.3-8.2) g/dL Albumin 3.0 L (3.5-5.0) g/dL Assessment and Plan Assessment: Impression: Coronary artery disease, status post 2 vessel bypass grafting Non-ST segment elevation myocardial infarction Congestive heart failure Valvular heart disease Status post catheterization and intra-aortic balloon pump on November 29 Hyperlipidemia Acute bronchitis Suspected COPD History of anxiety Gastroesophageal reflux disease Plan: The patient was seen and evaluated by Dr. Rodriguez. She did have issues with hypotension earlier this morning. Echocardiogram was reviewed. He does have severely impaired left ventricular systolic function with estimated ejection fraction 20-25%. She may require a LifeVest prior to discharge. No worsening shortness of breath, cough or congestion. Needs increased encouragement regarding using the incentive spirometer. Increase her activity as tolerated. We'll continue to follow. I, the cosigning physician, performed a history & physical examination of the patient. Lungs sounds have crackles in the bilateral posterior bases. Maintaining good O2 saturations in the 90s on 2 L/m per nasal cannula. I discussed the assessment and plan of care with my nurse practitioner, Helen Barclay. I attest to the above note as dictated by her.
--- NOTE | 2017-12-08 13:04 | P.PN ---
Subjective Progress Note Date: 12/08/17 Principal diagnosis: Non-ST elevation myocardial infarction, evidence of previous anterio-apical myocardial infarction, systolic congestive heart failure with an of EF 20-25%, severe left ventricular dysfunction, severe left main disease equivalent with a totally occluded collateralized left anterior descending artery. Preoperative intra-aortic balloon pump. Mild to moderate mitral valve regurgitation. Hyperlipidemia. Smoking history quit in September 2017, preop FEV1 of 45%, anxiety and a family history of coronary artery disease. POD #9 placement of intra-aortic balloon pump POD #8 urgent non-aortic clamp double off-pump coronary artery bypass grafting using the left internal mammary artery to the left anterior descending artery, reverse saphenous vein graft connected to the aorta using the passport device connected distally to the long obtuse marginal artery. Exclusion of the left atrial appendage with a 45 mm Atriclip. Harvesting of the right greater saphenous vein. Intraoperative transesophageal echocardiogram and epi-aortic scanning. Intraoperative graft flow measurement using the [email or web address] system. Postoperative paroxysmal atrial fibrillation, an expected outcome of surgery. The patient is sitting up to bedside chair. She is complaining of episodes of anxiousness. She is currently in atrial fibrillation on the remote telemetry with a heart rate of 134 BPM. Her oxygen saturation are 97% on room air. She is achieving 500-750 mL on her incentive spirometry. She denies any complaints of pain at this time. Objective - Vital Signs Vital signs: Vital Signs Temp 97.8 F 12/07/17 20:00 Pulse 73 12/08/17 07:25 Resp 18 12/08/17 06:39 BP 69/41 12/08/17 07:33 Pulse Ox 97 12/08/17 06:39 Intake & Output 12/07/17 12/08/17 12/08/17 18:59 06:59 18:59 Intake Total 480 180 118 Output Total 650 Balance -170 180 118 Weight 65.6 kg Intake: Intake, IV Titration 200 Amount Magnesium Sulfate-D5w Pmx 200 1 gm In Dextrose/Water 1 100ml.bag @ 100 mls/hr IVPB Q1H [facility] Rx#: [id number] Oral 280 180 118 Output: Urine 650 Other: Voiding Method Toilet Toilet # Voids 1 # Bowel Movements 1 ABP, PAP, CO, CI - Last Documented Arterial Blood Pressure 103/42 Pulmonary Artery Pressure 22/16 Cardiac Output 4.5 Cardiac Index 2.8 - Constitutional General appearance: Present: cooperative, no acute distress, thin - EENT ENT: Present: hearing grossly normal - Neck Details: Neck is supple, no JVD or lymphadenopathy. 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 Respirations are symmetrical and nonlabored. Oxygen saturation is 97% on room air. She is achieving 500-750 mL on her incentive spirometry with encouragement. - Cardiovascular Details: Irregular rhythm with tachycardic rate. S1 and S2 present, negative for S3, gallop or murmur. Sternum is stable. Remote telemetry showing atrial fibrillation with RVR heart rate 134. Heart hugger in place and she is demonstrating appropriate use. Knee-high INES hose and sequential compression devices in place to her bilateral lower extremities. +1 edema to her bilateral lower extremities. - Gastrointestinal Gastrointestinal Comment(s): Abdomen soft, nontender and nondistended. Active bowel sounds all 4 abdominal quadrants. Tolerating oral intake. Bowel movement yesterday 12/07/2017. - Genitourinary Genitourinary Comment(s): Adequate urine output, clear yellow urine. - Integumentary Integumentary Comment(s): Midline sternal incision clean dry and well approximated. No drainage or redness present. Dermabond dressing clean and dry. Right leg EVH site clean dry and well approximated. No redness or drainage present. Skin is warm, dry and pink. - Neurologic Neurologic: Present: CNII-XII intact - Musculoskeletal Musculoskeletal: Present: generalized weakness, strength equal bilaterally - Psychiatric Psychiatric: Present: A&O x's 3, appropriate affect, intact judgment & insight - Allied health notes Allied health notes reviewed: nursing - Labs CBC & Chem 7: 12/08/17 06:45 12/08/17 06:45 Labs: Abnormal Lab Results - Last 24 Hours (Table) 12/07/17 12/07/17 12/08/17 Range/Units 16:36 20:29 06:45 WBC 14.4 H (3.8-10.6) k/uL RBC 3.39 L (3.80-5.40) m/uL Hgb 9.5 L (11.4-16.0) gm/dL Hct 29.6 L (34.0-46.0) % BUN (7-17) mg/dL Glucose (74-99) mg/dL POC Glucose (mg/dL) 118 H 138 H (75-99) mg/dL Alkaline Phosphatase (38-126) U/L Total Protein (6.3-8.2) g/dL Albumin (3.5-5.0) g/dL 12/08/17 12/08/17 Range/Units 06:45 11:34 WBC (3.8-10.6) k/uL RBC (3.80-5.40) m/uL Hgb (11.4-16.0) gm/dL Hct (34.0-46.0) % BUN 19 H (7-17) mg/dL Glucose 103 H (74-99) mg/dL POC Glucose (mg/dL) 130 H (75-99) mg/dL Alkaline Phosphatase 152 H (38-126) U/L Total Protein 5.3 L (6.3-8.2) g/dL Albumin 3.0 L (3.5-5.0) g/dL - Imaging and Cardiology Chest x-ray: report reviewed, image reviewed Assessment and Plan (1) GERD (gastroesophageal reflux disease) Current Visit: Yes Status: Acute Code(s): K21.9 - GASTRO-ESOPHAGEAL REFLUX DISEASE WITHOUT ESOPHAGITIS SNOMED Code(s): 145459636 (2) NSTEMI (non-ST elevated myocardial infarction) Current Visit: Yes Status: Acute Code(s): I21.4 - NON-ST ELEVATION (NSTEMI) MYOCARDIAL INFARCTION SNOMED Code(s): 482713222 (3) Status post aorto-coronary artery bypass graft Current Visit: Yes Status: Acute Code(s): Z95.1 - PRESENCE OF AORTOCORONARY BYPASS GRAFT SNOMED Code(s): 525728434 (4) Systolic heart failure Current Visit: Yes Status: Acute Code(s): I50.20 - UNSPECIFIED SYSTOLIC ( CONGESTIVE) HEART FAILURE SNOMED Code(s): 983418229 (5) 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 Current Visit: Yes Status: Chronic Code(s): I25.10 - ATHSCL HEART DISEASE OF [place] CORONARY ARTERY W/O ANG PCTRS SNOMED Code(s): 136620118 (6) Family history of heart disease Current Visit: Yes Status: Chronic Code(s): Z82.49 - FAMILY HX OF ISCHEM HEART DIS AND OTH DIS OF THE CIRC SYS SNOMED Code(s): 163997449 (7) History of anxiety Current Visit: Yes Status: Chronic Code(s): Z86.59 - PERSONAL HISTORY OF OTHER MENTAL AND BEHAVIORAL DISORDERS SNOMED Code(s): 445684947 (8) History of hyperlipidemia Current Visit: Yes Status: Chronic Code(s): Z86.39 - PERSONAL HISTORY OF ENDO, NUTRITIONAL AND METABOLIC DISEASE SNOMED Code(s): 976358649 Plan: 1. Continue aspirin, statin, Plavix, beta omayra. We will increase her metoprolol tartrate to 25 mg by mouth twice a day. 2. Encourage incentive spirometry use 10 times every hour. Encourage continued smoking cessation. 3. Continue Lasix 20 mg IV every 12 hours. 4. Blood sugar management per primary care service. 5. GI/DVT prophylaxis. 6. Increase activity, ambulate as tolerated, PT/OT/cardiac rehab following. 7. Will monitor daily labs and chest x-rays. 8. LifeVest has been ordered for the patient, patient was a positive non-STEMI with an ejection fraction of 20-25% per 2-D echocardiogram. 9. More recommendations to follow as patient progresses in her care. Anticipate discharge in the next 24-48 hours to inpatient or subacute rehab. Time with Patient: Greater than 30
--- NOTE | 2017-12-08 13:25 | P.PN ---
Subjective Progress Note Date: 12/08/17 82-year-old female who presented to the emergency room with a chief complaint of shortness of breath. Patient states she has no prior respiratory issues or symptoms until September of 2017. Patient states she awoken from a sleep and was very short of breath. She states she was able to relax and slept in an upright position for the rest of the night. She states in the morning her symptoms resolved. She was just recently in [place] for a month at a rental house and had another episode where she was awoken from a sleep with difficulty breathing. The patient states she went to an urgent care in [place] and was given antibiotics, steroids, and an inhaler. She states her symptoms did not improve and noticed she was continually short of breath. She states she was not able to walk through the grocery store without becoming very short of breath and stopping a few times during shopping to catch her breath. She ended up going to a hospital in [place] for evaluation where she had a CT and chest xray done and was told she had congestive heart failure. Patient states she flew home and presented to the emergency room for further evaluation. She denies chest pain or pressure. Denies dizziness or lightheadness. Denies nausea or vomiting. Denies pain or discomfort. The patient has a history of congestive heart failure recently diagnosed in [place], hyperlipidemia, and anxiety. She is a former cigarette smoker and quit in September 2017. Chest x-ray: Findings compatible with congestive heart failure. Infiltrates or other etiologies not excluded EKG: Sinus tachycardia with ST-T wave changes in the lateral leads Laboratory data: WBC 10.9. Hemoglobin 13.9. Platelet count 314. Sodium 139. Potassium 4.3. BUN 29. Creatinine 1.12. GFR 46. Glucose 122. Magnesium 1.9. Troponins: 0.25, 0.157, 0.152 BNP: 11,700 D-Dimer: 0.69 Lipid panel: Triglycerides 76, cholesterol 145, LDL 61, HDL 69 Testing for influenza A and B was negative The patient was admitted to the hospital under the care of Dr. Landeros. Consultations were placed to Cardiology. 11/26/2017 Patient seen and examined at the bedside. Patient is awake and alert. Patient denies chest pain or pressure. Her shortness of breath has improved. She is on room air with oxygen saturations greater than 92%. She is tolerating PO intake without nausea or vomiting. Vital signs have been stable. Denies pain or discomfort. Echocardiogram was completed revealing severe global hypokinesis of LV, ejection fraction of 20-25%, mild aortic regurgitation, moderate mitral regurgitation, severe tricuspid regurgitation, moderate pulmonary hypertension, RVSP 54.42, small pericardial effusion, and large pleural effusion. 11/27/2017-Note per covering provider 11/28/2017-Note per covering provider 11/29/2017 Patient seen and examined at the bedside. Patient awake and alert. Patient states she is very tired and did not sleep much last night because of her roommate being very loud. Denies chest pain or pressure. Denies shortness of breath. Remains on 20mg lasix PO BID. She was also started on Aldactone 12.5mg PO daily per cardiology. Patient is scheduled for cardiac cath today. 11/30/2017-Patient in OR during physician rounds 12/01/2017 Patient seen and examined at the bedside. She remains in the intensive care unit. Patient underwent cardiac cath on 11/29/2017. A balloon pump was inserted and myocardial revascularization was recommended. She is post op day # 1, CABG x 2 with left internal mammary artery to the left anterior descending artery and reverse saphenous vein graft connected to the aorta using the passport device connected distally to the long obtuse marginal artery. She was extubated last night. She remains on high flow nasal cannula at 8L. Oxygen saturations greater than 92%. Patient remains on insulin drip per protocol which is currently paused due to blood glucose less than 115. Blood sugars are running 110-126. Patient is very tearful this morning. She is very uncomfortable and is anxious to have the IABP removed. Patient states she is not "one to sit around" and can not lay flat in the bed much longer. 12/02/2017 Patient seen and examined on rounds with Dr. Landeros. Patient remains in the intensive care unit. Patients daughter is at the bedside. She is tolerating clear liquids. Denies nausea or vomiting. Denies chest pain or pressure. Denies shortness of breath. IABP remains intact on 2:1. Patient is anxious for IABP to be removed. She was started on dopamine and Primacor. She remains on Novolog sliding scale AC/HS. Recent blood sugars are 126, 120, 121, and 116. 12/03/2017-12/07/2017-See notes from covering provider 12/08/2017 Patient seen and examined at the bedside on rounds with Dr. Landeros. Patient is very anxious this morning and is requesting to have her xanax restarted. Spoke with nursing who states it was discontinued because patient was receiving Xanax and [place] at the same time and it was causing her to be too sleepy. Patient was taking Xanax daily prior to hospitalization for anxiety. Nursing states patient went into Afib with RVR this morning around 0630. She received an amio bolus and has amio drip currently infusing. Patient has since converted back to sinus mechanism. Patient was hypotensive this morning as well with SBP 60-70s. Blood pressure repeated while examining patient. SBP now running in the high 90s. Blood sugars have been ranging from 94-138. Remains on novolog sliding scale coverage. Objective - Vital Signs Vital signs: Vital Signs Temp 97.8 F 12/07/17 20:00 Pulse 73 12/08/17 07:25 Resp 18 12/08/17 06:39 BP 69/41 12/08/17 07:33 Pulse Ox 97 12/08/17 06:39 Intake & Output 12/07/17 12/08/17 12/08/17 18:59 06:59 18:59 Intake Total 480 180 Output Total 650 Balance -170 180 Weight 65.6 kg Intake: Intake, IV Titration 200 Amount Magnesium Sulfate-D5w Pmx 200 1 gm In Dextrose/Water 1 100ml.bag @ 100 mls/hr IVPB Q1H [facility] Rx#: [id number] Oral 280 180 Output: Urine 650 Other: Voiding Method Toilet Toilet # Voids 1 # Bowel Movements 1 ABP, PAP, CO, CI - Last Documented Arterial Blood Pressure 103/42 Pulmonary Artery Pressure 22/16 Cardiac Output 4.5 Cardiac Index 2.8 - Exam GENERAL: This is a 82-year-old female who appears anxious at the time of examination. HEENT: Head is atraumatic, normocephalic. Pupils are equal, round, and reactive to light. Sclerae anicteric. Conjunctivae are clear. Mucus membranes of the mouth are moist. Neck is supple. RESPIRATORY: Respirations equal bilaterally, diminished in the bases. No use of accessory muscles. Patient maintaining oxygen saturation greater than 92%. CARDIOVASCULAR: Telemetry reveals sinus mechanism. Regular rate and rhythm. S1 and S2 noted. No systolic or diastolic murmur auscultated. No JVD noted. No S3 or S4 noted. GASTROINTESTINAL: No distention noted. Abdomen soft and round. Bowel sounds auscultated x 4 quadrants. No pain or tenderness noted upon palpation. INTEGUMENTARY: Sternal chest incision clean dry and intact. No cyanosis. No jaundice. No rashes noted. No cellulitis noted. EXTREMITIES: +1 pulses in the lower extremities. No lower extremity edema. No calf tenderness noted. NEUROLOGIC: Cranial nerves II-XII intact. PSYCHIATRIC: Awake, alert, and oriented X 3. Appropriate affect. - Labs CBC & Chem 7: 12/08/17 06:45 12/08/17 06:45 Labs: Abnormal Lab Results - Last 24 Hours (Table) 12/07/17 12/07/17 12/07/17 Range/Units 12:00 16:36 20:29 WBC (3.8-10.6) k/uL RBC (3.80-5.40) m/uL Hgb (11.4-16.0) gm/dL Hct (34.0-46.0) % BUN (7-17) mg/dL Glucose (74-99) mg/dL POC Glucose (mg/dL) 107 H 118 H 138 H (75-99) mg/dL Alkaline Phosphatase (38-126) U/L Total Protein (6.3-8.2) g/dL Albumin (3.5-5.0) g/dL 12/08/17 12/08/17 Range/Units 06:45 06:45 WBC 14.4 H (3.8-10.6) k/uL RBC 3.39 L (3.80-5.40) m/uL Hgb 9.5 L (11.4-16.0) gm/dL Hct 29.6 L (34.0-46.0) % BUN 19 H (7-17) mg/dL Glucose 103 H (74-99) mg/dL POC Glucose (mg/dL) (75-99) mg/dL Alkaline Phosphatase 152 H (38-126) U/L Total Protein 5.3 L (6.3-8.2) g/dL Albumin 3.0 L (3.5-5.0) g/dL Assessment and Plan Plan: ASSESSMENT: Acute exacerbation of systolic congestive heart failure, BNP 11,700, EF 20-25% Non-ST elevated myocardial infarction, s/p cardiac cath with IABP insertion 11/29, since discontinued CABG x 2 with left internal mammary artery to the left anterior descending artery and reverse saphenous vein graft connected to the aorta using the passport device connected distally to the long obtuse marginal artery, 11/30/2017 , POD # 8 Atrial fibrillation with rapid ventricular response, converted to SR Moderate pulmonary hypertension Small pericardial effusion visualized on echocardiogram Small bilateral pleural effusions visualized on CXR 11/26/2017 Hyperlipidemia Anxiety, unspecified Nicotine dependence, in remission, patient quit smoking in September 2017 PLAN: Continue postoperative surgical care per cardiothoracic team Continue novolog sliding scale AC/HS Capillary blood glucose accu-checks AC/HS Per Dr. Landeros, restart Xanax 0.25mg TID PRN Continue Tylenol for pain GI/DVT prophylaxis Monitor vital signs and address as appropriate Further recommendations pending patient's course Nurse practitioner note has been reviewed by physician. Signing provider agrees with the documented findings, assessment, and plan of care.
[2017-12-08 17:05] LABS: Glucose,Whole Blood 119 mg/dL (75-99)
--- NOTE | 2017-12-08 19:01 | PN ---
PROGRESS NOTE This lady went into atrial fibrillation for short while, received a amiodarone IV and she is back in sinus rhythm. She is looking and feeling better. She denies chest pain, she complains of weakness. She is resting comfortably. Vital signs are stable. S1, S2 heard normally. Short systolic murmur noted. Lungs are clear. Abdomen and lower extremity exam unchanged. PLAN: To continue IV amiodarone and when it is over switch her to oral. She is a very frail lady. Her weight is low. We will place her on 200 mg of amiodarone daily. I advised her to continue with Lopressor for the time being. Continue incentive spirometry and pulmonary toilet. MMODL / IJN: [id number] /
[2017-12-08] MEDS: CLOPIDOGREL 75 MG TAB PO SCH (20:08)
[2017-12-08] MEDS: SENNOSIDES-DOCUSATE SODIUM 1 EACH TAB PO SCH (20:09)
[2017-12-08 21:06] LABS: Glucose,Whole Blood 104 mg/dL (75-99)
[2017-12-09] MEDS: AMIODARONE 450 MG in DEXTROSE 5% IN WATER 250 ML IV SCH ×2 (00:08)
[2017-12-09] MEDS: ALPRAZolam 0.25 MG TAB PO PRN ×3 (01:49→14:31)
[2017-12-09 02:10] LABS: Glucose,Whole Blood 116 mg/dL (75-99)
[2017-12-09 05:59] LABS: HCT 28.3 % (34.0-46.0); HGB 8.7 gm/dL (11.4-16.0); Hypochromasia Slight; MCH 27.8 pg (25.0-35.0); MCHC 30.7 g/dL (31.0-37.0); MCV 90.5 fL (80.0-100.0); Mean Platelet Volume 7.3; Platelet Count 286 k/uL (150-450); RBC 3.13 m/uL (3.80-5.40); WBC 15.4 k/uL (3.8-10.6)
[2017-12-09 06:06] LABS: Glucose,Whole Blood 108 mg/dL (75-99)
[2017-12-09] MEDS: INSULIN ASPART 100 UNIT/ML 1 ML 10 ML VIAL SQ SCH ×4 (06:06→21:00)
[2017-12-09 06:09] LABS: ALT 39 U/L (9-52); AST 37 U/L (14-36); Albumin 2.9 g/dL (3.5-5.0); Alkaline Phosphatase 133 U/L (38-126); Anion Gap 14 mmol/L; Blood Urea Nitrogen 24 mg/dL (7-17); Calcium 8.6 mg/dL (8.4-10.2); Carbon Dioxide 23 mmol/L (22-30); Chloride 96 mmol/L (98-107); Glucose 101 mg/dL (74-99); Magnesium 1.9 mg/dL (1.6-2.3); Potassium 4.1 mmol/L (3.5-5.1); Sodium 133 mmol/L (137-145); Total Bilirubin 0.8 mg/dL (0.2-1.3)
[2017-12-09] MEDS: PANTOPRAZOLE 40 MG TABLET PO SCH (06:31)
[2017-12-09] MEDS: ATORVASTATIN 40 MG TAB PO SCH (08:21)
[2017-12-09] MEDS: AMIODARONE 200 MG TAB PO SCH (08:21)
[2017-12-09] MEDS: ASPIRIN 325 MG TAB PO SCH (08:21)
[2017-12-09] MEDS: HEPARIN SODIUM,PORCINE 5,000 UNIT/ML 1 ML VIAL SQ SCH (08:22)
[2017-12-09] MEDS: IPRATROPIUM-ALBUTEROL 3 ML NEB INHALATION SCH ×4 (08:22→19:28)
--- NOTE | 2017-12-09 08:38 | P.PN ---
<Sowmya Knight - Last Filed: 12/09/17 08:30> Subjective Progress Note Date: 12/09/17 Principal diagnosis: Non-ST elevation myocardial infarction, evidence of previous anterio-apical myocardial infarction, systolic congestive heart failure with EF 20-25%, severe left main disease equivalent with a totally occluded collateralized left anterior descending artery, severe left ventricular dysfunction. Preoperative intra-aortic balloon pump. Mild to moderate mitral valve regurgitation. Hyperlipidemia. Smoking history, preop FEV1 of 45% of predicted although the patient was lying flat at the time. Anxiety. Family history of heart disease. POD #10 placement of intra-aortic balloon pump POD #9 urgent non-aortic clamp double off-pump coronary artery bypass grafting using the left internal mammary artery to the left anterior descending artery, reverse saphenous vein graft connected to the aorta using the passport device connected distally to the long obtuse marginal artery. Exclusion of the left atrial appendage with a 45 mm Atriclip. Harvesting of the right greater saphenous vein. Intraoperative transesophageal echocardiogram and epi-aortic scanning. Intraoperative graft flow measurement using the iPayment system. Postoperative paroxysmal atrial fibrillation, and expected outcome surgery. Patient's currently sitting up in the chair in no acute distress. States pain is controlled. Patient had episodes of paroxysmal atrial fibrillation, currently in sinus rhythm. Has had periods of high anxiety but feels her Xanax ordered is correct now. Objective - Vital Signs Vital signs: Vital Signs Temp 96.9 F L 12/09/17 07:52 Pulse 70 12/09/17 07:52 Resp 18 12/09/17 07:52 BP 95/51 12/09/17 07:52 Pulse Ox 99 12/09/17 07:52 Intake & Output 12/08/17 12/09/17 12/09/17 18:59 06:59 18:59 Intake Total 918 250 Balance 918 250 Weight 64.4 kg Intake: Intake, IV Titration 540 250 Amount Amiodarone 450 mg In 440 250 Dextrose 5% in Water 250 ml @ 1 MG/MIN 33.33 mls/ hr IV .Q7H31M [facility] Rx#: [id number] Dextrose 5% in Water 100 100 ml @ 618 mls/hr IV .Q10M ONE with Amiodarone 150 mg Rx#:[id number] Oral 378 Other: Voiding Method Toilet Toilet # Voids 1 ABP, PAP, CO, CI - Last Documented Arterial Blood Pressure 103/42 Pulmonary Artery Pressure 22/16 Cardiac Output 4.5 Cardiac Index 2.8 - Constitutional General appearance: Present: cooperative, no acute distress - Respiratory Details: Lungs sounds diminished bilaterally. Respirations even, nonlabored. Currently on room air with oxygen saturation 99%. Only able to achieve 500 mL on her incentive spirometer. Effective cough. - Cardiovascular Details: S1, S2 present. Regular rate and rhythm, sinus rhythm on telemetry. Palpable peripheral pulses bilaterally. Trace bilateral lower extremity edema present. No calf pain or tenderness noted. Heart hugger in place with patient demonstrating appropriate use. Antiembolism stockings, SCDs present. - Gastrointestinal Gastrointestinal Comment(s): Abdomen soft, nontender, nondistended. Active bowel sounds 4 quadrants. Tolerating diet. Positive bowel movement. - Genitourinary Genitourinary Comment(s): Continues to void clear, yellow urine. - Integumentary Integumentary Comment(s): Skin is warm and dry without evidence of good perfusion. Anterior chest incision well approximated and covered with dry intact dressing. Right lower extremity EVH site well approximated - Neurologic Neurologic: Present: CNII-XII intact - Musculoskeletal Musculoskeletal: Present: gait normal, strength equal bilaterally - Psychiatric Psychiatric: Present: A&O x's 3, appropriate affect, intact judgment & insight - Allied health notes Allied health notes reviewed: nursing - Labs CBC & Chem 7: 12/09/17 05:17 12/09/17 05:17 Labs: Abnormal Lab Results - Last 24 Hours (Table) 12/08/17 12/08/17 12/08/17 Range/Units 11:34 16:46 20:53 WBC (3.8-10.6) k/uL RBC (3.80-5.40) m/uL Hgb (11.4-16.0) gm/dL Hct (34.0-46.0) % MCHC (31.0-37.0) g/dL Sodium (137-145) mmol/L Chloride (98-107) mmol/L BUN (7-17) mg/dL Glucose (74-99) mg/dL POC Glucose (mg/dL) 130 H 119 H 104 H (75-99) mg/dL AST (14-36) U/L Alkaline Phosphatase (38-126) U/L Total Protein (6.3-8.2) g/dL Albumin (3.5-5.0) g/dL 12/09/17 12/09/17 12/09/17 Range/Units 02:01 05:17 05:17 WBC 15.4 H (3.8-10.6) k/uL RBC 3.13 L (3.80-5.40) m/uL Hgb 8.7 L (11.4-16.0) gm/dL Hct 28.3 L (34.0-46.0) % MCHC 30.7 L (31.0-37.0) g/dL Sodium 133 L (137-145) mmol/L Chloride 96 L (98-107) mmol/L BUN 24 H (7-17) mg/dL Glucose 101 H (74-99) mg/dL POC Glucose (mg/dL) 116 H (75-99) mg/dL AST 37 H (14-36) U/L Alkaline Phosphatase 133 H (38-126) U/L Total Protein 5.0 L (6.3-8.2) g/dL Albumin 2.9 L (3.5-5.0) g/dL 12/09/17 Range/Units 06:03 WBC (3.8-10.6) k/uL RBC (3.80-5.40) m/uL Hgb (11.4-16.0) gm/dL Hct (34.0-46.0) % MCHC (31.0-37.0) g/dL Sodium (137-145) mmol/L Chloride (98-107) mmol/L BUN (7-17) mg/dL Glucose (74-99) mg/dL POC Glucose (mg/dL) 108 H (75-99) mg/dL AST (14-36) U/L Alkaline Phosphatase (38-126) U/L Total Protein (6.3-8.2) g/dL Albumin (3.5-5.0) g/dL Assessment and Plan (1) Systolic heart failure Current Visit: Yes Status: Acute Code(s): I50.20 - UNSPECIFIED SYSTOLIC ( CONGESTIVE) HEART FAILURE SNOMED Code(s): 235390590 (2) 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 Current Visit: Yes Status: Chronic Code(s): I25.10 - ATHSCL HEART DISEASE OF [place] CORONARY ARTERY W/O ANG PCTRS SNOMED Code(s): 960787179 (3) History of hyperlipidemia Current Visit: Yes Status: Chronic Code(s): Z86.39 - PERSONAL HISTORY OF ENDO, NUTRITIONAL AND METABOLIC DISEASE SNOMED Code(s): 431119240 (4) History of anxiety Current Visit: Yes Status: Chronic Code(s): Z86.59 - PERSONAL HISTORY OF OTHER MENTAL AND BEHAVIORAL DISORDERS SNOMED Code(s): 710419103 (5) Tobacco dependence in remission Current Visit: No Status: Resolved Code(s): F17.201 - NICOTINE DEPENDENCE, UNSPECIFIED, IN REMISSION SNOMED Code(s): 645964858 (6) History of pneumonia Current Visit: No Status: Resolved Code(s): Z87.01 - PERSONAL HISTORY OF PNEUMONIA (RECURRENT) SNOMED Code(s): 203662914 (7) History of skin cancer Current Visit: No Status: Resolved Code(s): Z85.828 - PERSONAL HISTORY OF OTHER MALIGNANT NEOPLASM OF SKIN SNOMED Code(s): 664972274 (8) Family history of heart disease Current Visit: Yes Status: Chronic Code(s): Z82.49 - FAMILY HX OF ISCHEM HEART DIS AND OTH DIS OF THE CIRC SYS SNOMED Code(s): 251779773 (9) NSTEMI (non-ST elevated myocardial infarction) Current Visit: Yes Status: Acute Code(s): I21.4 - NON-ST ELEVATION (NSTEMI) MYOCARDIAL INFARCTION SNOMED Code(s): 379040613 Plan: 1. Continue aspirin, statin, Plavix, beta omayra, Lasix. 2. Encourage incentive spirometry use 10 times every hour. Encourage continued smoking cessation. 3. Continue amiodarone for atrial fibrillation prophylaxis. 4. GI/DVT prophylaxis. 5. Blood sugar management per primary care service. 6. Increase activity, ambulate as tolerated, PT/OT/cardiac rehab following. 7. Will continue oral Xanax, but will only give Tylenol for pain as the combination of narcotic pain medication and Xanax makes the patient to somnolent to participate in care. 8. Patient will need LifeVest at discharge. She was a positive non-STEMI with an ejection fraction of 20-25% of her 2-D echocardiogram. 9. Anticipate discharge later today versus tomorrow to subacute versus inpatient rehab. Time with Patient: Greater than 30 <Aleshia Monsalve - Last Filed: 12/09/17 13:21> Objective - Vital Signs Vital signs: Vital Signs Temp 96.0 F L 12/09/17 12:00 Pulse 78 12/09/17 12:00 Resp 18 12/09/17 12:00 BP 100/57 12/09/17 12:00 Pulse Ox 98 12/09/17 12:00 Intake & Output 12/08/17 12/09/17 12/09/17 18:59 06:59 18:59 Intake Total 918 250 Output Total 400 Balance 918 250 -400 Weight 64.4 kg Intake: Intake, IV Titration 540 250 Amount Amiodarone 450 mg In 440 250 Dextrose 5% in Water 250 ml @ 1 MG/MIN 33.33 mls/ hr IV .Q7H31M [facility] Rx#: [id number] Dextrose 5% in Water 100 100 ml @ 618 mls/hr IV .Q10M ONE with Amiodarone 150 mg Rx#:[id number] Oral 378 Output: Urine 400 Other: Voiding Method Toilet Toilet # Voids 1 ABP, PAP, CO, CI - Last Documented Arterial Blood Pressure 103/42 Pulmonary Artery Pressure 22/16 Cardiac Output 4.5 Cardiac Index 2.8 - Labs CBC & Chem 7: 12/09/17 05:17 12/09/17 05:17 Labs: Abnormal Lab Results - Last 24 Hours (Table) 12/08/17 12/08/17 12/09/17 Range/Units 16:46 20:53 02:01 WBC (3.8-10.6) k/uL RBC (3.80-5.40) m/uL Hgb (11.4-16.0) gm/dL Hct (34.0-46.0) % MCHC (31.0-37.0) g/dL Sodium (137-145) mmol/L Chloride (98-107) mmol/L BUN (7-17) mg/dL Glucose (74-99) mg/dL POC Glucose (mg/dL) 119 H 104 H 116 H (75-99) mg/dL AST (14-36) U/L Alkaline Phosphatase (38-126) U/L Total Protein (6.3-8.2) g/dL Albumin (3.5-5.0) g/dL 12/09/17 12/09/17 12/09/17 Range/Units 05:17 05:17 06:03 WBC 15.4 H (3.8-10.6) k/uL RBC 3.13 L (3.80-5.40) m/uL Hgb 8.7 L (11.4-16.0) gm/dL Hct 28.3 L (34.0-46.0) % MCHC 30.7 L (31.0-37.0) g/dL Sodium 133 L (137-145) mmol/L Chloride 96 L (98-107) mmol/L BUN 24 H (7-17) mg/dL Glucose 101 H (74-99) mg/dL POC Glucose (mg/dL) 108 H (75-99) mg/dL AST 37 H (14-36) U/L Alkaline Phosphatase 133 H (38-126) U/L Total Protein 5.0 L (6.3-8.2) g/dL Albumin 2.9 L (3.5-5.0) g/dL 12/09/17 Range/Units 11:44 WBC (3.8-10.6) k/uL RBC (3.80-5.40) m/uL Hgb (11.4-16.0) gm/dL Hct (34.0-46.0) % MCHC (31.0-37.0) g/dL Sodium (137-145) mmol/L Chloride (98-107) mmol/L BUN (7-17) mg/dL Glucose (74-99) mg/dL POC Glucose (mg/dL) 128 H (75-99) mg/dL AST (14-36) U/L Alkaline Phosphatase (38-126) U/L Total Protein (6.3-8.2) g/dL Albumin (3.5-5.0) g/dL Assessment and Plan Assessment: patient with EF 20-25% post revascularization and needs fullfill life-vest requirements. ALESHIA ALVARADO MD
[2017-12-09] MEDS: FUROSEMIDE 10 MG/ML 2 ML VIAL IV SCH ×2 (08:48→20:39)
[2017-12-09] MEDS: METOPROLOL TARTRATE 25 MG TAB PO SCH ×2 (09:51→20:38)
[2017-12-09] MEDS: APIXABAN 2.5 MG TABLET PO SCH ×2 (11:33→20:38)
[2017-12-09 12:04] LABS: Glucose,Whole Blood 128 mg/dL (75-99)
--- NOTE | 2017-12-09 12:06 | P.PN ---
Subjective Progress Note Date: 12/09/17 Principal diagnosis: status post CABG this is an 82-year-old female who is status post coronary artery bypass grafting surgery. She was seen and examined this morning, sitting up in the chair at bedside. Doing well with her incentive spirometry. Blood pressure 95/58, hemoglobin 8.7. Patient was in atrial fibrillation with rapid ventricular response yesterday, today remaining in normal sinus rhythm. Dr. Marielle Fragoso's recommendation is to initiate Eliquis 2-1/2 mg one tablet by mouth twice a day, decrease aspirin to 81 mg daily and discontinue the Plavix. This was also communicated to cardiothoracic surgery. Patient's concern this morning , is that she be kept on her daily dose of Xanax to help with her anxiety. Arrangements are being made for transfer to rehab today. Objective - Vital Signs Vital signs: Vital Signs Temp 96.9 F L 12/09/17 07:52 Pulse 70 12/09/17 07:52 Resp 18 12/09/17 07:52 BP 95/51 12/09/17 07:52 Pulse Ox 99 12/09/17 07:52 Intake & Output 12/08/17 12/09/17 12/09/17 18:59 06:59 18:59 Intake Total 918 250 Balance 918 250 Weight 64.4 kg Intake: Intake, IV Titration 540 250 Amount Amiodarone 450 mg In 440 250 Dextrose 5% in Water 250 ml @ 1 MG/MIN 33.33 mls/ hr IV .Q7H31M [facility] Rx#: [id number] Dextrose 5% in Water 100 100 ml @ 618 mls/hr IV .Q10M ONE with Amiodarone 150 mg Rx#:[id number] Oral 378 Other: Voiding Method Toilet Toilet # Voids 1 ABP, PAP, CO, CI - Last Documented Arterial Blood Pressure 103/42 Pulmonary Artery Pressure 22/16 Cardiac Output 4.5 Cardiac Index 2.8 - Exam GENERAL EXAM: Alert, fairly comfortable in no apparent distress. HEAD: Normocephalic. EYES: Normal reaction of pupils, equal size. NOSE: Clear with pink turbinates. THROAT: No erythema or exudates. NECK: No masses, no JVD. CHEST: No chest wall deformity. LUNGS: Equal air entry with crackles in the bilateral posterior bases. CVS: S1 and S2 normal with an audible murmur, regular rhythm. ABDOMEN: No hepatosplenomegaly, normal bowel sounds, no guarding or rigidity. SPINE: No scoliosis or deformity SKIN: No rashes CENTRAL NERVOUS SYSTEM: No focal deficits, tone is normal in all 4 extremities. EXTREMITIES: There is no peripheral edema. No clubbing, no cyanosis. Peripheral pulses are intact. - Labs CBC & Chem 7: 12/09/17 05:17 12/09/17 05:17 Labs: Abnormal Lab Results - Last 24 Hours (Table) 12/08/17 12/08/17 12/09/17 Range/Units 16:46 20:53 02:01 WBC (3.8-10.6) k/uL RBC (3.80-5.40) m/uL Hgb (11.4-16.0) gm/dL Hct (34.0-46.0) % MCHC (31.0-37.0) g/dL Sodium (137-145) mmol/L Chloride (98-107) mmol/L BUN (7-17) mg/dL Glucose (74-99) mg/dL POC Glucose (mg/dL) 119 H 104 H 116 H (75-99) mg/dL AST (14-36) U/L Alkaline Phosphatase (38-126) U/L Total Protein (6.3-8.2) g/dL Albumin (3.5-5.0) g/dL 12/09/1718 12/09/17 Range/Units 05:17 05:17 06:03 WBC 15.4 H (3.8-10.6) k/uL RBC 3.13 L (3.80-5.40) m/uL Hgb 8.7 L (11.4-16.0) gm/dL Hct 28.3 L (34.0-46.0) % MCHC 30.7 L (31.0-37.0) g/dL Sodium 133 L (137-145) mmol/L Chloride 96 L (98-107) mmol/L BUN 24 H (7-17) mg/dL Glucose 101 H (74-99) mg/dL POC Glucose (mg/dL) 108 H (75-99) mg/dL AST 37 H (14-36) U/L Alkaline Phosphatase 133 H (38-126) U/L Total Protein 5.0 L (6.3-8.2) g/dL Albumin 2.9 L (3.5-5.0) g/dL Assessment and Plan Plan: Impression: #1Coronary artery disease, status post 2 vessel bypass grafting #2Non-ST segment elevation myocardial infarction #3systolic Congestive heart failure acute on chronic #4 Status post catheterization and intra-aortic balloon pump on November 29 #5 Hyperlipidemia #6 History of anxiety #7 Gastroesophageal reflux disease #8 ischemic cardiomyopathy Plan We will start the patient on Eliquis 2-1/2 mg one tablet by mouth twice a day, decrease aspirin to 81 mg daily, and discontinue the Plavix per Dr. Marielle Fragoso recommendation. ejection fraction 5%. Referral LifeVest be placed prior to discharge. Arrangements are being made for the patient to go to rehab possibly today. DNP note has been reviewed, I agree with a documented findings and plan of care. Patient was seen and examined.
[2017-12-09 13:18] LABS: Appearance,Urine Clear (Clear); Bilirubin,Urine Negative (Negative); Blood,Urine Negative (Negative); Color,Urine Light Yellow; Glucose,Urine (UA) Negative (Negative); Ketones,Urine Negative (Negative); Leukocyte Esterase,Urine Negative (Negative); Nitrite,Urine Negative (Negative); Protein,Urine Negative (Negative); Specific Gravity,Urine 1.006 (1.001-1.035); Urobilinogen,Urine <2.0 mg/dL (<2.0)
[2017-12-09 14:17] VITALS: BMI 24.3
--- NOTE | 2017-12-09 15:06 | P.PN ---
Subjective Progress Note Date: 12/09/17 Principal diagnosis: Coronary artery disease, status post coronary artery bypass grafting, post-op day 8 82-year-old female postop day #1 status post three-vessel bypass grafting. She was extubated last night. Weaning parameters were excellent. She passed her cuff leak. Blood gases were good. She was awake and alert. She's currently been extubated today liters high flow by nasal cannula. The patient is in no distress at the current time. Still little sleepy. She did get some Xanax this morning. I think as a bad idea. We'll stop for the time being. We may resume in the future pending her mental status. She is on lactated Ringer's IV at 50 mL an hour. She was on an insulin drip at that's been turned off. Chest x-ray looks stable. Postsurgical changes. Nothing acute. She has a history of non-ST segment elevation myocardial infarction, congestive heart failure, valvular heart disease, status post catheterization with a intra-aortic balloon pump hyperlipidemia acute bronchitis suspected COPD anxiety and gastroesophageal reflux disease. The balloon pump still in place. He likely be removed today. Other than that everything is very stable. Reevaluated today on 12/02/2017, patient is doing well, no cough no wheezing, she has chronic shortness of breath related to underlying cardiomyopathy and LV dysfunction. Continues to have intra-aortic balloon pump in place, and that would likely be removed today. WBC count is 17.1 hemoglobin is 9.1 electrolytes were normal BUN is 21 creatinine is 1.20. Reevaluated today on 12/03/2017, patient is basically about the same, remains very marginal and her overall clinical status, patient is doing poorly with incentive spirometry. Intra-aortic balloon pump was discontinued yesterday. Chest x-ray this morning showed evidence of small tiny apical pneumothoraces, however chest tubes remains in place. WBC count is 14.3 hemoglobin is 8.3 basic metabolic profile is normal renal profile is normal. Reevaluated today on 12/04/2017, patient seems to be doing well, relatively asymptomatic, in no distress, remains on dopamine and Primacor. Chest x-ray and labs were reviewed, continues to have tiny biapical pneumothoraces, and some right basilar atelectasis. Patient was reevaluated today on 12/05/2017, doing well, she is basically about the same as she was over the last few days. Continues to remain weak, frail, but in no form of respiratory distress. Labs were reviewed chest x-ray was reviewed, improved aeration noted in the right lung base. Small effusions noted Reevaluated today on 12/06/2017, patient is doing relatively well, seems to be a bit anxious today, hence the Xanax dose was increased to bit. Evaluated today for possible rehab referral. Denies shortness of breath at present, but she tells me clearly that she was very anxious. CBC is normal hemoglobin is 9 electrolytes and basic metabolic profile are normal. Sex x-ray basically about the same with postoperative changes. The patient is seen again today 12/07/2017 in follow-up on the selective care unit. She is currently resting fairly comfortably in bed. She is awake and alert in no acute distress. She is currently maintaining good O2 saturations in the 90s on room air. She is pulling approximately 500 miles on the incentive spirometer. She needs increased encouragement. White count 12.0. Hemoglobin 9.1. Creatinine 0.72. Patient is seen again today 12/08/2017 in follow-up on the selective care unit. She is awake and alert in no acute distress. She was having some issues with low blood pressure earlier this morning and received a fluid bolus per cardiology. Her chest x-ray shows cardiomegaly with small bilateral pleural effusion and bibasilar atelectasis. There is a continued small right apical pneumothorax. Follow-up echocardiogram yesterday revealed severely impaired left ventricular systolic function with estimated ejection fraction 20-25%. The patient may need a LifeVest before discharge. She is currently maintaining O2 saturations in the 90s on 2 L/m per nasal cannula. White count 14.4. Hemoglobin 9.5. Creatinine 0.83. On 12/09/2017 patient seen in follow-up. She is resting in bed, appears very weak and fatigued. Currently on room air, 2 sat 98%. Lung sounds are diminished, with some scattered rales. She is compliant with her incentive spirometer. Pain is controlled. Did have episodes of paroxysmal fibrillation, currently sinus rhythm with a controlled rate. Yesterday she did have some episodes of hypotension, today she is maintaining blood pressures SBP 90s to 100s, and DBP 40s to 50s. Her appetite is poor per her daughter. She continues on oral amiodarone, and Eliquis for anticoagulation. Denies any acute dyspnea, denies any chest pain. Today's lab work has been reviewed, WBCs 15.4, hemoglobin is 8.7, serum sodium is 133, potassium is 4.1, B1 is 24, and creatinine is 1.00. Objective - Vital Signs Vital signs: Vital Signs Temp 96.0 F L 12/09/17 12:00 Pulse 78 12/09/17 12:00 Resp 18 12/09/17 12:00 BP 100/57 12/09/17 12:00 Pulse Ox 98 12/09/17 12:00 Intake & Output 12/08/17 12/09/17 12/09/17 18:59 06:59 18:59 Intake Total 918 250 Output Total 400 Balance 918 250 -400 Weight 64.4 kg 64.4 kg Intake: Intake, IV Titration 540 250 Amount Amiodarone 450 mg In 440 250 Dextrose 5% in Water 250 ml @ 1 MG/MIN 33.33 mls/ hr IV .Q7H31M [facility] Rx#: [id number] Dextrose 5% in Water 100 100 ml @ 618 mls/hr IV .Q10M ONE with Amiodarone 150 mg Rx#:[id number] Oral 378 Output: Urine 400 Other: Voiding Method Toilet Toilet # Voids 1 ABP, PAP, CO, CI - Last Documented Arterial Blood Pressure 103/42 Pulmonary Artery Pressure 22/16 Cardiac Output 4.5 Cardiac Index 2.8 - Exam GENERAL EXAM: Alert, appears weak and fatigued, 82-year-old female, fairly comfortable in no apparent distress. HEAD: Normocephalic. EYES: Normal reaction of pupils, equal size. NOSE: Clear with pink turbinates. THROAT: No erythema or exudates. NECK: No masses, no JVD. CHEST: No chest wall deformity. LUNGS: Equal air entry with crackles in the bilateral posterior bases. CVS: S1 and S2 normal with an audible murmur, regular rhythm. ABDOMEN: No hepatosplenomegaly, normal bowel sounds, no guarding or rigidity. SPINE: No scoliosis or deformity SKIN: No rashes CENTRAL NERVOUS SYSTEM: No focal deficits, tone is normal in all 4 extremities. EXTREMITIES: There is no peripheral edema. No clubbing, no cyanosis. Peripheral pulses are intact. - Labs CBC & Chem 7: 12/09/17 05:17 12/09/17 05:17 Labs: Abnormal Lab Results - Last 24 Hours (Table) 12/08/17 12/08/17 12/09/17 Range/Units 16:46 20:53 02:01 WBC (3.8-10.6) k/uL RBC (3.80-5.40) m/uL Hgb (11.4-16.0) gm/dL Hct (34.0-46.0) % MCHC (31.0-37.0) g/dL Sodium (137-145) mmol/L Chloride (98-107) mmol/L BUN (7-17) mg/dL Glucose (74-99) mg/dL POC Glucose (mg/dL) 119 H 104 H 116 H (75-99) mg/dL AST (14-36) U/L Alkaline Phosphatase (38-126) U/L Total Protein (6.3-8.2) g/dL Albumin (3.5-5.0) g/dL 12/09/17 12/09/17 12/09/17 Range/Units 05:17 05:17 06:03 WBC 15.4 H (3.8-10.6) k/uL RBC 3.13 L (3.80-5.40) m/uL Hgb 8.7 L (11.4-16.0) gm/dL Hct 28.3 L (34.0-46.0) % MCHC 30.7 L (31.0-37.0) g/dL Sodium 133 L (137-145) mmol/L Chloride 96 L (98-107) mmol/L BUN 24 H (7-17) mg/dL Glucose 101 H (74-99) mg/dL POC Glucose (mg/dL) 108 H (75-99) mg/dL AST 37 H (14-36) U/L Alkaline Phosphatase 133 H (38-126) U/L Total Protein 5.0 L (6.3-8.2) g/dL Albumin 2.9 L (3.5-5.0) g/dL 12/09/17 Range/Units 11:44 WBC (3.8-10.6) k/uL RBC (3.80-5.40) m/uL Hgb (11.4-16.0) gm/dL Hct (34.0-46.0) % MCHC (31.0-37.0) g/dL Sodium (137-145) mmol/L Chloride (98-107) mmol/L BUN (7-17) mg/dL Glucose (74-99) mg/dL POC Glucose (mg/dL) 128 H (75-99) mg/dL AST (14-36) U/L Alkaline Phosphatase (38-126) U/L Total Protein (6.3-8.2) g/dL Albumin (3.5-5.0) g/dL Assessment and Plan Plan: Assessment: Coronary artery disease, status post 2 vessel bypass grafting Non-ST segment elevation myocardial infarction Congestive heart failure Valvular heart disease Status post catheterization and intra-aortic balloon pump on November 29 Hyperlipidemia Acute bronchitis Suspected COPD History of anxiety Gastroesophageal reflux disease Plan: She is maintaining normal blood pressure today, still appears weak and fatigued. Continue current plan care, continue encouraging ambulation, continue incentive spirometry. Nebulized treatments. Awaiting authorization for inpatient rehab placement versus subacute rehab. Still awaiting LifeVest. Continue to follow with you. I performed a history & physical examination of the patient and discussed their management with my nurse practitioner, Jeannie Krishnamurthy. I reviewed the nurse practitioner's note and agree with the documented findings and plan of care. Lung sounds are positive for Crackles bilaterally.. The findings and the impression was discussed with the patient. I attest to the documentation by the nurse practitioner. Time with Patient: Less than 30
[2017-12-09 17:03] LABS: Glucose,Whole Blood 105 mg/dL (75-99)
[2017-12-09] MEDS: ALPRAZolam 0.25 MG TAB PO SCH (20:38)
[2017-12-09] MEDS: SENNOSIDES-DOCUSATE SODIUM 1 EACH TAB PO SCH (20:38)
[2017-12-09 20:57] LABS: Glucose,Whole Blood 126 mg/dL (75-99)
[2017-12-10 02:04] LABS: Glucose,Whole Blood 118 mg/dL (75-99)
[2017-12-10 05:51] LABS: Glucose,Whole Blood 101 mg/dL (75-99)
[2017-12-10] MEDS: INSULIN ASPART 100 UNIT/ML 1 ML 10 ML VIAL SQ SCH ×2 (05:56→12:06)
[2017-12-10] MEDS: PANTOPRAZOLE 40 MG TABLET PO SCH (06:25)
[2017-12-10 06:35] LABS: Basophils # (A) 0.1 k/uL (0-0.2); Basophils % (A) 1 %; Eosinophils # (A) 0.6 k/uL (0-0.7); Eosinophils % (A) 5 %; HGB 9.2 gm/dL (11.4-16.0); Hypochromasia Slight; Lymphocytes # (A) 1.7 k/uL (1.0-4.8); Lymphocytes % (A) 15 %; MCH 27.1 pg (25.0-35.0); MCHC 30.8 g/dL (31.0-37.0); MCV 88.2 fL (80.0-100.0); Mean Platelet Volume 7.5; Monocytes # (A) 0.6 k/uL (0-1.0); Monocytes % (A) 5 %; Neutrophils # (A) 8.4 k/uL (1.3-7.7); Neutrophils % (A) 73 %; Platelet Count 360 k/uL (150-450); RBC 3.41 m/uL (3.80-5.40); RDW 15.3 % (11.5-15.5); WBC 11.6 k/uL (3.8-10.6)
[2017-12-10 06:51] LABS: ALT 37 U/L (9-52); AST 35 U/L (14-36); Alkaline Phosphatase 147 U/L (38-126); Anion Gap 10 mmol/L; Blood Urea Nitrogen 25 mg/dL (7-17); Calcium 8.7 mg/dL (8.4-10.2); Carbon Dioxide 28 mmol/L (22-30); Chloride 96 mmol/L (98-107); Glucose 93 mg/dL (74-99); Potassium 3.7 mmol/L (3.5-5.1); Sodium 134 mmol/L (137-145); Total Bilirubin 0.8 mg/dL (0.2-1.3); Total Protein 5.3 g/dL (6.3-8.2)
[2017-12-10 08:08] VITALS: RESP 16; TEMP 96.8
--- NOTE | 2017-12-10 08:11 | XR ---
EXAMINATION TYPE: XR chest 1V portable DATE OF EXAM: 12/10/2017 COMPARISON: 12/08/2017 HISTORY: Post cardiac surgery. Follow-up exam. TECHNIQUE: Single frontal view of the chest is obtained. FINDINGS: Postoperative changes of the chest are again appreciated, unchanged from the prior. Trace right and small left pleural effusions are unchanged in the interim with bibasilar airspace disease. Pulmonary hyperinflation relates to underlying background COPD. Mild cardiomegaly remains aerated no pulmonary vascular congestion. IMPRESSION: Stable exam from the prior of 12/08/2017 with trace right and small left pleural effusion and associated airspace disease, most commonly atelectasis.
--- NOTE | 2017-12-10 08:20 | P.PN ---
Subjective Progress Note Date: 12/10/17 Principal diagnosis: Non-ST elevation myocardial infarction, evidence of previous anterio-apical myocardial infarction, systolic congestive heart failure with EF 20-25%, severe left main disease equivalent with a totally occluded collateralized left anterior descending artery, severe left ventricular dysfunction. Preoperative intra-aortic balloon pump. Mild to moderate mitral valve regurgitation. Hyperlipidemia. Smoking history, preop FEV1 of 45% of predicted although the patient was lying flat at the time. Anxiety. Family history of heart disease. POD #11 placement of intra-aortic balloon pump POD #10 urgent non-aortic clamp double off-pump coronary artery bypass grafting using the left internal mammary artery to the left anterior descending artery, reverse saphenous vein graft connected to the aorta using the passport device connected distally to the long obtuse marginal artery. Exclusion of the left atrial appendage with a 45 mm Atriclip. Harvesting of the right greater saphenous vein. Intraoperative transesophageal echocardiogram and epi-aortic scanning. Intraoperative graft flow measurement using the [employer] system. Postoperative paroxysmal atrial fibrillation, and expected outcome surgery. Patient's currently sitting up in the chair in no acute distress. States pain is controlled. Patient had episodes of paroxysmal atrial fibrillation, remains in sinus rhythm. Awaiting insurance authorization for placement, placement of a LifeVest. Objective - Vital Signs Vital signs: Vital Signs Temp 96.8 F L 12/10/17 08:00 Pulse 78 12/10/17 08:00 Resp 16 12/10/17 08:00 BP 124/58 12/10/17 08:00 Pulse Ox 97 12/10/17 08:00 Intake & Output 12/09/17 12/10/17 12/10/17 18:59 06:59 18:59 Intake Total 100 Output Total 700 400 Balance -600 -400 Weight 64.4 kg 64.4 kg Intake: Oral 100 Output: Urine 700 400 Other: Voiding Method Toilet # Voids 1 1 1 ABP, PAP, CO, CI - Last Documented Arterial Blood Pressure 103/42 Pulmonary Artery Pressure 22/16 Cardiac Output 4.5 Cardiac Index 2.8 - Constitutional General appearance: Present: cooperative, no acute distress - Respiratory Details: Lungs sounds diminished bilaterally. Respirations even, nonlabored. Currently on room air with oxygen saturations 96%. Able to achieve 500-750 mL on her incentive spirometry. Effective cough. - Cardiovascular Details: S1, S2 present. Regular rate and rhythm, sinus rhythm on telemetry. Sternum stable. Palpable peripheral pulses bilaterally. Bilateral lower extremity edema present. No calf pain or tenderness noted. Heart hugger in place with patient demonstrating appropriate use. Antiembolism stockings, SCDs present. - Gastrointestinal Gastrointestinal Comment(s): Abdomen soft, nontender, nondistended. Active bowel sounds 4 quadrants. Tolerating diet. Positive bowel movement. - Genitourinary Genitourinary Comment(s): Continues to void clear, yellow urine. - Integumentary Integumentary Comment(s): Anterior chest incision well approximated covered with dry intact dressing. Right lower extremity EVH site well approximated. Skin is warm and dry with evidence of good perfusion. - Neurologic Neurologic: Present: CNII-XII intact - Musculoskeletal Musculoskeletal: Present: gait normal, strength equal bilaterally - Psychiatric Psychiatric: Present: A&O x's 3, appropriate affect, intact judgment & insight - Allied health notes Allied health notes reviewed: nursing - Labs CBC & Chem 7: 12/10/17 06:17 12/10/17 06:17 Labs: Abnormal Lab Results - Last 24 Hours (Table) 12/09/17 12/09/17 12/09/17 Range/Units 11:44 16:55 20:55 WBC (3.8-10.6) k/uL RBC (3.80-5.40) m/uL Hgb (11.4-16.0) gm/dL Hct (34.0-46.0) % MCHC (31.0-37.0) g/dL Neutrophils # (1.3-7.7) k/uL Sodium (137-145) mmol/L Chloride (98-107) mmol/L BUN (7-17) mg/dL POC Glucose (mg/dL) 128 H 105 H 126 H (75-99) mg/dL Alkaline Phosphatase (38-126) U/L Total Protein (6.3-8.2) g/dL Albumin (3.5-5.0) g/dL 12/10/17 12/10/17 12/10/17 Range/Units 02:02 05:50 06:17 WBC 11.6 H (3.8-10.6) k/uL RBC 3.41 L (3.80-5.40) m/uL Hgb 9.2 L (11.4-16.0) gm/dL Hct 30.0 L (34.0-46.0) % MCHC 30.8 L (31.0-37.0) g/dL Neutrophils # 8.4 H (1.3-7.7) k/uL Sodium (137-145) mmol/L Chloride (98-107) mmol/L BUN (7-17) mg/dL POC Glucose (mg/dL) 118 H 101 H (75-99) mg/dL Alkaline Phosphatase (38-126) U/L Total Protein (6.3-8.2) g/dL Albumin (3.5-5.0) g/dL 12/10/17 Range/Units 06:17 WBC (3.8-10.6) k/uL RBC (3.80-5.40) m/uL Hgb (11.4-16.0) gm/dL Hct (34.0-46.0) % MCHC (31.0-37.0) g/dL Neutrophils # (1.3-7.7) k/uL Sodium 134 L (137-145) mmol/L Chloride 96 L (98-107) mmol/L BUN 25 H (7-17) mg/dL POC Glucose (mg/dL) (75-99) mg/dL Alkaline Phosphatase 147 H (38-126) U/L Total Protein 5.3 L (6.3-8.2) g/dL Albumin 3.0 L (3.5-5.0) g/dL - Imaging and Cardiology Chest x-ray: report reviewed, image reviewed Assessment and Plan (1) Systolic heart failure Current Visit: Yes Status: Acute Code(s): I50.20 - UNSPECIFIED SYSTOLIC ( CONGESTIVE) HEART FAILURE SNOMED Code(s): 242717062 (2) 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 Current Visit: Yes Status: Chronic Code(s): I25.10 - ATHSCL HEART DISEASE OF [place] CORONARY ARTERY W/O ANG PCTRS SNOMED Code(s): 984368751 (3) History of hyperlipidemia Current Visit: Yes Status: Chronic Code(s): Z86.39 - PERSONAL HISTORY OF ENDO, NUTRITIONAL AND METABOLIC DISEASE SNOMED Code(s): 014476860 (4) History of anxiety Current Visit: Yes Status: Chronic Code(s): Z86.59 - PERSONAL HISTORY OF OTHER MENTAL AND BEHAVIORAL DISORDERS SNOMED Code(s): 587560162 (5) Tobacco dependence in remission Current Visit: No Status: Resolved Code(s): F17.201 - NICOTINE DEPENDENCE, UNSPECIFIED, IN REMISSION SNOMED Code(s): 486290903 (6) History of pneumonia Current Visit: No Status: Resolved Code(s): Z87.01 - PERSONAL HISTORY OF PNEUMONIA (RECURRENT) SNOMED Code(s): 282960239 (7) History of skin cancer Current Visit: No Status: Resolved Code(s): Z85.828 - PERSONAL HISTORY OF OTHER MALIGNANT NEOPLASM OF SKIN SNOMED Code(s): 620070543 (8) Family history of heart disease Current Visit: Yes Status: Chronic Code(s): Z82.49 - FAMILY HX OF ISCHEM HEART DIS AND OTH DIS OF THE CIRC SYS SNOMED Code(s): 083377092 (9) NSTEMI (non-ST elevated myocardial infarction) Current Visit: Yes Status: Acute Code(s): I21.4 - NON-ST ELEVATION (NSTEMI) MYOCARDIAL INFARCTION SNOMED Code(s): 563575731 (10) Paroxysmal atrial fibrillation Current Visit: Yes Status: Acute Code(s): I48.0 - PAROXYSMAL ATRIAL FIBRILLATION SNOMED Code(s): 298498243 Plan: 1. Continue aspirin, statin, Plavix, beta omayra, Lasix. 2. Encourage incentive spirometry use 10 times every hour. Encourage continued smoking cessation. 3. Continue amiodarone for atrial fibrillation prophylaxis. Eliquis added per cardiology for anticoagulation. 4. GI/DVT prophylaxis. 5. Blood sugar management per primary care service. 6. Increase activity, ambulate as tolerated, PT/OT/cardiac rehab following. 7. Will continue oral Xanax, but will only give Tylenol for pain as the combination of narcotic pain medication and Xanax makes the patient to somnolent to participate in care. 8. Patient will be fitted for LifeVest today. She was a positive non-STEMI with an ejection fraction of 20-25% of her 2-D echocardiogram. 9. Will discharge today to inpatient versus subacute rehab once insurance authorization is approved and LifeVest has been placed. Time with Patient: Greater than 30
[2017-12-10] MEDS: IPRATROPIUM-ALBUTEROL 3 ML NEB INHALATION SCH ×3 (08:37→15:59)
[2017-12-10] MEDS ORDERED: ASPIRIN 81 MG PO SCH (09:00)
[2017-12-10] MEDS: AMIODARONE 200 MG TAB PO SCH (10:20)
[2017-12-10] MEDS: APIXABAN 2.5 MG TABLET PO SCH (10:21)
[2017-12-10] MEDS: ATORVASTATIN 40 MG TAB PO SCH (10:22)
[2017-12-10] MEDS: METOPROLOL TARTRATE 25 MG TAB PO SCH (10:22)
[2017-12-10] MEDS: FUROSEMIDE 10 MG/ML 2 ML VIAL IV SCH (10:36)
[2017-12-10] MEDS: ALPRAZolam 0.25 MG TAB PO SCH (10:41)
[2017-12-10] MEDS: ALPRAZolam 0.25 MG TAB PO PRN ×2 (10:42→15:48)
[2017-12-10] MEDS ORDERED: FUROSEMIDE 40 MG TAB PO SCH (10:45)
[2017-12-10] MEDS ORDERED: SPIRONOLACTONE 25 MG TAB PO SCH (10:45)
[2017-12-10] MEDS ORDERED: POTASSIUM CHLORIDE ER 20 MEQ TAB.ER PO SCH ×2 (11:00)
--- NOTE | 2017-12-10 11:24 | P.DS ---
Providers Date of admission: 11/24/17 22:03 Expected date of discharge: 12/09/17 Attending physician: Aleshia Monsalve Consults: 11/24/17 22:03 Consult Physician Urgent Consulting Provider: Jose Jin Consult Reason/Comments: nstemi Do you want consulting provider notified?: Yes 11/29/17 14:45 Consult Physician Routine Consulting Provider: Mendez Mcfadden Consult Reason/Comments: preop cabg Do you want consulting provider notified?: Yes Consult to Anesthesia Routine Consulting Provider: Anesthesia,Services Consult Reason/Comments: Cardiac Surgery Pre-Op 11/30/17 13:18 Consult Physician Routine Consulting Provider: Lawrence Landeros Consult Reason/Comments: medical management Do you want consulting provider notified?: Already Contacted 12/06/17 07:38 Consult Physician Routine Consulting Provider: Rodolfo Garcia Consult Reason/Comments: inpatient rehab Do you want consulting provider notified?: Yes Primary care physician: Lawrence Landeros - Discharge Diagnosis(es) (1) Systolic heart failure Current Visit: Yes Status: Acute (2) 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 Current Visit: Yes Status: Chronic (3) History of hyperlipidemia Current Visit: Yes Status: Chronic (4) History of anxiety Current Visit: Yes Status: Chronic (5) Tobacco dependence in remission Current Visit: No Status: Resolved (6) History of pneumonia Current Visit: No Status: Resolved (7) History of skin cancer Current Visit: No Status: Resolved (8) Family history of heart disease Current Visit: Yes Status: Chronic (9) NSTEMI (non-ST elevated myocardial infarction) Current Visit: Yes Status: Acute (10) Paroxysmal atrial fibrillation Current Visit: Yes Status: Acute Hospital Course: FINAL DIAGNOSIS: 1. Non-ST elevation myocardial infarction, evidence of previous nevaeh-apical myocardial infarction 2. Systolic congestive heart failure with ejection fraction 20-25% 3. Severe left main disease equivalent with a totally occluded collateralized left anterior descending artery 4. Severe left ventricular dysfunction 5. Mild to moderate mitral valve regurgitation 6. Hyperlipidemia 7. Smoking history with a preoperative FEV1 of 45% of predicted 8. Anxiety 9. Family history of heart disease 10. Postoperative paroxysmal atrial fibrillation, an expected outcome of surgery PRINCIPAL PROCEDURE: 1. Left heart catheterization 2. Placement of intra-aortic balloon pump 3. Urgent non-aortic clamp double off pump coronary artery bypass grafting using the left internal mammary artery to the left anterior descending artery, reverse saphenous vein graft connected to the aorta using the passport device connected distally to the long obtuse marginal artery. 4. Exclusion of the left atrial appendage with a 45 mm after clip 5. Harvesting of the right greater saphenous vein 6. Intraoperative transesophageal echocardiogram 7. Epi-aortic scanning 8. Intraoperative graft flow measurement using the [employer] system HISTORY OF PRESENT ILLNESS: This 82-year-old lady who follows on an outpatient basis with Dr. Lawrence Landeros presented to the emergency room on November 24 with complaints of shortness of breath so extensive that she could not lay flat. Apparently she had similar episodes over the previous couple of months starting in September. She had just returned from [place] where she had been to an urgent care and an emergency room with similar complaints, she was diagnosed with COPD and congestive heart failure and had been discharged on azithromycin and a Medrol Dosepak as well as Lasix and inhaler. She returned to [place], had similar symptoms of shortness of breath as well as anxiety and bilateral lower extremity edema without chest pain and she reported to the emergency room at [facility]. An EKG was performed demonstrating sinus rhythm with lateral T-wave inversion. She was ruled in for a non-STEMI. On November 25 she had a transthoracic echocardiogram demonstrating severe global hypokinesis of the left ventricle, an ejection fraction of 20-25%, mild AI, moderate MR, moderate to severe TR, moderate pulmonary hypertension, small pericardial effusion, and large pleural effusion. She was recommended to undergo heart catheterization which was completed on November 29 and which demonstrated distal left main/proximal circumflex with 80-85% stenosis, ostial LAD with 100% stenosis, proximal circumflex after the origin of the OM branch with 90% stenosis, distal circumflex with 80% stenosis, and the LAD filling via collaterals from the RCA. Dr. Kovacs from cardiothoracic surgery was consulted regarding surgical revascularization recommendations. Our recommendations were for urgent coronary artery bypass grafting, all risks and benefits were explained to the patient and her family and they consented to proceed with surgery. An intra-aortic balloon pump was placed to offload the workload of the heart, the patient was rested overnight, and was taken the following morning to the operating room. HOSPITAL COURSE: On 11/30/2017 the patient was taken to the preoperative area, prepared in the usual fashion, and subsequently taken to the operating room where Dr. Monsalve performed an urgent non-aortic clamp double off pump coronary artery bypass grafting using the left internal mammary artery to the left anterior descending artery, reverse saphenous vein graft connected to the aorta using the passport device connected distally to the long obtuse marginal artery , exclusion of the left atrial appendage with a 45 mm AtriClip, harvesting of the right greater saphenous vein, intraoperative transesophageal echocardiogram , epi-aortic scanning, and intraoperative graft flow measurement using the Medistim system. Upon completion of surgery the patient was transferred to the cardiovascular intensive care unit where she was recovered, monitored hemodynamically, and where she progressed to cardiac rehabilitation phase 1. She was extubated, all lines, tubes, drips, and intra-aortic balloon pump were discontinued when appropriate, and she was transferred to [address] [place] [address] for further monitoring and rehabilitation. Her oxygen was titrated down and she continued to work with physical therapy. She did develop paroxysmal atrial fibrillation which was treated accordingly and she was ready to be discharged to subacute rehab on postoperative day #10. Due to diagnosis of myocardial infarction with an ejection fraction of less than 35% she was fitted for a LifeVest to be worn at discharge. She received written and verbal instruction regarding her medications, activity restriction, signs and symptoms requiring physician notification, and follow-up appointments. COMPLICATIONS: The patient experienced post-operative paroxysmal atrial fibrillation which was treated accordingly. Patient Condition at Discharge: Stable Plan - Discharge Summary Discharge Rx Participant: Yes New Discharge Prescriptions: New Acetaminophen Tab [Tylenol] 1,000 mg PO Q6HR PRN tab PRN Reason: Fever And/ Or Pain Amiodarone [Cordarone] 200 mg PO DAILY tab Apixaban [Eliquis] 2.5 mg PO BID tablet Aspirin 81 mg PO DAILY chew Atorvastatin [Lipitor] 40 mg PO DAILY tab Ipratropium-Albuterol Nebulize [Duoneb 0.5 mg-3 mg/3 ml Soln] 3 ml INHALATION RT-QID ampul.neb Ipratropium-Albuterol Nebulize [Duoneb 0.5 mg-3 mg/3 ml Soln] 3 ml INHALATION RT-Q2H PRN ampul.neb PRN Reason: Shortness Of Breath Or Wheezing Magnesium Hydroxide [Milk of Magnesia Concentrate] 2,400 mg PO BID PRN ml PRN Reason: Constipation Metoprolol Tartrate [Lopressor] 25 mg PO BID tab Pantoprazole [Protonix] 40 mg PO AC-BRKFST tablet. ALPRAZolam [Xanax] 0.25 mg PO Q6HR PRN #60 tab PRN Reason: Anxiety Furosemide [Lasix] 40 mg PO DAILY tab Spironolactone [Aldactone] 12.5 mg PO DAILY tab Discontinued methylPREDNISolone Dose Pack [Medrol Dose Pack] See Taper PO DAILY Furosemide [Lasix] 10 mg PO DAILY Azithromycin [Zithromax Z-pack] See Taper PO DAILY Albuterol Sulfate [Proair Hfa] 2 puff INHALATION RT-Q4H PRN PRN Reason: Wheezing Lansoprazole [Prevacid] 30 mg PO DAILY PRN PRN Reason: GERD Atorvastatin [Lipitor] 10 mg PO HS Aspirin 81 mg PO HS ALPRAZolam [Xanax] 0.25 mg PO DAILY PRN PRN Reason: Anxiety Discharge Medication List Acetaminophen Tab [Tylenol] 1,000 mg PO Q6HR PRN tab 12/09/17 [Rx] Amiodarone [Cordarone] 200 mg PO DAILY tab 12/09/17 [Rx] Apixaban [Eliquis] 2.5 mg PO BID tablet 12/09/17 [Rx] Aspirin 81 mg PO DAILY chew 12/09/17 [Rx] Atorvastatin [Lipitor] 40 mg PO DAILY tab 12/09/17 [Rx] Ipratropium-Albuterol Nebulize [Duoneb 0.5 mg-3 mg/3 ml Soln] 3 ml INHALATION RT -Q2H PRN ampul.neb 12/09/17 [Rx] Ipratropium-Albuterol Nebulize [Duoneb 0.5 mg-3 mg/3 ml Soln] 3 ml INHALATION RT -QID ampul.neb 12/09/17 [Rx] Magnesium Hydroxide [Milk of Magnesia Concentrate] 2,400 mg PO BID PRN ml 12/09 [Rx] Metoprolol Tartrate [Lopressor] 25 mg PO BID tab 12/09/17 [Rx] Pantoprazole [Protonix] 40 mg PO AC-BRKFST tablet. 12/09/17 [Rx] ALPRAZolam [Xanax] 0.25 mg PO Q6HR PRN #60 tab 12/10/17 [Rx] Furosemide [Lasix] 40 mg PO DAILY tab 12/10/17 [Rx] Spironolactone [Aldactone] 12.5 mg PO DAILY tab 12/10/17 [Rx] Follow up Appointment(s)/Referral(s): Aleshia Monsalve MD [STAFF PHYSICIAN] - 12/31/17 10:15 am Lawrence Landeors DO [Primary Care Provider] - 12/20/17 3:00 pm Mendez Mcfadden DO [Doctor of Osteopathic Medicine] - 12/23/17 1:45 pm [facility], [NON-STAFF] - Jose Jin MD [STAFF PHYSICIAN] - 12/14/17 2:45 pm (At the [facility]) Ambulatory/Diagnostic Orders: Complete Blood Count w/diff [LAB.AMB] Time Frame: 3 Days, Location: Determined By Patient Comprehensive Metabolic Panel [LAB.AMB] Time Frame: 3 Days, Location: Determined By Patient Activity/Diet/Wound Care/Special Instructions: DISCHARGE INSTRUCTIONS: 1. No driving for 4 weeks, or until physician gives their ok. 2. The patient should sleep in their own bed, no medical bed needed. 3. Stairs are not an issue. If the bedroom is upstairs, it is advised that the patient go up at night and down in the morning for the first week. Go slowly, using handrail and take 1 step at a time. 4. INES hose are to be worn for 30 days or until physician discontinues. 5. Heart hugger is to be worn 100% of the time until physician discontinues.( except when showering) 6. No lifting, pushing, or pulling more than 10 pounds for 12 weeks. The physician will advise of any restriction changes. 7. The patient is expected to continue the prescribed walking program. 8. Continue pain control per as needed orders. 9. Continue with incentive spirometry and splinting/heart hugger until otherwise directed by the physician. 10. Must shower daily using liquid antibacterial soap and a separate white washcloth for each individual incision. 11. Routine sternal incision care. No powders, lotions, ointments on incisions. 12. Please call surgeon/FELT FINISHING SUPERVISOR for temp greater than 101 F or purulent drainage from incisions. REHAB/HOME HEALTH SERVICES TO PROVIDE: RN SKILLED HOME CARE SERVICES FOR POST-OP SURGICAL PATIENTS WITH THE FOLLOWING: Coronary Artery Bypass Surgery (CABG), Mitral Valve Replacement/ Repair ( MVR), Aortic Valve Replacement/Repair (AVR) RN TO CONTINUE EDUCATION FROM ``ROAD TO A HEALTH HEART PATIENT EDUCATION MANUAL (GIVEN TO PATIENT IN THE HOSPITAL) MEDICATION RECONCILIATION WITH EDUCATION NEEDED ON FIRST HOME VISIT EMPHASIZE IMPORTANCE OF WEARING BREAST SUPPORT/HEART HUGGER ENCOURAGE USE OF INCENTIVE SPIROMETER 10 X EVERY HOUR WHILE AWAKE ENCOURAGE UTILIZATION OF LOWER EXTREMITY COMPRESSION STOCKINGS/INES HOSE and ELEVATE LEGS ABOVE LEVEL OF HEART WHILE AT REST. ENCOURAGE AMBULATION 3-5x/day INCREASING TOLERATES, WHILE AVOID EXTREMES IN TEMPERATURE FREQUENCY: RN TO OPEN THE PATIENT WITHIN 24 HOURS OF DISCHARGE FROM THE HOSPITAL WITH TELEHEALTH INSTALLED AT [facility] [place], RN TO VISIT 2-3 X A WEEK FOR 4 WEEKS ESTABLISHED BY PATIENT NEEDS. REMOVAL OF SUTURES: NURSING SERVICES TO REMOVE SUTURES TWO WEEKS POST SURGICAL DATE 12/14/17. If any questions regarding suture removal please call the office at [phone]. LABORATORY: CBC, CMP TO BE DRAWN ON THE THIRD DAY HOME/REHAB, 12/13/17 (RAN STAT) FAX RESULTS TO [phone]. TELEHEALTH PARAMETERS: WEIGHT: NOTIFY MD OF WEIGHT GAIN OF 2 LBS IN 24 HOURS OR 5 LBS IN ONE WEEK HR: NOTIFY MD OF HR <55 BPM OR HR>100 BPM BP: NOTIFY MD IF BP <90/55 OR BP>140/100 O2 SAT: NOTIFY MD IF PO2<93% ON ROOM AIR SEND TELEHEALTH REPORT TO DIRECTOR EPIDEMIOLOGY AND CARDIOVASCULAR SURGEON THE FIRST WEEK OF CARE AND THEN BI-WEEKLY. PLEASE ADDITIONALLY COMMUNICATE ANY ABNORMALS AND NEW FINDINGS TO THE SURGEONS OFFICE. A Red armband has been placed on the patient. It should be worn for 30 days post surgery and will be removed by the cardiac surgeons. If an ER visit is necessary, please make sure the number on the Red armband is called. Patient is to be referred to outpatient cardiac rehabilitation approximately 6 weeks post surgery once cleared by cardiology.
[2017-12-10 11:35] VITALS: BP 104/57; PULSE 77
--- NOTE | 2017-12-10 11:48 | P.PN ---
Subjective Progress Note Date: 12/10/17 Principal diagnosis: Coronary artery disease status post coronary artery bypass grafting. 82-year-old female postop day #1 status post three-vessel bypass grafting. She was extubated last night. Weaning parameters were excellent. She passed her cuff leak. Blood gases were good. She was awake and alert. She's currently been extubated today liters high flow by nasal cannula. The patient is in no distress at the current time. Still little sleepy. She did get some Xanax this morning. I think as a bad idea. We'll stop for the time being. We may resume in the future pending her mental status. She is on lactated Ringer's IV at 50 mL an hour. She was on an insulin drip at that's been turned off. Chest x-ray looks stable. Postsurgical changes. Nothing acute. She has a history of non-ST segment elevation myocardial infarction, congestive heart failure, valvular heart disease, status post catheterization with a intra-aortic balloon pump hyperlipidemia acute bronchitis suspected COPD anxiety and gastroesophageal reflux disease. The balloon pump still in place. He likely be removed today. Other than that everything is very stable. Reevaluated today on 12/02/2017, patient is doing well, no cough no wheezing, she has chronic shortness of breath related to underlying cardiomyopathy and LV dysfunction. Continues to have intra-aortic balloon pump in place, and that would likely be removed today. WBC count is 17.1 hemoglobin is 9.1 electrolytes were normal BUN is 21 creatinine is 1.20. Reevaluated today on 12/03/2017, patient is basically about the same, remains very marginal and her overall clinical status, patient is doing poorly with incentive spirometry. Intra-aortic balloon pump was discontinued yesterday. Chest x-ray this morning showed evidence of small tiny apical pneumothoraces, however chest tubes remains in place. WBC count is 14.3 hemoglobin is 8.3 basic metabolic profile is normal renal profile is normal. Reevaluated today on 12/04/2017, patient seems to be doing well, relatively asymptomatic, in no distress, remains on dopamine and Primacor. Chest x-ray and labs were reviewed, continues to have tiny biapical pneumothoraces, and some right basilar atelectasis. Patient was reevaluated today on 12/05/2017, doing well, she is basically about the same as she was over the last few days. Continues to remain weak, frail, but in no form of respiratory distress. Labs were reviewed chest x-ray was reviewed, improved aeration noted in the right lung base. Small effusions noted Reevaluated today on 12/06/2017, patient is doing relatively well, seems to be a bit anxious today, hence the Xanax dose was increased to bit. Evaluated today for possible rehab referral. Denies shortness of breath at present, but she tells me clearly that she was very anxious. CBC is normal hemoglobin is 9 electrolytes and basic metabolic profile are normal. Sex x-ray basically about the same with postoperative changes. The patient is seen again today 12/07/2017 in follow-up on the selective care unit. She is currently resting fairly comfortably in bed. She is awake and alert in no acute distress. She is currently maintaining good O2 saturations in the 90s on room air. She is pulling approximately 500 miles on the incentive spirometer. She needs increased encouragement. White count 12.0. Hemoglobin 9.1. Creatinine 0.72. Patient is seen again today 12/08/2017 in follow-up on the selective care unit. She is awake and alert in no acute distress. She was having some issues with low blood pressure earlier this morning and received a fluid bolus per cardiology. Her chest x-ray shows cardiomegaly with small bilateral pleural effusion and bibasilar atelectasis. There is a continued small right apical pneumothorax. Follow-up echocardiogram yesterday revealed severely impaired left ventricular systolic function with estimated ejection fraction 20-25%. The patient may need a LifeVest before discharge. She is currently maintaining O2 saturations in the 90s on 2 L/m per nasal cannula. White count 14.4. Hemoglobin 9.5. Creatinine 0.83. On 12/09/2017 patient seen in follow-up. She is resting in bed, appears very weak and fatigued. Currently on room air, 2 sat 98%. Lung sounds are diminished, with some scattered rales. She is compliant with her incentive spirometer. Pain is controlled. Did have episodes of paroxysmal fibrillation, currently sinus rhythm with a controlled rate. Yesterday she did have some episodes of hypotension, today she is maintaining blood pressures SBP 90s to 100s, and DBP 40s to 50s. Her appetite is poor per her daughter. She continues on oral amiodarone, and Eliquis for anticoagulation. Denies any acute dyspnea, denies any chest pain. Today's lab work has been reviewed, WBCs 15.4, hemoglobin is 8.7, serum sodium is 133, potassium is 4.1, B1 is 24, and creatinine is 1.00. Patient is seen again today 12/10/2017 in follow-up. She is awake and alert in no acute distress. Maintaining good O2 saturations in the 90s on room air. She is afebrile. Hemodynamically stable. White count 11.6. Hemoglobin 9.2. Creatinine 0.90. A LifeVest has been ordered. The plan is for discharge to inpatient rehabilitation. Objective - Vital Signs Vital signs: Vital Signs Temp 96.8 F L 12/10/17 11:35 Pulse 77 12/10/17 11:35 Resp 16 12/10/17 11:35 BP 104/57 12/10/17 11:35 Pulse Ox 96 12/10/17 11:35 Intake & Output 12/09/17 12/10/17 12/10/17 18:59 06:59 18:59 Intake Total 100 Output Total 700 400 Balance -600 -400 Weight 64.4 kg 64.4 kg Intake: Oral 100 Output: Urine 700 400 Other: Voiding Method Toilet # Voids 1 1 1 ABP, PAP, CO, CI - Last Documented Arterial Blood Pressure 103/42 Pulmonary Artery Pressure 22/16 Cardiac Output 4.5 Cardiac Index 2.8 - Exam GENERAL EXAM: Alert, fairly comfortable in no apparent distress. HEAD: Normocephalic. EYES: Normal reaction of pupils, equal size. NOSE: Clear with pink turbinates. THROAT: No erythema or exudates. NECK: No masses, no JVD. CHEST: No chest wall deformity. LUNGS: Equal air entry with crackles in the bilateral posterior bases. CVS: S1 and S2 normal with an audible murmur, regular rhythm. ABDOMEN: No hepatosplenomegaly, normal bowel sounds, no guarding or rigidity. SPINE: No scoliosis or deformity SKIN: No rashes CENTRAL NERVOUS SYSTEM: No focal deficits, tone is normal in all 4 extremities. EXTREMITIES: There is no peripheral edema. No clubbing, no cyanosis. Peripheral pulses are intact. - Labs CBC & Chem 7: 12/10/17 06:17 12/10/17 06:17 Labs: Abnormal Lab Results - Last 24 Hours (Table) 12/09/17 12/09/17 12/09/17 Range/Units 11:44 16:55 20:55 WBC (3.8-10.6) k/uL RBC (3.80-5.40) m/uL Hgb (11.4-16.0) gm/dL Hct (34.0-46.0) % MCHC (31.0-37.0) g/dL Neutrophils # (1.3-7.7) k/uL Sodium (137-145) mmol/L Chloride (98-107) mmol/L BUN (7-17) mg/dL POC Glucose (mg/dL) 128 H 105 H 126 H (75-99) mg/dL Alkaline Phosphatase (38-126) U/L Total Protein (6.3-8.2) g/dL Albumin (3.5-5.0) g/dL 12/10/17 12/10/17 12/10/17 Range/Units 02:02 05:50 06:17 WBC 11.6 H (3.8-10.6) k/uL RBC 3.41 L (3.80-5.40) m/uL Hgb 9.2 L (11.4-16.0) gm/dL Hct 30.0 L (34.0-46.0) % MCHC 30.8 L (31.0-37.0) g/dL Neutrophils # 8.4 H (1.3-7.7) k/uL Sodium (137-145) mmol/L Chloride (98-107) mmol/L BUN (7-17) mg/dL POC Glucose (mg/dL) 118 H 101 H (75-99) mg/dL Alkaline Phosphatase (38-126) U/L Total Protein (6.3-8.2) g/dL Albumin (3.5-5.0) g/dL 12/10/17 Range/Units 06:17 WBC (3.8-10.6) k/uL RBC (3.80-5.40) m/uL Hgb (11.4-16.0) gm/dL Hct (34.0-46.0) % MCHC (31.0-37.0) g/dL Neutrophils # (1.3-7.7) k/uL Sodium 134 L (137-145) mmol/L Chloride 96 L (98-107) mmol/L BUN 25 H (7-17) mg/dL POC Glucose (mg/dL) (75-99) mg/dL Alkaline Phosphatase 147 H (38-126) U/L Total Protein 5.3 L (6.3-8.2) g/dL Albumin 3.0 L (3.5-5.0) g/dL Assessment and Plan Assessment: Impression: Coronary artery disease, status post 2 vessel bypass grafting Non-ST segment elevation myocardial infarction with severe ischemic cardiomyopathy with estimated ejection fraction 20-25%. The plan is for discharge with a LifeVest. Congestive heart failure Valvular heart disease Status post catheterization and intra-aortic balloon pump on November 29 Hyperlipidemia Acute bronchitis Suspected COPD History of anxiety Gastroesophageal reflux disease Plan: The patient was seen and evaluated by Dr. Rodriguez. She is stable from the pulmonary standpoint. No worsening shortness of breath, cough or congestion. She is cleared for discharge. Needs increased encouragement regarding using the incentive spirometer. Increase her activity as tolerated. Plan is for LifeVest placement. Discharge to inpatient rehabilitation. I, the cosigning physician, performed a history & physical examination of the patient. Lungs sounds have crackles in the bilateral posterior bases. Maintaining good O2 saturations in the 90s on room air. I discussed the assessment and plan of care with my nurse practitioner, Helne Barclay. I attest to the above note as dictated by her.
[2017-12-10 11:50] LABS: Glucose,Whole Blood 111 mg/dL (75-99)
--- NOTE | 2017-12-10 17:12 | PN ---
PROGRESS NOTE Mrs. Sifuentes is in sinus rhythm, comfortable. This lady has ischemic cardiomyopathy with a decreased systolic function and had a run of atrial fibrillation. I have advised anticoagulation with Eliquis 2.5 mg b.i.d. She is doing well. She may be transferred to rehab. Plan is to continue current medical regimen, incentive spirometry and pulmonary toilet. Vital signs are stable. S1, S2 heard normally. Short systolic murmur noted. Lungs are clear. Abdomen and lower extremity exam otherwise is unchanged. MMODL / IJN: [id number] /
== END 2017-12-10 16:12 | DRG 233 ==
LOC: EC 19:50 → 3OBS 22:03 → UNDOADMOB 22:03 → 6SEL 22:03 → 6ICU 11-29 17:59 → 6SEL 12-06 10:57
PROVIDERS: ADMIT Family Medicine; ATTEND Surgery
PROC: B211YZZ Fluoroscopy of Multiple Coronary Arteries using Other Contrast (ICD-10-PCS; 2017-11-29)
PROC: 5A02210 Assistance with Cardiac Output using Balloon Pump, Continuous (ICD-10-PCS; 2017-11-29)
PROC: B215YZZ Fluoroscopy of Left Heart using Other Contrast (ICD-10-PCS; 2017-11-29)
PROC: B54DZZZ Ultrasonography of Bilateral Lower Extremity Veins (ICD-10-PCS; 2017-11-29)
PROC: B34KZZZ Ultrasonography of Bilateral Upper Extremity Arteries (ICD-10-PCS; 2017-11-29)
PROC: 021009W Bypass Coronary Artery, One Artery from Aorta with Autologous Venous Tissue, Open Approach (ICD-10-PCS; 2017-11-30)
PROC: 06BP4ZZ Excision of Right Saphenous Vein, Percutaneous Endoscopic Approach (ICD-10-PCS; 2017-11-30)
PROC: 02L74CK Occlusion of Left Atrial Appendage with Extraluminal Device, Percutaneous Endoscopic Approach (ICD-10-PCS; 2017-11-30)
PROC: B24BZZ4 Ultrasonography of Heart with Aorta, Transesophageal (ICD-10-PCS; 2017-11-30)
PROC: 30233N0 Transfusion of Autologous Red Blood Cells into Peripheral Vein, Percutaneous Approach (ICD-10-PCS; 2017-11-30)
PROC: 02100Z9 Bypass Coronary Artery, One Artery from Left Internal Mammary, Open Approach (ICD-10-PCS; principal; 2017-11-30 07:30)
DX: I21.4 Non-ST elevation (NSTEMI) myocardial infarction (principal); I50.23 Acute on chronic systolic (congestive) heart failure; I95.9 Hypotension, unspecified; I25.82 Chronic total occlusion of coronary artery; E87.1 Hypo-osmolality and hyponatremia; I08.1 Rheumatic disorders of both mitral and tricuspid valves; I31.3 Pericardial effusion (noninflammatory); I27.20 Pulmonary hypertension, unspecified; J44.0 Chronic obstructive pulmonary disease with (acute) lower respiratory infection; J98.11 Atelectasis; J93.9 Pneumothorax, unspecified; I48.0 Paroxysmal atrial fibrillation; I65.21 Occlusion and stenosis of right carotid artery; I25.5 Ischemic cardiomyopathy; J20.9 Acute bronchitis, unspecified; I25.10 Atherosclerotic heart disease of native coronary artery without angina pectoris; E78.5 Hyperlipidemia, unspecified; E87.6 Hypokalemia; K21.9 Gastro-esophageal reflux disease without esophagitis; F41.9 Anxiety disorder, unspecified; F17.201 Nicotine dependence, unspecified, in remission; Z79.82 Long term (current) use of aspirin; Z79.899 Other long term (current) drug therapy; Z85.828 Personal history of other malignant neoplasm of skin; Z87.01 Personal history of pneumonia (recurrent); Z82.49 Family history of ischemic heart disease and other diseases of the circulatory system
CPT/HCPCS: 33967; 36415; 71045; 71046; 80048; 80053; 80061; 80074; 81003; 82330; 82550; 82553; 82805; 83036; 83735; 83880; 84100; 84132; 84443; 84484; 85025; 85027; 85049; 85347; 85379; 85520; 85610; 85730; 86850; 86891; 86900; 86901; 86920; 87070; 87086; 87502; 93005; 93306; 93458; 93880; 93922; 93930; 93970; 94002; 94640; 94760; 96365; 96376; 99291

== ENCOUNTER 2018-01-18 15:22 | Emergency (ER) | payer MEDICARE ==
[2018-01-18 15:28] VITALS: TEMP 97.4
--- NOTE | 2018-01-18 15:50 | ED ---
General Adult HPI - General Chief complaint: Shortness of Breath Stated complaint: SOB, Pain under Rib Area Time Seen by Provider: 01/18/18 15:31 Source: patient Mode of arrival: ambulatory Limitations: no limitations - History of Present Illness Initial comments: Melina Sifuentes is an 82 yo female with complicated medical history most significant for recent admission for UT and subsequent CABG. Patient developed heart failure and was discharged home with a life vest. She was advised by her dough sheeter that she needs to wear the LifeVest for 3 months and then they will determine whether or not she needs an AICD. Patient reports that since getting the life that she has experienced a lot of physical discomfort from wearing a, she states that she has on the Bernabe notch that it is too tight and causes pinching specifically under her left breast and around her abdomen. However she places it on looser setting alarms frequently due to not being in close contact with her skin. She has discussed this with her dough sheeter who advised her last week that she needs to wear for 3 more weeks which time she will have an echo and decision will be made about whether or not she needs an AICD. Patient reports she's has been experiencing progressively worsening discomfort along her left ribs, pain is worse with inspiration. Patient reports the pain resolves when she takes the life vest off to shower. - Related Data Home Medications Medication Instructions Recorded Confirmed Acetaminophen [Tylenol Arthritis] 650 mg PO TID PRN 01/18/18 01/18/18 Atorvastatin [Lipitor] 40 mg PO HS 01/18/18 01/18/18 Multivitamins, Thera [Multivitamin 1 tab PO DAILY 01/18/18 01/18/18 (formulary)] Spironolactone [Aldactone] 25 mg PO DAILY 01/18/18 01/18/18 Previous Rx's Medication Instructions Recorded Amiodarone [Cordarone] 200 mg PO DAILY tab 12/09/17 Apixaban [Eliquis] 2.5 mg PO BID tablet 12/09/17 Aspirin 81 mg PO DAILY chew 12/09/17 Metoprolol Tartrate [Lopressor] 25 mg PO BID tab 12/09/17 Furosemide [Lasix] 40 mg PO DAILY tab 12/10/17 Allergies Allergy/AdvReac Type Severity Reaction Status Date / Time No Known Allergies Allergy Verified 01/18/18 16:41 Review of Systems ROS Statement: Those systems with pertinent positive or pertinent negative responses have been documented in the HPI. ROS Other: All systems not noted in ROS Statement are negative. Constitutional: Denies: fever ENT: Denies: throat pain Respiratory: Reports: other (Pain with inspiration while wearing life vest). Denies: cough Cardiovascular: Denies: palpitations, edema, syncope Endocrine: Reports: fatigue Gastrointestinal: Reports: abdominal pain (pain to the abdominal wall due to rubbing of the life vest) Genitourinary: Denies: urgency Musculoskeletal: Denies: back pain Skin: Denies: rash, lesions Neurological: Denies: headache, weakness Hematological/Lymphatic: Reports: easy bleeding Past Medical History Past Medical History: Coronary Artery Disease (CAD), Heart Failure, Hyperlipidemia, Myocardial Infarction (UT), Pneumonia History of Any Multi-Drug Resistant Organisms: None Reported Past Surgical History: Tonsillectomy Past Anesthesia/Blood Transfusion Reactions: No Reported Reaction Past Psychological History: Anxiety Smoking Status: Former smoker Past Alcohol Use History: Occasional Past Drug Use History: None Reported General Exam Limitations: no limitations General appearance: alert, in no apparent distress Head exam: Present: atraumatic, normocephalic Eye exam: Present: normal appearance, PERRL ENT exam: Present: normal exam Neck exam: Present: normal inspection Respiratory exam: Absent: respiratory distress Cardiovascular Exam: Present: regular rate, systolic murmur, other (well healing mid sternal incision ) GI/Abdominal exam: Present: soft. Absent: distended Rectal exam: Present: deferred Extremities exam: Present: normal inspection Back exam: Present: normal inspection Neurological exam: Present: alert, oriented X3 Psychiatric exam: Present: agitated Skin exam: Present: warm, dry, intact Course Vital Signs 01/18/18 15:25 Temperature 97.4 F L Pulse Rate 83 Respiratory 24 Rate Blood Pressure 126/61 O2 Sat by Pulse 100 Oximetry Medical Decision Making - Medical Decision Making Patient was seen and evaluated, history was obtained from the patient and review of medical record Patient with what seems to be musculoskeletal chest pain which is relieved by removing her life vest. It appears as though LifeVest is ill fitting. She was scheduled to have outpatient labs including a BMP Considering the patient had an UT with no chest pain, will obtain an EKG and complete cardiac workup EKG rate 77, normal sinus rhythm, noted to have left ventricular hypertrophy and left axis deviation, no acute ST elevations or depressions. Labs were reviewed, noted to have elevated BNP consistent with CHF Chest x-ray was reviewed, decreasing pleural effusion At this time I suspect the patient's pain is musculoskeletal in nature, relating to the no fitting LifeVest that she has been wearing. Patient also expresses concern that her pain may be GI related as she has never taken more than one Lipitor daily until she had the UT and she is now on multiple medications daily. Advised the patient to continue taking her medications daily with food and to follow-up with her dough sheeter for reevaluation. Patient has follow-up established with her primary care as well as dough sheeter. At this time the patient expressed relief that there is no acute pathology and is agreeable to plan with discharge home. Patient is previously taken 1 Tylenol daily for the pain, I advised her that she take Tylenol 3 times daily for the discomfort she is experiencing. - Lab Data Result diagrams: 01/18/18 16:02 01/18/18 16:02 Lab Results 01/18/18 01/18/18 01/18/18 Range/Units 16:02 16:02 16:02 WBC 15.1 H (3.8-10.6) k/uL RBC 4.55 (3.80-5.40) m/uL Hgb 12.6 (11.4-16.0) gm/dL Hct 37.8 (34.0-46.0) % MCV 83.0 (80.0-100.0) fL MCH 27.6 (25.0-35.0) pg MCHC 33.2 (31.0-37.0) g/dL RDW 14.5 (11.5-15.5) % Plt Count 335 (150-450) k/uL Neutrophils % 89 % Lymphocytes % 5 % Monocytes % 3 % Eosinophils % 2 % Basophils % 0 % Neutrophils # 13.5 H (1.3-7.7) k/uL Lymphocytes # 0.8 L (1.0-4.8) k/uL Monocytes # 0.5 (0-1.0) k/uL Eosinophils # 0.3 (0-0.7) k/uL Basophils # 0.0 (0-0.2) k/uL PT (9.0-12.0) sec INR (<1.2) APTT (22.0-30.0) sec Sodium 140 (137-145) mmol/L Potassium 4.1 (3.5-5.1) mmol/L Chloride 99 (98-107) mmol/L Carbon Dioxide 25 (22-30) mmol/L Anion Gap 16 mmol/L BUN 23 H (7-17) mg/dL Creatinine 1.00 (0.52-1.04) mg/dL Est GFR (CKD-EPI)AfAm 60 (>60 ml/min/1.73 sqM) Est GFR (CKD-EPI)NonAf 52 (>60 ml/min/1.73 sqM) Glucose 144 H (74-99) mg/dL Calcium 9.2 (8.4-10.2) mg/dL Total Bilirubin 1.5 H (0.2-1.3) mg/dL AST 46 H (14-36) U/L ALT 16 (9-52) U/L Alkaline Phosphatase 111 (38-126) U/L Total Creatine Kinase 52 (30-135) U/L CK-MB (CK-2) 1.0 (0.0-2.4) ng/mL CK-MB (CK-2) Rel Index 1.9 Troponin I 0.026 (0.000-0.034) ng/mL NT-Pro-B Natriuret Pep pg/mL Total Protein 7.6 (6.3-8.2) g/dL Albumin 4.3 (3.5-5.0) g/dL 01/18/18 01/18/18 Range/Units 16:02 16:02 WBC (3.8-10.6) k/uL RBC (3.80-5.40) m/uL Hgb (11.4-16.0) gm/dL Hct (34.0-46.0) % MCV (80.0-100.0) fL MCH (25.0-35.0) pg MCHC (31.0-37.0) g/dL RDW (11.5-15.5) % Plt Count (150-450) k/uL Neutrophils % % Lymphocytes % % Monocytes % % Eosinophils % % Basophils % % Neutrophils # (1.3-7.7) k/uL Lymphocytes # (1.0-4.8) k/uL Monocytes # (0-1.0) k/uL Eosinophils # (0-0.7) k/uL Basophils # (0-0.2) k/uL PT 12.7 H (9.0-12.0) sec INR 1.3 H (<1.2) APTT 25.9 (22.0-30.0) sec Sodium (137-145) mmol/L Potassium (3.5-5.1) mmol/L Chloride (98-107) mmol/L Carbon Dioxide (22-30) mmol/L Anion Gap mmol/L BUN (7-17) mg/dL Creatinine (0.52-1.04) mg/dL Est GFR (CKD-EPI)AfAm (>60 ml/min/1.73 sqM) Est GFR (CKD-EPI)NonAf (>60 ml/min/1.73 sqM) Glucose (74-99) mg/dL Calcium (8.4-10.2) mg/dL Total Bilirubin (0.2-1.3) mg/dL AST (14-36) U/L ALT (9-52) U/L Alkaline Phosphatase (38-126) U/L Total Creatine Kinase (30-135) U/L CK-MB (CK-2) (0.0-2.4) ng/mL CK-MB (CK-2) Rel Index Troponin I (0.000-0.034) ng/mL NT-Pro-B Natriuret Pep 5980 pg/mL Total Protein (6.3-8.2) g/dL Albumin (3.5-5.0) g/dL Disposition Clinical Impression: Chest wall pain following surgery Disposition: HOME SELF-CARE Condition: Good Instructions: Chest Pain (ED) Referrals: Lawrence Landeros DO [Primary Care Provider] - 1-2 days Time of Disposition: 17:15 Decision Time: 17:15
[2018-01-18 16:10] LABS: Basophils % (A) 0 %; Eosinophils # (A) 0.3 k/uL (0-0.7); Eosinophils % (A) 2 %; HCT 37.8 % (34.0-46.0); HGB 12.6 gm/dL (11.4-16.0); Lymphocytes # (A) 0.8 k/uL (1.0-4.8); Lymphocytes % (A) 5 %; MCH 27.6 pg (25.0-35.0); MCHC 33.2 g/dL (31.0-37.0); Mean Platelet Volume 7.2; Monocytes # (A) 0.5 k/uL (0-1.0); Monocytes % (A) 3 %; Neutrophils # (A) 13.5 k/uL (1.3-7.7); Neutrophils % (A) 89 %; Platelet Count 335 k/uL (150-450); RBC 4.55 m/uL (3.80-5.40); RDW 14.5 % (11.5-15.5); WBC 15.1 k/uL (3.8-10.6)
--- NOTE | 2018-01-18 16:17 | XR ---
EXAMINATION TYPE: XR chest 2V DATE OF EXAM: 01/18/2018 COMPARISON: 12/10/2017 INDICATION: Pain short of breath TECHNIQUE: Frontal and lateral views of the chest are obtained. FINDINGS: The heart size is normal. The pulmonary vasculature is normal. Small left pleural effusion is present.. Sternotomy wires from previous cardiac surgery are evident. Previous right pleural effusion is diminished and may have resolved. Small nodular density may be in the periphery of the left midlung. IMPRESSION: 1. Diminishing small left pleural effusion. 2. Resolution previous right pleural effusion.
[2018-01-18 16:19] LABS: Albumin 4.3 g/dL (3.5-5.0); Calcium 9.2 mg/dL (8.4-10.2); Potassium 4.1 mmol/L (3.5-5.1); Total Bilirubin 1.5 mg/dL (0.2-1.3); Total Protein 7.6 g/dL (6.3-8.2)
[2018-01-18 16:42] LABS: Troponin I 0.026 ng/mL (0.000-0.034)
[2018-01-18 16:57] LABS: INR 1.3 (<1.2); Partial Thromboplastin Time 25.9 sec (22.0-30.0); Prothrombin Time 12.7 sec (9.0-12.0)
[2018-01-18 17:31] VITALS: BP 118/59; PULSE 78; RESP 20
== END 2018-01-18 17:31 | disposition home or self-care (01) ==
LOC: EC 15:22
DX: R07.89 Other chest pain (principal); G89.18 Other acute postprocedural pain; R06.02 Shortness of breath; I51.7 Cardiomegaly; I50.9 Heart failure, unspecified; E78.5 Hyperlipidemia, unspecified; I25.2 Old myocardial infarction; Z87.01 Personal history of pneumonia (recurrent); Z87.891 Personal history of nicotine dependence; Z95.1 Presence of aortocoronary bypass graft; Z79.899 Other long term (current) drug therapy
CPT/HCPCS: 36415; 71046; 80053; 82550; 82553; 83880; 84484; 85025; 85610; 85730; 93005; 99285

== ENCOUNTER 2018-02-28 18:20 | Inpatient (IN) | payer MEDICARE ==
[2018-02-28 15:00] LABS: Basophils # (A) 0.1 k/uL (0-0.2); Basophils % (A) 1 %; Eosinophils # (A) 0.3 k/uL (0-0.7); Eosinophils % (A) 4 %; HCT 37.5 % (34.0-46.0); HGB 12.4 gm/dL (11.4-16.0); Lymphocytes % (A) 21 %; MCHC 33.1 g/dL (31.0-37.0); MCV 81.8 fL (80.0-100.0); Mean Platelet Volume 6.7; Monocytes # (A) 0.5 k/uL (0-1.0); Monocytes % (A) 5 %; Neutrophils # (A) 6.6 k/uL (1.3-7.7); Neutrophils % (A) 68 %; Platelet Count 399 k/uL (150-450); RBC 4.59 m/uL (3.80-5.40); RDW 15.1 % (11.5-15.5); WBC 9.7 k/uL (3.8-10.6)
[2018-02-28 15:08] LABS: Calcium 9.9 mg/dL (8.4-10.2); Potassium 4.1 mmol/L (3.5-5.1)
[2018-02-28] MEDS: LIDOCAINE 1% INJ 10MG/ML (20 ML MDV) SQ ONE ×2 (17:14→17:25)
[~2018-02-28 18:20] MED LIST: IOPAMIDOL-250 50ML BTL IV ONE; LIDOCAINE 1% INJ 10MG/ML (20 ML MDV) ONE; MIDAZOLAM 2 MG/2 ML VIAL IV PRN; MIDAZOLAM 2 MG/2 ML VIAL ONE; PROPOFOL 10 MG/ML 20 ML VIAL IV ONE; SODIUM CHLORIDE 0.9% 1,000 ML IV ONE; ceFAZolin 1,000 MG in SODIUM CHLORIDE 0.9% IRRIGATIO 250 ML IRRIGATION ONE; ceFAZolin IN SWFI 2 GM/20 ML SYRINGE IVP ONE; fentaNYL (PF) 50 MCG/ML 2 ML AMP IV PRN
[2018-02-28] MEDS ORDERED: HYDROcodone/APAP 5-325MG 1 EACH TAB PO PRN (18:33)
[2018-02-28] MEDS ORDERED: ACETAMINOPHEN TAB 325 MG TAB PO PRN (18:33)
--- NOTE | 2018-02-28 18:47 | P.PCN ---
Preoperative Diagnosis: DFT testing and anesthesia Shock and T wave protocol was used to induce ventricular fibrillation. This was adequately and appropriately detected at least sensitivity with 3 dropouts and successfully internally defibrillated with a 20 J shock A 10 J shock was unsuccessful no post shock noise Charge time Shocking impedance Device was then programmed to 2 zones of therapy with appropriate antitachycardia pacing cardioversion and defibrillation shock at 20 J
--- NOTE | 2018-02-28 19:12 | LTR ---
February 28, [address] Bravo: I had the pleasure of seeing Melina Sifuentes in electrophysiology followup. Melina has severe ischemic cardiomyopathy. Patient has not improved despite revascularization and appropriate medical treatment for the last 3 months. Her ejection fraction remains well below 30%. She underwent single-chamber ICD implantation for primary prevention of sudden cardiac and will be discharged home tomorrow after completion of IV antibiotics. Thank you for entrusting us in the care of your patient. Warm regards, Sincerely, REGGIE / AKI: [id number] /
--- NOTE | 2018-02-28 19:12 | CE ---
CARDIAC ELECTROPHYSIOLOGY REPORT Melina Sifuentes is an 82-year-old female who has severe ischemic cardiomyopathy, who which has not improved. Her ejection fraction was well below 30% despite appropriate medical treatment and revascularization and coronary artery bypass grafting for greater than 3 months. She is brought in for single-chamber ICD implant. PROCEDURE: Patient brought to the EP lab in a fasting state. Written informed consent was obtained prior to the procedure. The left shoulder area was prepped and draped as per protocol. 1% lidocaine was used for local anesthesia. A 4 cm incision was made parallel to the deltopectoral groove, about 1.5 cm medial to it. The incision was carried down to the level of the pectoralis muscle. A subfascial pocket was made. Hemostasis was assured. The left axillary vein was accessed at a single point and via an appropriately-sized introducer sheath, a [employer] model #6935M, 62 cm in length and serial number [id number] was implanted in the RV septum. The sensing was 9.3 mV, pacing threshold was 0.6 V at 0.5 milliseconds and pacing impedance was 711 ohms. The 10 V test negative. The lead was secured and secured to the underlying pectoralis fascia after giving it adequate heel. The pocket was irrigated with antibiotic solution. Leads connected to the generator ([employer]ia AF MRI VR SureScan, model number [id number] and serial number is [id number]). Leads and generator were then placed in subfascial pocket. The wound was closed in 3 layers and dressed per protocol. RESULTS: Successful single-chamber ICD implantation for primary prevention of sudden cardiac. PLAN: Chest x-ray, IV antibiotics, device interrogation tomorrow. Continue maximum medical treatment. Follow up with Dr. VC Jin. MMVIRGILL / LJN: [id number] /
[2018-02-28] MEDS ORDERED: ACETAMINOPHEN IV (For NPO) 1,000 MG in EMPTY BAG 1 BAG IVPB ONE (19:30)
[2018-02-28] MEDS: SODIUM CHLORIDE 0.9% 1,000 ML IV SCH ×2 (19:36)
[2018-02-28] MEDS: LACTATED RINGERS 1,000 ML IV SCH (19:36)
[2018-02-28] MEDS: ATORVASTATIN 40 MG TAB PO SCH (20:51)
[2018-02-28] MEDS: APIXABAN 2.5 MG TABLET PO SCH (20:51)
[2018-02-28] MEDS: ASPIRIN 81 MG PO SCH (20:51)
[2018-02-28] MEDS: METOPROLOL TARTRATE 25 MG TAB PO SCH (20:51)
[2018-02-28] MEDS: ceFAZolin IN SWFI 2 GM/20 ML SYRINGE IVP SCH (23:03)
[2018-03-01] MEDS: SODIUM CHLORIDE 0.9% 1,000 ML IV SCH ×2 (03:49)
[2018-03-01] MEDS: LACTATED RINGERS 1,000 ML IV SCH (05:45)
[2018-03-01] MEDS: ceFAZolin IN SWFI 2 GM/20 ML SYRINGE IVP SCH ×3 (05:45→18:16)
--- NOTE | 2018-03-01 08:31 | P.DS ---
Providers Attending physician: Domo Vázquez Primary care physician: Lawrence Landeros [facility] Course: Patient is doing well. She is tender at the ICD site but there is no hematoma minimal bruising She denies any chest pain no breathing trouble On examination She's afebrile 97.5F, blood pressure 133/64 mmHg, pulse rate in the 60s Breath sounds are clear no rhonchi no crackles Heart sounds S1 and S2 are normal no murmurs or gallops no rub No lower extremity edema Impression Severe ischemic cardiomyopathy with class II CHF systolic dysfunction Status post single chamber ICD implant for primary prevention of sudden cardiac ICD interrogation today is within normal limits Discharge home after completion of IV antibiotics and chest x-ray report No changes in medications Follow-up with Dr. Jin as scheduled and follow-up in the device clinic in 5 days Patient Condition at Discharge: Stable Plan - Discharge Summary Discharge Rx Participant: Yes New Discharge Prescriptions: No Action RX: Apixaban [Eliquis] 2.5 mg PO BID tablet RX: Metoprolol Tartrate [Lopressor] 25 mg PO BID tab RX: Furosemide [Lasix] 40 mg PO DAILY tab Acetaminophen [Tylenol Arthritis] 650 mg PO TID PRN PRN Reason: Pain Multivitamins, Thera [Multivitamin (formulary)] 1 tab PO DAILY RX: Atorvastatin [Lipitor] 40 mg PO HS RX: Spironolactone [Aldactone] 25 mg PO DAILY Lansoprazole [Prevacid] 30 mg PO DAILY ALPRAZolam [Xanax] 0.25 mg PO DAILY PRN PRN Reason: Anxiety RX: Aspirin 81 mg PO HS Discharge Medication List RX: Apixaban [Eliquis] 2.5 mg PO BID tablet 12/09/17 [Rx] RX: Metoprolol Tartrate [Lopressor] 25 mg PO BID tab 12/09/17 [Rx] RX: Furosemide [Lasix] 40 mg PO DAILY tab 12/10/17 [Rx] Acetaminophen [Tylenol Arthritis] 650 mg PO TID PRN 01/18/18 [History] Multivitamins, Thera [Multivitamin (formulary)] 1 tab PO DAILY 01/18/18 [History ] RX: Atorvastatin [Lipitor] 40 mg PO HS 01/18/18 [History] RX: Spironolactone [Aldactone] 25 mg PO DAILY 01/18/18 [History] ALPRAZolam [Xanax] 0.25 mg PO DAILY PRN 02/25/18 [History] Lansoprazole [Prevacid] 30 mg PO DAILY 02/25/18 [History] RX: Aspirin 81 mg PO HS 02/28/18 [History]
[2018-03-01] MEDS: FUROSEMIDE 40 MG TAB PO SCH (08:56)
[2018-03-01] MEDS: METOPROLOL TARTRATE 25 MG TAB PO SCH ×2 (08:56→20:46)
[2018-03-01] MEDS: SPIRONOLACTONE 25 MG TAB PO SCH (08:56)
[2018-03-01] MEDS: APIXABAN 2.5 MG TABLET PO SCH ×2 (08:56→20:46)
--- NOTE | 2018-03-01 09:49 | XR ---
EXAMINATION TYPE: XR chest 2V DATE OF EXAM: 03/01/2018 COMPARISON: 03/01/2019 HISTORY: Cardiac lead placement TECHNIQUE: Frontal and lateral views of the chest are obtained. FINDINGS: New single lead left-sided cardiac device is present with its ventricular lead oriented so mewhat anteriorly on the lateral image. Postoperative changes the chest are again noted. There is a new left-sided pneumothorax without mediastinal shift with an apical pleural separation me asurement of 2.3 cm estimated and overall volume of 24%. Pulmonary hyperinflation and chronic interst itial change are again seen. Osseous demineralization is present. IMPRESSION: New left-sided pneumothorax with an approximate volume of 24% and no current mediastinal shift. Findings indicating to the ordering physician's office at 8:34 AM, 9:04 AM and once again at 9:38. Fi ndings were relayed to the Nurse Practitioner (Madeleine) at 9:[address] Huffman as the ordering physician was unavailable. The physician is aware of the findings.
[2018-03-01] MEDS: ALPRAZolam 0.25 MG TAB PO PRN ×2 (10:58→20:46)
--- NOTE | 2018-03-01 11:45 | P.PN ---
Subjective Principal diagnosis: Chest x-ray reviewed. Discussed with radiology Pneumothorax noted 24% Patient independently stable Was not short of breath Pulse ox 94% on room air Discussed with CT surgery team as well as pulmonary medicine team Further management per their recommendations Continue IV antibiotics Cancel discharge Objective - Vital Signs Vital signs: Vital Signs Temp 97.5 F L 03/01/18 08:00 Pulse 63 03/01/18 08:00 Resp 16 03/01/18 04:00 BP 133/64 03/01/18 08:00 Pulse Ox 94 L 03/01/18 08:00 Intake & Output 02/28/18 03/01/18 03/01/18 18:59 06:59 18:59 Intake Total 0 25 Balance 0 25 Weight 53.07 kg Intake: IV 0 25 Other: # Voids 1 - Labs CBC & Chem 7: 02/28/18 14:50 02/28/18 14:50 Labs: Abnormal Lab Results - Last 24 Hours (Table) 02/28/18 Range/Units 14:50 BUN 26 H (7-17) mg/dL Creatinine 1.41 H (0.52-1.04) mg/dL
--- NOTE | 2018-03-01 17:13 | P.GSCN ---
History of Present Illness Consult date: 03/01/18 Reason for Consult: Left-sided spontaneous pneumothorax post ICD placement, treatment recommendations. Requesting physician: Domo Vázquez History of present illness: This is an 82-year-old lady who follows with Dr. Landeros on an outpatient basis. She is status post urgent coronary artery bypass grafting in November 2017 with subsequent ejection fraction 20-25%. She was discharged home with a LifeVest. Despite maximum medical therapy, her ejection fraction was still below 30% 3 months post revascularization. She presented to [facility] yesterday for placement of a single-chamber ICD. Follow-up x-ray this morning demonstrated an apical as well as lateral wall pneumothorax with no tracheal deviation. She was in no respiratory distress whatsoever. Cardiothoracic surgery was consulted regarding treatment recommendations for this pneumothorax. Review of Systems 14 point review of systems was completed and was negative except as noted. - Cardiovascular Cardiovascular Comment(s): Soreness over ICD site. Past Medical History Past Medical History: Coronary Artery Disease (CAD), Cancer, Heart Failure, Hyperlipidemia, Myocardial Infarction (IN), Osteoarthritis (OA), Pneumonia Additional Past Medical History / Comment(s): See Dr. Vázquez's H & P. Hx. of Basal cell cancer on legs, arms & face. R shoulder pain. Patient wears a Lifevest for her irreg. H/R. Last Myocardial Infarction Date:: unknown History of Any Multi-Drug Resistant Organisms: None Reported Past Surgical History: AICD, Coronary Bypass/CABG, Tonsillectomy Additional Past Surgical History / Comment(s): Open heart surgery Nov 2017. Surgery on her breast for a very small lump when she was in her 20's.( ? side). Cortisone inj. to R shoulder. Past Anesthesia/Blood Transfusion Reactions: No Reported Reaction Past Psychological History: Anxiety Smoking Status: Former smoker Past Alcohol Use History: None Reported Past Drug Use History: None Reported - Past Family History Mother Family Medical History: No Reported History Medications and Allergies Home Medications Medication Instructions Recorded Confirmed Type Apixaban [Eliquis] 2.5 mg PO BID tablet 12/09/17 02/28/18 Rx Metoprolol Tartrate [Lopressor] 25 mg PO BID tab 12/09/17 02/28/18 Rx Furosemide [Lasix] 40 mg PO DAILY tab 12/10/17 02/28/18 Rx Acetaminophen [Tylenol Arthritis] 650 mg PO TID PRN 01/18/18 02/28/18 History Atorvastatin [Lipitor] 40 mg PO HS 01/18/18 02/28/18 History Multivitamins, Thera [Multivitamin 1 tab PO DAILY 01/18/18 02/28/18 History (formulary)] Spironolactone [Aldactone] 25 mg PO DAILY 01/18/18 02/28/18 History ALPRAZolam [Xanax] 0.25 mg PO DAILY PRN 02/25/18 02/28/18 History Lansoprazole [Prevacid] 30 mg PO DAILY 02/25/18 02/28/18 History Aspirin 81 mg PO HS 02/28/18 02/28/18 History Allergies Allergy/AdvReac Type Severity Reaction Status Date / Time No Known Allergies Allergy Verified 02/25/18 08:23 Surgical - Exam Vital Signs Temp Pulse Resp BP Pulse Ox 97.7 F 66 16 151/68 97 02/28/18 14:50 02/28/18 14:50 02/28/18 14:50 02/28/18 14:50 02/28/18 14:50 - General well developed, well nourished, no distress, no pain - Eyes normal ocular movement - ENT no hearing loss - Neck no masses, no bruits, trachea midline - Respiratory Lungs sounds clear bilaterally. Respirations even, nonlabored. Currently on room air with oxygen saturation 96%. - Cardiovascular S1, S2 present. Regular rate and rhythm. Palpable peripheral pulses bilaterally. No edema present. - Abdomen Abdomen: soft, non tender, bowel sounds - Genitourinary Deferred - Rectum Deferred - Integumentary Skin is warm and dry with evidence of good perfusion. Left anterior chest wall ICD site covered with dry intact dressing. Sternal incision well healed. - Neurologic normal coordination, normal sensation - Musculoskeletal normal gait, normal posture - Psychiatric oriented to time, oriented to person, oriented to place, speech is normal, memory intact Results - Labs 02/28/18 14:50 02/28/18 14:50 - Imaging Chest x-ray: report reviewed, image reviewed Assessment and Plan (1) Pneumothorax, left Current Visit: Yes Status: Acute Code(s): J93.9 - PNEUMOTHORAX, UNSPECIFIED SNOMED Code(s): 063658653 (2) Status post aorto-coronary artery bypass graft Current Visit: Yes Status: Chronic Code(s): Z95.1 - PRESENCE OF AORTOCORONARY BYPASS GRAFT SNOMED Code(s): 042569879 (3) Systolic heart failure Current Visit: Yes Status: Chronic Code(s): I50.20 - UNSPECIFIED SYSTOLIC ( CONGESTIVE) HEART FAILURE SNOMED Code(s): 927283331 (4) History of anxiety Current Visit: Yes Status: Chronic Code(s): Z86.59 - PERSONAL HISTORY OF OTHER MENTAL AND BEHAVIORAL DISORDERS SNOMED Code(s): 906698710 Plan: The patient was seen and examined at the bedside. Chart/diagnostics were reviewed in detail with Dr. Kovacs. Our recommendations at this time are to place the patient on 8 L high flow nasal cannula around the clock to aid in re- expanding the lung. We will obtain a chest x-ray in the morning and make further recommendations dependent on those results. This plan was discussed with the patient, her granddaughter Cinthia, and Dr. Vázquez and all are in agreement. Thank you Dr. Vázquez for this consult. We look forward to working with you in the care of this patient. Time with Patient: Greater than 30
[2018-03-01] MEDS: ASPIRIN 81 MG PO SCH (20:46)
[2018-03-01] MEDS: ATORVASTATIN 40 MG TAB PO SCH (20:46)
--- NOTE | 2018-03-02 07:58 | P.PN ---
Subjective Patient appears comfortable. Does not appear to be short of breath. No change from yesterday in terms of her clinical symptoms. She barely has any symptoms. Mild discomfort when she takes a deep breath on the left side but she is not short of breath. I examined her yesterday a few times in the evening and she was quite stable. She was seen by CT surgery On examination she is afebrile 98.3F pulse rate in the 60s, blood pressure 118/ 55 mmHg Heart sounds S1 and S2 are soft no murmurs or gallops no rub Breath sounds are reduced on the left side Abdomen is soft, nontender Extremities are warm no edema ICD site is healing well no hematoma, minimal bruising Impression Severe ischemic cardio myopathy Pneumothorax, minimally symptomatic No reduction in the size of the pneumothorax today, but patient is stable from hemodynamic standpoint Awaiting CT surgery input today Objective - Vital Signs Vital signs: Vital Signs Temp 98.3 F 03/02/18 03:40 Pulse 57 L 03/02/18 04:00 Resp 16 03/02/18 04:00 BP 118/55 03/02/18 03:40 Pulse Ox 100 03/02/18 03:40 Intake & Output 03/01/18 03/02/18 03/02/18 18:59 06:59 18:59 Intake Total 836 Balance 836 Intake: Oral 836 Other: # Voids 2 - Labs CBC & Chem 7: 02/28/18 14:50 02/28/18 14:50
--- NOTE | 2018-03-02 08:21 | XR ---
EXAMINATION TYPE: XR chest 2V DATE OF EXAM: 03/02/2018 COMPARISON: 03/01/2018 HISTORY: 82-year-old female follow-up pneumothorax TECHNIQUE: Frontal and lateral views FINDINGS: Left anterior chest wall ICD generator with right ventricular lead. Median sternotomy wires post-CABG clips. Hyperinflation with interstitial prominence. Small left pleural effusion. Redemonstrated left pneumothorax, this is small to moderate in size. Apical component measures 3.1 cm versus 2.3 cm, pre viously and the basilar component measures 1.2 cm versus 9 mm, previously. IMPRESSION: 1. COPD. 2. Left-sided hydropneumothorax. The pneumothorax component is [id number] in size and is enlar ging (3.1 cm versus 2.3 cm, previously, at the apex).
[2018-03-02 08:51] LABS: Basophils % (A) 1 %; Eosinophils # (A) 0.4 k/uL (0-0.7); Eosinophils % (A) 4 %; HCT 36.7 % (34.0-46.0); HGB 11.6 gm/dL (11.4-16.0); Hypochromasia Slight; Lymphocytes # (A) 1.2 k/uL (1.0-4.8); Lymphocytes % (A) 13 %; MCH 26.3 pg (25.0-35.0); MCHC 31.7 g/dL (31.0-37.0); MCV 83.1 fL (80.0-100.0); Mean Platelet Volume 7.2; Monocytes # (A) 0.6 k/uL (0-1.0); Monocytes % (A) 6 %; Neutrophils % (A) 75 %; Platelet Count 308 k/uL (150-450); RBC 4.41 m/uL (3.80-5.40); RDW 15.3 % (11.5-15.5); WBC 9.4 k/uL (3.8-10.6)
[2018-03-02 09:01] LABS: Calcium 9.1 mg/dL (8.4-10.2); Potassium 3.9 mmol/L (3.5-5.1)
[2018-03-02] MEDS: LACTATED RINGERS 1,000 ML IV SCH (09:51)
[2018-03-02] MEDS: SODIUM CHLORIDE 0.9% 1,000 ML IV SCH ×3 (09:51→21:26)
[2018-03-02] MEDS: FUROSEMIDE 40 MG TAB PO SCH (10:00)
[2018-03-02] MEDS: SPIRONOLACTONE 25 MG TAB PO SCH (10:00)
[2018-03-02] MEDS: METOPROLOL TARTRATE 25 MG TAB PO SCH ×2 (10:00→22:01)
[2018-03-02] MEDS: APIXABAN 2.5 MG TABLET PO SCH ×2 (10:00→22:00)
--- NOTE | 2018-03-02 11:15 | P.PN ---
Subjective Progress Note Date: 03/02/18 Principal diagnosis: Left-sided spontaneous pneumothorax post ICD placement. Previous medical history of urgent CABG, coronary artery disease, myocardial infarction, chronic systolic heart failure, hyperlipidemia, skin cancer, previous tobacco dependence. POD #2 placement of a single-chamber ICD for primary prevention of sudden cardiac Patient's currently sitting up in the chair in no acute distress. Denies pain, shortness of breath. Ambulating in her room. No new complaints. Objective - Vital Signs Vital signs: Vital Signs Temp 97.6 F 03/02/18 07:45 Pulse 63 03/02/18 07:45 Resp 18 03/02/18 07:45 BP 109/49 03/02/18 07:45 Pulse Ox 100 03/02/18 07:45 Intake & Output 03/01/18 03/02/18 03/02/18 18:59 06:59 18:59 Intake Total 836 Balance 836 Intake: Oral 836 Other: # Voids 2 - Constitutional General appearance: Present: cooperative, no acute distress - Respiratory Details: Lungs sounds clear bilaterally. Respirations even, nonlabored. Currently on 8 L high flow nasal cannula with oxygen saturation 100%. - Cardiovascular Details: S1, S2 present. Regular rate and rhythm. Palpable peripheral pulses bilaterally. No edema present. No calf pain or tenderness noted. - Gastrointestinal Gastrointestinal Comment(s): Abdomen soft, nontender, nondistended. Active bowel sounds 4 quadrants. Tolerating diet. - Genitourinary Genitourinary Comment(s): Continues to void clear, yellow urine. - Integumentary Integumentary Comment(s): Skin is warm and dry with evidence of good perfusion. Left anterior chest wall ICD site covered with dry intact dressing. Sternal incision well healed. - Neurologic Neurologic: Present: CNII-XII intact - Musculoskeletal Musculoskeletal: Present: gait normal, strength equal bilaterally - Psychiatric Psychiatric: Present: A&O x's 3, appropriate affect, intact judgment & insight - Allied health notes Allied health notes reviewed: nursing - Labs CBC & Chem 7: 03/02/18 08:15 03/02/18 08:15 Labs: Abnormal Lab Results - Last 24 Hours (Table) 03/02/18 Range/Units 08:15 BUN 21 H (7-17) mg/dL Creatinine 1.28 H (0.52-1.04) mg/dL - Imaging and Cardiology Chest x-ray: report reviewed, image reviewed Assessment and Plan (1) Pneumothorax, left Current Visit: Yes Status: Acute Code(s): J93.9 - PNEUMOTHORAX, UNSPECIFIED SNOMED Code(s): 457960262 (2) Status post aorto-coronary artery bypass graft Current Visit: Yes Status: Chronic Code(s): Z95.1 - PRESENCE OF AORTOCORONARY BYPASS GRAFT SNOMED Code(s): 081772394 (3) Systolic heart failure Current Visit: Yes Status: Chronic Code(s): I50.20 - UNSPECIFIED SYSTOLIC ( CONGESTIVE) HEART FAILURE SNOMED Code(s): 935198863 (4) History of anxiety Current Visit: Yes Status: Chronic Code(s): Z86.59 - PERSONAL HISTORY OF OTHER MENTAL AND BEHAVIORAL DISORDERS SNOMED Code(s): 468375524 Plan: Chest x-ray this morning was reviewed. Apical and lateral wall pneumothorax appears slightly larger. Patient is in no distress. Thoravent would be difficult secondary to location of ICD device, patient very thin with small chest cavity. As she is in no distress we do not wish to place a chest tube at this time, but would rather monitor patient for another day. This was discussed in detail with Dr. Vázquez, the patient, and her granddaughter Cinthia, and all are in agreement. Patient will be changed to inpatient status and transferred to [facility] care per Dr. Vázquez's recommendations. We will obtain another chest x-ray in the morning and make further recommendations at that point. Continue medical management per primary care services. Time with Patient: Greater than 30
[2018-03-02] MEDS: ATORVASTATIN 40 MG TAB PO SCH (22:00)
[2018-03-02] MEDS: ASPIRIN 81 MG PO SCH (22:03)
[2018-03-02] MEDS: ALPRAZolam 0.25 MG TAB PO PRN (22:06)
--- NOTE | 2018-03-02 22:41 | CONS ---
CONSULTATION This is a consultation being done at the request of Dr. Domo Vázquez. DATE OF SERVICE: Date of dictation and patient seen on 03/02/2018. HISTORY OF PRESENT ILLNESS: The patient is a pleasant 82-year-old white female. She apparently had developed a spontaneous pneumothorax after placement of the ICD by Dr. Vázquez. She was originally slotted to go home, but on chest x-ray revealed a approximately a 20 to 25% pneumothorax. She had recently had a myocardial infarction and undergone a coronary artery bypass grafting in November of 2017. She was in for routine single-chamber ICD placement which seemed to have no problem. She denies any shortness of breath or any chest pain, and does not appear to be symptomatic from her current problem. She is in no respiratory distress and she is currently wearing oxygen at 2 L nasal cannula. PAST MEDICAL HISTORY: Significant for coronary artery disease, cancer, hyperlipidemia, myocardial infarction, osteoarthritis, pneumonia, chronic congestive heart failure, also basal cell carcinoma. PAST SURGICAL HISTORY: Is significant for coronary artery bypass graft, tonsils and adenoids, and the insertion of the single-chamber ICD. REVIEW OF SYSTEMS: She states that her shortness of breath has improved over the past month. She is a former smoker. Denies any recent tobacco or alcohol. FAMILY HISTORY: Her family history is unremarkable. She denies any cough, congestion, shortness of breath, diarrhea, constipation, stroke or paralysis. She denies any rashes. MEDICATIONS: Eliquis, Lopressor, Lasix, Lipitor, Xanax, Aldactone, Prevacid, aspirin. PHYSICAL EXAM: Patient is alert, oriented x3. HEENT: Normocephalic and atraumatic with normal distribution of hair. Chest: Midline incision is healing well without evidence of induration or erythema. Lungs diminished on the left with some crackles in the base. NECK: Supple. No JVD. No trachea shift. EXTREMITIES: No cyanosis, clubbing or jaundice. Positive evidence of distal osteoarthritis in her fingers. IMPRESSIONS: 1. Left pneumothorax. 2. Post insertion of a single-chamber ICD device. 3. Coronary artery disease post coronary artery bypass graft. 4. Chronic systolic congestive heart failure. 5. Anxiety disorder, generalized. 6. Chronic kidney disease stage 2. PLAN: Cardiology and surgical evaluation for possible chest tube at current time they have recommended the patient be placed on a high-flow 8 L oxygen to see if she will expand the lung. Chest x-ray will be obtained in the morning. The patient is very asymptomatic from this current treatment. Plan continue current recommendations. Thank you for allowing me to participate in this patient's care. REGGIE / AKI: [id number] /
[2018-03-03] MEDS: LACTATED RINGERS 1,000 ML IV SCH (06:19)
[2018-03-03 06:33] LABS: Basophils # (A) 0.1 k/uL (0-0.2); Basophils % (A) 1 %; Eosinophils # (A) 0.6 k/uL (0-0.7); Eosinophils % (A) 6 %; HCT 37.1 % (34.0-46.0); HGB 11.9 gm/dL (11.4-16.0); Hypochromasia Slight; Lymphocytes # (A) 1.5 k/uL (1.0-4.8); Lymphocytes % (A) 17 %; MCH 26.9 pg (25.0-35.0); MCV 84.1 fL (80.0-100.0); Mean Platelet Volume 6.4; Monocytes # (A) 0.6 k/uL (0-1.0); Monocytes % (A) 7 %; Neutrophils # (A) 6.2 k/uL (1.3-7.7); Neutrophils % (A) 68 %; Platelet Count 259 k/uL (150-450); RBC 4.42 m/uL (3.80-5.40); RDW 15.4 % (11.5-15.5); WBC 9.1 k/uL (3.8-10.6)
[2018-03-03 06:54] LABS: Calcium 9.1 mg/dL (8.4-10.2); Potassium 4.3 mmol/L (3.5-5.1)
--- NOTE | 2018-03-03 07:30 | XR ---
EXAMINATION TYPE: XR chest 2V DATE OF EXAM: 03/03/2018 COMPARISON: Chest x-ray from yesterday and older studies. HISTORY: Pneumothorax from defibrillator placement progress study. TECHNIQUE: Frontal and lateral views of the chest are obtained. FINDINGS: Slight sternal wires and mediastinal clips as well as cardiac closure device are all redem onstrated. There is persistent cardiomegaly with single lead pacemaker/AICD. There is persistent smal l left pleural effusion. There is background chronic emphysematous change. There is persistent small to moderate-sized left-sided pneumothorax with apical and basilar lateral component. Basilar lateral component is slightly larger measuring up to 2.4 cm on current study. There is probable medial compon ent with lucency adjacent to the ascending aorta redemonstrated. No mediastinal shift is seen. There is persistent left basilar scarring and/or atelectasis. IMPRESSION: Small to moderate-sized left pneumothorax is stable or slightly larger in size. Backgrou nd chronic emphysematous change with small left pleural fluid and left basilar scarring and/or atelec tatic change all redemonstrated..
[2018-03-03] MEDS: ASPIRIN 81 MG PO SCH (08:00)
[2018-03-03] MEDS: APIXABAN 2.5 MG TABLET PO SCH (08:00)
[2018-03-03] MEDS: FUROSEMIDE 40 MG TAB PO SCH (08:01)
[2018-03-03] MEDS: SPIRONOLACTONE 25 MG TAB PO SCH (08:01)
[2018-03-03] MEDS: METOPROLOL TARTRATE 25 MG TAB PO SCH (08:01)
--- NOTE | 2018-03-03 08:48 | P.PN ---
Subjective Progress Note Date: 03/03/18 Principal diagnosis: Left-sided spontaneous pneumothorax post ICD placement. Previous medical history of urgent CABG, coronary artery disease, myocardial infarction, chronic systolic heart failure, hyperlipidemia, skin cancer, previous tobacco dependence. POD #3 placement of a single-chamber ICD for primary prevention of sudden cardiac Patient's currently sitting up in bed in no acute distress. Denies pain, shortness of breath. Ambulating in her room. No new complaints. Objective - Vital Signs Vital signs: Vital Signs Temp 96.8 F L 03/03/18 08:25 Pulse 68 03/03/18 08:26 Resp 18 03/03/18 08:26 BP 120/57 03/03/18 08:25 Pulse Ox 100 03/03/18 08:25 Intake & Output 03/02/18 03/03/18 03/03/18 18:59 06:59 18:59 Intake Total 240 10 Balance 240 10 Intake: IV 10 0.9 10 Oral 240 Other: Voiding Method Toilet Toilet # Voids 1 - Constitutional General appearance: Present: cooperative, no acute distress - Respiratory Details: Lungs sounds clear bilaterally, diminished on the left. Respirations even, nonlabored. Currently on 8 L high flow nasal cannula with oxygen saturation 100 %. Only able to achieve 500 mL on her incentive spirometry. - Cardiovascular Details: S1, S2 present. Regular rate and rhythm. Palpable peripheral pulses bilaterally. No edema present. No calf pain or tenderness noted. - Gastrointestinal Gastrointestinal Comment(s): Abdomen soft, nontender, nondistended. Active bowel sounds 4 quadrants. Tolerating diet. - Genitourinary Genitourinary Comment(s): Continues to void clear, yellow urine. - Integumentary Integumentary Comment(s): Skin is warm and dry with evidence of good perfusion. Left anterior chest wall ICD site covered with dry intact dressing. Sternal incision well healed. - Neurologic Neurologic: Present: CNII-XII intact - Musculoskeletal Musculoskeletal: Present: gait normal, strength equal bilaterally - Psychiatric Psychiatric: Present: A&O x's 3, appropriate affect, intact judgment & insight - Allied health notes Allied health notes reviewed: nursing - Labs CBC & Chem 7: 03/03/18 06:11 03/03/18 06:11 Labs: Abnormal Lab Results - Last 24 Hours (Table) 03/02/18 03/03/18 Range/Units 08:15 06:11 BUN 21 H 24 H (7-17) mg/dL Creatinine 1.28 H 1.10 H (0.52-1.04) mg/dL Glucose 101 H (74-99) mg/dL - Imaging and Cardiology Chest x-ray: report reviewed, image reviewed Assessment and Plan (1) Pneumothorax, left Current Visit: Yes Status: Acute Code(s): J93.9 - PNEUMOTHORAX, UNSPECIFIED SNOMED Code(s): 474275068 (2) Status post aorto-coronary artery bypass graft Current Visit: Yes Status: Chronic Code(s): Z95.1 - PRESENCE OF AORTOCORONARY BYPASS GRAFT SNOMED Code(s): 485449170 (3) Systolic heart failure Current Visit: Yes Status: Chronic Code(s): I50.20 - UNSPECIFIED SYSTOLIC ( CONGESTIVE) HEART FAILURE SNOMED Code(s): 194961652 (4) History of anxiety Current Visit: Yes Status: Chronic Code(s): Z86.59 - PERSONAL HISTORY OF OTHER MENTAL AND BEHAVIORAL DISORDERS SNOMED Code(s): 171122589 Plan: Chest x-ray this morning was reviewed. Apical pneumothorax appears stable, lateral wall pneumothorax appears slightly larger. Patient is in no distress. Recommendation at this time is to continue monitoring the patient. We will obtain a chest CT without contrast to evaluate the pneumothorax. Patient needs to ambulate in the hallway to determine if she should go home with oxygen. Okay to discharge to home once CT scan is obtained, patient needs to have chest x-ray on Wednesday, March 07, which we will review and make further recommendations at that time. It is likely that the patient's pneumothorax will resolve on its own without surgical intervention. This was discussed in detail with the patient and she is agreeable. Continue medical management per primary care services. Time with Patient: Greater than 30
[2018-03-03] MEDS ORDERED: POLYETHYLENE GLYCOL 3350 17 GM POWD.PACK PO SCH (09:00)
--- NOTE | 2018-03-03 09:37 | CT ---
EXAMINATION TYPE: CT chest wo con DATE OF EXAM: 03/03/2018 COMPARISON: NONE HISTORY: Left pneumothorax CT DLP: 420 mGycm. Automated Exposure Control for Dose Reduction was Utilized. TECHNIQUE: CT scan of the thorax is performed without IV contrast. FINDINGS: LUNGS: There is continued enlargement of the left sided pneumothorax with maximum pleural separation at the apex of 2.7 cm and left upper midlung of 2.6 cm (axial images) with lower left mid lung of 1.8 cm corresponding to a volume of 37.6%. There is no apparent current mediastinal shift and coronal im ages. Multifocal left lung atelectasis is noted. There is background moderate pulmonary emphysema and scattered granulomas. Trace pleural fluid indicates a hydropneumothorax. Right basilar linear pleura l parenchymal scarring is noted. The tracheobronchial tree is patent. MEDIASTINUM: Lack of IV contrast is noted to limit evaluation for mediastinal and especially hilar ad enopathy. There are no definitive greater than 1 cm hilar or mediastinal lymph nodes. Heart is mildly enlarged. No pericardial effusion. Extensive atherosclerosis of the thoracic aorta and coronary chacorta jessica are present with post CABG changes and left sided cardiac device. Ascending thoracic aorta is wi thin normal limits of size. OTHER: Incidentally noted bilateral subcentimeter thyroid hypoattenuated nodules are present. Benign calcified granulomas are seen within the hepatic and splenic parenchyma. Moderate multilevel degenera tive changes of the thoracic spine are noted. Median sternotomy wires are present. IMPRESSION: Continued enlargement of the known left-sided hydropneumothorax with current calculated v olume of 37.6%. This results in multifocal left-sided atelectasis although no appreciable mediastinal shift is seen at this time. A Baker level critical message alert has been initiated for Sowmya Knight via the [employer] tical Results System on 03/03/2018 9:35 AM. This message alert has been sent to Sowmya Knight via the pr eferences provided by the clinician for the receipt of Radiology Critical Findings. Message ID [id number].
[2018-03-03] MEDS: SODIUM CHLORIDE 0.9% 1,000 ML IV SCH (11:40)
--- NOTE | 2018-03-03 14:16 | P.DS ---
Providers Date of admission: 03/01/18 21:10 Attending physician: Domo Vázquez Primary care physician: [facility] Course: Patient is stable for cardio vascular standpoint sitting up comfortably in a chair. No respiratory distress no chest pain No improvement in the pneumothorax. CT surgery evaluate her yesterday and then once again today. Computed tomography scan was done and a demonstrates a 37% pneumothorax She is afebrile 97.0F pulse rate in 70s, respirations 18-20, blood pressure 105 /58 mmHg her percent oxygen saturation on high flow cannula Breath sounds are reduced on the left side Normal breath sounds on the right side no tracheal shift heart sounds are soft no murmurs no gallops no rub ICD site is healed well no hematoma minimal bruising Extremities warm no edema Impression Ischemic, cardio myopathy Status post single chamber ICD Left-sided pneumothorax CT surgery consulted They recommend the patient can go home today. She is stable in the last few days. Repeat imaging on Wednesday and further management thereafter. If there is no improvement in the pneumothorax then the chest tube will be placed This was discussed with the patient She understands that she if she has any worsening of symptoms she will come back to [facility] Her medications remain unchanged All her follow-ups have been arranged Patient Condition at Discharge: Stable Plan - Discharge Summary Discharge Rx Participant: Yes New Discharge Prescriptions: Continue RX: Apixaban [Eliquis] 2.5 mg PO BID tablet RX: Metoprolol Tartrate [Lopressor] 25 mg PO BID tab RX: Furosemide [Lasix] 40 mg PO DAILY tab RX: Acetaminophen [Tylenol Arthritis] 650 mg PO TID PRN PRN Reason: Pain RX: Multivitamins, Thera [Multivitamin (formulary)] 1 tab PO DAILY RX: Atorvastatin [Lipitor] 40 mg PO HS RX: Spironolactone [Aldactone] 25 mg PO DAILY RX: Lansoprazole [Prevacid] 30 mg PO DAILY RX: ALPRAZolam [Xanax] 0.25 mg PO DAILY PRN PRN Reason: Anxiety RX: Aspirin 81 mg PO HS Discharge Medication List RX: Apixaban [Eliquis] 2.5 mg PO BID tablet 12/09/17 [Rx] RX: Metoprolol Tartrate [Lopressor] 25 mg PO BID tab 12/09/17 [Rx] RX: Furosemide [Lasix] 40 mg PO DAILY tab 12/10/17 [Rx] RX: Acetaminophen [Tylenol Arthritis] 650 mg PO TID PRN 01/18/18 [History] RX: Atorvastatin [Lipitor] 40 mg PO HS 01/18/18 [History] RX: Multivitamins, Thera [Multivitamin (formulary)] 1 tab PO DAILY 01/18/18 [ History] RX: Spironolactone [Aldactone] 25 mg PO DAILY 01/18/18 [History] RX: ALPRAZolam [Xanax] 0.25 mg PO DAILY PRN 02/25/18 [History] RX: Lansoprazole [Prevacid] 30 mg PO DAILY 02/25/18 [History] RX: Aspirin 81 mg PO HS 02/28/18 [History] Follow up Appointment(s)/Referral(s): Aleshia Monsalve MD [STAFF PHYSICIAN] - As Needed (Will evaluate chest x-ray on Wednesday, March 07 and call patient for follow up appointment) Jose Jin MD [STAFF PHYSICIAN] - 03/09/18 2:45 pm (Device clinic and Dr. Jin) [facility] Visiting Nurse, [NON-STAFF] - Ambulatory/Diagnostic Orders: XR chest 2V [RAD.AMB] Time Frame: 03/07/18, Facility: [facility], Location: [facility] Patient Instructions/Handouts: Spontaneous Pneumothorax (DC), Implantable Cardioverter Defibrillator (DC)
[2018-03-03 15:35] VITALS: BP 102/56; PULSE 75; RESP 18; TEMP 97.3
--- NOTE | 2018-03-03 23:18 | PN ---
PROGRESS NOTE Melina Sifuentes is a pleasant 82-year-old white female who recently underwent placement of a left upper chest wall single-chamber ICD. She developed a pneumothorax post procedure, is doing quite well without any shortness of breath or chest pain. She is more worried about possible chest tube insertion because of the persistent pneumothorax. She denies any further complaints this morning. She is upright in bed and she is eating breakfast. PHYSICAL EXAM: She is alert and orientated x3. Her vital signs are stable. Her temperature is 96.8. She has no acute respiratory conditions. HEART: Regular rate and rhythm. LUNGS: Clear to auscultation. Midline sternotomy scar is intact and healed. NECK: Supple. No JVD. HEART: Regular rate and rhythm and rhythm. LUNGS: Clear to auscultation. NEUROLOGICAL: Cranial nerves 2-12 grossly intact. Skin is warm and dry to palpation. IMPRESSIONS: 1. Acute pneumothorax in the left upper side. 2. Status post coronary artery bypass graft. 3. Chronic systolic congestive heart failure. 4. Anxiety disorder. PLAN: Continue to follow persistent pneumothorax. Chest x-ray was just obtained, results are pending. Will continue to follow patient's progress until lungs are clear. She may require further intervention with expanding pneumothorax. However, she is very asymptomatic at this point. MMODL / IJN: [id number] /
== END 2018-03-03 16:55 | disposition home health service (06) | DRG 982 ==
LOC: CATHEP 18:20 → 3OBS 18:20 → CATHEP 03-01 21:10 → 6SEL 03-02 18:25
PROVIDERS: ADMIT Internal Medicine Clinical Cardiac Electrophysiology; ATTEND Internal Medicine Clinical Cardiac Electrophysiology
PROC: 0JH608Z Insertion of Defibrillator Generator into Chest Subcutaneous Tissue and Fascia, Open Approach (ICD-10-PCS; principal; 2018-02-28 16:30)
PROC: 02HK3KZ Insertion of Defibrillator Lead into Right Ventricle, Percutaneous Approach (ICD-10-PCS; 2018-02-28 16:30)
DX: J95.811 Postprocedural pneumothorax (principal); I50.22 Chronic systolic (congestive) heart failure; I25.5 Ischemic cardiomyopathy; E78.5 Hyperlipidemia, unspecified; F41.1 Generalized anxiety disorder; I25.10 Atherosclerotic heart disease of native coronary artery without angina pectoris; I25.2 Old myocardial infarction; N18.2 Chronic kidney disease, stage 2 (mild); M19.90 Unspecified osteoarthritis, unspecified site; I07.9 Rheumatic tricuspid valve disease, unspecified; I48.2 Chronic atrial fibrillation; R09.89 Other specified symptoms and signs involving the circulatory and respiratory systems; Z79.01 Long term (current) use of anticoagulants; Z79.82 Long term (current) use of aspirin; Z79.899 Other long term (current) drug therapy; Z95.1 Presence of aortocoronary bypass graft; Z87.891 Personal history of nicotine dependence; Z85.828 Personal history of other malignant neoplasm of skin; Z87.01 Personal history of pneumonia (recurrent); Z82.49 Family history of ischemic heart disease and other diseases of the circulatory system
CPT/HCPCS: 33249; 71046; 71250; 80048; 85025; 93641; 94760

== ENCOUNTER → 2018-03-07 | Outpatient (CLI) | payer MEDICARE ==
--- NOTE | 2018-03-07 14:34 | XR ---
EXAMINATION TYPE: XR chest 2V DATE OF EXAM: 03/07/2018 COMPARISON: Prior chest x-ray 03/03/2018 HISTORY: Pneumothorax TECHNIQUE: Frontal and lateral views of the chest are obtained. FINDINGS: Approximately 50% left-sided pneumothorax persists. There may be a reduction at the left l winnie base in the amount of pleural air. No evident tension. No other significant interval change. IMPRESSION: Stable to slightly improved left pneumothorax. Report relayed to Sowmya laughlinphbooker dorsey at the time of interpretation of this exam.
== END | disposition home or self-care (01) ==
LOC: RADXRMAIN 12:36
PROVIDERS: ATTEND Surgery
DX: J93.9 Pneumothorax, unspecified (principal)
CPT/HCPCS: 71046

== ENCOUNTER → 2018-04-04 | Outpatient (CLI) | payer MEDICARE ==
--- NOTE | 2018-04-04 12:23 | XR ---
EXAMINATION TYPE: XR chest 2V DATE OF EXAM: 04/04/2018 COMPARISON: 03/07/2018 HISTORY: 83-year-old female follow-up left-sided pneumothorax TECHNIQUE: Frontal and lateral views FINDINGS: Left anterior chest wall ICD generator with right ventricular lead. Median sternotomy wires are prese nt with post-CABG clips. Heart remains borderline enlarged. Mild elongation thoracic aorta without pr ostatic calcifications. Calcified granuloma left midlung and medial right base. Hyperinflation and mi ld diffuse interstitial prominence. Previous left-sided pneumothorax is no longer identified. No sign ificant pleural effusion. IMPRESSION: COPD and prior granulomatous disease. Previously seen left-sided pneumothorax no longer identified.
== END | disposition home or self-care (01) ==
LOC: RADXRMAIN 10:42
PROVIDERS: ATTEND Internal Medicine Cardiovascular Disease
DX: J44.9 Chronic obstructive pulmonary disease, unspecified (principal)
CPT/HCPCS: 71046

== ENCOUNTER → 2018-04-19 | Outpatient (CLI) | payer MEDICARE ==
[2018-04-19 12:58] LABS: Calcium 9.3 mg/dL (8.4-10.2); Potassium 4.2 mmol/L (3.5-5.1)
== END | disposition home or self-care (01) ==
LOC: LABWHC1 12:15
PROVIDERS: ATTEND Internal Medicine Cardiovascular Disease
DX: I50.9 Heart failure, unspecified (principal)
CPT/HCPCS: 36415; 80048; 83880

== ENCOUNTER → 2019-06-06 | Outpatient (CLI) | payer MEDICARE ==
[2019-06-06 18:36] LABS: Anion Gap 11.8 mmol/L (4.00-12.00); BUN/Creat Ratio 17.69 Ratio (12.00-20.00); Calcium 9.6 mg/dL (8.7-10.3); Carbon Dioxide 26.2 mmol/L (21.6-31.8); Non-African American GFR(CKD) 37.1 (60.0-200.0)
== END | disposition home or self-care (01) ==
LOC: LABWHC1 10:15
PROVIDERS: ATTEND Internal Medicine Cardiovascular Disease
DX: I50.9 Heart failure, unspecified (principal)
CPT/HCPCS: 36415; 80048

== ENCOUNTER 2022-02-20 12:03 | Day surgery (SDC) | payer MEDICARE ==
[2022-02-19 10:14] VITALS: BMI 20.3
[~2022-02-20 12:03] MED LIST changes: +ACETAMINOPHEN TAB 500 MG TAB PO PRN; +DEXAMETHASONE SOD PHOSPHATE 4 MG/ML 1 ML VIAL IV ONE; +HEPARIN SODIUM,PORCINE/PF 5,000 UNIT/0.5 ML SYRINGE SQ PRN; -IOPAMIDOL-250 50ML BTL IV ONE; +LACTATED RINGERS 1,000 ML IV SCH; -LIDOCAINE 1% INJ 10MG/ML (20 ML MDV) ONE; -MIDAZOLAM 2 MG/2 ML VIAL ONE; +ONDANSETRON 4 MG/2 ML VIAL IVP ONE; -PROPOFOL 10 MG/ML 20 ML VIAL IV ONE; -SODIUM CHLORIDE 0.9% 1,000 ML IV ONE; -ceFAZolin 1,000 MG in SODIUM CHLORIDE 0.9% IRRIGATIO 250 ML IRRIGATION ONE; -ceFAZolin IN SWFI 2 GM/20 ML SYRINGE IVP ONE; -fentaNYL (PF) 50 MCG/ML 2 ML AMP IV PRN
[2022-02-20] MEDS ORDERED: GLYCOPYRROLATE 0.2 MG/ML 2 ML VIAL ONE (13:45)
[2022-02-20] MEDS ORDERED: PROPOFOL 10 MG/ML 20 ML VIAL IV ONE (13:45)
[2022-02-20] MEDS ORDERED: LIDOCAINE 2% INJ 20 MG/ML (2 ML VIAL) ONE (13:45)
[2022-02-20] MEDS ORDERED: ROCURONIUM 10 MG/ML (5 ML VIAL) IV ONE (13:45)
[2022-02-20] MEDS ORDERED: fentaNYL (PF) 50 MCG/ML 2 ML AMP ONE (13:45)
[2022-02-20] MEDS ORDERED: SUCCINYLCHOLINE CHLORIDE 100 MG/5 ML SYR IV ONE (13:45)
[2022-02-20] MEDS ORDERED: NEOSTIGMINE 1 MG/ML 10 ML VIAL ONE (13:45)
[2022-02-20] MEDS ORDERED: BUPIVACAINE (PF) 0.25% 30 ML VIAL SQ ONE ×2 (13:55→14:09)
[2022-02-20] MEDS ORDERED: traMADol 50 MG TAB PO PRN (14:43)
--- NOTE | 2022-02-20 14:45 | P.OP ---
Date of Procedure: 02/20/22 Procedure(s) Performed: PREOPERATIVE DIAGNOSIS: Chronic cholecystitis/choledocholithiasis POSTOPERATIVE DIAGNOSIS: Same PROCEDURE: Laparoscopic cholecystectomy SURGEON: Tricia EBL: Minimal see anesthesia record ANESTHESIA: Gen. COMPLICATIONS: None OPERATIVE PROCEDURE: The patient was brought and placed on the operating room table in the supine position. The patient was placed under general anesthesia at that time. The abdomen was prepped and draped in the usual sterile fashion. A small vertical infraumbilical incision was made. The fascia was grasped with the Medardo forceps. The fascia was retracted anteriorly. The Veress needle was advanced into the peritoneal cavity. The saline drop test was normal. Insufflation took place up to 15 mmHg. A 5 mm optical trocar was advanced and the peritoneal cavity. 2 additional 5 mm trochars were placed in the right upper quadrant under direct visualization. A 12 mm trocar was advanced into the epigastric incision site. The gallbladder was retracted superiorly and laterally. The peritoneum overlying the infundibulum was bluntly dissected. The patient's cystic duct was visualized. The junction between the cystic duct common and hepatic duct was identified. The critical view of safety was achieved after blunt dissection. The cystic duct was then divided after placement of 3 12 mm clips on the patient's side and one on the specimen side. The cystic artery was identified and clipped as well. A small vessel was seen along the gallbladder fossa and clipped as well. The gallbladder was then removed from the liver bed using electrocautery. The gallbladder was then removed from the epigastric trocar site with an Endo Catch bag. The gallbladder fossa was irrigated with saline. There was no evidence of any bleeding or biliary drainage seen. The fascia at the 12 millimeter site was closed using a Praneeth-Giovanni 0 Vicryl stitch. The trochars were then removed. The skin at all 4 sites was closed using a 4-0 Monocryl stitch. Skin glue was utilized on the incision sites. At the end of this procedure the sponge and needle counts were correct. DISPOSITION: Stable to the recovery room
[2022-02-20] MEDS: HYDROmorphone 0.5 MG/0.5 ML SYRINGE IVP PRN ×2 (15:00→15:26)
[2022-02-20 15:09] VITALS: RESP 16; TEMP 98
[2022-02-20] MEDS ORDERED: SIMETHICONE 40 MG/0.6 ML DROPS 2,000 MG/30 ML BOTTLE PO PRN (15:17)
[2022-02-20] MEDS ORDERED: SIMETHICONE 40 MG/0.6 ML DROPS 2,000 MG/30 ML BOTTLE PO ONE (15:33)
[2022-02-20] MEDS ORDERED: IBUPROFEN 600 MG TAB PO SCH (16:00)
[2022-02-20 17:03] VITALS: BP 131/67; PULSE 80
[2022-02-20] MEDS ORDERED: ACETAMINOPHEN TAB 325 MG TAB PO SCH (18:00)
== END 2022-02-20 17:24 | disposition home or self-care (01) ==
LOC: OR 12:03
PROVIDERS: ATTEND Surgery
DX: K80.46 Calculus of bile duct with acute and chronic cholecystitis without obstruction (principal); I25.10 Atherosclerotic heart disease of native coronary artery without angina pectoris; I50.9 Heart failure, unspecified; I25.2 Old myocardial infarction; E78.5 Hyperlipidemia, unspecified; K21.9 Gastro-esophageal reflux disease without esophagitis; Z95.1 Presence of aortocoronary bypass graft; Z95.810 Presence of automatic (implantable) cardiac defibrillator; Z79.899 Other long term (current) drug therapy; Z79.01 Long term (current) use of anticoagulants; Z98.890 Other specified postprocedural states
CPT/HCPCS: 47562; 88304; J1100; J2710; J0690; J2405; J3010; J0330; J2704; J1170; J1644; J2001